=== PATIENT | female | born 1975 | race Caucasian/White ===

== ENCOUNTER 2017-06-11 03:37 | Inpatient (IN) | payer BC, OTHER ==
[~2017-06-11] VITALS: Ht 160 cm; Wt 71.7 kg
[~2017-06-11 03:37] MED LIST: HYDR1TAB PO; MPR22T TP; OMEP-10 PO; OXYC-12 PO; SULF1TAB35 PO
--- OUTSIDE RECORDS SUMMARY | 2017-06-11 03:44 | XMS REPORT ---
Author Author MARY Duran [facility] Address Unknown Care Team Providers Care Visual Merchandising Director Name Role Phone MARY Duran Unavailable PROBLEMS Unknown Problems ALLERGIES Substance Reaction Event Type Date Status N.K.D.A. Unknown Non Drug Allergy Aug, Unknown SOCIAL HISTORY No smoking Hx information available PLAN OF CARE Activity Details Follow Up prn Reason: VITAL SIGNS MEDICATIONS No Known Medications RESULTS No Results PROCEDURES Procedure Date Ordered Related Diagnosis Body Site LTD ORAL EVALUATION - PROBLEM FOCUS Aug 27, 2016 INTRAORL-PERIAPICAL 1 FILM [id number] Aug 27, 2016 Billing Notes on claim Aug 27, 2016 BITEWING - SINGLE FILM Aug 27, 2016 IMMUNIZATIONS No Known Immunizations
--- OUTSIDE RECORDS SUMMARY | 2017-06-11 03:44 | XMS REPORT ---
Author Author RUPERTO COOLEY Organization [facility] Address [address] [place] [address] Care Team Providers Care Cancer Program Coordinator Name Role Phone RUPERTO COOLEY Unavailable PROBLEMS Unknown Problems ALLERGIES Substance Reaction Event Type Date Status N.K.D.A. Unknown Non Drug Allergy Aug, Unknown SOCIAL HISTORY No smoking Hx information available PLAN OF CARE Activity Details Follow Up prn Reason: VITAL SIGNS Weight 161.2 lbs 2016-08-27 Temperature 96.9 degrees Fahrenheit 2016-08-27 Heart Rate 58 bpm 2016-08-27 Respiratory Rate 18 2016-08-27 Blood pressure systolic 112 mmHg 2016-08-27 Blood pressure diastolic 76 mmHg 2016-08-27 MEDICATIONS Medication Instructions Dosage Frequency Start Date End Date Duration Status Augmentin 875-125 MG Orally every 12 hrs 1 tablet 12h Aug, Sep, 10 day(s) Active Zyrtec Allergy 10 MG Orally Once a day 1 tablet 24h Aug, Sep, 30 day(s) Active Ibuprofen 200 MG Orally every 6 hrs 1 tablet as needed 6h Active Fluticasone Propionate 50 MCG/ACT Nasally Once a day 1 spray in each nostril 24h Aug, 30 day(s) Active RESULTS Name Result Date Reference Range STREP A (IN HOUSE) 2016-08-27 STREP A negative Control + Lot # [id number] Exp date PROCEDURES Procedure Date Ordered Related Diagnosis Body Site EAR LAVAGE 2016-08-27 N/A STREP A ASSAY W/OPTIC Aug 27, 2016 Office Visit, Est Pt., Level 3 Aug 27, 2016 EAR IRRIGATION Aug 27, 2016 IMMUNIZATIONS No Known Immunizations
--- OUTSIDE RECORDS SUMMARY | 2017-06-11 03:44 | XMS REPORT | Continuity of Care Document ---
Author Author [facility] Organization [facility] Address Unknown Phone Unavailable Allergies Medications Problems Procedures Results Encounters ACCT No. Visit Date/Time Discharge Status Pt. Type Provider Facility Loc./Unit Complaint [id number] 02/09/2014 17:00:00 2013 23:59:59 CLS Outpatient [id number] 09/12/2013 00:40:00 2013 13:20:00 DIS Inpatient
[2017-06-11] MEDS ORDERED: NS IV 1000 ML 1,000 ML IV ONE ×2 (04:04→05:51)
[2017-06-11] MEDS ORDERED: fentaNYL INJECTION 100 MCG/2 ML AMP IVP STA (04:04)
--- NOTE | 2017-06-11 04:13 | ED GI ---
General Chief Complaint: Abdominal/GI Problems Stated Complaint: SEVERE ABD PAIN Nursing Triage Note: ABDOMINAL PAIN, N/V X2HRS Sepsis Screen: No Definite Risk Source of Information: Patient, Other Exam Limitations: No Limitations History of Present Illness Time Seen By Provider: 04:00 Initial Comments Patient presents to ER by private conveyance with a significant other chief complaint of abdominal pain consistent with pancreatitis. She has a history of alcoholic pancreatitis. Her last drink was 9 months ago. She isn't a alcoholic. She does not know if she has any history of triglyceridemia. She does not take any medications nor have any other significant medical history. She has no allergies to any medications. She is having nausea and vomited 1 earlier. Caregiver relates that they recently moved here from [place] and do not have a primary care physician. She says that they used to just attend with the ER whenever she had these pancreatitis attacks.. Bout of pain and nausea came on late last night. However yesterday she was having some decreased appetite and twinge of discomfort in her left upper quadrant abdomen. Allergies and Home Medications Allergies Coded Allergies: No Known Drug Allergies (Verified , 12/18/09) Home Medications Hydrocodone/Acetaminophen 1 Each Tablet, 1-2 EA PO Q4H PRN for PAIN-MODERATE, # 60 Prescribed by: ROMAN GALDAMEZ on 06/13/17923 Ibuprofen 200 Mg Tablet, 600 MG PO Q8H PRN for PAIN-MILD, (Reported) TAKES 3 (200MG) TABLETS Polyethylene Glycol 3350 17 Gm Powd.pack, 17 GM PO Q4HR, #30 Prescribed by: ROMAN GALDAMEZ on 06/13/17923 Promethazine HCl 25 Mg Tablet, 25 MG PO Q6H PRN for NAUSEA/VOMITING, #30 Prescribed by: ROMAN GALDAMEZ on 06/13/17923 Review of Systems Constitutional: No chills, No fever EENTM: No Blurred Vision, No Double Vision Respiratory: Denies Cough, Denies Shortness of Air Cardiovascular: Denies Chest Pain, Denies Edema Gastrointestinal: See HPI, Abdominal Pain, Denies Constipated, Denies Diarrhea , Nausea, Vomiting Genitourinary: Denies Burning, Denies Discharge Musculoskeletal: No back pain, No joint pain Skin: No pruritus, No rash Psychiatric/Neurological: Denies Headache, Denies Numbness, Denies Paresthesia Past Zspchhu-Xsiyji-Tvwcyq Hx Patient Social History Alcohol Use: Denies Use Recreational Drug Use: No (10 yrs ago ago) Smoking Status: Never a Smoker 2nd Hand Smoke Exposure: No Recent Foreign Travel: No Contact w/Someone Who Travel: No Recent Infectious Disease Expo: No Recent Hopitalizations: No Immunizations Up To Date Tetanus Booster (TDap): Unknown Seasonal Allergies Seasonal Allergies: No Surgeries History of Surgeries: Yes Surgeries: Appendectomy Respiratory History of Respiratory Disorde: No Cardiovascular History of Cardiac Disorders: No Neurological History of Neurological Disord: No Reproductive System : No Hx Reproductive Disorders: No Genitourinary History of Genitourinary Disor: No Gastrointestinal History of Gastrointestinal Di: Yes Gastrointestinal Disorders: Pancreatitis Musculoskeletal History of Musculoskeletal Dis: No Endocrine History of Endocrine Disorders: No HEENT History of HEENT Disorders: No Cancer History of Cancer: No Psychosocial History of Psychiatric Problem: No Integumentary History of Skin or Integumenta: No Blood Transfusions History of Blood Disorders: No Family Medical History Family Medial History: Congestive heart failure 03 MOTHER (50 ) Family history: Cardiovascular disease 03 MOTHER (50 ) Family history: Coronary thrombosis 03 MOTHER (50 ) Family history: Diabetes mellitus 03 MOTHER (50 ) Family history: Hypertension 03 MOTHER (50 ) Hypercholesterolemia 03 MOTHER (50 ) Malignant neoplasm of lung 03 FATHER (70 ) Physical Exam Vital Signs VS - Last 72 Hours, by Label 06/11/17 03:48 Temp 97.2 Pulse 74 Resp 20 B/P (MAP) 143/95 Pulse Ox 97 O2 Delivery Room Air Capillary Refill : Less Than 3 Seconds General Appearance: WD/WN, moderate distress HEENT: PERRL/EOMI, pharynx normal Neck: non-tender, normal inspection Respiratory: chest non-tender, lungs clear, normal breath sounds Cardiovascular: normal peripheral pulses, regular rate, rhythm, no edema Peripheral Pulses: 2+ Radial Pulses (R), 2+ Radial Pulses (L) Gastrointestinal: normal bowel sounds, No distended, guarding, tenderness ( diffusely but mostly epigastric) Extremities: non-tender, normal inspection, no pedal edema, normal capillary refill Back: normal inspection, no CVA tenderness, no vertebral tenderness Neurologic/Psychiatric: alert, oriented x 3 Skin: normal color, warm/dry Focused Exam Evaluation Lactate Level Laboratory Tests 06/11/17 04:30: Lactic Acid Level 1.19 Lactic Acid Level Laboratory Tests Test 06/11/17 04:30 Lactic Acid Level 1.19 MMOL/L (0.50-2.00) Progress/Results/Core Measures Results/Orders Lab Results Laboratory Tests Test 06/11/17 04:30 Range/Units White Blood Count 16.6 H 4.3-11.0 10^3/uL Red Blood Count 5.23 4.35-5.85 10^6/uL Hemoglobin 16.3 H 11.5-16.0 G/DL Hematocrit 48 35-52 % Mean Corpuscular Volume 91 80-99 FL Mean Corpuscular Hemoglobin 31 25-34 PG Mean Corpuscular Hemoglobin Concent 34 32-36 G/DL Red Cell Distribution Width 12.6 10.0-14.5 % Platelet Count 322 130-400 10^3/uL Mean Platelet Volume 9.3 7.4-10.4 FL Neutrophils (%) (Auto) 83 H 42-75 % Lymphocytes (%) (Auto) 11 L 12-44 % Monocytes (%) (Auto) 5 0-12 % Eosinophils (%) (Auto) 1 0-10 % Basophils (%) (Auto) 1 0-10 % Neutrophils # (Auto) 13.8 H 1.8-7.8 X 10^3 Lymphocytes # (Auto) 1.8 1.0-4.0 X 10^3 Monocytes # (Auto) 0.8 0.0-1.0 X 10^3 Eosinophils # (Auto) 0.1 0.0-0.3 10^3/uL Basophils # (Auto) 0.1 0.0-0.1 10^3/uL Neutrophils % (Manual) 85 % Lymphocytes % (Manual) 6 % Monocytes % (Manual) 5 % Band Neutrophils 4 % Blood Morphology Comment NORMAL Sodium Level 140 135-145 MMOL/L Potassium Level 3.8 3.6-5.0 MMOL/L Chloride Level 108 H 98-107 MMOL/L Carbon Dioxide Level 17 L 21-32 MMOL/L Anion Gap 15 H 5-14 MMOL/L Blood Urea Nitrogen 14 7-18 MG/DL Creatinine 0.85 0.60-1.30 MG/DL Estimat Glomerular Filtration Rate > 60 BUN/Creatinine Ratio 16 Glucose Level 121 H 70-105 MG/DL Lactic Acid Level 1.19 0.50-2.00 MMOL/L Calcium Level 8.8 8.5-10.1 MG/DL Magnesium Level 2.3 1.8-2.4 MG/DL Total Bilirubin 0.8 0.1-1.0 MG/DL Aspartate Amino Transf (AST/SGOT) 26 5-34 U/L Alanine Aminotransferase (ALT/SGPT) 21 0-55 U/L Alkaline Phosphatase 44 40-136 U/L Total Protein 7.2 6.4-8.2 GM/DL Albumin 4.2 3.2-4.5 GM/DL Triglycerides Level 82 <150 MG/DL Lipase 4860 H 8-78 U/L Serum Alcohol < 10 <10 MG/DL My Orders Orders - ELOISETERESA Alcohol (06/11/17 04:04) Cbc With Automated Diff (06/11/17 04:04) Drug Screen Stat (Urine) (06/11/17 04:04) Hcg,Qualitative Urine (06/11/17 04:04) Lactic Acid Analyzer (06/11/17 04:04) Lipase (06/11/17 04:04) Magnesium (06/11/17 04:04) Ua Culture If Indicated (06/11/17 04:04) Saline Lock/Iv-Start (06/11/17 04:04) Fentanyl Injection (Sublimaze Injection (06/11/17 04:04) Ns Iv 1000 Ml (Sodium Chloride 0.9%) (06/11/17 04:04) Triglycerides (06/11/17 04:04) Ondansetron Injection (Zofran Injectio (06/11/17 04:15) Famotidine Injection (Pepcid Injection) (06/11/17 04:15) Manual Differential (06/11/17 04:30) Fentanyl Injection (Sublimaze Injection (06/11/17 05:00) Comprehensive Metabolic Panel (06/11/17 05:29) Fentanyl Injection (Sublimaze Injection (06/11/17 05:30) Promethazine Injection (Phenergan Injec (06/11/17 05:45) Medications Given in ED Vital Signs/I&O Vital Sign - Last 12Hours 06/11/17 03:48 Temp 97.2 Pulse 74 Resp 20 B/P (MAP) 143/95 Pulse Ox 97 O2 Delivery Room Air Blood Pressure Mean: 111 Progress Note : Time: 05:52 Progress Note Trying to get patient's pain and nausea under control and she is not willing to undergo a CT scan at this time as she does not want to lay still. This will not change her immediate management. We'll add another liter of fluid to her and get her admitted with some potent pain and nausea medicines and the inpatient team can consider doing imaging later if it is felt necessary for her pancreatitis. Diagnostic Imaging Diagonstic Imaging: CT Plain Films/CT/US/NM/MRI: abdomen, pelvis (with contrast) Departure Communication (Admissions) Time/Spoke to Admitting Phy: 06:01 Communication Discussed the patient's clinical exam, laboratory findings with Dr. Ford and the plan to give fluids and pain medicines admitted for pancreatitis. Impression Impression: Primary Impression: Acute pancreatitis Disposition: ADMITTED INPATIENT Condition: Stable Admissions Decision to Admit Reason: Admit from ER (General) Decision to Admit/Date: Jun 11, 2017 Time/Decision to Admit Time: 05:51 Departure-Patient Inst. Referrals: NO,LOCAL PHYSICIAN (PCP/Family) Primary Care Physician Scripts Promethazine HCl (Promethazine Tablet) 25 Mg Tablet 25 MG PO Q6H Y for NAUSEA/VOMITING, #30 TAB Prov: ROMAN GALDAMEZ MD 06/13/17 Hydrocodone/Acetaminophen (Hydrocodon-Acetaminoph 7.5-325) 1 Each Tablet 1-2 EA PO Q4H Y for PAIN-MODERATE, #60 TAB Prov: ROMAN GALDAMEZ MD 06/13/17 Polyethylene Glycol 3350 (Polyethylene Glycol 3350) 17 Gm Powd.pack 17 GM PO Q4HR, #30 PACKET Prov: ROMAN GALDAMEZ MD 06/13/17 Copy Copies To 1: VERONIKA FORD MD, TITUS J Jun 11, 2017 04:13
[2017-06-11] MEDS ORDERED: FAMOTIDINE 20MG/2ML IV (PEPCID) IVP ONE (04:15)
[2017-06-11] MEDS ORDERED: ONDANSETRON 4 MG/2 ML (SDV) Z0FRAN IVP ONE (04:15)
[2017-06-11 04:36] LABS: BASOPHILS # (AUTO) 0.1 10^3/uL (0.0-0.1); BASOPHILS % (AUTO) 1 % (0-10); EOSINOPHILS # (AUTO) 0.1 10^3/uL (0.0-0.3); EOSINOPHILS % (AUTO) 1 % (0-10); LYMPHOCYTES # (AUTO) 1.8 X 10^3 (1.0-4.0); LYMPHOCYTES % (AUTO) 11 % (12-44); MEAN CORPUSCULAR HEMOGLOBIN 31 PG (25-34); MEAN CORPUSCULAR HGB CONC 34 G/DL (32-36); MEAN CORPUSCULAR VOLUME 91 FL (80-99); MEAN PLATELET VOLUME 9.3 FL (7.4-10.4); MONOCYTES # (AUTO) 0.8 X 10^3 (0.0-1.0); MONOCYTES % (AUTO) 5 % (0-12); NEUTROPHILS # (AUTO) 13.8 X 10^3 (1.8-7.8); NEUTROPHILS % (AUTO) 83 % (42-75); PLATELET COUNT 322 10^3/uL (130-400); RED BLOOD COUNT 5.23 10^6/uL (4.35-5.85); RED CELL DISTRIBUTION WIDTH 12.6 % (10.0-14.5); WHITE BLOOD COUNT 16.6 10^3/uL (4.3-11.0)
[2017-06-11 04:55] LABS: ALCOHOL < 10 MG/DL (<10); MAGNESIUM 2.3 MG/DL (1.8-2.4); TRIGLYCERIDES 82 MG/DL (<150)
[2017-06-11 04:58] LABS: BAND NEUTROPHILS 4 %; LYMPHOCYTES % (MANUAL) 6 %; NEUTROPHILS % (MANUAL) 85 %
[2017-06-11] MEDS ORDERED: fentaNYL INJECTION 100 MCG/2 ML AMP IVP ONE ×2 (05:00→05:30)
[2017-06-11 05:38] LABS: LIPASE 4860 U/L (8-78)
[2017-06-11] MEDS ORDERED: PROMETHAZINE INJ 25 MG/ML (PHENERGAN) AMP IVP ONE (05:45)
[2017-06-11 05:47] LABS: ALANINE AMINOTRANSFERASE 21 U/L (0-55); ALBUMIN 4.2 GM/DL (3.2-4.5); ANION GAP 15 MMOL/L (5-14); ASPARTATE AMINO TRANSFERASE 26 U/L (5-34); BILIRUBIN,TOTAL 0.8 MG/DL (0.1-1.0); BLOOD UREA NITROGEN 14 MG/DL (7-18); BUN/CREATININE RATIO 16; CALCIUM 8.8 MG/DL (8.5-10.1); CARBON DIOXIDE 17 MMOL/L (21-32); CHLORIDE 108 MMOL/L (98-107); CREATININE SERUM 0.85 MG/DL (0.60-1.30); GFR ESTIMATED > 60; GLUCOSE 121 MG/DL (70-105); POTASSIUM 3.8 MMOL/L (3.6-5.0); SODIUM 140 MMOL/L (135-145); TOTAL PROTEIN 7.2 GM/DL (6.4-8.2)
--- OUTSIDE RECORDS SUMMARY | 2017-06-11 06:12 | XMS REPORT | Continuity of Care Document ---
Author Author [facility] Organization [facility] Address Unknown Phone Unavailable Allergies Medications Problems Procedures Results Encounters ACCT No. Visit Date/Time Discharge Status Pt. Type Provider Facility Loc./Unit Complaint [id number] 02/09/2014 17:00:00 2013 23:59:59 CLS Outpatient [id number] 09/12/2013 00:40:00 2013 13:20:00 DIS Inpatient
[2017-06-11 06:30] VITALS: BP 172/99
[2017-06-11] MEDS ORDERED: PROMETHAZINE INJ 25 MG/ML (PHENERGAN) AMP IM PRN (07:15)
[2017-06-11] MEDS ORDERED: HYDROmorphone (DILAUDID) 2 MG/ML VIAL IV PRN (07:15)
[2017-06-11] MEDS: fentaNYL INJECTION 100 MCG/2 ML AMP IV PRN ×2 (07:22→09:33)
[2017-06-11] MEDS: NS IV 1000 ML 1,000 ML IV SCH ×4 (07:56→22:16)
[2017-06-11 08:00] VITALS: BP 170/93
[2017-06-11] MEDS: FAMOTIDINE 20MG/2ML IV (PEPCID) IV SCH ×2 (08:32→20:18)
[2017-06-11] MEDS ORDERED: NS IV 1000 ML 1,000 ML IV SCH (10:33)
[2017-06-11] MEDS ORDERED: ONDANSETRON 4 MG/2 ML (SDV) Z0FRAN IV PRN (10:45)
[2017-06-11] MEDS ORDERED: NALOXONE 0.4 MG/ML 1 ML (NARCAN) VIAL IV PRN (10:45)
[2017-06-11] MEDS ORDERED: IOHEXOL 350 MG/ML 100 ML (OMNIPAQUE 350) VIAL IV ONE (10:45)
[2017-06-11] MEDS ORDERED: diphenhydrAMINE 50 MG/ML INJ (BENADRYL) IV PRN (10:45)
[2017-06-11] MEDS ORDERED: NS 100 ML (IVPB) BAG IV ONE (10:45)
[2017-06-11] MEDS: HYDROmorphone PCA 0.2 MG/ML 30 ML (DILAUDID) IV PRN ×2 (10:54→20:58)
[2017-06-11] MEDS: ONDANSETRON 4 MG/2 ML (SDV) Z0FRAN IV PRN ×2 (11:01→20:17)
--- NOTE | 2017-06-11 11:02 | History & Physical-Hospitalist ---
HPI History of Present Illness: HPI/Chief Complaint CC: Pancreatitis HPI: This is a 42 yoWF pt who presented to ER with pain associated with pancreatitis. Pt has a hx of alcoholic pancreatitis. WBC 16.6, lipase 4860. 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 Pt was screaming and could be heard down the hallway when current RN arrived. Pt is not answering admission questions; she will only grunt or shake head. Pt will only talk to request pain meds Pt refused CT in ER Patient Interview: Pt's sister was visiting pt upon interview Pt states she would like to have a pain shot before her CT scan; the last time she had a CT she was in a lot of pain. I am okay with this plan and this was discussed with the pt. Pt was informed that a CT is needed and will help to rule out pseudocysts. Pt denies ETOH use for about 9 months. Pancreatitis was discussed and pt was informed that once a patient has pancreatitis it is possible that it can be recurrent. Physical exam stable. Pt states that the current pain meds she is on only take edge off. Pt states Dilaudid works best for her pain. Pt confirms working at [employer] [facility] [facility] [employer]; she states she has been there for a year Scribed by Kami Pope under the direct supervision of Dr. Perez. Source: patient, family Exam Limitations: no limitations Date Seen 06/11/17 Time Seen by Provider: 10:30 Attending Physician Con Mariano MD PCP No,Local Physician Referring Physician Date of Admission Jun 11, 2017 at 05:50 Home Medications & Allergies Home Medications Reviewed patient Home Medication Reconciliation Form Allergies Allergies Coded Allergies No Known Drug Allergies (Verified12/18/09) Past Fpzihur-Gxcobo-Iicqqt Hx Patient Social History Marrital Status: single Employed/Student: employed ([employer] x 1 year) Alcohol Use: Past History Recreational Drug Use: No (10 yrs ago ago) Smoking Status: Current Everyday Smoker 2nd Hand Smoke Exposure: No Recent Foreign Travel: No Contact w/other who traveled: No Recent Hopitalizations: No Recent Infectious Disease Expo: No Immunizations Up To Date Tetanus Booster (TDap): Unknown Seasonal Allergies Seasonal Allergies: No Surgeries Yes Appendectomy Respiratory No Cardiovascular No Neurological No Reproductive System : No Hx Reproductive Disorders: No Genitourinary No Gastrointestinal Yes Pancreatitis Musculoskeletal No Endocrine History of Endocrine Disorders: No HEENT History of HEENT Disorders: No Cancer No Psychosocial History of Psychiatric Problem: No Integumentary History of Skin or Integumenta: No Blood Transfusions History of Blood Disorders: No Family Medical History Family Hx: Congestive heart failure 03 MOTHER (50 ) Family history: Cardiovascular disease 03 MOTHER (50 ) Family history: Coronary thrombosis 03 MOTHER (50 ) Family history: Diabetes mellitus 03 MOTHER (50 ) Family history: Hypertension 03 MOTHER (50 ) Hypercholesterolemia 03 MOTHER (50 ) Malignant neoplasm of lung 03 FATHER (70 ) Review of Systems Constitutional: see HPI EENTM: no symptoms reported Respiratory: no symptoms reported Cardiovascular: no symptoms reported Gastrointestinal: abdominal pain (LUQ), loss of appetite, nausea, vomiting Genitourinary: no symptoms reported Musculoskeletal: no symptoms reported Skin: no symptoms reported Psychiatric/Neurological: No Symptoms Reported All Other Systems Reviewed Negative Unless Noted: Yes Physical Exam Physical Exam Vital Signs Vital Sign - Last 12Hours 06/11/17 06/11/17 03:48 11:11 Temp 97.2 Pulse 74 Resp 20 B/P (MAP) 143/95 Pulse Ox 97 O2 Delivery Room Air FiO2 21 Capillary Refill : Less Than 3 Seconds General Appearance: WD/WN, Chronically ill, Moderate Distress Eyes: Bilateral Eye Normal Inspection, Bilateral Eye PERRL HEENT: PERRL/EOMI, Normal ENT Inspection, Pharynx Normal Neck: Full Range of Motion, Normal Inspection, Non Tender, Supple, Carotid Bruit Respiratory: Chest Non Tender, Lungs Clear, Normal Breath Sounds, No Accessory Muscle Use, No Respiratory Distress Cardiovascular: Regular Rate, Rhythm, No Edema, No Gallop, No JVD, No Murmur, Normal Peripheral Pulses Gastrointestinal: Normal Bowel Sounds, No Organomegaly, No Pulsatile Mass, Abnormal Bowel Sounds, Tenderness Back: Normal Inspection, No CVA Tenderness, No Vertebral Tenderness Extremity: Normal Capillary Refill, Normal Inspection, Normal Range of Motion, Non Tender, No Calf Tenderness, No Pedal Edema Neurologic/Psychiatric: Alert, Oriented x3, No Motor/Sensory Deficits, Normal Mood/Affect Skin: Normal Color, Warm/Dry Lymphatic: No Adenopathy Results Results/Procedures Lab Laboratory Tests 06/11/17 04:30 Assessment/Plan Admission Diagnosis Assessment: Acute pancreatitis previously had alcoholic pancreatitis that required alcohol cessation for the past 9 months Active smoker Assessment and Plan Plan: Conferred with Dr. 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
[2017-06-11 12:00] VITALS: BP 162/94
[2017-06-11] MEDS ORDERED: INFLUENZA TRIvalent 2017-2018 0.5 ML/45 MCG SYR IM ONE (12:15)
--- NOTE | 2017-06-11 13:34 | Consultation ---
History of Present Illness History of Present Illness Patient Consulted On(dustin/time) 06/11/17 13:29 Date Seen by Provider: Jun 11, 2017 Time Seen by Provider: 13:15 History of Present Illness This is a 42 year old female who was seen with Dr. Singh. Patient reports that she developed this LUQ pain starting a couple days ago. She reports that she also started her period and thought this was the pain however persisted and continued to become more severe. She then presented to the ER this AM. She reports nausea associated with her pain and reports that she did vomit earlier this AM. She reports a history of pancreatitis and has a history of drinking alcohol. She reports that she has not had a drink in several months. She reports she is still having pain but better since the pain medication. She reports some nausea but no vomiting since this AM. Allergies and Home Medications Allergies Coded Allergies: No Known Drug Allergies (Verified , 12/18/09) Home Medications No Active Prescriptions or Reported Meds Past A[place]rlau-Pcanjz-Dinvce Hx Patient Social History Alcohol Use: Past History Recreational Drug Use: No (10 yrs ago ago) Smoking Status: Current Everyday Smoker 2nd Hand Smoke Exposure: No Recent Foreign Travel: No Contact w/Someone Who Travel: No Recent Infectious Disease Expo: No Recent Hopitalizations: No Immunizations Up To Date Tetanus Booster (TDap): Unknown Seasonal Allergies Seasonal Allergies: No Surgeries History of Surgeries: Yes Surgeries: Appendectomy Respiratory History of Respiratory Disorde: No Cardiovascular History of Cardiac Disorders: No Neurological History of Neurological Disord: No Reproductive System : No Hx Reproductive Disorders: No Genitourinary History of Genitourinary Disor: No Gastrointestinal History of Gastrointestinal Di: Yes Gastrointestinal Disorders: Pancreatitis Musculoskeletal History of Musculoskeletal Dis: No Endocrine History of Endocrine Disorders: No HEENT History of HEENT Disorders: No Cancer History of Cancer: No Psychosocial History of Psychiatric Problem: No Integumentary History of Skin or Integumenta: No Blood Transfusions History of Blood Disorders: No Family Medical History Family Medial History: Congestive heart failure 03 MOTHER (50 ) Family history: Cardiovascular disease 03 MOTHER (50 ) Family history: Coronary thrombosis 03 MOTHER (50 ) Family history: Diabetes mellitus 03 MOTHER (50 ) Family history: Hypertension 03 MOTHER (50 ) Hypercholesterolemia 03 MOTHER (50 ) Malignant neoplasm of lung 03 FATHER (70 ) Review of Systems-General Constitutional: No chills, No fever EENTM: no symptoms reported Respiratory: no symptoms reported Cardiovascular: no symptoms reported Gastrointestinal: see HPI Genitourinary: no symptoms reported Musculoskeletal: no symptoms reported Skin: no symptoms reported Psychiatric/Neurological: No Symptoms Reported Physical Exam-General Problems Physical Exam Vital Signs Vital Sign - Last 12Hours 06/11/17 06/11/17 03:48 11:11 Temp 97.2 Pulse 74 Resp 20 B/P (MAP) 143/95 Pulse Ox 97 O2 Delivery Room Air FiO2 21 Capillary Refill : Less Than 3 Seconds General Appearance: WD/WN, no apparent distress HEENT: PERRL/EOMI, normal ENT inspection Neck: non-tender, full range of motion, supple, normal inspection Respiratory: lungs clear, no respiratory distress, no accessory muscle use Cardiovascular: regular rate, rhythm Gastrointestinal: normal bowel sounds, soft, tenderness Back: normal inspection, no CVA tenderness, no vertebral tenderness Extremities: normal range of motion, non-tender, normal inspection, no pedal edema, no calf tenderness, normal capillary refill Neurologic/Psychiatric: alert, oriented x 3 Skin: normal color, warm/dry Assessment/Plan Assessment/Plan Admission Diagnosis/Plan A 42 year old female with Acute pancreatitis. Will continue with IV fluids, pain and nausea medication. Will start clear liquid diet. Continue with medical management. Clinical Quality Measures DVT/VTE Risk/Contraindication: Risk Factor Score Per Nursin RFS Level Per Nursing on Admit: 2=Moderate Copy Copies To 1: EYAL SINGH MD, DUSTIN L APRN Jun 11, 2017 13:34
--- NOTE | 2017-06-11 14:15 | Diagnostic Imaging Report ---
PROCEDURE: CT abdomen and pelvis with contrast. TECHNIQUE: Multiple contiguous axial images were obtained through the abdomen and pelvis after administration of intravenous contrast. INDICATION: Pancreatitis. Nausea and vomiting. CONTRAST: 100 mL of Omnipaque 350 was administered intravenously. COMPARISON: 01/27/2012. FINDINGS: The lung bases demonstrate minimal atelectasis or scarring. There is a 2.4 cm left adrenal mass with prominent post contrast enhancement and central low density. There is prominent washout on the delayed phase images. This is a new lesion from the comparison exam of 01/27/2012. The right adrenal gland, liver, gallbladder, and spleen appear unremarkable. The pancreas is edematous and surrounded by a significant amount of fluid without evidence of necrosis. This is compatible with edematous interstitial pancreatitis with an acute peripancreatic fluid collection. The fluid does have extension into the retroperitoneum in the lower abdomen and mesentery with a moderate amount of free pelvic fluid also identified. There is no evidence of an abscess. No walled off collection at this time. The kidneys have symmetric enhancement and contrast excretion. No hydronephrosis. The abdominal aorta is normal in caliber. No periaortic significantly enlarged lymph node is seen. There is no bowel obstruction. A moderate amount of fecal material is seen in the colon. Surgical sutures near the base of the cecum are probably from prior appendectomy. In the pelvis, there is a 5.8 x 6.2 x 6.7 cm mass arising from the posterior aspect of the body of the uterus. This was seen on the 2012 exam and measured up to 3 cm in size. The urinary bladder appears unremarkable. The osseous structures appear grossly unremarkable. IMPRESSION: 1. Acute edematous interstitial pancreatitis. There is a prominent acute peripancreatic fluid collection. 2. There is a 2.3 cm left adrenal mass, new from the 01/27/2012 exam. This is worrisome for adrenal metastasis or pheochromocytoma. Adrenal adenoma is still a possibility. Imaging of the chest to rule out primary lung cancer is recommended. This lesion could also be further evaluated with an MRI of the abdomen or PET/CT. 3. A 6.7 cm mass arising from the posterior aspect of the uterus has enlarged from 3 cm in 2012 is favored to be a uterine fibroid. In the presence of the adrenal mass, leiomyosarcoma as a possibility could be considered. 4. The findings were discussed with Dr. Mckeon at the time of dictation by phone. Dictated by: Dictated on workstation # [id number]
[2017-06-11] MEDS ORDERED: IBUP-30 PO (15:36)
[2017-06-11 16:35] VITALS: BP 156/84
--- NOTE | 2017-06-11 16:42 | Diagnostic Imaging Report ---
INDICATION: Pancreatitis. Adrenal and uterine masses. Possible lung primary. COMPARISON: 09/21/2007. FINDINGS: Frontal and lateral views of the chest demonstrate normal heart size and pulmonary vascularity. The lungs are clear. There are no signs of infiltrate, pleural effusions or pneumothoraces. The visualized osseous structures show no acute abnormalities. IMPRESSION: 1. No acute process. No signs of infiltrates, effusions or pneumothoraces. Dictated by: Dictated on workstation # [id number]
[2017-06-11 20:00] VITALS: BP 160/87
[2017-06-12 00:20] VITALS: BP 143/91
[2017-06-12] MEDS: ONDANSETRON 4 MG/2 ML (SDV) Z0FRAN IV PRN (02:16)
[2017-06-12 04:12] VITALS: BP 119/67
[2017-06-12] MEDS: NS IV 1000 ML 1,000 ML IV SCH ×3 (04:41→21:24)
[2017-06-12] MEDS: METOCLOPRAMIDE INJ 10 MG/2 ML (REGLAN) IV PRN ×3 (04:41→19:31)
[2017-06-12] MEDS: HYDROmorphone PCA 0.2 MG/ML 30 ML (DILAUDID) IV PRN (05:25)
[2017-06-12 07:59] VITALS: BP 124/72
--- NOTE | 2017-06-12 08:09 | Consultation ---
History of Present Illness History of Present Illness Patient Consulted On(dustin/time) 06/12/17 07:53 Date Seen by Provider: Jun 12, 2017 Time Seen by Provider: 07:53 Reason for Visit: uterine and adrenal mass History of Present Illness this is a consult note. Patient is in room 428. Consulting physician is Dr. Atwood. Reason for consultation is pelvic (and adrenal masses) This patient is a 42-year-old nulligravida white female admitted June 11, 2017 via the ED secondary to acute pancreatitis. Her evaluation included a CT of the abdomen and pelvis which confirmed the pancreatitis. Also demonstrated a 6.7 cm posterior uterine mass. Mass apparently was present in [address] and was 3 cm at that time. Current CT also showed a 2.3 cm left adrenal mass. Concern now is for the possibility of a uterine malignancy with metastases to the kidney or adrenal. Patient reports her last menstrual period June 09 of this year. She has regular monthly menses. She has no intermenstrual bleeding. She denies vaginal discharge. She has no issues with her bowel or bladder habits that she has some clots when she does have her period and per her report that seemed to be progressing in size and frequency with her periods. She also complains of increasing cramps and pelvic pressure primarily with her.. Her last Pap smear was within the last 7 months and was normal. Her Pap smear per her report have always been normal. Patient is an adequate historian however she indicated that she would like to talk later as she has recently had Dilaudid for pain and does not feel that her mentation is adequate at the moment. Allergies are none Medications on admission were none medications are per the Jazzy Morales Past medical history is significant for prior episodes of pancreatitis. Past surgical history includes appendectomy Past obstetric history patient is nulligravida. Pap smears have been normal. Menstrual formula 12-28-3 to 6 family history is significant for diabetes hypertension is no family history of gynecologic or last cancers Social history patient is a smoker, she has used alcohol regularly in the past. She denies alcohol intake in the last 9 months. Review of systems as per the history of present illness Lab work has been reviewed and is significant for white count of 16.6 hemoglobin 16.3. Patient's lipase was 4860 Patient had a chest x-ray that was normal CT of the abdomen and pelvis as noted above showed a uterine mass likely a fibroid however there is concern for leiomyosarcoma CT also demonstrated a left adrenal mass balance of the CT was normal except for confirming the edematous pancreatitis Limited physical exam HEENT exam is normal Neck is supple with no lymphadenopathy or thyromegaly Abdomen is soft somewhat diffusely tender more so in the upper regions extremities show no clubbing or cyanosis. There is some edema. Pelvic exam is deferred Assessment and plan 42-year-old nulligravida female with a uterine mass that has been present first noted 5 years ago. Patient understands that 50 percent of women at her age would have uterine fibroids and this is quite likely uterine fibroid. However with the finding of a left adrenal mass of concern for a late menses with metastatic disease is of concern saturation at this point. . 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 We'll obtain a baseline CA-125 and I would favor ultrasound in my clinic to see her in follow-up with consideration for needle biopsy of the uterine mass. This patient felt somewhat narcotized due to her recent pain medication. She requested that I return later, which I'm happy to do. I would defer further evaluation of the adrenal mass to Dr. Atwood, et al. Thank you for this consultation, I will return later today and I will follow along with you and plan on seeing this patient in follow-up after discharge addendum on 1216 at 1830 p.m. Additional information been available appears that the adrenal masses patient has is not new to her apparently it has been biopsied and she was told it was benign. I have spoken with her again this evening. she does ask about the enlarging mass on the uterus. We discussed that this is likely a fibroid that she should have follow-up in regard to her. She indicates that her periods have been progressing over the years to the point where she bleeds very heavily and has large heavy clots. Again we discussed having follow-up in clinic for evaluation of this issue as her primary issue at the moment is her pancreatitis. I remain available if maybe further assistance with this patient otherwise I will plan to see her back in 3 weeks after discharge in my clinic Allergies and Home Medications Allergies Coded Allergies: No Known Drug Allergies (Verified , 12/18/09) Home Medications Ibuprofen 200 Mg Tablet, 600 MG PO Q8H PRN for PAIN-MILD, (Reported) TAKES 3 (200MG) TABLETS Past Tjamqdq-Gyxulq-Lzlann Hx Patient Social History Alcohol Use: Past History Recreational Drug Use: No (10 yrs ago ago) Smoking Status: Current Everyday Smoker 2nd Hand Smoke Exposure: No Recent Foreign Travel: No Contact w/Someone Who Travel: No Recent Infectious Disease Expo: No Recent Hopitalizations: No Immunizations Up To Date Tetanus Booster (TDap): Unknown Seasonal Allergies Seasonal Allergies: No Surgeries History of Surgeries: Yes Surgeries: Appendectomy Respiratory History of Respiratory Disorde: No Cardiovascular History of Cardiac Disorders: No Neurological History of Neurological Disord: No Reproductive System : No Hx Reproductive Disorders: No Genitourinary History of Genitourinary Disor: No Gastrointestinal History of Gastrointestinal Di: Yes Gastrointestinal Disorders: Pancreatitis Musculoskeletal History of Musculoskeletal Dis: No Endocrine History of Endocrine Disorders: No HEENT History of HEENT Disorders: No Cancer History of Cancer: No Psychosocial History of Psychiatric Problem: No Integumentary History of Skin or Integumenta: No Blood Transfusions History of Blood Disorders: No Family Medical History Family Medial History: Congestive heart failure 03 MOTHER (50 ) Family history: Cardiovascular disease 03 MOTHER (50 ) Family history: Coronary thrombosis 03 MOTHER (50 ) Family history: Diabetes mellitus 03 MOTHER (50 ) Family history: Hypertension 03 MOTHER (50 ) Hypercholesterolemia 03 MOTHER (50 ) Malignant neoplasm of lung 03 FATHER (70 ) Physical Exam-General Problems Physical Exam Vital Signs Vital Sign - Last 12Hours 06/11/17 06/11/17 06/12/17 03:48 11:11 06:57 Temp 97.2 Pulse 74 Resp 20 B/P (MAP) 143/95 Pulse Ox 97 O2 Delivery Room Air O2 Flow Rate 1.00 FiO2 21 Capillary Refill : Less Than 3 Seconds Assessment/Plan Assessment/Plan Admission Diagnosis/Plan see consult note Clinical Quality Measures DVT/VTE Risk/Contraindication: Risk Factor Score Per Nursin RFS Level Per Nursing on Admit: 2=Moderate MICHELLE MCGUIRE MD Jun 12, 2017 08:08
[2017-06-12] MEDS: FAMOTIDINE 20MG/2ML IV (PEPCID) IV SCH ×2 (08:42→19:32)
[2017-06-12] MEDS: SENNA W/DOCUSATE (SENOKOT S) TABLET PO SCH (08:42)
[2017-06-12 08:58] LABS: BASOPHILS % (AUTO) 0 % (0-10); EOSINOPHILS % (AUTO) 0 % (0-10); LYMPHOCYTES # (AUTO) 0.7 X 10^3 (1.0-4.0); LYMPHOCYTES % (AUTO) 6 % (12-44); MEAN CORPUSCULAR HEMOGLOBIN 31 PG (25-34); MEAN CORPUSCULAR HGB CONC 34 G/DL (32-36); MEAN CORPUSCULAR VOLUME 92 FL (80-99); MONOCYTES # (AUTO) 0.7 X 10^3 (0.0-1.0); MONOCYTES % (AUTO) 6 % (0-12); NEUTROPHILS # (AUTO) 11.4 X 10^3 (1.8-7.8); NEUTROPHILS % (AUTO) 89 % (42-75); PLATELET COUNT 221 10^3/uL (130-400); RED BLOOD COUNT 4.54 10^6/uL (4.35-5.85); RED CELL DISTRIBUTION WIDTH 12.7 % (10.0-14.5); WHITE BLOOD COUNT 12.9 10^3/uL (4.3-11.0)
[2017-06-12 09:17] LABS: ALANINE AMINOTRANSFERASE 12 U/L (0-55); ALBUMIN 3.4 GM/DL (3.2-4.5); ANION GAP 9 MMOL/L (5-14); ASPARTATE AMINO TRANSFERASE 13 U/L (5-34); BILIRUBIN,TOTAL 1.1 MG/DL (0.1-1.0); BLOOD UREA NITROGEN 8 MG/DL (7-18); BUN/CREATININE RATIO 14; CALCIUM 7.4 MG/DL (8.5-10.1); CARBON DIOXIDE 19 MMOL/L (21-32); CHLORIDE 110 MMOL/L (98-107); CREATININE SERUM 0.59 MG/DL (0.60-1.30); GFR ESTIMATED > 60; GLUCOSE 103 MG/DL (70-105); POTASSIUM 3.6 MMOL/L (3.6-5.0); SODIUM 138 MMOL/L (135-145); TOTAL PROTEIN 5.7 GM/DL (6.4-8.2)
[2017-06-12 10:33] LABS: LIPASE 2075 U/L (8-78)
--- NOTE | 2017-06-12 10:33 | Progress Note-Hospitalist ---
Subjective HPI/CC On Admission Date Seen by Provider: Jun 12, 2017 Time Seen by Provider: 10:30 CC: Pancreatitis HPI: This is a 42 yoWF pt who presented to ER with pain associated with pancreatitis. Pt has a hx of alcoholic pancreatitis. WBC 16.6, lipase 4860. Subjective/Events-last exam Pt reports improvement in pain since yesterday. She has much better pain control with her SWATCH MAKER. Does still feel bloated. Last BM a few days ago. Discussed Objective Exam Vital Signs Vital Sign - Last 12Hours 06/11/17 06/11/17 06/12/17 03:48 11:11 06:57 Temp 97.2 Pulse 74 Resp 20 B/P (MAP) 143/95 Pulse Ox 97 O2 Delivery Room Air O2 Flow Rate 1.00 FiO2 21 Capillary Refill : Less Than 3 Seconds Results/Procedures Lab Laboratory Tests 06/12/17 08:45 ROMAN GALDAMEZ MD Jun 12, 2017 10:33
--- NOTE | 2017-06-12 10:57 | Progress Note-Hospitalist ---
Subjective HPI/CC On Admission Date Seen by Provider: Jun 12, 2017 Time Seen by Provider: 10:30 CC: Pancreatitis HPI: This is a 42 yoWF pt who presented to ER with pain associated with pancreatitis. Pt has a hx of alcoholic pancreatitis. WBC 16.6, lipase 4860. voltage tester: Pt arrived at 06:40. Pt was screaming and could be heard down the hallway when current RN arrived. Pt is not answering admission questions; she will only grunt or shake head. Pt will only talk to request pain meds Pt refused CT in ER Patient Interview: Pt's sister was visiting pt upon interview Pt states she would like to have a pain shot before her CT scan; the last time she had a CT she was in a lot of pain. I am okay with this plan and this was discussed with the pt. Pt was informed that a CT is needed and will help to rule out pseudocysts. Pt denies ETOH use for about 9 months. Pancreatitis was discussed and pt was informed that once a patient has pancreatitis it is possible that it can be recurrent. Physical exam stable. Pt states that the current pain meds she is on only take edge off. Pt states Dilaudid works best for her pain. Pt confirms working at [facility]; she states she has been there for a year Scribed by Kami Pope under the direct supervision of Dr. Mckeon. Subjective/Events-last exam Pt reports improvement from yesterday in pain but still having some pain. She is also complaining of nausea and feeling bloated. I discussed her CT results with her and she has already knew about the adrenal mass and has had in biopsied in the past was told it was benign. Objective Exam Vital Signs Vital Sign - Last 12Hours 06/11/17 06/11/17 06/12/17 03:48 11:11 06:57 Temp 97.2 Pulse 74 Resp 20 B/P (MAP) 143/95 Pulse Ox 97 O2 Delivery Room Air O2 Flow Rate 1.00 FiO2 21 Capillary Refill : Less Than 3 Seconds General Appearance: No Apparent Distress, WD/WN Respiratory: Lungs Clear, No Accessory Muscle Use, No Respiratory Distress Cardiovascular: Regular Rate, Rhythm, No Murmur, Normal Peripheral Pulses Gastrointestinal: Soft, Distended, No Rebound, Tenderness Extremity: Non Tender, No Calf Tenderness, No Pedal Edema Neurologic/Psychiatric: Alert, Oriented x3, No Motor/Sensory Deficits, Normal Mood/Affect Skin: Normal Color, Warm/Dry Results/Procedures Lab Laboratory Tests 06/12/17 08:45 Assessment/Plan Assessment and Plan Assess & Plan/Chief Complaint Pancreatitis Diagnosis/Problems Diagnosis/Problems (1) Acute pancreatitis Status: Acute Assessment & Plan: Started on CLD 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, attempt to transition to orals tomorrow Surgery consulted appreciate recs Sober for 9 months Qualifiers: Qualified Codes: K85.90 - Acute pancreatitis without necrosis or infection, unspecified (2) Adrenal mass Status: Chronic Assessment & Plan: Had previous biopsy Unlikely to be pheochromocytoma Normal BPs no other symptoms Advised outpatient follow up (3) Uterine mass Status: Chronic Assessment & Plan: Social Insurance Administrator consulted, appreciate recs Likely fibroid CA-125 pending (4) Tobacco abuse Assessment & Plan: Recommended cessation (5) Prophylactic measure Assessment & Plan: Lovenox CLD NS 100ml/hr ROMAN GALDAMEZ MD Jun 12, 2017 10:56
[2017-06-12 11:54] VITALS: BP 137/82
[2017-06-12 16:35] VITALS: BP 128/80
--- NOTE | 2017-06-12 16:47 | Progress Note (SOAP) ---
Subjective Date Seen by Provider: Jun 12, 2017 Time Seen by Provider: 16:35 Subjective/Events-last exam Patient seen with Dr. Palm. Patient reports doing much better. Denies any N/ V. Reports continued abdominal pain and bloating. No fever/chills. No BM yet. tolerating clear liquid diet. Review of Systems General: No Chills, No Night Sweats Gastrointestinal: Abdominal Pain, Constipation, No: Nausea, Vomiting Objective Exam Vital Signs Date Time Temp Pulse Resp B/P (MAP) Pulse Ox O2 Delivery O2 Flow Rate FiO2 06/12/17 11:54 98.9 77 20 137/82 98 Room Air 06/12/17 07:59 99.3 85 18 124/72 95 Room Air 06/12/17 07:00 21 06/12/17 06:57 93 Nasal Cannula 1.00 06/12/17 05:25 21 06/12/17 04:12 97.8 76 21 119/67 95 Room Air 06/12/17 02:24 92 Room Air 06/12/17 00:20 98.3 76 16 143/91 93 Room Air 06/11/17 22:25 92 Room Air 06/11/17 20:00 97.8 60 20 160/87 97 Room Air 06/11/17 19:28 92 Room Air I & O 06/13/17 07:00 Intake Total 440 ml Output Total 350 ml Balance 90 ml Capillary Refill : Less Than 3 Seconds General Appearance: No Apparent Distress, WD/WN HEENT: PERRL/EOMI Neck: Full Range of Motion, Normal Inspection, Non Tender, Supple Respiratory: Lungs Clear, No Accessory Muscle Use, No Respiratory Distress Cardiovascular: Regular Rate, Rhythm Gastrointestinal: soft, distended, tenderness Extremity: Normal Capillary Refill, Normal Inspection, Normal Range of Motion, Non Tender, No Calf Tenderness, No Pedal Edema Neurologic/Psychiatric: Alert, Oriented x3 Skin: Normal Color, Warm/Dry Results Lab Laboratory Tests 06/12/17 08:45: White Blood Count 12.9H, Red Blood Count 4.54, Hemoglobin 14.0, Hematocrit 42, Mean Corpuscular Volume 92, Mean Corpuscular Hemoglobin 31, Mean Corpuscular Hemoglobin Concent 34, Red Cell Distribution Width 12.7, Platelet Count 221, Mean Platelet Volume 9.0, Neutrophils (%) (Auto) 89H, Lymphocytes (%) (Auto) 6L , Monocytes (%) (Auto) 6, Eosinophils (%) (Auto) 0, Basophils (%) (Auto) 0, Neutrophils # (Auto) 11.4H, Lymphocytes # (Auto) 0.7L, Monocytes # (Auto) 0.7, Eosinophils # (Auto) 0.0, Basophils # (Auto) 0.0, Sodium Level 138, Potassium Level 3.6, Chloride Level 110H, Carbon Dioxide Level 19L, Anion Gap 9, Blood Urea Nitrogen 8, Creatinine 0.59L, Estimat Glomerular Filtration Rate > 60, BUN/ Creatinine Ratio 14, Glucose Level 103, Calcium Level 7.4L, Total Bilirubin 1.1H , Aspartate Amino Transf (AST/SGOT) 13, Alanine Aminotransferase (ALT/SGPT) 12, Alkaline Phosphatase 32L, Total Protein 5.7L, Albumin 3.4, Lipase 2075H Assessment/Plan Assessment/Plan Assess & Plan/Chief Complaint A 42 year old female with Acute pancreatitis. Will continue with IV fluids, pain and nausea medication. Will advance diet to dys3. Start miralax for constipation. Will start PO pain meds. Continue with medical management. Ok to [place] home with PO pain meds when ok with medical. Clinical Quality Measures DVT/VTE Risk/Contraindication: Risk Factor Score Per Nursin RFS Level Per Nursing on Admit: 3=High VICKY JOHNSTON APRN Jun 12, 2017 4:47 pm
[2017-06-12] MEDS ORDERED: HYDROcodone/APAP 7.5 MG/325 MG (LORTAB, LORCET PLUS) TABLET PO PRN (17:30)
[2017-06-12 19:55] VITALS: BP 113/69
[2017-06-12] MEDS: POLYETHYLENE GLYCOL 17 GM (MIRALAX) PACK PO SCH (21:24)
[2017-06-13] VITALS: BP 114/62
[2017-06-13] MEDS: HYDROmorphone PCA 0.2 MG/ML 30 ML (DILAUDID) IV PRN (04:21)
[2017-06-13 04:25] VITALS: BP 121/82
[2017-06-13 06:23] LABS: BASOPHILS % (AUTO) 0 % (0-10); EOSINOPHILS # (AUTO) 0.1 10^3/uL (0.0-0.3); EOSINOPHILS % (AUTO) 1 % (0-10); LYMPHOCYTES # (AUTO) 0.9 X 10^3 (1.0-4.0); LYMPHOCYTES % (AUTO) 6 % (12-44); MEAN CORPUSCULAR HEMOGLOBIN 31 PG (25-34); MEAN CORPUSCULAR HGB CONC 34 G/DL (32-36); MEAN CORPUSCULAR VOLUME 92 FL (80-99); MONOCYTES # (AUTO) 0.8 X 10^3 (0.0-1.0); MONOCYTES % (AUTO) 5 % (0-12); NEUTROPHILS # (AUTO) 12.8 X 10^3 (1.8-7.8); NEUTROPHILS % (AUTO) 88 % (42-75); PLATELET COUNT 208 10^3/uL (130-400); RED CELL DISTRIBUTION WIDTH 12.4 % (10.0-14.5); WHITE BLOOD COUNT 14.6 10^3/uL (4.3-11.0)
[2017-06-13 06:49] LABS: ANION GAP 11 MMOL/L (5-14); BLOOD UREA NITROGEN 4 MG/DL (7-18); BUN/CREATININE RATIO 8; CALCIUM 7.6 MG/DL (8.5-10.1); CARBON DIOXIDE 17 MMOL/L (21-32); CHLORIDE 105 MMOL/L (98-107); CREATININE SERUM 0.53 MG/DL (0.60-1.30); GFR ESTIMATED > 60; GLUCOSE 104 MG/DL (70-105); LIPASE 393 U/L (8-78); POTASSIUM 3.4 MMOL/L (3.6-5.0); SODIUM 133 MMOL/L (135-145)
[2017-06-13 08:00] VITALS: BP 134/7
[2017-06-13] MEDS: POLYETHYLENE GLYCOL 17 GM (MIRALAX) PACK PO SCH (08:51)
[2017-06-13] MEDS: FAMOTIDINE 20MG/2ML IV (PEPCID) IV SCH (08:51)
[2017-06-13] MEDS: SENNA W/DOCUSATE (SENOKOT S) TABLET PO SCH (08:51)
[2017-06-13] MEDS ORDERED: FLEET ENEMA ADULT 1 EA BTL PR PRN (09:15)
[2017-06-13] MEDS ORDERED: BISACODYL 10 MG SUPP (DULCOLAX) PR PRN (09:15)
--- NOTE | 2017-06-13 09:20 | Discharge Summary-Hospitalist ---
Diagnosis/Chief Complaint Date of Admission Jun 11, 2017 at 05:50 Date of Discharge Discharge Date: Jun 13, 2017 Admission Diagnosis Assessment: Acute pancreatitis previously had alcoholic pancreatitis that required alcohol cessation for the past 9 months Active smoker Discharge Diagnosis Pancreatitis (1) Acute pancreatitis Status: Acute Assessment & Plan: tolerate soft diet Would like to go home today, will DC INTEGRATION SOLUTION ARCHITECT Surgery consulted appreciate recs Sober for 9 months (2) Adrenal mass Status: Chronic Assessment & Plan: Had previous biopsy Unlikely to be pheochromocytoma Normal BPs no other symptoms Advised outpatient follow up (3) Uterine mass Status: Chronic Assessment & Plan: Wire Strander consulted, appreciate recs Likely fibroid CA-125 8.8 Follow up with DECISION ANALYST (4) Tobacco abuse Assessment & Plan: Recommended cessation (5) Prophylactic measure Assessment & Plan: Lovenox Dysphagia Diet Saline Lock Discharge Summary Discharge Physical Examination Allergies: Coded Allergies: No Known Drug Allergies (Verified , 12/18/09) Vitals & I&Os Vital Signs Date Time Temp Pulse Resp B/P (MAP) Pulse Ox O2 Delivery O2 Flow Rate FiO2 06/13/17 08:00 97.6 72 18 134/7 98 Room Air 06/13/17 02:35 1.00 06/11/17 15:37 21 Hospital Course Pt is a 42yoCF with a PMH of alcohol abuse and pancreatitis who presented with CC of abd pain. She was found to have recurrent pancreatitis and was admitted for inpatient management. She necessitated a INTEGRATION SOLUTION ARCHITECT for pain control and responded well. She received adequate fluid resuscitation. Initial evaluation with CT abd revealed a uterine mass and adrenal mass. Upon questioning patient she reports knowing of adrenal mass and having had it biopsied previously thus no further work up was done during this admission. Wire Strander was consulted for evaluation of uterine mass and they recommended outpatient follow up and obtaining a CA 125 which was normal. She was discharged home in stable condition. Labs (last 24 hrs) Laboratory Tests 06/13/17 06:05: White Blood Count 14.6H, Red Blood Count 4.10L, Hemoglobin 12.7, Hematocrit 38, Mean Corpuscular Volume 92, Mean Corpuscular Hemoglobin 31, Mean Corpuscular Hemoglobin Concent 34, Red Cell Distribution Width 12.4, Platelet Count 208, Mean Platelet Volume 9.0, Neutrophils (%) (Auto) 88H, Lymphocytes (%) (Auto) 6L , Monocytes (%) (Auto) 5, Eosinophils (%) (Auto) 1, Basophils (%) (Auto) 0, Neutrophils # (Auto) 12.8H, Lymphocytes # (Auto) 0.9L, Monocytes # (Auto) 0.8, Eosinophils # (Auto) 0.1, Basophils # (Auto) 0.0, Sodium Level 133L, Potassium Level 3.4L, Chloride Level 105, Carbon Dioxide Level 17L, Anion Gap 11, Blood Urea Nitrogen 4L, Creatinine 0.53L, Estimat Glomerular Filtration Rate > 60, BUN /Creatinine Ratio 8, Glucose Level 104, Calcium Level 7.6L, Lipase 393H 06/13/17 09:50: Urine Test NEGATIVE, Urine Opiates Screen POSITIVEH, Urine Oxycodone Screen NEGATIVE, Urine Methadone Screen NEGATIVE, Urine Propoxyphene Screen NEGATIVE, Urine Barbiturates Screen NEGATIVE, Ur Tricyclic Antidepressants Screen NEGATIVE, Urine Phencyclidine Screen NEGATIVE, Urine Amphetamines Screen NEGATIVE, Urine Methamphetamines Screen NEGATIVE, Urine Benzodiazepines Screen NEGATIVE, Urine Cocaine Screen NEGATIVE, Urine Cannabinoids Screen POSITIVEH Pending Labs Laboratory Tests 06/13/17 06:05: White Blood Count 14.6, Red Blood Count 4.10, Hemoglobin 12.7, Hematocrit 38, Mean Corpuscular Volume 92, Mean Corpuscular Hemoglobin 31, Mean Corpuscular Hemoglobin Concent 34, Red Cell Distribution Width 12.4, Platelet Count 208, Mean Platelet Volume 9.0, Neutrophils (%) (Auto) 88, Lymphocytes (%) (Auto) 6, Monocytes (%) (Auto) 5, Eosinophils (%) (Auto) 1, Basophils (%) (Auto) 0, Neutrophils # (Auto) 12.8, Lymphocytes # (Auto) 0.9, Monocytes # (Auto) 0.8, Eosinophils # (Auto) 0.1, Basophils # (Auto) 0.0, Sodium Level 133, Potassium Level 3.4, Chloride Level 105, Carbon Dioxide Level 17, Anion Gap 11, Blood Urea Nitrogen 4, Creatinine 0.53, Estimat Glomerular Filtration Rate > 60, BUN/ Creatinine Ratio 8, Glucose Level 104, Calcium Level 7.6, Lipase 393 06/13/17 09:50: Urine Test NEGATIVE, Urine Opiates Screen POSITIVE, Urine Oxycodone Screen NEGATIVE, Urine Methadone Screen NEGATIVE, Urine Propoxyphene Screen NEGATIVE, Urine Barbiturates Screen NEGATIVE, Ur Tricyclic Antidepressants Screen NEGATIVE, Urine Phencyclidine Screen NEGATIVE, Urine Amphetamines Screen NEGATIVE, Urine Methamphetamines Screen NEGATIVE, Urine Benzodiazepines Screen NEGATIVE, Urine Cocaine Screen NEGATIVE, Urine Cannabinoids Screen POSITIVE Discharge Home Medications: Active Scripts Active Promethazine Tablet (Promethazine HCl) 25 Mg Tablet 25 Mg PO Q6H PRN Hydrocodon-Acetaminoph 7.5-325 (Hydrocodone/Acetaminophen) 1 Each Tablet 1-2 Ea PO Q4H PRN Polyethylene Glycol 3350 17 Gm Powd.pack 17 Gm PO Q4HR Reported Advil (Ibuprofen) 200 Mg Tablet 600 Mg PO Q8H PRN TAKES 3 (200MG) TABLETS Instructions to patient/family Please see electronic discharge instructions given to patient. Clinical Quality Measures DVT/VTE Risk/Contraindication: Risk Factor Score Per Nursin RFS Level Per Nursing on Admit: 3=High Copy Copies To 1: EYAL SINGH MD Problem Qualifiers (1) Acute pancreatitis: Pancreatitis type: unspecified pancreatitis type Acute pancreatitis complication: unspecified Qualified Codes: K85.90 - Acute pancreatitis without necrosis or infection, unspecified ROMAN GALDAMEZ MD Jun 13, 2017 9:20 am
[2017-06-13] MEDS ORDERED: PROM25TA14 PO (09:24)
[2017-06-13] MEDS ORDERED: POLY17PO23 PO (09:24)
[2017-06-13] MEDS ORDERED: HYDR-3816 PO (09:24)
[2017-06-13] MEDS ORDERED: POLYETHYLENE GLYCOL 17 GM (MIRALAX) PACK PO SCH (12:00)
[2017-06-13] MEDS ORDERED: LACTULOSE SYRUP 10GM/15ML (ENULOSE) 30ML UDC PO SCH (21:00)
== END 2017-06-13 12:20 | disposition home or self-care (01) | DRG 440 ==
LOC: EDUNIT# 03:37 → ER 03:41 → 4TH 05:50
PROVIDERS: ADMIT Internal Medicine; ATTEND Internal Medicine
DX: K85.90 Acute pancreatitis without necrosis or infection, unspecified (principal); F17.210 Nicotine dependence, cigarettes, uncomplicated; N85.9 Noninflammatory disorder of uterus, unspecified; E27.9 Disorder of adrenal gland, unspecified; F10.11 Alcohol abuse, in remission
CPT/HCPCS: 36415; 71020; 74177; 80048; 80053; 80306; 80320; 83605; 83690; 83735; 84478; 84703; 85007; 85025; 86304; 94760

== ENCOUNTER 2017-06-19 08:45 | Outpatient (CLI) | payer BC ==
[~2017-06-19] VITALS: Ht 160 cm; Wt 71.7 kg
[~2017-06-19 08:45] MED LIST changes: +HYDR-3816 PO; +IBUP-30 PO; +POLY17PO23 PO; +PROM25TA14 PO
[2017-06-19] MEDS ORDERED: PROM25TA14 PO (10:33)
[2017-06-19] MEDS ORDERED: HYDR-3816 PO (10:33)
[2017-06-20] MEDS ORDERED: PANT40TA2 PO (14:19)
== END 2017-06-19 10:40 ==
LOC: PREOP 08:45
PROVIDERS: ATTEND Surgery
DX: Z01.818 Encounter for other preprocedural examination (principal); R11.2 Nausea with vomiting, unspecified; R19.7 Diarrhea, unspecified; K92.0 Hematemesis; K92.1 Melena

== ENCOUNTER 2017-06-20 11:25 | Day surgery (SDC) | payer BC ==
[~2017-06-20] VITALS: Ht 160 cm; Wt 71.7 kg
[2017-06-20] MEDS ORDERED: HURRICAINE EXT TUBE (BENZOCAINE) XX PRN (11:45)
[2017-06-20] MEDS ORDERED: LIDOCAINE JELLY 2% (XYLOCAINE) 5 ML TUBE MM PRN (11:45)
[2017-06-20 11:50] VITALS: BP 113/80
[2017-06-20] MEDS: NS IV 500 ML 500 ML IV PRN ×2 (12:04→13:40)
--- NOTE | 2017-06-20 12:17 | Conscious Sedation/ASA ---
Conscious Sedation Pre-Proced Time Reviewed: 12:00 ASA Class: 2 Airway Mallampati Classification: (afognak appropriate class) I. II. III, IV Lungs Heart ASA score ASA 1: a normal healthy patient ASA 2: a patient with a mild systemic disease (mid diabetes, controlled hypertension, obesity ASA 3: a patient with a severe systemic disease that limits activity (angina , COPD, prior Myocardial infarction) ASA 4: a patient with an incapacitating disease that is a constant threat to life (CHF, renal failure) ASA 5: a moribund patient not expected to survive 24 hrs. (ruptured aneurysm) ASA 6: a declared brain patient whose organs are being harvested. For emergent operations, add the letter E after the classification Grade 2 Sedation Plan: Analgesia, Amnesia, Plan communicated to team members, Discussed options with patient/fam, Discussed risks with patient/fam Note The patient is an appropriate candidate to undergo the planned procedure, sedation, and anesthesia. The patient immediately re-assessed prior to indication. EYAL SINGH MD Jun 20, 2017 12:17 pm
--- NOTE | 2017-06-20 12:18 | Progress Note-Pre Operative ---
Pre-Operative Progress Note H&P Reviewed The H&P was reviewed, patient examined and no changes noted. Date Seen by Provider: Jun 20, 2017 Time Seen by Provider: 12:00 Date H&P Reviewed: Jun 20, 2017 Time H&P Reviewed: 12:00 Pre-Operative Diagnosis: GERD, PUD, dark tarry stools EYAL SINGH MD Jun 20, 2017 12:18 pm
[2017-06-20] MEDS ORDERED: HYDROcodone/APAP 5 MG/325 MG (LORTAB) TAB PO PRN ×2 (12:30)
[2017-06-20] MEDS ORDERED: ONDANSETRON 4 MG/2 ML (SDV) Z0FRAN IV PRN ×2 (12:30)
[2017-06-20] MEDS ORDERED: morphine INJ 10 MG/ML 1ML (SYR OR VIAL) IV PRN ×2 (12:30)
[2017-06-20] MEDS ORDERED: ACETAMINOPHEN 325 MG TABLET/CAPLET (TYLENOL) PO PRN ×2 (12:30)
[2017-06-20] MEDS ORDERED: MIDAZOLAM 2 MG/2 ML (VERSED) VIAL ONE ×5 (12:36→13:30)
[2017-06-20] MEDS ORDERED: LIDOCAINE JELLY 2% (XYLOCAINE) 5 ML TUBE ONE (12:37)
[2017-06-20] MEDS ORDERED: fentaNYL INJECTION 100 MCG/2 ML AMP ONE ×2 (12:37)
[2017-06-20] MEDS ORDERED: HURRICAINE EXT TUBE (BENZOCAINE) ONE (12:37)
[2017-06-20] MEDS: fentaNYL INJECTION 100 MCG/2 ML AMP IVP PRN ×4 (13:10→13:45)
[2017-06-20] MEDS: MIDAZOLAM 2 MG/2 ML (VERSED) VIAL IVP PRN ×5 (13:12→13:40)
[2017-06-20] MEDS ORDERED: NS IV 500 ML 500 ML ONE (13:44)
[2017-06-20] MEDS ORDERED: proPOfol 200 MG/20 ML (DIPRIVAN) VIAL IV ONE (13:48)
--- NOTE | 2017-06-20 14:18 | Progress Note-Post Operative ---
Post-Operative Progess Note Surgeon (s)/Fiber Locking Supervisor (s) Surgeon EYAL SINGH MD Fiber Locking Supervisor: none Pre-Operative Diagnosis GERD, PUD, dark tarry stools Post-Operative Diagnosis reflux esophagitis(class B-C), moderate gastritis. normal rectum and colon. Procedure & Operative Findings Date of Procedure 06/20/17 Procedure Performed/Findings EGD with bx. Colonoscopy. Anesthesia Type MAC Estimated Blood Loss Estimated blood loss (mL): minimal Specimens/Packing Specimens Removed GE jxn, antrum EYAL SINGH MD Jun 20, 2017 2:18 pm
[2017-06-20] MEDS ORDERED: PANT40TA2 PO (14:19)
--- NOTE | 2017-06-20 14:20 | Discharge Inst-Surgical ---
D/C Lap Instructions-KIDO New, Converted, or Re-Newed RX: RX on Chart Follow Up PRN Activity as tolerated High Fiber Diet 25g or more per day Avoid Alcohol, Caffeine, Spicy [place] and Acid foods. Drink 64 fluid oz or more of fluids per day. Symptoms to Report: Fever over 101 degree F, Nausea/Vomiting If any problems/questions: Contact your physician or go to Emergency Room EYAL SINGH MD Jun 20, 2017 2:20 pm
--- NOTE | 2017-06-20 14:27 | Progress Note-Standard ---
Standard Progress Note Progress Notes/Assess & Plan Date Seen by Provider: Jun 20, 2017 Time Seen by Provider: 13:50 Progress/Assessment & Plan Patient in endo suite sedated. Not handling sedation well. Propofol requested for sedation. 200mg given for sedation. DICK BRUNER CRNA Jun 20, 2017 14:27
[2017-06-20 14:30] VITALS: BP 104/57
[2017-06-20 14:55] VITALS: BP 119/76
[2017-06-20 15:02] VITALS: BP 119/76
--- NOTE | 2017-06-20 21:39 | OPERATIVE REPORT ---
DATE OF SERVICE: 06/20/2017 PREOPERATIVE DIAGNOSIS: History of recent pancreatitis, nausea, vomiting, dark tarry stools. POSTOPERATIVE DIAGNOSIS: Reflux esophagitis between class B and C. No hiatal hernia. Moderate severity gastritis. Palpable lesion on digital rectal examination, most likely the uterine lesion identified on CT scan which was firm and movable. PROCEDURE: EGD with biopsy, colonoscopy. SURGEON: Dr. Singh. ANESTHESIA: Conscious sedation. ESTIMATED BLOOD LOSS: Minimal. FINDINGS: 1. EGD: Reflux esophagitis between class B and C. No hiatal hernia. Moderate severity gastritis. Pylorus and duodenum appeared normal. 2. Colonoscopy: No significant hemorrhoids. There is a palpable lesion on digital rectal examination at the tip of the finger, most likely the uterine lesion identified on CT scan. This was firm and rubbery and movable and most likely consistent with a uterine fibroid. The remainder of the rectum and colon were normal. DISPOSITION: The patient tolerated the procedure well. INDICATIONS: The patient is a 42-year-old female who I had seen in the hospital on consultation approximately 2 weeks ago for left upper quadrant abdominal pain. She had reported nausea and vomiting as well as abdominal pain. She was found to have an acute episode of pancreatitis. 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 She states that she has not drank any alcohol in the past nine months or so. A CT scan was performed which did show a uterine lesion as well as a left adrenal lesion. She reports that she had this evaluated in the past including a biopsy which was found to be benign. She also reports that she has had episodes of dark tarry stools in the past. DESCRIPTION OF PROCEDURE: The patient was brought to the endoscopy suite, laid in the left lateral decubitus position. After adequate IV pain and sedating medications and conscious sedation anesthesia, the mouthpiece was applied. Endoscope was placed in the mouth, visualizing the pharynx and hypopharyngeal region. Vocal cords, epiglottis and vallecula identified and appeared to be normal. The endoscope was then gently intubated in the esophageal opening and esophagus insufflated. Endoscope was then advanced through the first, second and third portions of the esophagus. At the level of the GE junction, a reflux esophagitis between class B and C identified. There were no strictures or ulcerations identified in this region. A biopsy was taken with forceps with visualization of good hemostasis. The endoscope was then easily advanced into the stomach and the endoscope retroflexed visualizing no hiatal hernia. There was a moderate severity gastritis noted. There was also a significant amount of liquid in the stomach which may indicate that she drank liquids; however, it may indicate some level of gastroparesis. A moderate severity gastritis was noted. There were no formal ulcers, polyps or any neoplasms identified. A biopsy was taken of the stomach antrum for H. pylori with forceps with visualization of good hemostasis. The endoscope was then advanced to the pylorus and the first and second portions of the duodenum which appeared normal. The endoscope was then slowly withdrawn while taking a second look and suctioning of residual air with no additional findings. The patient tolerated this portion of the procedure well. We will recommend the necessary lifestyle and diet accommodation including small and more frequent meals, avoidance of eating at night as well as head elevation while lying supine. The importance of alcohol cessation was also reiterated as well. She also needs to avoid caffeinated beverages, spicy, greasy and acidic foods. We will also start her on Protonix 40 mg daily. Under monitored anesthesia care we then proceeded with the colonoscopy portion of the procedure. A digital rectal examination was performed which did not reveal any significant hemorrhoids. Normal sphincter tone was felt and there was a palpable mass at the tip of the index finger which was firm and rubbery and most likely the lesion identified of the uterus on CT scan. This was easily movable and from a physical examination standpoint consistent with a uterine fibroid. The endoscope was then intubated to the anus and rectum gently insufflated. Endoscope was then advanced to the valves of Moore in the rectum with no polyps or any neoplasms identified. There were also no mucosal lesions identified. The endoscope was then advanced to the sigmoid colon where no diverticulosis identified. We then proceeded to the remainder of the descending, transverse and ascending colon to the cecum. These segments were normal. There were no polyps or any neoplasms as well as no inflammatory changes identified. Endoscope was then slowly withdrawn while taking a second look and suctioning all residual air with no additional findings. The patient tolerated this portion of the procedure well. We will recommend continued medical management with a high fiber diet with at least 25 to 30 grams of fiber per day as well as at least 64 fluid ounces of water to promote soft stools on a daily basis. She states that she is going to have the uterine lesion managed by her [employer] physician. Job ID: [id number] DocumentID: [id number] Dictated Date: 06/20/2017 14:19:28 Medical Genetics Director Date: 06/20/2017 21:39:28 Dictated By: EYAL SINGH MD
== END 2017-06-20 15:03 | disposition home or self-care (01) ==
LOC: ENDO 11:25
PROVIDERS: ATTEND Surgery
DX: K21.0 Gastro-esophageal reflux disease with esophagitis (principal); R19.5 Other fecal abnormalities; K29.60 Other gastritis without bleeding; N85.9 Noninflammatory disorder of uterus, unspecified; Z87.891 Personal history of nicotine dependence

== ENCOUNTER 2017-06-22 20:32 | Inpatient (IN) | payer BC ==
[~2017-06-22] VITALS: Ht 160 cm; Wt 67.7 kg
[~2017-06-22 20:32] MED LIST changes: +PANT40TA2 PO
[2017-06-22] MEDS ORDERED: NS IV 1000 ML 1,000 ML IV ONE (20:47)
[2017-06-22] MEDS ORDERED: ONDANSETRON 4 MG/2 ML (SDV) Z0FRAN IVP ONE (21:00)
[2017-06-22] MEDS ORDERED: FAMOTIDINE 20MG/2ML IV (PEPCID) IVP ONE (21:00)
[2017-06-22 21:01] LABS: BASOPHILS % (AUTO) 0 % (0-10); EOSINOPHILS # (AUTO) 0.1 10^3/uL (0.0-0.3); EOSINOPHILS % (AUTO) 0 % (0-10); LYMPHOCYTES # (AUTO) 1.2 X 10^3 (1.0-4.0); LYMPHOCYTES % (AUTO) 5 % (12-44); MEAN CORPUSCULAR HEMOGLOBIN 30 PG (25-34); MEAN CORPUSCULAR HGB CONC 34 G/DL (32-36); MEAN CORPUSCULAR VOLUME 88 FL (80-99); MEAN PLATELET VOLUME 9.2 FL (7.4-10.4); MONOCYTES # (AUTO) 1.3 X 10^3 (0.0-1.0); MONOCYTES % (AUTO) 5 % (0-12); NEUTROPHILS # (AUTO) 21.3 X 10^3 (1.8-7.8); NEUTROPHILS % (AUTO) 89 % (42-75); PLATELET COUNT 582 10^3/uL (130-400); RED BLOOD COUNT 4.27 10^6/uL (4.35-5.85); RED CELL DISTRIBUTION WIDTH 12.4 % (10.0-14.5); WHITE BLOOD COUNT 23.9 10^3/uL (4.3-11.0)
[2017-06-22 21:12] LABS: BILIRUBIN,URINE 2+ (NEGATIVE); KETONES,URINE 4+ (NEGATIVE); LEUKOCYTE ESTERASE ,URINE 1+ (NEGATIVE); NITRITE,URINE POSITIVE (NEGATIVE); PH,URINE 6 (5-9); PROTEIN,URINE 3+ (NEGATIVE); UROBILINOGEN,URINE 1 MG/DL (NORMAL)
[2017-06-22 21:27] LABS: BAND NEUTROPHILS 2 %; BASOPHILS % (MANUAL) 0 %; EOSINOPHILS % (MANUAL) 0 %; LYMPHOCYTES % (MANUAL) 5 %; NEUTROPHILS % (MANUAL) 91 %; REACTIVE LYMPHOCYTES 1 %
[2017-06-22 21:29] LABS: ROULEAUX MOD
[2017-06-22] MEDS ORDERED: fentaNYL INJECTION 100 MCG/2 ML AMP IVP ONE ×2 (21:30→23:30)
[2017-06-22 21:38] LABS: ALANINE AMINOTRANSFERASE 30 U/L (0-55); ALBUMIN 3.7 GM/DL (3.2-4.5); ANION GAP 18 MMOL/L (5-14); ASPARTATE AMINO TRANSFERASE 17 U/L (5-34); BILIRUBIN,TOTAL 0.9 MG/DL (0.1-1.0); BLOOD UREA NITROGEN 9 MG/DL (7-18); BUN/CREATININE RATIO 13; CALCIUM 9.5 MG/DL (8.5-10.1); CARBON DIOXIDE 22 MMOL/L (21-32); CHLORIDE 98 MMOL/L (98-107); CREATININE SERUM 0.72 MG/DL (0.60-1.30); GFR ESTIMATED > 60; GLUCOSE 124 MG/DL (70-105); LIPASE 93 U/L (8-78); MAGNESIUM 1.9 MG/DL (1.8-2.4); SODIUM 138 MMOL/L (135-145); TOTAL PROTEIN 7.7 GM/DL (6.4-8.2); hs C REACTIVE PROTEIN 23.99 MG/DL (0.00-0.50)
[2017-06-22 21:40] LABS: WBC,URINE 25-50 /HPF
[2017-06-22] MEDS ORDERED: PIPERACILLIN SODIUM/TAZOBACTAM 4.5 GM in NS (IVPB) 100 ML IV ONE (21:45)
--- NOTE | 2017-06-22 21:47 | ED Abdominal Pain ---
General Chief Complaint: Abdominal/GI Problems Stated Complaint: CANT KEEP ANYTHING DOWN, BACK/STOMACH PAIN Nursing Triage Note: PT C/O LOWER ABD PAIN THAT RADIATES TO BACK WITH VOMITING STATES SHE CANT KEEP ANYTHING DOWN, HX OF PANCREATITIS BUT STATES THIS FEELS DIFFERENT. Sepsis Screen: No Definite Risk Source of Information: Patient Exam Limitations: No Limitations History of Present Illness Time Seen By Provider: 20:40 Initial Comments This 42-year-old woman presents to the emergency room with complaints of abdominal pain, vomiting, and diarrhea. Her pain is in a belt-like distribution across her lower abdomen that radiated to her back. Symptoms have been present and intensifying since having colonoscopy on Friday. She was recently admitted for treatment of pancreatitis and was dismissed June 13. She denies any alcohol use since she quit about one year ago. Her surgeon is Dr. Palm. She has no primary care provider. She is afebrile. Allergies and Home Medications Allergies Coded Allergies: No Known Drug Allergies (Verified , 12/18/09) Home Medications Hydrocodone/Acetaminophen 1 Each Tablet, 1 EACH PO Q4H PRN for PAIN-MILD TO MODERATE, (Reported) Ibuprofen 200 Mg Tablet, 600 MG PO Q8H PRN for PAIN-MILD, (Reported) TAKES 3 (200MG) TABLETS Pantoprazole Sodium 40 Mg Tablet.dr, 40 MG PO DAILY, #90 Prescribed by: EYAL PALM on 06/20/17 1419 Promethazine HCl 25 Mg Tablet, 25 MG PO Q6H PRN for NAUSEA/VOMITING, (Reported) Review of Systems Constitutional: no symptoms reported EENTM: No Symptoms Reported Respiratory: No Symptoms Reported Cardiovascular: No Symptoms Reported Gastrointestinal: See HPI Genitourinary: See HPI Musculoskeletal: no symptoms reported Skin: no symptoms reported Psychiatric/Neurological: No Symptoms Reported Endocrine: No Symptoms Reported Past Ezsizjh-Ljflpo-Esapnt Hx Patient Social History Alcohol Use: Denies Use Recreational Drug Use: No (10 yrs ago ago) Type Used: Cigarettes 2nd Hand Smoke Exposure: No Recent Foreign Travel: No Contact w/Someone Who Travel: No Recent Infectious Disease Expo: No Recent Hopitalizations: No Physical Abuse: No Sexual Abuse: No Immunizations Up To Date Tetanus Booster (TDap): Unknown Seasonal Allergies Seasonal Allergies: No Surgeries History of Surgeries: Yes Surgeries: Appendectomy Respiratory History of Respiratory Disorde: No Cardiovascular History of Cardiac Disorders: No Neurological History of Neurological Disord: No Reproductive System Hx Reproductive Disorders: No Genitourinary History of Genitourinary Disor: No Gastrointestinal History of Gastrointestinal Di: Yes (n/v) Gastrointestinal Disorders: Gastroesophageal Reflux, Pancreatitis, Chronic Diarrhea Musculoskeletal History of Musculoskeletal Dis: No Endocrine History of Endocrine Disorders: No HEENT History of HEENT Disorders: No Cancer History of Cancer: No Psychosocial History of Psychiatric Problem: No Suicide Risk Score: 0 Integumentary History of Skin or Integumenta: No Blood Transfusions History of Blood Disorders: No Family Medical History Family Medial History: Congestive heart failure 03 MOTHER (50 ) Family history: Cardiovascular disease 03 MOTHER (50 ) Family history: Coronary thrombosis 03 MOTHER (50 ) Family history: Diabetes mellitus 03 MOTHER (50 ) Family history: Hypertension 03 MOTHER (50 ) Hypercholesterolemia 03 MOTHER (50 ) Malignant neoplasm of lung 03 FATHER (70 ) Physical Exam Vital Signs VS - Last 72 Hours, by Label 06/22/17 21:09 Temp 99.2 Pulse 96 Resp 14 B/P (MAP) 118/75 Pulse Ox 94 Capillary Refill : Less Than 3 Seconds General Appearance: WD/WN, mild distress HEENT: PERRL/EOMI, normal ENT inspection, other (oropharynx somewhat dry) Neck: normal inspection Respiratory: lungs clear, normal breath sounds, no respiratory distress, no accessory muscle use Cardiovascular: regular rate, rhythm, no edema, no murmur Gastrointestinal: soft, abnormal bowel sounds (quiet bowels), distended (mild) , tenderness (diffuse moderate to severe tenderness to palpation) Extremities: normal inspection, no pedal edema Neurologic/Psychiatric: stock hanger II-XII nml as tested, no motor/sensory deficits, alert, normal mood/affect, oriented x 3 Skin: normal color, warm/dry Focused Exam Evaluation Lactate Level Laboratory Tests 06/22/17 22:26: Lactic Acid Level 0.81 Lactic Acid Level Laboratory Tests Test 06/22/17 22:26 Lactic Acid Level 0.81 MMOL/L (0.50-2.00) Progress/Results/Core Measures Results/Orders Lab Results Laboratory Tests Test 06/22/17 20:55 06/22/17 21:00 06/22/17 22:26 Range/Units White Blood Count 23.9 H 4.3-11.0 10^3/uL Red Blood Count 4.27 L 4.35-5.85 10^6/uL Hemoglobin 12.9 11.5-16.0 G/DL Hematocrit 38 35-52 % Mean Corpuscular Volume 88 80-99 FL Mean Corpuscular Hemoglobin 30 25-34 PG Mean Corpuscular Hemoglobin Concent 34 32-36 G/DL Red Cell Distribution Width 12.4 10.0-14.5 % Platelet Count 582 H 130-400 10^3/uL Mean Platelet Volume 9.2 7.4-10.4 FL Neutrophils (%) (Auto) 89 H 42-75 % Lymphocytes (%) (Auto) 5 L 12-44 % Monocytes (%) (Auto) 5 0-12 % Eosinophils (%) (Auto) 0 0-10 % Basophils (%) (Auto) 0 0-10 % Neutrophils # (Auto) 21.3 H 1.8-7.8 X 10^3 Lymphocytes # (Auto) 1.2 1.0-4.0 X 10^3 Monocytes # (Auto) 1.3 H 0.0-1.0 X 10^3 Eosinophils # (Auto) 0.1 0.0-0.3 10^3/uL Basophils # (Auto) 0.0 0.0-0.1 10^3/uL Neutrophils % (Manual) 91 % Lymphocytes % (Manual) 5 % Monocytes % (Manual) 1 % Eosinophils % (Manual) 0 % Basophils % (Manual) 0 % Band Neutrophils 2 % Reactive Lymphocytes 1 % Toxic Granulation 1+ Rouleau MOD Sodium Level 138 135-145 MMOL/L Potassium Level 3.0 L 3.6-5.0 MMOL/L Chloride Level 98 98-107 MMOL/L Carbon Dioxide Level 22 21-32 MMOL/L Anion Gap 18 H 5-14 MMOL/L Blood Urea Nitrogen 9 7-18 MG/DL Creatinine 0.72 0.60-1.30 MG/DL Estimat Glomerular Filtration Rate > 60 BUN/Creatinine Ratio 13 Glucose Level 124 H 70-105 MG/DL Calcium Level 9.5 8.5-10.1 MG/DL Magnesium Level 1.9 1.8-2.4 MG/DL Total Bilirubin 0.9 0.1-1.0 MG/DL Aspartate Amino Transf (AST/SGOT) 17 5-34 U/L Alanine Aminotransferase (ALT/SGPT) 30 0-55 U/L Alkaline Phosphatase 191 H 40-136 U/L C-Reactive Protein High Sensitivity 23.99 H 0.00-0.50 MG/DL Total Protein 7.7 6.4-8.2 GM/DL Albumin 3.7 3.2-4.5 GM/DL Lipase 93 H 8-78 U/L Urine Color MARCO A H Urine Clarity CLEAR Urine pH 6 5-9 Urine Specific [place] 1.015 L 1.016-1.022 Urine Protein 3+ H NEGATIVE Urine Glucose (UA) NEGATIVE NEGATIVE Urine Ketones 4+ H NEGATIVE Urine Nitrite POSITIVE H NEGATIVE Urine Bilirubin 2+ H NEGATIVE Urine Urobilinogen 1 NORMAL MG/DL Urine Leukocyte Esterase 1+ H NEGATIVE Urine RBC (Auto) 4+ H NEGATIVE Urine RBC 2-5 H /HPF Urine WBC 25-50 H /HPF Urine Squamous Epithelial Cells 10-25 H /HPF Urine Renal Epithelial Cells NONE /HPF Urine Crystals NONE /LPF Urine Bacteria MODERATE H /HPF Urine Casts NONE /LPF Urine Mucus LARGE H /LPF Urine Culture Indicated YES Urine Test NEGATIVE NEGATIVE Lactic Acid Level 0.81 0.50-2.00 MMOL/L My Orders Orders - BARNEY ARREDONDO MD Cbc With Automated Diff (06/22/17 20:47) Comprehensive Metabolic Panel (06/22/17 20:47) Hs C Reactive Protein (06/22/17 20:47) Lipase (06/22/17 20:47) Magnesium (06/22/17 20:47) Ua Culture If Indicated (06/22/17 20:47) Saline Lock/Iv-Start (06/22/17 20:47) Ns Iv 1000 Ml (Sodium Chloride 0.9%) (06/22/17 20:47) Ondansetron Injection (Zofran Injectio (06/22/17 21:00) Famotidine Injection (Pepcid Injection) (06/22/17 21:00) Manual Differential (06/22/17 20:55) Fentanyl Injection (Sublimaze Injection (06/22/17 21:30) Urine Culture (06/22/17 21:00) Hcg,Qualitative Urine (06/22/17 21:44) Blood Culture (06/22/17 21:45) Lactic Acid Analyzer (06/22/17 21:45) Piperacillin Sodium/Tazobactam (Zosyn Vi (06/22/17 21:45) Ct Abdomen/Pelvis W (06/22/17 21:46) Iohexol Injection (Omnipaque 350 Mg/Ml 1 (06/22/17 22:00) Ns (Ivpb) (Sodium Chloride 0.9% Ivpb Bag (06/22/17 22:00) Pharmacy Communication (Pharmacy Communi (06/22/17 21:48) Fentanyl Injection (Sublimaze Injection (06/22/17 23:30) Medications Given in ED Current Medications Medications Dose Ordered Sig/Gretel Route Start Time Stop Time Status Last Admin Dose Admin Famotidine 20 mg ONCE ONCE IVP 06/22/17 21:00 06/22/17 21:01 DC 06/22/17 21:00 20 MG Fentanyl Citrate 75 mcg ONCE ONCE IVP 06/22/17 21:30 06/22/17 21:31 DC 06/22/17 21:34 75 MCG Fentanyl Citrate 75 mcg ONCE ONCE IVP 06/22/17 23:30 06/22/17 23:31 DC 06/22/17 23:29 75 MCG Iohexol 100 ml ONCE ONCE IV 06/22/17 22:00 06/22/17 22:01 DC 06/22/17 23:41 100 ML Ondansetron HCl 8 mg ONCE ONCE IVP 06/22/17 21:00 06/22/17 21:01 DC 06/22/17 21:00 8 MG Piperacillin Sod/ Tazobactam Sod 4.5 gm/Sodium Chloride 100 ml @ 200 mls/hr ONCE ONCE IV 06/22/17 21:45 06/22/17 22:14 DC 06/22/17 22:33 200 MLS/HR Sodium Chloride 100 ml ONCE ONCE IV 06/22/17 22:00 06/22/17 22:01 DC 06/22/17 23:41 80 ML Sodium Chloride 1,000 ml @ 0 mls/hr Q0M ONCE IV 06/22/17 20:47 06/22/17 20:49 DC 06/22/17 21:00 0 MLS/HR Vital Signs/I&O Vital Sign - Last 12Hours 06/22/17 21:09 Temp 99.2 Pulse 96 Resp 14 B/P (MAP) 118/75 Pulse Ox 94 Blood Pressure Mean: 89 Progress Note : Time: 21:47 Progress Note Patient was provided symptomatic treatments with Pepcid, Zofran, and fentanyl. A liter of IV fluids is infusing. Labs have been reviewed. She has a markedly leukocytosis and markedly elevated CRP. Sepsis is now suspected. Upon culture and lactic acid have been ordered along with a CT of the abdomen and pelvis with contrast for further evaluation. Zosyn has been ordered for initial antibiotic management. Diagnostic Imaging Diagonstic Imaging: CT Plain Films/CT/US/NM/MRI: abdomen, pelvis Comments CT scans viewed by me and statrad report reviewed. Findings were consistent with history of pancreatitis with several loculated collections of pseudocysts present. There is associated mass effect with marked narrowing and near complete occlusion of the SMV and also upon the transverse fourth portion of the duodenum. There is mild generalized colonic wall thickening. There is a 2.3 cm left adrenal nodule. Departure Communication (Admissions) Time/Spoke to Admitting Phy: 22:17 Communication [place] Time/Spoke to Consulting Phy: [phone] Communication/Consulting Dr. Alexander was consulted on behalf of Dr. Palm. He requests patient be placed on Dr. PALM's list. He agrees with treatment with Zosyn. Impression Impression: Primary Impression: Sepsis Qualified Codes: A41.9 - Sepsis, unspecified organism Additional Impressions: Urinary tract infection Qualified Codes: N39.0 - Urinary tract infection, site not specified Pancreatic pseudocyst Colitis Hypokalemia Nausea vomiting and diarrhea Disposition: ADMITTED INPATIENT Condition: Improved Admissions Decision to Admit Reason: Admit from ER (General) Decision to Admit/Date: Jun 22, 2017 Time/Decision to Admit Time: 22:17 Departure-Patient Inst. Referrals: NO,LOCAL PHYSICIAN (PCP/Family) Primary Care Physician BARNEY ARREDONDO MD Jun 22, 2017 21:47
[2017-06-22] MEDS ORDERED: IOHEXOL 350 MG/ML 100 ML (OMNIPAQUE 350) VIAL IV ONE (22:00)
[2017-06-22] MEDS ORDERED: NS 100 ML (IVPB) BAG IV ONE (22:00)
[2017-06-23] VITALS (7 sets, daily range): BP systolic 100–106; BP diastolic 53–69
[2017-06-23] MEDS ORDERED: ONDANSETRON 4 MG/2 ML (SDV) Z0FRAN IVP ONE (01:30)
[2017-06-23] MEDS ORDERED: fentaNYL INJECTION 100 MCG/2 ML AMP IVP PRN (02:30)
[2017-06-23] MEDS ORDERED: D5 1/2 NS W/KCL 40 MEQ/L 1,000 ML IV SCH (02:30)
[2017-06-23] MEDS: fentaNYL INJECTION 100 MCG/2 ML AMP IV PRN ×11 (02:38→23:28)
[2017-06-23] MEDS: D5 1/2 NS W/KCL 40 MEQ/L 1,000 ML IV SCH ×3 (02:39→18:57)
[2017-06-23] MEDS ORDERED: PIPERACILLIN/TAZOBACTAM 4.5 GM/NS100 ML IVPB IV SCH ×4 (04:00→05:15)
[2017-06-23 06:22] LABS: BASOPHILS % (AUTO) 0 % (0-10); EOSINOPHILS % (AUTO) 0 % (0-10); LYMPHOCYTES # (AUTO) 0.8 X 10^3 (1.0-4.0); LYMPHOCYTES % (AUTO) 3 % (12-44); MEAN CORPUSCULAR HEMOGLOBIN 30 PG (25-34); MEAN CORPUSCULAR HGB CONC 33 G/DL (32-36); MEAN CORPUSCULAR VOLUME 90 FL (80-99); MEAN PLATELET VOLUME 9.4 FL (7.4-10.4); MONOCYTES # (AUTO) 1.3 X 10^3 (0.0-1.0); MONOCYTES % (AUTO) 5 % (0-12); NEUTROPHILS # (AUTO) 22.9 X 10^3 (1.8-7.8); NEUTROPHILS % (AUTO) 91 % (42-75); PLATELET COUNT 539 10^3/uL (130-400); RED BLOOD COUNT 3.95 10^6/uL (4.35-5.85); RED CELL DISTRIBUTION WIDTH 12.5 % (10.0-14.5); WHITE BLOOD COUNT 25.1 10^3/uL (4.3-11.0)
[2017-06-23 06:48] LABS: ALANINE AMINOTRANSFERASE 26 U/L (0-55); ALBUMIN 3.5 GM/DL (3.2-4.5); ANION GAP 12 MMOL/L (5-14); ASPARTATE AMINO TRANSFERASE 19 U/L (5-34); BILIRUBIN,TOTAL 0.9 MG/DL (0.1-1.0); BLOOD UREA NITROGEN 7 MG/DL (7-18); BUN/CREATININE RATIO 10; CALCIUM 8.9 MG/DL (8.5-10.1); CARBON DIOXIDE 23 MMOL/L (21-32); CHLORIDE 101 MMOL/L (98-107); CREATININE SERUM 0.71 MG/DL (0.60-1.30); GFR ESTIMATED > 60; GLUCOSE 173 MG/DL (70-105); LIPASE 100 U/L (8-78); POTASSIUM 3.3 MMOL/L (3.6-5.0); SODIUM 136 MMOL/L (135-145); TOTAL PROTEIN 7.2 GM/DL (6.4-8.2)
[2017-06-23] MEDS ORDERED: INFLUENZA TRIvalent 2017-2018 0.5 ML/45 MCG SYR IM ONE (07:00)
--- NOTE | 2017-06-23 07:08 | Diagnostic Imaging Report ---
PROCEDURE: CT abdomen and pelvis with contrast. TECHNIQUE: Multiple contiguous axial images were obtained through the abdomen and pelvis after administration of intravenous contrast. INDICATION: Nausea and vomiting with a history of pancreatitis. Comparison made to prior examination 06/11/2017. FINDINGS: The heart size is normal. There is a small pericardial effusion. The lung bases are clear. Liver is normal in size. There is a small area of what appears to be focal fatty eventration near the falciform ligament. There is likely a tiny cyst in the right lobe of the liver. There is no cholelithiasis or biliary ductal dilatation. Spleen is normal. There are peripancreatic inflammatory changes and fluid. There are loculated collections anteriorly and inferiorly suggesting the presence of several pseudocysts. A component of this measures 10.2 x 3.6 cm on series 2 image 46. This is inferior to the pancreas. There is also a hypodense component between the superior mesenteric vein and pancreatic head measuring 1.7 x 1.3 cm. Some degree of pancreatic necrosis cannot be excluded. There is some mass effect upon the superior mesenteric vein just inferior to the portosplenic confluence. There is a left adrenal nodule measuring up to 2.3 cm. The kidneys are unremarkable. There is a fluid-filled stomach and duodenum to the fourth portion of the duodenum where there appears to be extrinsic mass effect from the peripancreatic fluid collections. The bowel gas pattern is otherwise nonspecific. There is mild mucosal thickening in the right colon. The appendix appears to be surgically absent. There is no pelvic fluid or adenopathy. There is a fibroid in the posterior uterus measuring 5 cm. There is no free air. There are degenerative changes in the spine. The abdominal aorta is nonaneurysmal. There is no pathologically enlarged adenopathy in the abdomen or pelvis. IMPRESSION: Persistent findings of pancreatitis with several pseudocysts, inflammatory changes, and free fluid. Pseudocysts appear to result in some mass effect on the superior mesenteric vein and also transverse fourth portion of the duodenum. Mucosal thickening in the right colon. While this may reflect underdistention, the possibility of some colitis cannot be excluded. Stable 2.3-cm left adrenal nodule. Tiny pericardial effusion. Dictated by: Dictated on workstation # [id number]
[2017-06-23] MEDS: ONDANSETRON 4 MG/2 ML (SDV) Z0FRAN IV PRN ×2 (08:41→18:23)
[2017-06-23] MEDS: FAMOTIDINE 20MG/2ML IV (PEPCID) IVP SCH ×2 (08:41→20:09)
[2017-06-23] MEDS ORDERED: ACETAMINOPHEN 500 MG TAB (TYLENOL) PO PRN (09:30)
[2017-06-23] MEDS ORDERED: PROMETHAZINE INJ 25 MG/ML (PHENERGAN) AMP IVP PRN (09:30)
[2017-06-23] MEDS ORDERED: CATHETER FLUSH 10 ML SYR IV PRN (10:00)
[2017-06-23] MEDS ORDERED: ACET-2267 PO (10:01)
--- NOTE | 2017-06-23 12:05 | History & Physical-Hospitalist ---
HPI History of Present Illness: HPI/Chief Complaint Pt is a 42yoCF with a PMH of alcohol abuse (sober ~1 year), pancreatitis, adrenal mass who presented to the ER with CC of abd pain, vomiting, and diarrhea. She is known to me from a previous admission this month. She reports that her pain initially improved after discharge but then in preparation for her EGD/colonoscopy on 06/20 she began to develop abd pain. It continued to worsen over the weekend prompting her to seek evaluation last night in the ER. She was found to have an abnormal UA concerning for UTI and leukocytosis prompting admission. LA was normal and CT abd was obtained which showed persistent pancreatitis and possible colitis. She states her pain is still present mostly on the right side and wraps around her back "like a pancake." She denies any dysuria or frequency. She is still quite nauseous and has persistent diarrhea. She denies any sick contacts. Source: patient, family Exam Limitations: no limitations Date Seen 06/23/17 Time Seen by Provider: 11:00 Attending Physician Georgina Mckeon DO PCP No,Local Physician Referring Physician Date of Admission Jun 23, 2017 at 00:58 Home Medications & Allergies Home Medications Reviewed patient Home Medication Reconciliation Form Allergies Allergies Coded Allergies No Known Drug Allergies (Verified12/18/09) Past Ipjqiao-Jcekgu-Zblxcz Hx Patient Social History Employed/Student: employed Alcohol Use: Denies Use Recreational Drug Use: No Smoking Status: Current Everyday Smoker Type Used: Cigars 2nd Hand Smoke Exposure: No Physical Abuse Screen: No Sexual Abuse: No Recent Foreign Travel: No Contact w/other who traveled: No Recent Hopitalizations: Yes ([facility] COLONOSCOPY/EGD) Recent Infectious Disease Expo: No Immunizations Up To Date Tetanus Booster (TDap): Unknown Seasonal Allergies Seasonal Allergies: No Surgeries Yes Appendectomy Respiratory No Cardiovascular No Neurological No Reproductive System Hx Reproductive Disorders: No Genitourinary No Gastrointestinal Yes (adrenal mass) Gastroesophageal Reflux, Pancreatitis, Chronic Diarrhea Musculoskeletal No Endocrine History of Endocrine Disorders: No HEENT History of HEENT Disorders: No Cancer No Psychosocial History of Psychiatric Problem: No Integumentary History of Skin or Integumenta: No Blood Transfusions History of Blood Disorders: No Family Medical History Family Hx: Congestive heart failure 03 MOTHER (50 ) Family history: Cardiovascular disease 03 MOTHER (50 ) Family history: Coronary thrombosis 03 MOTHER (50 ) Family history: Diabetes mellitus 03 MOTHER (50 ) Family history: Hypertension 03 MOTHER (50 ) Hypercholesterolemia 03 MOTHER (50 ) Malignant neoplasm of lung 03 FATHER (70 ) Review of Systems Constitutional: chills, diaphoresis, fever EENTM: no symptoms reported Respiratory: no symptoms reported, No cough, No short of breath Cardiovascular: No chest pain, No palpitations Gastrointestinal: abdominal pain, diarrhea, nausea, vomiting Genitourinary: No discharge, No dysuria, No frequency Musculoskeletal: no symptoms reported Skin: no symptoms reported Psychiatric/Neurological: No Symptoms Reported Physical Exam Physical Exam Vital Signs Vital Sign - Last 12Hours 06/22/17 06/23/17 21:09 01:27 Temp 99.2 Pulse 96 Resp 14 B/P (MAP) 118/75 Pulse Ox 94 O2 Delivery Room Air Capillary Refill : Less Than 3 Seconds General Appearance: No Apparent Distress, WD/WN HEENT: PERRL/EOMI, Moist Mucous Membranes Neck: Non Tender, Supple Respiratory: Lungs Clear, No Respiratory Distress Cardiovascular: Regular Rate, Rhythm, No Murmur Gastrointestinal: Normal Bowel Sounds, Soft, Distended, Tenderness (R>L) Extremity: Normal Capillary Refill, No Calf Tenderness Neurologic/Psychiatric: Alert, Oriented x3, Normal Mood/Affect Skin: Normal Color, Warm/Dry Results Results/Procedures Lab Laboratory Tests 06/22/17 20:55 06/23/17 05:42 Assessment/Plan Admission Diagnosis Sepsis Diagnosis/Problems Diagnosis/Problems (1) Sepsis Status: Resolved Assessment & Plan: Sepsis aspect resolved (only has leukocytosis now) Will continue Abx- Zosyn Colitis noted on CT- will continue abx as above and check c diff IVF LA normal on arrival Qualifiers: Qualified Codes: A41.9 - Sepsis, unspecified organism (2) Colitis Status: Acute Assessment & Plan: Continue on Zosyn Surgery consulted, appreciate recs (3) Pancreatitis Assessment & Plan: Lipase elevated but mildly so Possibly chronic pancreatitis IVF NPO Fentanyl for pain (4) Pancreatic pseudocyst Status: Acute Assessment & Plan: Compressing on SMV Will discuss with Surgery regarding plan (5) Reflux esophagitis Assessment & Plan: Continue Pepcid (6) Gastritis Status: Chronic Assessment & Plan: Per EGD on 06/20 Continue Pepcid (7) Hypokalemia Status: Acute Assessment & Plan: Replacing in fluids (8) Adrenal mass Status: Chronic Assessment & Plan: Has been biopsied in past Was to have appt with [facility] today Advised to rescheduled (9) Prophylactic measure Assessment & Plan: Lovenox D5 1/2NS with 40KCL at 125ml/hr NPO Pepcid Clinical Quality Measures DVT/VTE Risk/Contraindication: Risk Factor Score Per Nursin RFS Level Per Nursing on Admit: 4+=Very High ROMAN GALDAMEZ MD Jun 23, 2017 12:05
[2017-06-23] MEDS: PIPERACILLIN/TAZOBACTAM 4.5 GM/NS100 ML IVPB IV SCH ×4 (12:11→20:09)
[2017-06-23] MEDS: ENOXAPARIN 40 MG/0.4 ML (LOVENOX) SYR SC SCH (13:30)
--- NOTE | 2017-06-23 13:56 | Occ Therapy Progress Note ---
Therapy Progress Note OT order received. Chart reviewed. Attempted x 2 to see pt. Pt. light on. OT went in. Pt. on side of bed crying. Family in room rubbing pt's back and asks for pain med. OT reported this to nursing immediately. OT went back 35 minutes later. Pt. requests for OT to come back tomorrow. Pt. resting. States that she can't participate. 1,1, visit no charge 1315, 1350 MINE JENKINS OT Jun 23, 2017 13:56
[2017-06-23] MEDS ORDERED: METOCLOPRAMIDE INJ 10 MG/2 ML (REGLAN) IVP PRN (18:00)
[2017-06-23] MEDS: PANTOPRAZOLE 40 MG/10 ML (PROTONIX) VIAL IV SCH (20:09)
[2017-06-24 00:29] VITALS: BP 96/56
[2017-06-24] MEDS: fentaNYL INJECTION 100 MCG/2 ML AMP IV PRN ×8 (00:52→10:37)
[2017-06-24] MEDS: D5 1/2 NS W/KCL 40 MEQ/L 1,000 ML IV SCH ×3 (03:12→19:09)
[2017-06-24] MEDS: PIPERACILLIN/TAZOBACTAM 4.5 GM/NS100 ML IVPB IV SCH ×6 (04:16→20:17)
[2017-06-24 04:43] VITALS: BP 109/63
[2017-06-24 06:23] LABS: BASOPHILS % (AUTO) 0 % (0-10); EOSINOPHILS % (AUTO) 0 % (0-10); LYMPHOCYTES # (AUTO) 1.3 X 10^3 (1.0-4.0); LYMPHOCYTES % (AUTO) 7 % (12-44); MEAN CORPUSCULAR HEMOGLOBIN 30 PG (25-34); MEAN CORPUSCULAR HGB CONC 33 G/DL (32-36); MEAN CORPUSCULAR VOLUME 90 FL (80-99); MEAN PLATELET VOLUME 9.3 FL (7.4-10.4); MONOCYTES # (AUTO) 1.5 X 10^3 (0.0-1.0); MONOCYTES % (AUTO) 8 % (0-12); NEUTROPHILS # (AUTO) 17.3 X 10^3 (1.8-7.8); NEUTROPHILS % (AUTO) 85 % (42-75); PLATELET COUNT 497 10^3/uL (130-400); RED BLOOD COUNT 4.18 10^6/uL (4.35-5.85); RED CELL DISTRIBUTION WIDTH 12.7 % (10.0-14.5); WHITE BLOOD COUNT 20.2 10^3/uL (4.3-11.0)
--- NOTE | 2017-06-24 06:39 | CONSULTATION REPORT ---
DATE OF SERVICE: 06/23/2017 ADMITTING PHYSICIAN: Dr. Mckeon. HISTORY OF PRESENT ILLNESS: The patient is a 42-year-old female, known to us. We had seen her in early June of this year for an episode of abdominal pain. She had presented to the Emergency Department with nausea and left upper abdominal quadrant pain that progressed to vomiting. She was evaluated with CT scan as well as laboratory work, which was consistent with acute pancreatitis. She does have a history of significant drinking alcohol history and has had a history of pancreatitis in the past. She has not drunk any alcohol in slightly greater than 9 months now. The episode of pancreatitis in early June was initiated without any alcohol. She did well with medical management on that hospital admission. During that hospitalization, she was also found to have a mass in the uterus and was also found to have an adrenal mass. She had reported that, that had been evaluated in the past with biopsy, which was found to be benign. On 06/20/2017, she underwent an EGD and colonoscopy. EGD showed reflux esophagitis between class B and C, no hiatal hernia, there was a moderate severity gastritis. Colonoscopy did not show any significant hemorrhoids. There was a palpable lesion on digital rectal examination at the tip of the finger that was firm and rubbery and movable and most likely consistent with a uterine fibroid. The remainder of the rectum and colon were normal. She reported that since having the procedure done, she had continued abdominal pain over the weekend. She reported that the pain increased in severity and was associated again with nausea and vomiting. Another CT scan was drawn as well as labs and this was consistent with fluid around the pancreas and what appeared to be consistent with evolution of creation of a pancreatic pseudocyst. Upon examination, she does have continued pain in the epigastric region with radiation towards the back. We will slightly change up her pain medications. Upon arrival, she was also found to have a urinary tract infection, which she is being treated for as well. Upon admission, she had 1 Rosa criteria, which is associated with low morbidity and mortality. PAST MEDICAL HISTORY: Pancreatitis, degenerative joint disease. PAST SURGICAL HISTORY: Appendectomy. ALLERGIES: No known drug allergies. MEDICATIONS: Hydrocodone. SOCIAL HISTORY: Positive smoking history, 15-pack years. Previous heavy alcohol abuse, but has not drank any alcohol for greater than 9 months. FAMILY HISTORY: Paternal cousin, pancreatic cancer. Father, lung cancer, stroke. Mother, diabetes, stroke, myocardial infarction and hypertension. Maternal grandmother, breast cancer. VITAL SIGNS: Temperature 100.6, blood pressure 103/56, pulse 92, respirations 22, pulse ox 95% on room air. REVIEW OF SYSTEMS: This is a well-nourished female, currently guarded secondary to the abdominal pain as well as nausea. She is not experiencing shortness breath or difficulty breathing. No chest pain, palpitations, diaphoresis. Intermittent bouts of nausea and vomiting. No hematemesis or coffee-ground emesis. Intermittent episodes of diarrhea. No red blood per rectum, no dark tarry stools. No fever or chills. No recent inadvertent weight loss. PHYSICAL EXAMINATION: CHEST: Good breath sounds bilaterally, clear. HEART: Regular, no murmurs. EXTREMITIES: No lower extremity edema, negative Homans' sign. HEENT: No scleral icterus. No cervical lymphadenopathy. ABDOMEN: Soft with pain in the epigastric and upper quadrants of the abdomen with radiation towards the back. Nondistended. SKIN: Warm and dry. LABORATORY DATA: WBC 25.1, hemoglobin 11.8, hematocrit 90, glucose is 173, AST is 19, lipase is 100. Urinalysis 1+ leukocyte esterase, positive nitrites and moderate amount of bacteria. ASSESSMENT AND PLAN: A 42-year-old female with history of acute pancreatitis with the development of a pancreatic pseudocyst. At this time, the pseudocyst flores are in evolution, are in the process of maturation. This will cause a significant amount of pain and treatment for this is pain control and time. A large percentage of the pseudocysts will involute on their own; however, if there is a direct communication with the major pancreatic duct, may persist or even grow larger in size. This will be followed by CT scan. If this does occur, we will recommend further evaluation and possible treatment with endoscopic cystogastrostomy to drain this symptomatic pseudocyst. For now, we will continue with pain control and IV hydration and start her on a clear liquid diet. Once she is tolerating some food and liquids and her nausea is controlled as well as somewhat adequate pain control with oral pain medication as well as treatment of urinary tract infection, then she may be discharged home. Job ID: [id number] DocumentID: [id number] Dictated Date: 06/23/2017 18:18:49 [employer]atch Tank Controller Date: 06/23/2017 19:15:09 Dictated By: EYAL SINGH MD MTDD
[2017-06-24 06:59] LABS: ALANINE AMINOTRANSFERASE 32 U/L (0-55); ALBUMIN 3.4 GM/DL (3.2-4.5); ANION GAP 15 MMOL/L (5-14); ASPARTATE AMINO TRANSFERASE 28 U/L (5-34); BILIRUBIN,TOTAL 1.2 MG/DL (0.1-1.0); BLOOD UREA NITROGEN 7 MG/DL (7-18); BUN/CREATININE RATIO 10; CALCIUM 9.2 MG/DL (8.5-10.1); CARBON DIOXIDE 19 MMOL/L (21-32); CHLORIDE 103 MMOL/L (98-107); GFR ESTIMATED > 60; GLUCOSE 108 MG/DL (70-105); POTASSIUM 3.6 MMOL/L (3.6-5.0); SODIUM 137 MMOL/L (135-145); TOTAL PROTEIN 7.2 GM/DL (6.4-8.2)
[2017-06-24 08:00] VITALS: BP 108/55
[2017-06-24] MEDS: PANTOPRAZOLE 40 MG/10 ML (PROTONIX) VIAL IV SCH ×2 (08:40→20:17)
[2017-06-24] MEDS: FAMOTIDINE 20MG/2ML IV (PEPCID) IVP SCH ×2 (08:40→20:18)
--- NOTE | 2017-06-24 10:46 | Progress Note-Hospitalist ---
Subjective HPI/CC On Admission Date Seen by Provider: Jun 24, 2017 Time Seen by Provider: 10:41 Pt is a 42yoCF with a PMH of alcohol abuse (sober ~1 year), pancreatitis, adrenal mass who presented to the ER with CC of abd pain, vomiting, and diarrhea. She is known to me from a previous admission this month. She reports that her pain initially improved after discharge but then in preparation for her EGD/colonoscopy on 06/20 she began to develop abd pain. It continued to worsen over the weekend prompting her to seek evaluation last night in the ER. She was found to have an abnormal UA concerning for UTI and leukocytosis prompting admission. LA was normal and CT abd was obtained which showed persistent pancreatitis and possible colitis. She states her pain is still present mostly on the right side and wraps around her back "like a pancake." She denies any dysuria or frequency. She is still quite nauseous and has persistent diarrhea. She denies any sick contacts. Subjective/Events-last exam Pt reports feeling better than yesterday but still having persistent pain. Tolerated CLD this AM but having some pain since then. Objective Exam Vital Signs Vital Sign - Last 12Hours 06/22/17 06/23/17 21:09 01:27 Temp 99.2 Pulse 96 Resp 14 B/P (MAP) 118/75 Pulse Ox 94 O2 Delivery Room Air Capillary Refill : Less Than 3 Seconds General Appearance: No Apparent Distress, WD/WN Respiratory: Lungs Clear, No Respiratory Distress Cardiovascular: Regular Rate, Rhythm, No Murmur Gastrointestinal: Normal Bowel Sounds, Soft, Distended, Tenderness (diffuse, mild) Extremity: Non Tender, No Calf Tenderness, No Pedal Edema Neurologic/Psychiatric: Alert, Oriented x3 Results/Procedures Lab Laboratory Tests 06/24/17 06:01 Assessment/Plan Assessment and Plan Assess & Plan/Chief Complaint Pancreatitis Diagnosis/Problems Diagnosis/Problems (1) Pancreatitis Assessment & Plan: Lipase elevated but mildly so Possibly chronic pancreatitis IVF CLD- ADAT Fentanyl insufficient for pain control- will switch to Dilaudid Discussed with Dr Palm- supportive care Will need GI follow up as outpatient (2) Colitis Status: Acute Assessment & Plan: Continue on Zosyn Day #3 Surgery consulted, appreciate recs (3) Sepsis Status: Resolved Assessment & Plan: Sepsis resolved (only has leukocytosis now) Will continue Abx- Zosyn day [address]- will continue abx C diff negative IVF LA normal on arrival Blood culture negative Qualifiers: Qualified Codes: A41.9 - Sepsis, unspecified organism (4) Pancreatic pseudocyst Status: Acute Assessment & Plan: Compressing on SMV No surgical intervention at this time (5) Reflux esophagitis Assessment & Plan: Continue Pepcid (6) Gastritis Status: Chronic Assessment & Plan: Per EGD on 06/20 Continue Pepcid (7) Hypokalemia Status: Acute Assessment & Plan: Replacing in fluids (8) Adrenal mass Status: Chronic Assessment & Plan: Has been biopsied in past Was to have appt with [facility] Advised to rescheduled (9) Prophylactic measure Assessment & Plan: Lovenox D5 1/2NS with 40KCL at 125ml/hr NPO ROMAN Wang MD Jun 24, 2017 10:46 am
[2017-06-24] MEDS: ENOXAPARIN 40 MG/0.4 ML (LOVENOX) SYR SC SCH (11:50)
[2017-06-24] MEDS: HYDROmorphone (DILAUDID) 2 MG/ML VIAL IVP PRN ×4 (11:51→23:14)
--- NOTE | 2017-06-24 12:23 | Progress Note (SOAP) ---
Subjective Date Seen by Provider: Jun 24, 2017 Time Seen by Provider: 12:20 Subjective/Events-last exam doing ok, clinical status slightly improved. still has nausea and vomiting and abdominal pain. Objective Exam Vital Signs Date Time Temp Pulse Resp B/P (MAP) Pulse Ox O2 Delivery O2 Flow Rate FiO2 06/24/17 08:00 98.8 78 20 108/55 97 Room Air 06/24/17 04:43 97.3 85 18 109/63 97 Room Air 06/24/17 00:29 100.1 87 18 96/56 92 Room Air 06/23/17 21:00 Room Air 06/23/17 19:35 100.3 06/23/17 19:24 100.3 89 22 105/53 95 Room Air 06/23/17 18:57 100.6 06/23/17 16:10 100.6 06/23/17 15:35 100.6 06/23/17 15:27 100.6 92 22 103/56 95 Room Air 06/23/17 13:29 99.2 06/23/17 12:30 100.2 96 22 101/65 97 Room Air Capillary Refill : Less Than 3 Seconds General Appearance: No Apparent Distress HEENT: PERRL/EOMI Neck: Full Range of Motion Respiratory: Chest Non Tender, Lungs Clear, Normal Breath Sounds Cardiovascular: Regular Rate, Rhythm Gastrointestinal: soft, tenderness Extremity: Normal Capillary Refill Neurologic/Psychiatric: Alert, Oriented x3 Skin: Normal Color Lymphatic: No Adenopathy Results Lab Laboratory Tests 06/24/17 06:01: White Blood Count 20.2H, Red Blood Count 4.18L, Hemoglobin 12.5, Hematocrit 38, Mean Corpuscular Volume 90, Mean Corpuscular Hemoglobin 30, Mean Corpuscular Hemoglobin Concent 33, Red Cell Distribution Width 12.7, Platelet Count 497H, Mean Platelet Volume 9.3, Neutrophils (%) (Auto) 85H, Lymphocytes (%) (Auto) 7L , Monocytes (%) (Auto) 8, Eosinophils (%) (Auto) 0, Basophils (%) (Auto) 0, Neutrophils # (Auto) 17.3H, Lymphocytes # (Auto) 1.3, Monocytes # (Auto) 1.5H, Eosinophils # (Auto) 0.0, Basophils # (Auto) 0.0, Sodium Level 137, Potassium Level 3.6, Chloride Level 103, Carbon Dioxide Level 19L, Anion Gap 15H, Blood Urea Nitrogen 7, Creatinine 0.70, Estimat Glomerular Filtration Rate > 60, BUN/ Creatinine Ratio 10, Glucose Level 108H, Calcium Level 9.2, Total Bilirubin 1.2H , Aspartate Amino Transf (AST/SGOT) 28, Alanine Aminotransferase (ALT/SGPT) 32, Alkaline Phosphatase 168H, Total Protein 7.2, Albumin 3.4 Microbiology 06/22/17 Blood Culture - Preliminary, Resulted No growth 06/23/17 C. difficile GDH Antigen & Toxins - Final, Complete 06/22/17 Urine Culture - Preliminary, Resulted Assessment/Plan Assessment/Plan Assess & Plan/Chief Complaint hx pancreatitis with evolving pancreatic psuedocysts. pain control. diet as tolerate. must await resolution inflammation and psuedocyst wall maturation. Clinical Quality Measures DVT/VTE Risk/Contraindication: Risk Factor Score Per Nursin RFS Level Per Nursing on Admit: 4+=Very High EYAL SINGH MD Jun 24, 2017 12:23
[2017-06-24 16:18] VITALS: BP 112/57
--- NOTE | 2017-06-24 16:42 | Occ Therapy Progress Note ---
Therapy Progress Note 1516 to 1520 Pt seen in room. Pt is up ad treasure in room and taking herself to the bathroom, feeding herself, took a shower. Pt also reported no problems with UE weakness. No skilled OT needs identified. DC OT with patient agreement. JERI LANGSTON OT Jun 24, 2017 16:42
[2017-06-24] MEDS: HYDROcodone/APAP 5 MG/325 MG (LORTAB) TAB PO PRN ×2 (17:08→22:04)
[2017-06-25 00:39] VITALS: BP 108/58
[2017-06-25] MEDS: HYDROmorphone (DILAUDID) 2 MG/ML VIAL IVP PRN ×6 (03:25→22:18)
[2017-06-25] MEDS: D5 1/2 NS W/KCL 40 MEQ/L 1,000 ML IV SCH ×4 (03:28→20:16)
[2017-06-25] MEDS: PIPERACILLIN/TAZOBACTAM 4.5 GM/NS100 ML IVPB IV SCH ×6 (04:35→20:16)
[2017-06-25] MEDS: HYDROcodone/APAP 5 MG/325 MG (LORTAB) TAB PO PRN (06:14)
[2017-06-25 06:45] LABS: BASOPHILS % (AUTO) 0 % (0-10); EOSINOPHILS # (AUTO) 0.1 10^3/uL (0.0-0.3); EOSINOPHILS % (AUTO) 1 % (0-10); LYMPHOCYTES % (AUTO) 6 % (12-44); MEAN CORPUSCULAR HEMOGLOBIN 30 PG (25-34); MEAN CORPUSCULAR HGB CONC 33 G/DL (32-36); MEAN CORPUSCULAR VOLUME 90 FL (80-99); MEAN PLATELET VOLUME 9.6 FL (7.4-10.4); MONOCYTES # (AUTO) 1.3 X 10^3 (0.0-1.0); MONOCYTES % (AUTO) 8 % (0-12); NEUTROPHILS # (AUTO) 14.1 X 10^3 (1.8-7.8); NEUTROPHILS % (AUTO) 86 % (42-75); PLATELET COUNT 511 10^3/uL (130-400); RED BLOOD COUNT 3.61 10^6/uL (4.35-5.85); RED CELL DISTRIBUTION WIDTH 12.5 % (10.0-14.5); WHITE BLOOD COUNT 16.4 10^3/uL (4.3-11.0)
[2017-06-25 07:02] LABS: ANION GAP 10 MMOL/L (5-14); BLOOD UREA NITROGEN 4 MG/DL (7-18); BUN/CREATININE RATIO 7; CALCIUM 8.3 MG/DL (8.5-10.1); CARBON DIOXIDE 23 MMOL/L (21-32); CHLORIDE 100 MMOL/L (98-107); CREATININE SERUM 0.57 MG/DL (0.60-1.30); GFR ESTIMATED > 60; GLUCOSE 118 MG/DL (70-105); POTASSIUM 4.1 MMOL/L (3.6-5.0); SODIUM 133 MMOL/L (135-145)
[2017-06-25 08:00] VITALS: BP 101/65
[2017-06-25] MEDS: PANTOPRAZOLE 40 MG/10 ML (PROTONIX) VIAL IV SCH ×2 (08:40→21:58)
[2017-06-25] MEDS: DEXAMETHASONE 4 MG/ML SDV (DECADRON) IV PRN ×2 (08:40→13:53)
[2017-06-25] MEDS: FAMOTIDINE 20MG/2ML IV (PEPCID) IVP SCH ×2 (08:40→21:58)
[2017-06-25] MEDS ORDERED: SCOPOLAMINE 1.5 MG (TRANSDERM-SCOP) PATCH TOP SCH (10:15)
--- NOTE | 2017-06-25 10:17 | Progress Note-Hospitalist ---
Subjective HPI/CC On Admission Date Seen by Provider: Jun 25, 2017 Time Seen by Provider: 10:00 Pt is a 42yoCF with a PMH of alcohol abuse (sober ~1 year), pancreatitis, adrenal mass who presented to the ER with CC of abd pain, vomiting, and diarrhea. She is known to me from a previous admission this month. She reports that her pain initially improved after discharge but then in preparation for her EGD/colonoscopy on 06/20 she began to develop abd pain. It continued to worsen over the weekend prompting her to seek evaluation last night in the ER. She was found to have an abnormal UA concerning for UTI and leukocytosis prompting admission. LA was normal and CT abd was obtained which showed persistent pancreatitis and possible colitis. She states her pain is still present mostly on the right side and wraps around her back "like a pancake." She denies any dysuria or frequency. She is still quite nauseous and has persistent diarrhea. She denies any sick contacts. Subjective/Events-last exam Pt reports over all feeling better but had a very rough night. Pain was worse. Nausea increased and feels very anxious about getting nausea. Last BM a few days ago. Objective Exam Vital Signs Vital Sign - Last 12Hours 06/22/17 06/23/17 21:09 01:27 Temp 99.2 Pulse 96 Resp 14 B/P (MAP) 118/75 Pulse Ox 94 O2 Delivery Room Air Capillary Refill : Less Than 3 Seconds General Appearance: No Apparent Distress, WD/WN Respiratory: Lungs Clear, No Respiratory Distress Cardiovascular: Regular Rate, Rhythm, No Murmur Gastrointestinal: Normal Bowel Sounds, Soft, Distended, Tenderness Extremity: Non Tender, No Calf Tenderness Neurologic/Psychiatric: Alert, Oriented x3 Results/Procedures Lab Laboratory Tests 06/25/17 05:54 Assessment/Plan Assessment and Plan Assess & Plan/Chief Complaint Pancreatitis Diagnosis/Problems Diagnosis/Problems (1) Pancreatitis Status: Acute Assessment & Plan: Cont IVF CLD- ADAT Continue Dilaudid- increased to Q3 Switched to Oxycodone from Hydrocodone Discussed with Dr Palm- supportive care Will need GI follow up as outpatient Added scopolamine patch for nausea, continue zofran, phenergan, decadron prn (2) Colitis Status: Acute Assessment & Plan: Continue on Zosyn Day #4 Surgery consulted, appreciate recs (3) Sepsis Status: Resolved Assessment & Plan: Sepsis resolved (only has leukocytosis now) Will continue Abx- Zosyn day [address]- will continue abx C diff negative IVF LA normal on arrival Blood culture negative Qualifiers: Qualified Codes: A41.9 - Sepsis, unspecified organism (4) Pancreatic pseudocyst Status: Acute Assessment & Plan: Compressing on SMV No surgical intervention at this time (5) Reflux esophagitis Assessment & Plan: Continue Pepcid (6) Gastritis Status: Chronic Assessment & Plan: Per EGD on 06/20 Continue Pepcid, Protonix Will add Carafate (7) Hypokalemia Status: Acute Assessment & Plan: Replacing in fluids (8) Adrenal mass Status: Chronic Assessment & Plan: Has been biopsied in past Was to have appt with [facility] Advised to rescheduled (9) Prophylactic measure Assessment & Plan: Lovenox D5 1/2NS with 40KCL at 125ml/hr Diet as tolerated Pepcid/Protonix ROMAN GALDAMEZ MD Jun 25, 2017 10:17
[2017-06-25] MEDS: SUCRALFATE 1 GM (CARAFATE) TAB PO SCH ×3 (10:49→21:58)
[2017-06-25] MEDS: ONDANSETRON 4 MG/2 ML (SDV) Z0FRAN IV PRN (10:57)
[2017-06-25] MEDS: ENOXAPARIN 40 MG/0.4 ML (LOVENOX) SYR SC SCH (12:14)
[2017-06-25] MEDS: oxyCODONE/APAP 5/325MG (PERCOCET 5) TABLET PO PRN ×3 (12:16→22:18)
[2017-06-25 16:00] VITALS: BP 119/56
--- NOTE | 2017-06-25 16:11 | Progress Note (SOAP) ---
Subjective Date Seen by Provider: Jun 25, 2017 Time Seen by Provider: 16:00 Subjective/Events-last exam doing ok. tolerating diet. nausea/vomiting much improved. pain present however tolerable. Objective Exam Vital Signs Date Time Temp Pulse Resp B/P (MAP) Pulse Ox O2 Delivery O2 Flow Rate FiO2 06/25/17 16:00 98.4 76 18 119/56 94 Room Air 06/25/17 09:00 Room Air 06/25/17 08:00 96.7 90 20 101/65 95 Room Air 06/25/17 00:39 98.5 89 18 108/58 96 Room Air 06/24/17 21:00 Room Air 06/24/17 16:18 97.9 80 112/57 95 Room Air I & O 06/26/17 07:00 Intake Total 1140 ml Output Total 1100 ml Balance 40 ml Capillary Refill : Less Than 3 Seconds General Appearance: No Apparent Distress HEENT: PERRL/EOMI Neck: Full Range of Motion Respiratory: Chest Non Tender Cardiovascular: Regular Rate, Rhythm Gastrointestinal: normal bowel sounds, soft, tenderness Extremity: Normal Capillary Refill Neurologic/Psychiatric: Alert, Oriented x3 Skin: Normal Color Lymphatic: No Adenopathy Results Lab Laboratory Tests 06/25/17 05:54: White Blood Count 16.4H, Red Blood Count 3.61L, Hemoglobin 10.7L, Hematocrit 33L , Mean Corpuscular Volume 90, Mean Corpuscular Hemoglobin 30, Mean Corpuscular Hemoglobin Concent 33, Red Cell Distribution Width 12.5, Platelet Count 511H, Mean Platelet Volume 9.6, Neutrophils (%) (Auto) 86H, Lymphocytes (%) (Auto) 6L , Monocytes (%) (Auto) 8, Eosinophils (%) (Auto) 1, Basophils (%) (Auto) 0, Neutrophils # (Auto) 14.1H, Lymphocytes # (Auto) 1.0, Monocytes # (Auto) 1.3H, Eosinophils # (Auto) 0.1, Basophils # (Auto) 0.0, Sodium Level 133L, Potassium Level 4.1, Chloride Level 100, Carbon Dioxide Level 23, Anion Gap 10, Blood Urea Nitrogen 4L, Creatinine 0.57L, Estimat Glomerular Filtration Rate > 60, BUN /Creatinine Ratio 7, Glucose Level 118H, Calcium Level 8.3L Microbiology 06/22/17 Blood Culture - Preliminary, Resulted No growth 10/23/17 C. difficile GDH Antigen & Toxins - Final, Complete 06/22/17 Urine Culture - Final, Complete Strep, Beta Hemolytic Group B Assessment/Plan Assessment/Plan Assess & Plan/Chief Complaint hx pancreatitis with evolving pancreatic psuedocysts. pain control. diet as tolerate. must await resolution inflammation and psuedocyst wall maturation. Clinical Quality Measures DVT/VTE Risk/Contraindication: Risk Factor Score Per Nursin RFS Level Per Nursing on Admit: 4+=Very High EYAL SINGH MD Jun 25, 2017 4:11 pm
[2017-06-25] MEDS ORDERED: POLYETHYLENE GLYCOL 17 GM (MIRALAX) PACK PO SCH (21:00)
[2017-06-25] MEDS: DOCUSATE SODIUM 100 MG (COLACE) CAP PO SCH (21:58)
[2017-06-26] VITALS: BP 98/57
[2017-06-26] MEDS: HYDROmorphone (DILAUDID) 2 MG/ML VIAL IVP PRN ×3 (02:11→09:27)
[2017-06-26] MEDS: oxyCODONE/APAP 5/325MG (PERCOCET 5) TABLET PO PRN ×3 (02:12→10:38)
[2017-06-26] MEDS: PIPERACILLIN/TAZOBACTAM 4.5 GM/NS100 ML IVPB IV SCH ×2 (04:51)
[2017-06-26] MEDS: SUCRALFATE 1 GM (CARAFATE) TAB PO SCH ×2 (06:23→10:39)
[2017-06-26 08:17] VITALS: BP 120/70
[2017-06-26] MEDS: FAMOTIDINE 20MG/2ML IV (PEPCID) IVP SCH (09:11)
[2017-06-26] MEDS: DOCUSATE SODIUM 100 MG (COLACE) CAP PO SCH (09:11)
[2017-06-26] MEDS: PANTOPRAZOLE 40 MG/10 ML (PROTONIX) VIAL IV SCH (09:28)
[2017-06-26] MEDS: D5 1/2 NS W/KCL 40 MEQ/L 1,000 ML IV SCH (10:40)
--- NOTE | 2017-06-26 11:08 | Discharge Summary-Hospitalist ---
Diagnosis/Chief Complaint Date of Admission Jun 23, 2017 at 00:58 Date of Discharge Admission Diagnosis Sepsis Discharge Diagnosis Pancreatitis (1) Pancreatitis Status: Acute Assessment & Plan: s/p IVF resuscitation Tolerating diet Pain controlled with Oxycodone Discussed with Dr Singh- supportive care Will need GI follow up as outpatient Scopalamine patch controlling nausea (2) Colitis Status: Acute Assessment & Plan: Continue on Zosyn Day #5 Surgery consulted, appreciate recs Will complete 7 day course with Augmentin (3) Sepsis Status: Resolved Assessment & Plan: Sepsis resolved (only has leukocytosis now) Colitis noted on CT- will continue abx C diff negative IVF LA normal on arrival Blood culture negative Abx as above (4) Pancreatic pseudocyst Status: Acute Assessment & Plan: Compressing on SMV No surgical intervention at this time (5) Reflux esophagitis Assessment & Plan: Continue Pepcid, Carafate (6) Gastritis Status: Chronic Assessment & Plan: Per EGD on 06/20 Continue Pepcid, Protonix Will add Carafate (7) Hypokalemia Status: Resolved (8) Adrenal mass Status: Chronic Assessment & Plan: Has been biopsied in past Was to have appt with [facility] Advised to rescheduled (9) Prophylactic measure Assessment & Plan: Lovenox Saline Lock Diet as tolerated Pepcid/Protonix Discharge Summary Discharge Physical Examination Allergies: Coded Allergies: No Known Drug Allergies (Verified , 12/18/09) Vitals & I&Os Vital Signs Date Time Temp Pulse Resp B/P (MAP) Pulse Ox O2 Delivery O2 Flow Rate FiO2 06/26/17 08:17 96.8 55 20 120/70 98 Room Air Hospital Course Pt presented to the ER with CC of abd pain and was found to have colitis and persistent pancreatitis with large pseudocysts. She was admitted for IV abx, pain control, and fluid resuscitation. Pain was controlled with oxycodone, she completed 5 day of abx inpatient and will complete a 7 day course outpatient. She will follow up with Dr. Singh in 6 weeks. Labs (last 24 hrs) Microbiology 06/22/17 Blood Culture - Preliminary, Resulted No growth 06/23/17 C. difficile [facility]DH Antigen & Toxins - Final, Complete 06/22/17 Urine Culture - Final, Complete Strep, Beta Hemolytic Group B Discharge Home Medications: Active Scripts Active Protonix (Pantoprazole Sodium) 40 Mg Tablet.dr 40 Mg PO DAILY Reported Tylenol Extra Strength (Acetaminophen) 500 Mg Tablet 500-1,000 Mg PO Q4H PRN Promethazine Tablet (Promethazine HCl) 25 Mg Tablet 25 Mg PO Q6H PRN Advil (Ibuprofen) 200 Mg Tablet 600 Mg PO Q8H PRN TAKES 3 (200MG) TABLETS Instructions to patient/family Please see electronic discharge instructions given to patient. Clinical Quality Measures DVT/VTE Risk/Contraindication: Risk Factor Score Per Nursin RFS Level Per Nursing on Admit: 4+=Very High Copy Copies To 1: EYAL SINGH MD Problem Qualifiers (1) Sepsis: Sepsis type: sepsis due to unspecified organism Qualified Codes: A41.9 - Sepsis, unspecified organism ROMAN GALDAMEZ MD Jun 26, 2017 11:08
[2017-06-26] MEDS ORDERED: SCOP1PAT TOP (11:13)
[2017-06-26] MEDS ORDERED: SUCR1TAB PO (11:13)
[2017-06-26] MEDS ORDERED: LACT1CAP62 PO (11:13)
[2017-06-26] MEDS ORDERED: AMOX-358 PO (11:13)
[2017-06-26] MEDS ORDERED: OXYC-471 PO (11:14)
[2017-06-26 12:15] VITALS: BP 120/70
[2017-06-28] MEDS ORDERED: SCOPOLAMINE PATCH REMOVAL TP SCH (10:29)
== END 2017-06-26 12:15 | disposition home or self-care (01) | DRG 872 ==
LOC: EDUNIT# 20:32 → ER 20:34 → 4TH 06-23 00:58
PROVIDERS: ADMIT Internal Medicine; ATTEND Internal Medicine
DX: A41.9 Sepsis, unspecified organism (principal); K52.9 Noninfective gastroenteritis and colitis, unspecified; K86.1 Other chronic pancreatitis; K86.3 Pseudocyst of pancreas; N39.0 Urinary tract infection, site not specified; K21.0 Gastro-esophageal reflux disease with esophagitis; K29.60 Other gastritis without bleeding; E87.6 Hypokalemia; E27.9 Disorder of adrenal gland, unspecified; F17.210 Nicotine dependence, cigarettes, uncomplicated; F10.21 Alcohol dependence, in remission; Z23 Encounter for immunization
CPT/HCPCS: 36415; 74177; 80048; 80053; 81000; 83605; 83690; 83735; 84703; 85007; 85025; 85027; 86141; 87040; 87088; 87324; 87449; 96361; 96365; 96375; 96376

== ENCOUNTER → 2018-01-13 | Outpatient (CLI) | payer BC ==
[~2018-01-13] MED LIST changes: +ACET-2267 PO; +AMOX-358 PO; +HYDR-34 PO; -HYDR-3816 PO; +LACT1CAP62 PO; +OXYC-471 PO; +SCOP1PAT11 TOP; +SUCR1TAB PO
--- NOTE | 2018-01-20 19:03 | Diagnostic Imaging Report ---
INDICATION: Routine screening. COMPARISON: Comparison is made with prior exam from 10/18/2015. TECHNIQUE: 2D and 3D bilateral screening mammography was performed with computer-aided detection (CAD) system. FINDINGS: Both breasts remain heterogeneously dense, limiting the sensitivity of mammography. There is a focal density in the mid to posterior left breast at posterior depth, best seen on the MLO view. This most likely represents superimposed tissue, but additional views are recommended. No corresponding density on the CC view is seen. The remainder of the breasts are unremarkable. No suspicious calcifications are seen. The axillae are unremarkable. IMPRESSION: Left breast density. Additional views including spot compression and 90 degree lateral views are recommended for further evaluation. ACR BI-RADS Category 0: Incomplete. (Needs additional imaging evaluation). Result letter will be mailed to the patient. Note: At least 10% of breast cancer is not imaged by mammography. Dictated by: Dictated on workstation # [id number]
== END ==
LOC: RAD 07:18
PROVIDERS: ATTEND Nurse Practitioner Family
DX: Z12.31 Encounter for screening mammogram for malignant neoplasm of breast (principal)
CPT/HCPCS: 77067

== ENCOUNTER → 2018-02-18 | Outpatient (CLI) | payer BC ==
--- NOTE | 2018-02-18 12:54 | Diagnostic Imaging Report ---
INDICATION: Left breast density. Patient presents for additional views. Correlation is made with recent screening study from 01/13/2018. Unilateral left 2-D and 3-D diagnostic mammography was performed including spot compression MLO and conventional 90-degree lateral view. The current study was also evaluated with a Computer Aided Detection (CAD) system. FINDINGS: Left breast is heterogeneously dense. The area of density in the mid left breast on the screening study appears to resolve with additional views and most likely represented superimposed tissue. No mass is seen. No suspicious calcifications are identified. IMPRESSION: Additional views fail to demonstrate a discrete mass. The patient may return to routine annual screening mammography. ACR BI-RADS Category 1: Negative. Result letter will be mailed to the patient. Note: At least 10% of breast cancer is not imaged by mammography. Dictated by: Dictated on workstation # [id number]
== END ==
LOC: RAD 09:02
PROVIDERS: ATTEND Nurse Practitioner Family
DX: R92.2 Inconclusive mammogram (principal)

== ENCOUNTER 2018-09-02 09:07 | Outpatient (CLI) | payer BC ==
[~2018-09-02] VITALS: Ht 160 cm; Wt 66.9 kg
[~2018-09-02 09:07] MED LIST changes: -POLY17PO23 PO; +POLY17PO31 PO
[2018-09-02 09:35] LABS: BILIRUBIN,URINE NEGATIVE (NEGATIVE); CLARITY,URINE CLEAR; COLOR,URINE YELLOW; GLUCOSE, URINE (UA) NEGATIVE (NEGATIVE); KETONES,URINE 1+ (NEGATIVE); LEUKOCYTE ESTERASE ,URINE 1+ (NEGATIVE); NITRITE,URINE NEGATIVE (NEGATIVE); PH,URINE 5 (5-9); PROTEIN,URINE 2+ (NEGATIVE); UROBILINOGEN,URINE 1 MG/DL (NORMAL)
[2018-09-02] MEDS ORDERED: NS IV 1000 ML 1,000 ML IV ONE (09:45)
[2018-09-02 09:57] LABS: BACTERIA,URINE TRACE /HPF; WBC,URINE 0-2 /HPF
[2018-09-02 10:19] LABS: HEMOGLOBIN 15.1 G/DL (11.5-16.0); MEAN PLATELET VOLUME 8.9 FL (7.4-10.4); RED BLOOD COUNT 4.7 10^6/uL (4.35-5.85); RED CELL DISTRIBUTION WIDTH 12.6 % (10.0-14.5); WHITE BLOOD COUNT 9.8 10^3/uL (4.3-11.0)
[2018-09-02 10:42] LABS: ALANINE AMINOTRANSFERASE 15 U/L (0-55); ALBUMIN 4.2 GM/DL (3.2-4.5); ALKALINE PHOSPHATASE 48 U/L (40-136); AMYLASE 40 U/L (25-125); BILIRUBIN,TOTAL 0.4 MG/DL (0.1-1.0); BUN/CREATININE RATIO 12; CALCIUM 8.4 MG/DL (8.5-10.1); CARBON DIOXIDE 19 MMOL/L (21-32); CHLORIDE 110 MMOL/L (98-107); CHOLESTEROL 183 MG/DL (< 200); CREATININE SERUM 0.75 MG/DL (0.60-1.30); GFR ESTIMATED > 60; GLUCOSE 94 MG/DL (70-105); HDL CHOLESTEROL 54 MG/DL (40-60); LIPASE 12 U/L (8-78); POTASSIUM 3.6 MMOL/L (3.6-5.0); SODIUM 140 MMOL/L (135-145); TOTAL PROTEIN 6.7 GM/DL (6.4-8.2); TRIGLYCERIDES 95 MG/DL (<150); VLDL CHOLESTEROL 19 MG/DL (5-40)
[2018-09-02 11:05] VITALS: BP 143/75
== END 2018-09-02 11:05 | disposition home or self-care (01) ==
LOC: SDC 09:07
PROVIDERS: ATTEND Nurse Practitioner Family
DX: K86.1 Other chronic pancreatitis (principal)
CPT/HCPCS: 36415; 80053; 80061; 81000; 82150; 83690; 84443; 85027; 87088; 96360

== ENCOUNTER → 2018-10-12 | Outpatient (CLI) | payer BC ==
[2018-10-12 09:59] LABS: HEMOGLOBIN 16.4 G/DL (11.5-16.0); MEAN PLATELET VOLUME 8.6 FL (7.4-10.4); WHITE BLOOD COUNT 8.8 10^3/uL (4.3-11.0)
[2018-10-12 10:24] LABS: ALANINE AMINOTRANSFERASE 16 U/L (0-55); ALKALINE PHOSPHATASE 55 U/L (40-136); AMYLASE 81 U/L (25-125); BILIRUBIN,TOTAL 0.7 MG/DL (0.1-1.0); BUN/CREATININE RATIO 13; CALCIUM 9.9 MG/DL (8.5-10.1); CARBON DIOXIDE 22 MMOL/L (21-32); CHLORIDE 103 MMOL/L (98-107); CREATININE SERUM 0.78 MG/DL (0.60-1.30); GFR ESTIMATED > 60; GLUCOSE 107 MG/DL (70-105); LIPASE 56 U/L (8-78); POTASSIUM 4.3 MMOL/L (3.6-5.0); SODIUM 138 MMOL/L (135-145); TOTAL PROTEIN 7.8 GM/DL (6.4-8.2)
== END ==
LOC: LAB 09:39
PROVIDERS: ATTEND Internal Medicine Gastroenterology
DX: K85.90 Acute pancreatitis without necrosis or infection, unspecified (principal)
CPT/HCPCS: 36415; 80053; 82150; 83690; 85027

== ENCOUNTER 2018-11-01 19:26 | Emergency (ER) | payer BC ==
[~2018-11-01] VITALS: Ht 160 cm; Wt 68.0 kg
--- OUTSIDE RECORDS SUMMARY | 2018-11-01 19:30 | XMS REPORT | CCD ---
Author Author Lelia Dolan MD, 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 Name Role Phone PP Unavailable CCM Unavailable Summary Purpose Interface Exchange Insurance Providers Payer name Policy type / Coverage type Covered libertarian ID Effective Begin Date Effective End Date Blue Cross [facility] Blue Cross/Blue Shield [id number] Unknown Unknown Family history Mother Diagnosis Age At Onset Anemia Unknown kidney disease Unknown Heart Attack Unknown Diabetes mellitus Type 1 Unknown Stroke Unknown Hypertension Unknown Father Diagnosis Age At Onset Heart Attack Unknown Arthritis Unknown Hypertension Unknown Runs in the family Diagnosis Age At Onset Breast cancer Unknown Social History Social History Element Codes Description Effective Dates Marital status Unknown Single 07/01/2017 Employment Unknown Currently employed [employer] 07/01/[address]: 87422280 Current every day smoker 07/01/2017 Number of years using tobacco Unknown 10 - 20 1 pack day/20 years 07/01/2017 Number of cigarettes/day Unknown 20 (One Pack) 07/01/[address]: 354932538 Never drinks alcohol 07/01/2017 Allergies, Adverse Reactions, Alerts Substance Reaction Codes Entered Date Inactivated Date Status * NO KNOWN ENVIRONMENTAL ALLERGIES Unknown 07/01/2017 No Inactive Date Active * NO KNOWN FOOD ALLERGIES Unknown 07/01/2017 No Inactive Date Active NO KNOWN ALLERGIES Unknown 07/01/2017 No Inactive Date Active Past Medical History Illness Codes Condition Status Onset Date Resolved Date Generalized anxiety disorder ICD-9: 300.00 ICD-10: F41.1 Active 04/14/2018 Unknown Major depressive disorder, single episode, moderate ICD-9: 296.22 ICD-10: F32.1 Active 04/14/2018 Unknown Cellulitis of right external ear ICD-9: 380.10 ICD-10: H60.11 Active 09/30/2018 Unknown Dysuria ICD-9: 788.1 ICD-10: R30.0 Active 09/02/2018 Unknown Acute laryngopharyngitis ICD-9: 465.0 ICD-10: J06.0 Active 08/17/2018 Unknown Other allergic rhinitis ICD-9: 477.8 ICD-10: J30.89 Active 08/17/2018 Unknown Other chronic pancreatitis ICD-9: 577.1 ICD-10: K86.1 Active 07/01/2017 Unknown Other acute pancreatitis without necrosis or infection ICD-9: 577.0 ICD-10: K85.80 Active 07/01/2017 Unknown Left upper quadrant pain ICD-9: 789.02 ICD-10: R10.12 Active 07/01/2017 Unknown 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 07/01/2017 Unknown Problems Condition Codes Effective Dates Condition Status Generalized anxiety disorder ICD-9: 300.00 ICD-10: F41.1 04/14/2018 Active Major depressive disorder, single episode, moderate ICD-9: 296.22 ICD-10: F32.1 04/14/2018 Active Cellulitis of right external ear ICD-9: 380.10 ICD-10: H60.11 09/30/2018 Active Dysuria ICD-9: 788.1 ICD-10: R30.0 09/02/2018 Active Acute laryngopharyngitis ICD-9: 465.0 ICD-10: J06.0 08/17/2018 Active Other allergic rhinitis ICD-9: 477.8 ICD-10: J30.89 08/17/2018 Active Other chronic pancreatitis ICD-9: 577.1 ICD-10: K86.1 07/01/2017 Active Other acute pancreatitis without necrosis or infection ICD-9: 577.0 ICD-10: K85.80 07/01/2017 Active Left upper quadrant pain ICD-9: 789.02 ICD-10: R10.12 07/01/2017 Active 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 07/01/2017 Active Medications Medication Codes Instructions Start Date Stop Date Status Fill Instructions Prozac 20 mg capsule RxNorm: 914282 1 Capsule(s) PO daily 10/2110/27/2018 Active Zoloft 25 mg tablet RxNorm: 089881 1 Tablet(s) PO daily 201811/19/2018 Active Levaquin 500 mg tablet RxNorm: 539702 1 Tablet(s) PO daily 09/201810/08/2018 Inactive Levaquin 500 mg tablet RxNorm: 393425 1 Tablet(s) PO daily 09/201810/01/2018 Inactive Levaquin 500 mg tablet RxNorm: 574157 1 Tablet(s) PO daily 09/201810/01/2018 Inactive prednisone 20 mg tablet RxNorm: 824391 2 Tablet(s) PO daily 10/04/2018 Inactive Bactrim DS 800 mg-160 mg tablet RxNorm: 148020 1 Tablet(s) PO BID 09/30/2018 10/09/2018 Inactive Bactrim DS 800 mg-160 mg tablet RxNorm: 282412 1 Tablet(s) PO BID 09/02/2018 09/11/2018 Inactive Augmentin 875 mg-125 mg tablet RxNorm: 937796 1 Tablet(s) PO BID started in hospital 08/17/2018 08/23/2018 Inactive Prozac 40 mg capsule RxNorm: 099034 1 Capsule(s) PO daily 08/1005/06/2019 Active Creon 36,000 unit-114,000 unit-180,000 unit capsule, delayed release RxNorm: 8197880 CAPSULE(S) 1 CAPSULE(S) PO WITH MEALS AND SNACKS No Stop Date Active Prozac 20 mg capsule RxNorm: 213563 1 Capsule(s) PO daily 05/1308/09/2018 Inactive Prozac 20 mg capsule RxNorm: 307895 1 Capsule(s) PO daily 04/1405/12/2018 Inactive Creon 36,000 unit-114,000 unit-180,000 unit capsule, delayed release RxNorm: 2315927 Capsule(s) 1 CAPSULE(S) PO WITH MEALS AND SNACKS 04/201805/14/2018 Inactive Creon 36,000 unit-114,000 unit-180,000 unit capsule, delayed release RxNorm: 6978569 1 CAPSULE(S) PO WITH MEALS AND SNACKS 07/04/2017 01/05/2018 Inactive pantoprazole 40 mg tablet,delayed release RxNorm: 029052 1 Tablet(s) PO daily started in hospital 07/01/2017 07/30/2017 Inactive Creon 36,000 unit-114,000 unit-180,000 unit capsule, delayed release RxNorm: 2459561 1 Capsule(s) PO with meals and snacks 07/01/2017 07/03/2017 Inactive Augmentin 875 mg-125 mg tablet RxNorm: 506150 1 Tablet(s) PO BID started in hospital 06/26/2017 06/27/2017 Inactive scopolamine 1 mg over 3 days transdermal patch RxNorm: 139970 1 Patch TD Q72H started in the hospital No Start Date Active promethazine 25 mg tablet RxNorm: 136094 1 Tablet(s) PO QID as needed started in hospital No Start Date Active Lactobacillus acidophilus capsule RxNorm: 1 Capsule(s) PO daily No Start Date Active acetaminophen 500 mg tablet RxNorm: 824509 1-2 Tablet(s) PO Q4H as needed started hospital No Start Date Active oxycodone-acetaminophen 5 mg-325 mg tablet RxNorm: 0474104 1-2 Tablet(s) PO Q4H started at the hospital No Start Date Active Carafate 1 gram tablet RxNorm: 655481 1 Tablet(s) PO AC & HS started in hospital No Start Date Active Medication Administered No Medication Administered data Immunizations No Immunization data Assessments Condition Codes Effective Dates Major depressive disorder, single episode, moderate ICD-10: F32.1 ICD-9: 296.22 10/21/2018 Generalized anxiety disorder ICD-10: F41.1 ICD-9: 300.00 10/21/2018 Cellulitis of right external ear ICD-10: H60.11 ICD-9: 380.10 10/05/2018 Dysuria ICD-10: R30.0 ICD-9: 788.1 09/02/2018 Acute laryngopharyngitis ICD-10: J06.0 ICD-9: 465.0 08/17/2018 Other allergic rhinitis ICD-10: J30.89 ICD-9: 477.8 08/17/2018 Other chronic pancreatitis ICD-10: K86.1 ICD-9: 577.1 01/09/2018 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 07/01/2017 Left upper quadrant pain ICD-10: R10.12 ICD-9: 789.02 07/01/2017 Reason For Visit Reason For Visit Effective Dates Notes anxiety 10/21/2018 earache 10/05/2018 earache 09/30/2018 abdominal pain 09/02/2018 medication follow up 08/17/2018 medication follow up 05/13/2018 depression 04/14/2018 abdominal pain 01/09/2018 abdominal pain 11/28/2017 abdominal pain 07/01/2017 Results Observation Observation Code Item Item Code Result Date Manual Differential Ord52 D-Neutr 72 % 07/02/2017 Manual Differential Ord52 D-Bands 1 % 07/02/2017 Manual Differential Ord52 D-Lymph 24 % 07/02/2017 Manual Differential Ord52 D-[place] 1 % 07/02/2017 Manual Differential Ord52 D-Eos 2 % 07/02/2017 Amylase Ord34 AMYLASE 40 U/L 07/02/2017 Cbc With Differential Ord2 WBC 11.17 K/ul 07/02/2017 Cbc With Differential Ord2 RBC 4.96 M/ul 07/02/2017 Cbc With Differential Ord2 HGB 15.1 g/dl 07/02/2017 Cbc With Differential Ord2 HCT 45.1 % 07/02/2017 Cbc With Differential Ord2 Neut% 72.6 % 07/02/2017 Cbc With Differential Ord2 MCV 90.9 fl 07/02/2017 Cbc With Differential Ord2 Lymph% 18.8 % 07/02/2017 Cbc With Differential Ord2 [place]% 6.1 % 07/02/2017 Cbc With Differential Ord2 MCH 30.4 pg 07/02/2017 Cbc With Differential Ord2 MCHC 33.5 pg 07/02/2017 Cbc With Differential Ord2 Eos% 1.7 % 07/02/2017 Cbc With Differential Ord2 Baso% 0.8 % 07/02/2017 Cbc With Differential Ord2 PLT 879 Result Verified By Repeat Analysis K/ul 07/02/2017 Cbc With Differential Ord2 RDW 13.2 % 07/02/2017 Cbc With Differential Ord2 Neut ABS# 8.11 K/ul 07/02/2017 Cbc With Differential Ord2 Lymph ABS# 2.10 K/ul 07/02/2017 Cbc With Differential Ord2 [place] ABS# 0.7 K/ul 07/02/2017 Cbc With Differential Ord2 Eos ABS# 0.2 K/ul 07/02/2017 Cbc With Differential Ord2 Baso ABS# 0.1 K/ul 07/02/2017 Lipase Ujr638 LIPASE 26 U/L 07/02/2017 Comp Metabolic Jin059 NA 134 mEq/L 07/02/2017 Comp Metabolic Wbv216 K 4.6 mEq/L 07/02/2017 Comp Metabolic Vlu967 CL 93 mEq/L 07/02/2017 Comp Metabolic Lht420 CO2 28.0 mEq/L 07/02/2017 Comp Metabolic Llc638 ANION GAP 18 07/02/2017 Comp Metabolic Omg434 GLUCOSE 108 mg/dL 07/02/2017 Comp Metabolic Mrd513 Creat 0.7 mg/dL 07/02/2017 Comp Metabolic Ngb809 eGFR 100 ml/min/1.73m2 07/02/2017 Comp Metabolic Cuo332 BUN 10 mg/dL 07/02/2017 Comp Metabolic Cfx477 B/C Ratio 14.7 Ratio 07/02/2017 Comp Metabolic Unr845 CALCIUM 10.0 mg/dL 07/02/2017 Comp Metabolic Ytt143 ALK PHOS 102 U/L 07/02/2017 Comp Metabolic Idg589 AST(SGOT) 15 U/L 07/02/2017 Comp Metabolic Wan253 ALT(SGPT) 18 U/L 07/02/2017 Comp Metabolic Omp478 BILI T 0.4 mg/dL 07/02/2017 Comp Metabolic Ume100 ALBUMIN 3.9 g/dL 07/02/2017 Comp Metabolic Uat085 TPRO 7.8 g/dL 07/02/2017 Comp Metabolic Bjl792 GLOB 3.9 g/dL 07/02/2017 Comp Metabolic Jna008 A/G Ratio 1.0 Ratio 07/02/2017 Comp Metabolic Fna027 Osmo 268 mOsmo 07/02/2017 Review of Systems System Result Effective Dates Constitutional No recent illness 2018 Constitutional No chills 10/21/2018 Constitutional No diaphoresis 10/21/2018 Constitutional No fever 10/21/2018 Eyes No eye erythema 10/21/2018 Ears/Nose/Throat/Neck No nasal allergies 10/21/2018 Ears/Nose/Throat/Neck No nasal discharge 10/21/2018 Cardiovascular No chest pain/pressure Cardiovascular No dyspnea 10/21/2018 Respiratory No chest congestion 2018 Respiratory No cough 10/21/2018 Gastrointestinal No abdominal pain 2018 Musculoskeletal No joint complaint 2018 Dermatologic No rash 10/21/2018 Neurologic No alteration of consciousness 10/21/2018 Neurologic No mental status change 2018 Psychiatric anxiety 10/21/2018 Psychiatric depression 10/21/2018 Psychiatric No suicidality 10/21/2018 Constitutional No recent illness 2018 Constitutional No chills 10/05/2018 Constitutional No diaphoresis 10/05/2018 Constitutional No fever 10/05/2018 Eyes No eye erythema 10/05/2018 Ears/Nose/Throat/Neck No nasal discharge 10/05/2018 Cardiovascular No chest pain/pressure 11/2018 Respiratory No cough 10/05/2018 Dermatologic cellulitis 10/05/2018 Neurologic No alteration of consciousness 10/05/2018 Neurologic No mental status change 2018 Ears/Nose/Throat/Neck otalgia 10/05/2018 Constitutional No recent illness 2018 Constitutional No chills 09/30/2018 Constitutional No diaphoresis 09/30/2018 Constitutional No fever 09/30/2018 Eyes No eye erythema 09/30/2018 Ears/Nose/Throat/Neck No nasal discharge 09/30/2018 Cardiovascular No chest pain/pressure Respiratory No cough 09/30/2018 Neurologic No alteration of consciousness 09/30/2018 Neurologic No mental status change 2018 Dermatologic cellulitis 09/30/2018 Constitutional No recent illness 2018 Constitutional No chills 09/02/2018 Constitutional No diaphoresis 09/02/2018 Constitutional No fever 09/02/2018 Eyes No eye erythema 09/02/2018 Ears/Nose/Throat/Neck No nasal discharge 09/02/2018 Cardiovascular No chest pain/pressure 10/2018 Respiratory No cough 09/02/2018 Gastrointestinal abdominal pain 2018 Genitourinary/Nephrology dysuria 2018 Genitourinary/Nephrology urinary urgency 09/02/2018 Genitourinary/Nephrology urinary frequency 09/02/2018 Neurologic No alteration of consciousness 09/02/2018 Neurologic No mental status change 2018 Gastrointestinal diarrhea 09/02/2018 Gastrointestinal No constipation 2018 Gastrointestinal No vomiting 09/02/2018 Gastrointestinal No nausea 09/02/2018 Gastrointestinal No melena 09/02/2018 Constitutional No recent illness 2017 Constitutional No chills 08/17/2018 Constitutional No diaphoresis 08/17/2018 Constitutional No fever 08/17/2018 Eyes No eye erythema 08/17/2018 Ears/Nose/Throat/Neck nasal allergies Ears/Nose/Throat/Neck nasal discharge Cardiovascular No chest pain/pressure Cardiovascular No dyspnea 08/17/2018 Respiratory cough 08/17/2018 Gastrointestinal No abdominal pain 2017 Gastrointestinal No constipation 2017 Gastrointestinal No diarrhea 08/17/2018 Dermatologic No rash 08/17/2018 Neurologic No alteration of consciousness 08/17/2018 Neurologic No mental status change 2017 Psychiatric anxiety 08/17/2018 Psychiatric depression 08/17/2018 Psychiatric No suicidality 08/17/2018 Ears/Nose/Throat/Neck sore throat 2017 Ears/Nose/Throat/Neck sinus congestion Respiratory No dyspnea 08/17/2018 Constitutional No recent illness 2017 Constitutional No chills 05/13/2018 Constitutional No diaphoresis 05/13/2018 Constitutional No fever 05/13/2018 Eyes No eye erythema 05/13/2018 Ears/Nose/Throat/Neck No nasal discharge 05/13/2018 Ears/Nose/Throat/Neck No nasal allergies 05/13/2018 Cardiovascular No chest pain/pressure 08/2018 Cardiovascular No dyspnea 05/13/2018 Respiratory No cough 05/13/2018 Gastrointestinal No abdominal pain 2017 Gastrointestinal No diarrhea 05/13/2018 Gastrointestinal No constipation 2017 Dermatologic No rash 05/13/2018 Neurologic No alteration of consciousness 05/13/2018 Neurologic No mental status change 2017 Psychiatric anxiety 05/13/2018 Psychiatric depression 05/13/2018 Psychiatric No suicidality 05/13/2018 Constitutional No recent illness 2017 Constitutional No chills 04/14/2018 Constitutional No diaphoresis 04/14/2018 Constitutional No fever 04/14/2018 Eyes No eye erythema 04/14/2018 Ears/Nose/Throat/Neck No nasal discharge 04/14/2018 Cardiovascular No chest pain/pressure Cardiovascular No dyspnea 04/14/2018 Respiratory No cough 04/14/2018 Respiratory No chest congestion 2017 Gastrointestinal No abdominal pain 2017 Musculoskeletal No joint complaint 2017 Dermatologic No rash 04/14/2018 Neurologic No alteration of consciousness 04/14/2018 Neurologic No mental status change 2017 Psychiatric depression 04/14/2018 Psychiatric anxiety 04/14/2018 Psychiatric No suicidality 04/14/2018 Constitutional No recent illness 2017 Constitutional No chills 01/09/2018 Constitutional No diaphoresis 01/09/2018 Constitutional No fever 01/09/2018 Eyes No eye erythema 01/09/2018 Ears/Nose/Throat/Neck No nasal allergies 01/09/2018 Ears/Nose/Throat/Neck No nasal discharge 01/09/2018 Cardiovascular No chest pain/pressure 07/2018 Cardiovascular No dyspnea 01/09/2018 Respiratory No chest congestion 2017 Respiratory No cough 01/09/2018 Gastrointestinal No abdominal pain 2017 Gastrointestinal No constipation 2017 Gastrointestinal No diarrhea 01/09/2018 Gastrointestinal No vomiting 01/09/2018 Musculoskeletal No joint complaint 2017 Dermatologic No rash 01/09/2018 Neurologic No alteration of consciousness 01/09/2018 Neurologic No mental status change 2017 Constitutional No recent illness 2017 Constitutional No chills 11/28/2017 Constitutional No diaphoresis 11/28/2017 Constitutional No fever 11/28/2017 Eyes No eye erythema 11/28/2017 Ears/Nose/Throat/Neck No nasal discharge 11/28/2017 Ears/Nose/Throat/Neck No nasal allergies 11/28/2017 Cardiovascular No chest pain/pressure Cardiovascular No dyspnea 11/28/2017 Respiratory No cough 11/28/2017 Respiratory No chest congestion 2017 Gastrointestinal No abdominal pain 2017 Gastrointestinal No constipation 2017 Gastrointestinal No diarrhea 11/28/2017 Gastrointestinal No vomiting 11/28/2017 Musculoskeletal No joint complaint 2017 Dermatologic No rash 11/28/2017 Neurologic No alteration of consciousness 11/28/2017 Neurologic No mental status change 2017 Constitutional recent illness 07/01/2017 Constitutional No chills 07/01/2017 Constitutional fatigue 07/01/2017 Constitutional No fever 07/01/2017 Constitutional malaise 07/01/2017 Eyes No eye erythema 07/01/2017 Ears/Nose/Throat/Neck No nasal discharge 07/01/2017 Cardiovascular No chest pain/pressure Cardiovascular No dyspnea 07/01/2017 Respiratory No cough 07/01/2017 Respiratory No chest congestion 2016 Gastrointestinal abdominal pain 2016 Gastrointestinal constipation 07/01/2017 Gastrointestinal No diarrhea 07/01/2017 Gastrointestinal No melena 07/01/2017 Gastrointestinal No hematochezia 2016 Gastrointestinal No vomiting 07/01/2017 Gastrointestinal nausea 07/01/2017 Musculoskeletal No joint complaint 2016 Dermatologic No rash 07/01/2017 Neurologic No alteration of consciousness 07/01/2017 Neurologic No mental status change 2016 Physical Exam Exam Name System Name Item Name Status Result Effective Dates Notes Full Exam - General 1994 Constitutional general appearance Overall: well developed 10/21/2018 None Full Exam - General 1994 Constitutional general appearance Overall: in no acute distress 10/21/2018 None Full Exam - General 1994 Constitutional general appearance Overall: well nourished 10/21/2018 None Full Exam - General 1994 Eyes conjunctiva /eyelids Overall: conjunctiva clear 10/21/2018 None Full Exam - General 1994 Eyes conjunctiva /eyelids Overall: cornea clear 10/21/2018 None Full Exam - General 1994 Eyes conjunctiva /eyelids Overall: eyelids normal 10/21/2018 None Full Exam - General 1994 Ears/Nose/Throat lips/teeth/gingiva Overall: benign lips 10/21/2018 None Full Exam - General 1994 Ears/Nose/Throat oral cavity/pharynx/larynx Overall: oral mucosa clear 10/21/2018 None Full Exam - General 1994 Respiratory respiratory effort/rhythm Overall: no retractions 10/21/2018 None Full Exam - General 1994 Respiratory respiratory effort/rhythm Overall: normal rate 10/21/2018 None Full Exam - General 1994 Cardiovascular extremities Overall: no clubbing 10/21/2018 None Full Exam - General 1994 Musculoskeletal gait and station Overall: normal gait 10/21/2018 None Full Exam - General 1994 Musculoskeletal gait and station Overall: normal station 10/21/2018 None Full Exam - General 1994 Musculoskeletal head and neck Overall: head atraumatic 10/21/2018 None Full Exam - General 1994 Neurologic cranial nerves Overall: crainial nerves 2 - 12 grossly intact 10/21/2018 None Full Exam - General 1994 Psychiatric orientation/consciousness Overall: oriented to person, place and time 10/21/2018 None Full Exam - General 1994 Psychiatric mood and affect Mood: depressed 10/21/2018 None Full Exam - General [facility] Psychiatric mood and affect Mood: anxious 10/21/2018 None Full Exam - Dermatology Constitutional general appearance Overall: well nourished 10/05/2018 None Full Exam - Dermatology Constitutional general appearance Overall: well developed 10/05/2018 None Full Exam - Dermatology Constitutional general appearance Overall: in no acute distress 10/05/2018 None Full Exam - Dermatology Eyes conjunctiva/ eyelids Overall: clear conjunctiva bilaterally 10/05/2018 None Full Exam - Dermatology Eyes conjunctiva/ eyelids Overall: clear corneas 10/05/2018 None Full Exam - Dermatology Eyes conjunctiva/ eyelids Overall: normal eyelids 10/05/2018 None Full Exam - Dermatology Ears/Nose/Throat lips/teeth/gingiva Overall: benign lips 10/05/2018 None Full Exam - Dermatology Ears/Nose/Throat oropharynx Overall: clear oral mucosa 10/05/2018 None Full Exam - Dermatology Respiratory respiratory effort/rhythm Overall: no retractions 10/05/2018 None Full Exam - Dermatology Respiratory respiratory effort/rhythm Overall: normal rate 10/05/2018 None Full Exam - Dermatology Musculoskeletal head and neck Overall: head atraumatic 10/05/2018 None Full Exam - Dermatology Integument insp & palp - head/face Location: on the right ear 10/05/2018 improving Full Exam - Dermatology Integument insp & palp - head/face Color: erythematous 10/05/2018 None Full Exam - Dermatology Integument insp & palp - head/face Consistency: tender 10/05/2018 None Full Exam - Dermatology Psychiatric orientation Overall: oriented to person, place and time 10/05/2018 None Full Exam - Dermatology Psychiatric mood and affect Overall: normal mood and affect 10/05/2018 None Full Exam - Dermatology Integument insp & palp - genitalia/groin/buttocks Location: on the left vulva 10/05/2018 None Full Exam - Dermatology Integument insp & palp - genitalia/groin/buttocks Lesion: pustule 10/05/2018 small, erythematous Full Exam - Dermatology Constitutional general appearance Overall: well nourished 09/30/2018 None Full Exam - Dermatology Constitutional general appearance Overall: well developed 09/30/2018 None Full Exam - Dermatology Constitutional general appearance Overall: in no acute distress 09/30/2018 None Full Exam - Dermatology Eyes conjunctiva/ eyelids Overall: clear conjunctiva bilaterally 09/30/2018 None Full Exam - Dermatology Eyes conjunctiva/ eyelids Overall: clear corneas 09/30/2018 None Full Exam - Dermatology Eyes conjunctiva/ eyelids Overall: normal eyelids 09/30/2018 None Full Exam - Dermatology Ears/Nose/Throat lips/teeth/gingiva Overall: benign lips 09/30/2018 None Full Exam - Dermatology Ears/Nose/Throat oropharynx Overall: clear oral mucosa 09/30/2018 None Full Exam - Dermatology Respiratory respiratory effort/rhythm Overall: no retractions 09/30/2018 None Full Exam - Dermatology Respiratory respiratory effort/rhythm Overall: normal rate 09/30/2018 None Full Exam - Dermatology Musculoskeletal head and neck Overall: head atraumatic 09/30/2018 None Full Exam - Dermatology Psychiatric orientation Overall: oriented to person, place and time 09/30/2018 None Full Exam - Dermatology Psychiatric mood and affect Overall: normal mood and affect 09/30/2018 None Full Exam - Dermatology Integument insp & palp - head/face Lesion: pustule 09/30/2018 None Full Exam - Dermatology Integument insp & palp - head/face Location: on the right ear 09/30/2018 None Full Exam - Dermatology Integument insp & palp - head/face Color: erythematous 09/30/2018 None Full Exam - Dermatology Integument insp & palp - head/face Color: purulent 09/30/2018 None Full Exam - Dermatology Integument insp & palp - head/face Consistency: tender 09/30/2018 None Full Exam - General 1994 Constitutional general appearance Overall: well developed 09/02/2018 None Full Exam - General 1994 Constitutional general appearance Overall: in no acute distress 09/02/2018 None Full Exam - General 1994 Constitutional general appearance Overall: well nourished 09/02/2018 None Full Exam - General 1994 Eyes conjunctiva /eyelids Overall: conjunctiva clear 09/02/2018 None Full Exam - General 1994 Eyes conjunctiva /eyelids Overall: cornea clear 09/02/2018 None Full Exam - General 1994 Eyes conjunctiva /eyelids Overall: eyelids normal 09/02/2018 None Full Exam - General 1994 Ears/Nose/Throat lips/teeth/gingiva Overall: benign lips 09/02/2018 None Full Exam - General 1994 Ears/Nose/Throat oral cavity/pharynx/larynx Overall: oral mucosa clear 09/02/2018 None Full Exam - General 1994 Respiratory respiratory effort/rhythm Overall: no retractions 09/02/2018 None Full Exam - General 1994 Respiratory respiratory effort/rhythm Overall: normal rate 09/02/2018 None Full Exam - General 1994 Cardiovascular auscultation of heart Overall: regular rate 09/02/2018 None Full Exam - General 1994 Cardiovascular auscultation of heart Overall: normal heart sounds 09/02/2018 None Full Exam - General 1994 Musculoskeletal head and neck Overall: head atraumatic 09/02/2018 None Full Exam - General 1994 Neurologic cranial nerves Overall: crainial nerves 2 - 12 grossly intact 09/02/2018 None Full Exam - General 1994 Psychiatric orientation/consciousness Overall: oriented to person, place and time 09/02/2018 None Full Exam - General 1994 Psychiatric mood and affect Overall: normal mood and affect 09/02/2018 None Full Exam - General 1994 Abdomen abdominal exam Upper quadrant: tender to palpation 09/02/2018 None Full Exam - General 1994 Abdomen abdominal exam Upper quadrant: dull pain 09/02/2018 None Full Exam - General 1994 Constitutional general appearance Overall: well developed 08/17/2018 None Full Exam - General 1994 Constitutional general appearance Overall: in no acute distress 08/17/2018 None Full Exam - General 1994 Constitutional general appearance Overall: well nourished 08/17/2018 None Full Exam - General 1994 Eyes conjunctiva /eyelids Overall: conjunctiva clear 08/17/2018 None Full Exam - General 1994 Eyes conjunctiva /eyelids Overall: cornea clear 08/17/2018 None Full Exam - General 1994 Eyes conjunctiva /eyelids Overall: eyelids normal 08/17/2018 None Full Exam - General 1994 Ears/Nose/Throat lips/teeth/gingiva Overall: benign lips 08/17/2018 None Full Exam - General 1994 Respiratory auscultation Overall: breath sounds clear bilaterally 08/17/2018 None Full Exam - General 1994 Respiratory respiratory effort/rhythm Overall: no retractions 08/17/2018 None Full Exam - General 1994 Respiratory respiratory effort/rhythm Overall: normal rate 08/17/2018 None Full Exam - General 1994 Cardiovascular auscultation of heart Overall: regular rate 08/17/2018 None Full Exam - General 1994 Cardiovascular auscultation of heart Overall: normal heart sounds 08/17/2018 None Full Exam - General 1994 Musculoskeletal gait and station Overall: normal gait 08/17/2018 None Full Exam - General 1994 Musculoskeletal gait and station Overall: normal station 08/17/2018 None Full Exam - General 1994 Musculoskeletal head and neck Overall: head atraumatic 08/17/2018 None Full Exam - General 1994 Neurologic cranial nerves Overall: crainial nerves 2 - 12 grossly intact 08/17/2018 None Full Exam - General 1994 Psychiatric orientation/consciousness Overall: oriented to person, place and time 08/17/2018 None Full Exam - General 1994 Psychiatric mood and affect Overall: normal mood and affect 08/17/2018 None Full Exam - General 1994 Psychiatric appearance Overall: well-groomed, good eye contact 08/17/2018 None Full Exam - General 1994 Ears/Nose/Throat otoscopic exam Overall: tympanic membranes clear 08/17/2018 None Full Exam - General 1994 Ears/Nose/Throat otoscopic exam Overall: external auditory canals clear 08/17/2018 None Full Exam - General 1994 Ears/Nose/Throat oral cavity/pharynx/larynx Overall: oral mucosa clear 08/17/2018 None Full Exam - General 1994 Ears/Nose/Throat oral cavity/pharynx/larynx Posterior Pharynx: clear post nasal drainage 08/17/2018 None Full Exam - General 1994 Constitutional general appearance Overall: well developed 05/13/2018 None Full Exam - General 1994 Constitutional general appearance Overall: in no acute distress 05/13/2018 None Full Exam - General 1994 Constitutional general appearance Overall: well nourished 05/13/2018 None Full Exam - General 1994 Eyes conjunctiva /eyelids Overall: conjunctiva clear 05/13/2018 None Full Exam - General 1994 Eyes conjunctiva /eyelids Overall: cornea clear 05/13/2018 None Full Exam - General 1994 Eyes conjunctiva /eyelids Overall: eyelids normal 05/13/2018 None Full Exam - General 1994 Ears/Nose/Throat lips/teeth/gingiva Overall: benign lips 05/13/2018 None Full Exam - General 1994 Respiratory respiratory effort/rhythm Overall: normal rate 05/13/2018 None Full Exam - General 1994 Respiratory respiratory effort/rhythm Overall: no retractions 05/13/2018 None Full Exam - General 1994 Respiratory auscultation Overall: breath sounds clear bilaterally 05/13/2018 None Full Exam - General 1994 Cardiovascular auscultation of heart Overall: regular rate 05/13/2018 None Full Exam - General 1994 Cardiovascular auscultation of heart Overall: normal heart sounds 05/13/2018 None Full Exam - General 1995 Musculoskeletal head and neck Overall: head atraumatic 05/13/2018 None Full Exam - General 1994 Musculoskeletal gait and station Overall: normal station 05/13/2018 None Full Exam - General 1994 Musculoskeletal gait and station Overall: normal gait 05/13/2018 None Full Exam - General 1994 Neurologic cranial nerves Overall: crainial nerves 2 - 12 grossly intact 05/13/2018 None Full Exam - General 1994 Psychiatric orientation/consciousness Overall: oriented to person, place and time 05/13/2018 None Full Exam - General 1994 Psychiatric mood and affect Overall: normal mood and affect 05/13/2018 None Full Exam - General 1994 Psychiatric appearance Overall: well-groomed, good eye contact 05/13/2018 None Full Exam - General 1994 Constitutional general appearance Overall: well developed 04/14/2018 None Full Exam - General 1994 Constitutional general appearance Overall: in no acute distress 04/14/2018 None Full Exam - General 1994 Constitutional general appearance Overall: well nourished 04/14/2018 None Full Exam - General 1994 Eyes conjunctiva /eyelids Overall: conjunctiva clear 04/14/2018 None Full Exam - General 1994 Eyes conjunctiva /eyelids Overall: cornea clear 04/14/2018 None Full Exam - General 1994 Eyes conjunctiva /eyelids Overall: eyelids normal 04/14/2018 None Full Exam - General 1994 Ears/Nose/Throat lips/teeth/gingiva Overall: benign lips 04/14/2018 None Full Exam - General 1994 Ears/Nose/Throat oral cavity/pharynx/larynx Overall: oral mucosa clear 04/14/2018 None Full Exam - General 1994 Respiratory respiratory effort/rhythm Overall: no retractions 04/14/2018 None Full Exam - General 1994 Respiratory respiratory effort/rhythm Overall: normal rate 04/14/2018 None Full Exam - General 1994 Cardiovascular extremities Overall: no clubbing 04/14/2018 None Full Exam - General 1994 Musculoskeletal gait and station Overall: normal station 04/14/2018 None Full Exam - General 1994 Musculoskeletal gait and station Overall: normal gait 04/14/2018 None Full Exam - General 1994 Musculoskeletal head and neck Overall: head atraumatic 04/14/2018 None Full Exam - General 1994 Neurologic cranial nerves Overall: crainial nerves 2 - 12 grossly intact 04/14/2018 None Full Exam - General 1994 Psychiatric orientation/consciousness Overall: oriented to person, place and time 04/14/2018 None Full Exam - General 1994 Psychiatric mood and affect Overall: normal mood and affect 04/14/2018 None Full Exam - General 1994 Psychiatric appearance Overall: well-groomed, good eye contact 04/14/2018 None Full Exam - General 1994 Constitutional general appearance Overall: well developed 01/09/2018 None Full Exam - General 1994 Constitutional general appearance Overall: in no acute distress 01/09/2018 None Full Exam - General 1994 Constitutional general appearance Overall: well nourished 01/09/2018 None Full Exam - General 1994 Eyes conjunctiva /eyelids Overall: conjunctiva clear 01/09/2018 None Full Exam - General 1994 Eyes conjunctiva /eyelids Overall: cornea clear 01/09/2018 None Full Exam - General 1994 Eyes conjunctiva /eyelids Overall: eyelids normal 01/09/2018 None Full Exam - General 1994 Ears/Nose/Throat otoscopic exam Overall: external auditory canals clear 01/09/2018 None Full Exam - General 1994 Ears/Nose/Throat otoscopic exam Overall: tympanic membranes clear 01/09/2018 None Full Exam - General 1994 Ears/Nose/Throat lips/teeth/gingiva Overall: benign lips 01/09/2018 None Full Exam - General 1994 Ears/Nose/Throat oral cavity/pharynx/larynx Overall: oral mucosa clear 01/09/2018 None Full Exam - General 1994 Respiratory auscultation Overall: breath sounds clear bilaterally 01/09/2018 None Full Exam - General 1994 Respiratory auscultation Diffuse: diminished 01/09/2018 None Full Exam - General 1994 Respiratory respiratory effort/rhythm Overall: no retractions 01/09/2018 None Full Exam - General 1994 Respiratory respiratory effort/rhythm Overall: normal rate 01/09/2018 None Full Exam - General 1994 Cardiovascular auscultation of heart Overall: regular rate 01/09/2018 None Full Exam - General 1994 Cardiovascular auscultation of heart Overall: normal heart sounds 01/09/2018 None Full Exam - General 1994 Musculoskeletal gait and station Overall: normal gait 01/09/2018 None Full Exam - General 1994 Musculoskeletal gait and station Overall: normal station 01/09/2018 None Full Exam - General 1994 Musculoskeletal head and neck Overall: head atraumatic 01/09/2018 None Full Exam - General 1994 Neurologic cranial nerves Overall: crainial nerves 2 - 12 grossly intact 01/09/2018 None Full Exam - General 1994 Psychiatric orientation/consciousness Overall: oriented to person, place and time 01/09/2018 None Full Exam - General 1994 Psychiatric mood and affect Overall: normal mood and affect 01/09/2018 None Full Exam - General 1994 Psychiatric appearance Overall: well-groomed, good eye contact 01/09/2018 None Full Exam - General 1994 Constitutional general appearance Overall: well developed 11/28/2017 None Full Exam - General 1994 Constitutional general appearance Overall: in no acute distress 11/28/2017 None Full Exam - General 1994 Constitutional general appearance Overall: well nourished 11/28/2017 None Full Exam - General 1994 Eyes conjunctiva /eyelids Overall: conjunctiva clear 11/28/2017 None Full Exam - General 1994 Eyes conjunctiva /eyelids Overall: cornea clear 11/28/2017 None Full Exam - General 1994 Eyes conjunctiva /eyelids Overall: eyelids normal 11/28/2017 None Full Exam - General 1994 Ears/Nose/Throat otoscopic exam Overall: external auditory canals clear 11/28/2017 None Full Exam - General 1994 Ears/Nose/Throat otoscopic exam Overall: tympanic membranes clear 11/28/2017 None Full Exam - General 1994 Ears/Nose/Throat lips/teeth/gingiva Overall: benign lips 11/28/2017 None Full Exam - General 1994 Ears/Nose/Throat oral cavity/pharynx/larynx Overall: oral mucosa clear 11/28/2017 None Full Exam - General 1994 Respiratory respiratory effort/rhythm Overall: normal rate 11/28/2017 None Full Exam - General 1994 Respiratory respiratory effort/rhythm Overall: no retractions 11/28/2017 None Full Exam - General 1994 Respiratory auscultation Overall: breath sounds clear bilaterally 11/28/2017 None Full Exam - General 1994 Respiratory auscultation Diffuse: diminished 11/28/2017 None Full Exam - General 1994 Cardiovascular auscultation of heart Overall: normal heart sounds 11/28/2017 None Full Exam - General 1994 Cardiovascular auscultation of heart Overall: regular rate 11/28/2017 None Full Exam - General 1994 Musculoskeletal head and neck Overall: head atraumatic 11/28/2017 None Full Exam - General 1994 Musculoskeletal gait and station Overall: normal gait 11/28/2017 None Full Exam - General 1994 Musculoskeletal gait and station Overall: normal station 11/28/2017 None Full Exam - General 1994 Neurologic cranial nerves Overall: crainial nerves 2 - 12 grossly intact 11/28/2017 None Full Exam - General 1994 Psychiatric orientation/consciousness Overall: oriented to person, place and time 11/28/2017 None Full Exam - General 1994 Psychiatric mood and affect Overall: normal mood and affect 11/28/2017 None Full Exam - General 1994 Psychiatric appearance Overall: well-groomed, good eye contact 11/28/2017 None Full Exam - General 1994 Constitutional general appearance Overall: well developed 07/01/2017 None Full Exam - General 1994 Constitutional general appearance Overall: well nourished 07/01/2017 None Full Exam - General 1994 Constitutional general appearance Overall: in no acute distress 07/01/2017 None Full Exam - General 1994 Eyes conjunctiva /eyelids Overall: conjunctiva clear 07/01/2017 None Full Exam - General 1994 Eyes conjunctiva /eyelids Overall: eyelids normal 07/01/2017 None Full Exam - General 1994 Eyes pupils and irises Overall: pupils equal, round, reactive to light and accomodation 07/01/2017 None Full Exam - General 1994 Ears/Nose/Throat otoscopic exam Overall: external auditory canals clear 07/01/2017 None Full Exam - General 1994 Ears/Nose/Throat otoscopic exam Overall: tympanic membranes clear 07/01/2017 None Full Exam - General 1994 Ears/Nose/Throat lips/teeth/gingiva Overall: benign lips 07/01/2017 None Full Exam - General 1994 Ears/Nose/Throat oral cavity/pharynx/larynx Overall: oral mucosa clear 07/01/2017 None Full Exam - General 1994 Respiratory respiratory effort/rhythm Overall: no retractions 07/01/2017 None Full Exam - General 1994 Respiratory respiratory effort/rhythm Overall: normal rate 07/01/2017 None Full Exam - General 1994 Respiratory auscultation Overall: breath sounds clear bilaterally 07/01/2017 None Full Exam - General 1994 Respiratory auscultation Diffuse: diminished 07/01/2017 None Full Exam - General 1994 Cardiovascular auscultation of heart Overall: regular rate 07/01/2017 None Full Exam - General 1994 Cardiovascular auscultation of heart Overall: normal heart sounds 07/01/2017 None Full Exam - General 1994 Abdomen abdominal exam Overall: normal bowel sounds 07/01/2017 None Full Exam - General 1994 Abdomen abdominal exam Upper quadrant: tender to palpation 07/01/2017 None Full Exam - General 1994 Abdomen abdominal exam Upper quadrant: dull pain 07/01/2017 None Full Exam - General 1994 Abdomen abdominal exam Upper quadrant: no guarding 07/01/2017 None Full Exam - General 1994 Abdomen abdominal exam Upper quadrant: no rebound tenderness 07/01/2017 None Full Exam - General 1994 Abdomen abdominal exam Upper quadrant: soft 07/01/2017 None Full Exam - General 1994 Abdomen abdominal exam Lower quadrant: tender to palpation 07/01/2017 None Full Exam - General 1994 Abdomen abdominal exam Lower quadrant: dull pain 07/01/2017 None Full Exam - General 1994 Abdomen abdominal exam Lower quadrant: no guarding 07/01/2017 None Full Exam - General 1994 Abdomen abdominal exam Lower quadrant: no rebound tenderness 07/01/2017 None Full Exam - General 1994 Abdomen abdominal exam Lower quadrant: soft 07/01/2017 None Full Exam - General 1994 Abdomen abdominal exam Epigastric: tender to palpation 07/01/2017 None Full Exam - General 1994 Abdomen abdominal exam Epigastric: dull pain 07/01/2017 None Full Exam - General 1994 Abdomen abdominal exam Epigastric: no guarding 07/01/2017 None Full Exam - General 1994 Abdomen abdominal exam Epigastric: no rebound tenderness 07/01/2017 None Full Exam - General 1994 Abdomen abdominal exam Epigastric: soft 07/01/2017 None Full Exam - General 1994 Lymphatic neck nodes Overall: posterior cervical chain benign 07/01/2017 None Full Exam - General 1994 Lymphatic neck nodes Overall: anterior cervical chain benign 07/01/2017 None Full Exam - General 1994 Musculoskeletal head and neck Overall: head atraumatic 07/01/2017 None Full Exam - General 1994 Musculoskeletal gait and station Overall: normal gait 07/01/2017 None Full Exam - General 1994 Musculoskeletal gait and station Overall: normal station 07/01/2017 None Full Exam - General 1994 Neurologic cranial nerves Overall: crainial nerves 2 - 12 grossly intact 07/01/2017 None Full Exam - General 1994 Psychiatric orientation/consciousness Overall: oriented to person, place and time 07/01/2017 None Full Exam - General 1994 Psychiatric mood and affect Overall: normal mood and affect 07/01/2017 None Full Exam - General 1994 Psychiatric mood and affect Mood: flat 07/01/2017 None Procedures No Procedures data Vital Signs Date Vital 10/21/2018 BMI: 26.7 Code: 70487-3 Height: 5'3" Weight: 151 lbs 10/05/2018 Blood Pressure 1: 124/70 Code : 8480-6 BMI: 26.9 Code : 52825-5 Heart Rate 1 : 94 bpm Height: 5'3" SpO2: 99% Weight: 152 lbs 09/30/2018 Blood Pressure 1: 136/78 Code : 8480-6 BMI: 26.9 Code : 42344-2 Heart Rate 1 : 71 bpm Height: 5'3" SpO2: 99% Temperature: 36.6 (C) / 97.8 (F) Weight: 152 lbs 09/02/2018 Blood Pressure 1: 122/60 Code : 8480-6 BMI: 26.9 Code : 79102-0 Heart Rate 1 : 65 bpm Height: 5'3" SpO2: 95% Weight: 152 lbs 08/17/2018 Blood Pressure 1: 132/68 Code : 8480-6 BMI: 26.9 Code : 35064-2 Heart Rate 1 : 63 bpm Height: 5'3" SpO2: 97% Weight: 152 lbs 05/13/2018 Blood Pressure 1: 140/82 Code : 8480-6 BMI: 28.0 Code : 09698-4 Heart Rate 1 : 57 bpm Height: 5'3" SpO2: 97% Weight: 158 lbs 04/14/2018 Blood Pressure 1: 126/74 Code : 8480-6 BMI: 28.0 Code : 01147-7 Heart Rate 1 : 66 bpm Height: 5'3" SpO2: 97% Weight: 158 lbs 01/09/2018 Blood Pressure 1: 122/68 Code : 8480-6 BMI: 28.2 Code : 78602-0 Heart Rate 1 : 70 bpm Height: 5'3" SpO2: 98% Weight: 159 lbs 11/28/2017 Blood Pressure 1: 110/70 Code : 8480-6 BMI: 28.2 Code : 92263-4 Heart Rate 1 : 67 bpm Height: 5'3" SpO2: 95% Weight: 159 lbs 07/01/2017 Blood Pressure 1: 118/70 Code : 8480-6 BMI: 25.5 Code : 17916-9 Heart Rate 1 : 76 bpm Height: 5'3" SpO2: 95% Weight: 144 lbs Functional Status No Functional Status data History of Present Illness Symptom Name Status Result Effective Date Notes Quality chronic 10/21 None Quality worsening None Onset and Resolution ongoing 10/21/2018 None Quality chronic 10/21 None Onset and Resolution ongoing 10/21/2018 None Quality worsening None Pertinent Findings irritability 10/21/2018 None Pertinent Findings Denies self-harm 10/21/2018 None Pertinent Findings Denies suicide attempt/plan 10/21/2018 None Location right ear None Quality throbbing 11/2018 None Quality worsening 11/2018 None Onset and Resolution sudden in onset 10/05/2018 None Onset of Symptom 2 days ago 10/05/2018 None Frequency of Episodes daily 10/05/2018 None Location right ear None Quality worsening None Quality throbbing None Onset and Resolution sudden in onset 09/30/2018 None Onset of Symptom 2 days ago 09/30/2018 None Frequency of Episodes daily 09/30/2018 None Location in the suprapubic area 09/02/2018 None Quality aching 2018 None Quality constant 10/2018 None Quality squeezing 10/2018 None Onset and Resolution sudden in onset 09/02/2018 None Onset of Symptom 1 weeks ago 09/02/2018 None Additional Comments medication use 08/17/2018 None Location oral intake 08/17/2018 None Location in the throat 08/17/2018 None Location in the lung 08/17/2018 None Quality constant None Quality hacking 08/17 None Quality productive None Onset and Resolution sudden in onset 08/17/2018 None medication follow up Additional Comments medication use 05/13/2018 None medication follow up Location oral intake 05/13/2018 None depression Quality intermittent 04/14/2018 None depression Onset and Resolution sudden in onset 04/14/2018 None depression Onset of Symptom 1 months ago 04/14/2018 None depression Frequency of Episodes daily 04/14/2018 None depression Pertinent Findings depressed mood 04/14/2018 None depression Pertinent Findings difficulty concentrating 04/14/2018 None depression Pertinent Findings helplessness 04/14/2018 None depression Pertinent Findings hopelessness 04/14/2018 None abdominal pain Location diffusely 01/09/2018 None abdominal pain Onset and Resolution resolved 01/09/2018 None abdominal pain Quality chronic 01/09/2018 None abdominal pain Quality improving 01/09/2018 None abdominal pain Location diffusely 11/28/2017 None abdominal pain Quality aching 11/28/2017 None abdominal pain Quality constant 11/28/2017 None abdominal pain Quality cramping 11/28/2017 None abdominal pain Onset and Resolution sudden in onset 11/28/2017 None abdominal pain Onset of Symptom 1 months ago 11/28/2017 None abdominal pain Onset and Resolution resolved 11/28/2017 None abdominal pain Location diffusely 07/01/2017 None abdominal pain Quality aching 07/01/2017 None abdominal pain Quality constant 07/01/2017 None abdominal pain Quality cramping 07/01/2017 None abdominal pain Onset and Resolution sudden in onset 07/01/2017 None abdominal pain Onset of Symptom 1 months ago 07/01/2017 None Hospital Follow Up _ gastrointestinal complaints 07/01/2017 None Hospital Follow Up Onset of Symptom 3 weeks ago 07/01/2017 None Advance Directives No Advance Directive data Encounters Encounter Performer Location Codes Date EST. PATIENT, LEVEL III Diagnosis: Generalized anxiety disorder[ICD10: F41.1] Diagnosis: Major depressive disorder, single episode, moderate[ICD10: F32.1] Lelia Ambrose MD, [facility] CPT-4: 04805 10/21/2018 [id number] EST. PATIENT, LEVEL III Diagnosis: Cellulitis of right external ear[ICD10: H60.11] Lelia Ambrose MD, [facility] CPT-4: 09779 10/05/2018 11186 EST. PATIENT, LEVEL III Diagnosis: Cellulitis of right external ear[ICD10: H60.11] Lelia Ambrose MD, [facility] CPT-4: 93274 09/30/2018 27761 EST. PATIENT, LEVEL III Diagnosis: Dysuria[ICD10: R30.0] Lelia Ambrose MD, [facility] CPT-4: 27484 09/02/2018 80637 EST. PATIENT, LEVEL III Diagnosis: Generalized anxiety disorder[ICD10: F41.1] Diagnosis: Major depressive disorder, single episode, moderate[ICD10: F32.1] Diagnosis: Other allergic rhinitis[ICD10: J30.89] Diagnosis: Acute laryngopharyngitis[ICD10: J06.0] Lelia Ambrose MD, [facility] CPT-4: 30981 08/17/2018 05698 EST. PATIENT, LEVEL III Diagnosis: Generalized anxiety disorder[ICD10: F41.1] Diagnosis: Major depressive disorder, single episode, moderate[ICD10: F32.1] Lelia Ambrose MD, [facility] CPT-4: 43777 05/13/2018 47418 EST. PATIENT, LEVEL IV Diagnosis: Generalized anxiety disorder[ICD10: F41.1] Diagnosis: Major depressive disorder, single episode, moderate[ICD10: F32.1] Lelia Ambrose MD, [facility] CPT-4: 54838 04/14/2018 58562 EST. PATIENT, LEVEL III Diagnosis: Other chronic pancreatitis[ICD10: K86.1] Lelia Ambrose MD, [facility] CPT-4: 13938 01/09/2018 78855 EST. PATIENT, LEVEL III Diagnosis: Other chronic pancreatitis[ICD10: K86.1] Lelia Ambrose MD, 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 CPT-4: 89581 07/01/2017 Plan of Care Planned Activity Notes Codes Status Date Visit Plan: Anxiety - the patient has uncontrolled anxiety and will benefit from an SSRI on a daily basis to attempt control of the symptoms of anxiety (tachycardia, overwhelming sensations, stress, insomnia, etc ). I also believe that the patient will benefit from very low dose of prn benzodiazepine. Pt is aware of the risks and benefits of treatment with the above medications. Depression - uncontrolled - Pt has been counseled about the diagnosis of depression, the potential causes, and risks associated with the diagnosis. The pt denies suicidal ideation, or plans. The patient has been counseled about treatment options, and understands the risks associated with treatment of depression, as well as the risks associated with NOT treating the depression. I believe the pt will benefit from medical intervention and an antidepressant has been appropriately prescribed for this patient. 10/21/2018 Appointment: Lelia Dolan WPtel: [address] [place], [place] [phone] (15 min) Moderate 10/21/2018 Patient Education: Patient Medication Summary Completed 10/21/2018 Patient Education: Obesity Completed 10/21/2018 Visit Plan: Cellulitis - improving - finish levaquin as directed - will refer to Dr. De La Garza for recurrent bacterial infections. 10/05/2018 Appointment: Lelia Dolan WPtel: [id number] (30 min) Complex 10/05/2018 Patient Education: Patient Medication Summary Completed 10/05/2018 Visit Plan: Abscess/Cellulitis - The patient was instructed in appropriate wound care. The patient was instructed to use the antibiotic ointment as per RX. The patient is to call for any change in symptoms , increase in size of the lesion, increase in pain, call for acute change in symptoms, worsening redness, warmth, discharge. 09/30/2018 Appointment: Lelia Dolan WPtel: [phone] [id number] (15 min) Moderate 09/30/2018 Patient Education: Patient Medication Summary Completed 09/30/2018 Visit Plan: UTI - pt with positive urinalysis - culture sent if appropriate. Antibiotic electronically prescribed to pt's pharmacy of choice. Pt to call if symptoms do not improve. Chronic pancreatitis - amylase and lipase within normal limits - continue to monitor 09/02/2018 Appointment: Lelia Dolan WPtel: [facility] [place] (30 min) Complex 09/02/2018 Patient Education: Patient Medication Summary Completed 09/02/2018 Visit Plan: URI - Pt advised to increase fluids, vitamin C. Discussed natural and expected course of this diagnosis and need to alert me if symptoms do not follow expected course, or if any worse. RX sent to patient' s pharmacy. Allergies - chronic - recommended pt to use allergy medication as prescribed. Pt has been counseled as to the appropriate use of the medication. Pt to call if allergy symptoms are not controlled with the medication. If using nasal spray, instructions as follows: Nasal spray- use twice daily, one spray per nostril twice daily, after 30 minutes, rinse out nose with saline spray.. Use opposite hand per nostril to spray in the nasal steroid allergy spray. Chronic Depression and anxiety - the pt has symptoms of chronic anxiety and depression that have been fairly well controlled since the last office visit. The pt has expected periods of exacerbation with abatement of the symptoms with change in sichronic pancreatitis - defer to specialist - pt is to notify clinic with any changes in the current treatment plan - pt is to notify clinic with any changes, questions, or concerns. 08/17/2018 Appointment: Lelia Dolan WPtel: [facility]5 [facility] [place] (15 min) Moderate 08/17/2018 Patient Education: Patient Medication Summary Completed 08/17/2018 Patient Education: Depression Completed 08/17/2018 Visit Plan: Chronic Depression and anxiety - the pt has symptoms of chronic anxiety and depression that have been fairly well controlled since the last office visit. The pt has expected periods of exacerbation with abatement of the symptoms with change in situational exposure. No change in current medications. 05/13/2018 Appointment: Lelia Dolan WPtel: [facility]5 [facility]66[facility] (15 min) Moderate 05/13/2018 Patient Education: Patient Medication Summary Completed 05/13/2018 Patient Education: Depression Completed 05/13/2018 Visit Plan: Anxiety - the patient has uncontrolled anxiety and will benefit from an SSRI on a daily basis to attempt control of the symptoms of anxiety (tachycardia, overwhelming sensations, stress, insomnia, etc ). Pt is aware of the risks and benefits of treatment with the above medications. Depression - uncontrolled - Pt has been counseled about the diagnosis of depression, the potential causes, and risks associated with the diagnosis. The pt denies suicidal ideation, or plans. The patient has been counseled about treatment options, and understands the risks associated with treatment of depression, as well as the risks associated with NOT treating the depression. I believe the pt will benefit from medical intervention and an antidepressant has been appropriately prescribed for this patient. 04/14/2018 Appointment: Lelia Dolan WPtel: [facility]1 [facility] [place] (15 min) Moderate 04/14/2018 Patient Education: Patient Medication Summary Completed 04/14/2018 Visit Plan: chronic pancreatitis - defer to specialist - pt is to notify clinic with any changes in the current treatment plan - pt is to notify clinic with any changes, questions, or concerns. 01/09/2018 [facility]ment[id number] [place] (30 min) Complex 01/09/2018 Patient Education: Patient Medication Summary Completed 01/09/2018 Visit Plan: chronic pancreatitis - defer to specialist - pt is to notify clinic with any changes in the current treatment plan - pt is to notify clinic with any changes, questions, or concerns. 11/28/2017 Appointment: [id number] [place] (15 min) Moderate 11/28/2017 Patient Education: Patient Medication Summary Completed 11/28/2017 App[facility]ment: [id number] [place] (15 min) Moderate 11/18/2017 Appointment: [id number] [place] (30 min) Complex 07/28/2017 Care Plan: Referral Order SNOMED-CT : [id number] Pending 07/03/2017 Visit Plan: Hospital follow up, pancreatitis - discussed with Dr. Ambrose - will recheck labs, will restart creon - will refer to a GI specialist at [facility] is to notify clinic with any changes, questions or concerns. 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 07/01/2017 Visit Plan: Hospital follow up, pancreatitis - discussed with Dr. Ambrose - will recheck labs, will restart creon - will refer to a GI specialist at [facility] is to notify clinic with any changes, questions or concerns. 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 07/01/2017 Visit Plan: Hospital follow up, pancreatitis - discussed with Dr. Ambrose - will recheck labs, will restart creon - will refer to a GI specialist at [facility] is to notify clinic with any changes, questions or concerns. 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 07/01/2017 Visit Plan: Hospital follow up, pancreatitis - discussed with Dr. Ambrose - will recheck labs, will restart creon - will refer to a GI specialist at [facility] is to notify clinic with any changes, questions or concerns. 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 07/01/2017 Appointment: [facility]el[phone] [id number] [place] [facility] 07/01/2017 Patient Education: Patient Medication Summary Completed 07/01/2017 Referral: External, Ordering Provider Referral Initiated Instructions Comment . Cellulitis - improving - finish levaquin as directed - will refer to Dr. De La Garza for recurrent bacterial infections. . URI - Pt advised to increase fluids, vitamin C. Discussed natural and expected course of this diagnosis and need to alert me if symptoms do not follow expected course, or if any worse. RX sent to patient's pharmacy. Allergies - chronic - recommended pt to use allergy medication as prescribed. Pt has been counseled as to the appropriate use of the medication. Pt to call if allergy symptoms are not controlled with the medication. If using nasal spray, instructions as follows: Nasal spray- use twice daily, one spray per nostril twice daily, after 30 minutes, rinse out nose with saline spray.. Use opposite hand per nostril to spray in the nasal steroid allergy spray. Chronic Depression and anxiety - the pt has symptoms of chronic anxiety and depression that have been fairly well controlled since the last office visit. The pt has expected periods of exacerbation with abatement of the symptoms with change in sichronic pancreatitis - defer to specialist - pt is to notify clinic with any changes in the current treatment plan - pt is to notify clinic with any changes, questions, or concerns. . chronic pancreatitis - defer to specialist - pt is to notify clinic with any changes in the current treatment plan - pt is to notify clinic with any changes, questions, or concerns. . Chronic Depression and anxiety - the pt has symptoms of chronic anxiety and depression that have been fairly well controlled since the last office visit. The pt has expected periods of exacerbation with abatement of the symptoms with change in situational exposure. No change in current medications. . UTI - pt with positive urinalysis - culture sent if appropriate. Antibiotic electronically prescribed to pt's pharmacy of choice. Pt to call if symptoms do not improve. Chronic pancreatitis - amylase and lipase within normal limits - continue to monitor . Anxiety - the patient has uncontrolled anxiety and will benefit from an SSRI on a daily basis to attempt control of the symptoms of anxiety (tachycardia, overwhelming sensations, stress, insomnia, etc). I also believe that the patient will benefit from very low dose of prn benzodiazepine. Pt is aware of the risks and benefits of treatment with the above medications. Depression - uncontrolled - Pt has been counseled about the diagnosis of depression, the potential causes, and risks associated with the diagnosis. The pt denies suicidal ideation, or plans. The patient has been counseled about treatment options, and understands the risks associated with treatment of depression, as well as the risks associated with NOT treating the depression. I believe the pt will benefit from medical intervention and an antidepressant has been appropriately prescribed for this patient. hydrocodone as needed for pain prednisone to decrease the inflammation bactrim to treat the infection mupirocin ointment for ear and nose. Abscess/Cellulitis - The patient was instructed in appropriate wound care. The patient was instructed to use the antibiotic ointment as per RX. The patient is to call for any change in symptoms, increase in size of the lesion, increase in pain, call for acute change in symptoms, worsening redness, warmth, discharge. Start creon with meals and snacks will check labs today will refer to GI specialist. Hospital follow up, pancreatitis - discussed with Dr. Arnol heller recheck labs, will restart creon - will refer to a GI specialist at [facility] is to notify clinic with any changes, questions or concerns. 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 Start creon with meals and snacks will check labs today will refer to GI specialist. Hospital follow up, pancreatitis - discussed with Dr. Ambrose - pina recheck labs, will restart creon - will refer to a GI specialist at [facility] is to notify clinic with any changes, questions or concerns. 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 Start creon with meals and snacks will check labs today will refer to GI specialist. Hospital follow up, pancreatitis - discussed with Dr. Arnol heller recheck labs, will restart creon - will refer to a GI specialist at [facility] is to notify clinic with any changes, questions or concerns. 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 Start creon with meals and snacks will check labs today will refer to GI specialist. Hospital follow up, pancreatitis - discussed with Dr. Arnol heller recheck labs, will restart creon - will refer to a GI specialist at [facility] is to notify clinic with any changes, questions or concerns. 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 . chronic pancreatitis - defer to specialist - pt is to notify clinic with any changes in the current treatment plan - pt is to notify clinic with any changes, questions, or concerns. . Anxiety - the patient has uncontrolled anxiety and will benefit from an SSRI on a daily basis to attempt control of the symptoms of anxiety (tachycardia, overwhelming sensations, stress, insomnia, etc). Pt is aware of the risks and benefits of treatment with the above medications. Depression - uncontrolled - Pt has been counseled about the diagnosis of depression, the potential causes, and risks associated with the diagnosis. The pt denies suicidal ideation, or plans. The patient has been counseled about treatment options, and understands the risks associated with treatment of depression, as well as the risks associated with NOT treating the depression. I believe the pt will benefit from medical intervention and an antidepressant has been appropriately prescribed for this patient.
--- OUTSIDE RECORDS SUMMARY | 2018-11-01 19:31 | XMS REPORT | CCD ---
Author Author Lelia Dolan MD, [facility] Address [address] [place] [address] Phone Care Team Providers Care Fur Joiner Name Role Phone PP Unavailable CCM Unavailable Summary Purpose Interface Exchange Insurance Providers Payer name Policy type / Coverage type Covered green party ID Effective Begin Date Effective End Date Blue Cross Blue [facility] Blue Cross/Blue Shield [id number] Unknown Unknown Family history Mother Diagnosis Age [...] Unknown Single 07/01/2017 Employment Unknown Currently employed [employer] 07/01/[address]: 74762595 Current every day smoker 07/01/2017 Number of years using tobacco Unknown 10 - 20 1 pack day/20 years 07/01/2017 Number of cigarettes/day Unknown 20 (One Pack) 07/01/[address]: 563272890 Never drinks alcohol 07/01/2017 Allergies, Adverse Reactions, [...] Fill Instructions Prozac 20 mg capsule RxNorm: 514974 1 Capsule(s) PO daily 10/2110/27/2018 Active Zoloft 25 mg tablet RxNorm: 856941 1 Tablet(s) PO daily 201811/19/2018 Active Levaquin 500 mg tablet RxNorm: 533353 1 Tablet(s) PO daily 09/201810/08/2018 Inactive Levaquin 500 mg tablet RxNorm: 241591 1 Tablet(s) PO daily 09/201810/01/2018 Inactive Levaquin 500 mg tablet RxNorm: 802874 1 Tablet(s) PO daily 09/201810/01/2018 Inactive prednisone 20 mg tablet RxNorm: 858971 2 Tablet(s) PO daily 10/04/2018 Inactive Bactrim DS 800 mg-160 mg tablet RxNorm: 424302 1 Tablet(s) PO BID 09/30/2018 10/09/2018 Inactive Bactrim DS 800 mg-160 mg tablet RxNorm: 709181 1 Tablet(s) PO BID 09/02/2018 09/11/2018 Inactive Augmentin 875 mg-125 mg tablet RxNorm: 052972 1 Tablet(s) PO BID started in hospital 08/17/2018 08/23/2018 Inactive Prozac 40 mg capsule RxNorm: 442004 1 Capsule(s) PO daily 08/1005/06/2019 Active Creon 36,000 unit-114,000 unit-180,000 unit capsule, delayed release RxNorm: 2663287 CAPSULE(S) 1 CAPSULE(S) PO WITH MEALS AND SNACKS No Stop Date Active Prozac 20 mg capsule RxNorm: 879334 1 Capsule(s) PO daily 05/1308/09/2018 Inactive Prozac 20 mg capsule RxNorm: 081070 1 Capsule(s) PO daily 04/1405/12/2018 Inactive Creon 36,000 unit-114,000 unit-180,000 unit capsule, delayed release RxNorm: 7690719 Capsule(s) 1 CAPSULE(S) PO WITH MEALS AND SNACKS 04/201805/14/2018 Inactive Creon 36,000 unit-114,000 unit-180,000 unit capsule, delayed release RxNorm: 8145899 1 CAPSULE(S) PO WITH MEALS AND SNACKS 07/04/2017 01/05/2018 Inactive pantoprazole 40 mg tablet,delayed release RxNorm: 788733 1 Tablet(s) PO daily started in hospital 07/01/2017 07/30/2017 Inactive Creon 36,000 unit-114,000 unit-180,000 unit capsule, delayed release RxNorm: 9279380 1 Capsule(s) PO with meals and snacks 07/01/2017 07/03/2017 Inactive Augmentin 875 mg-125 mg tablet RxNorm: 046881 1 Tablet(s) PO BID started in hospital 06/26/2017 06/27/2017 Inactive scopolamine 1 mg over 3 days transdermal patch RxNorm: 052734 1 Patch TD Q72H started in the hospital No Start Date Active promethazine 25 mg tablet RxNorm: 133472 1 Tablet(s) PO QID as needed started in hospital No Start Date Active Lactobacillus acidophilus capsule RxNorm: 1 Capsule(s) PO daily No Start Date Active acetaminophen 500 mg tablet RxNorm: 144330 1-2 Tablet(s) PO Q4H as needed started hospital No Start Date Active oxycodone-acetaminophen 5 mg-325 mg tablet RxNorm: 1442756 1-2 Tablet(s) PO Q4H started at the hospital No Start Date Active Carafate 1 gram tablet RxNorm: 910542 1 Tablet(s) PO AC & HS started [...] D-Lymph 24 % 07/02/2017 Manual Differential Ord52 D-[place] 1 % 07/02/2017 Manual Differential Ord52 D-Eos [...] 18.8 % 07/02/2017 Cbc With Differential Ord2 MCH 30.4 pg 07/02/2017 Cbc With Differential Ord2 [place]% 6.1 % 07/02/2017 Cbc With Differential Ord2 MCHC 33.5 pg 07/02/2017 Cbc With Differential Ord2 Eos% 1.7 % 07/02/2017 Cbc With Differential Ord2 PLT 879 Result Verified By Repeat Analysis K/ul 07/02/2017 Cbc With Differential Ord2 Baso% 0.8 % 07/02/2017 Cbc With Differential Ord2 RDW 13.2 % 07/02/2017 Cbc With Differential Ord2 Neut ABS# 8.11 K/ul 07/02/2017 Cbc With Differential Ord2 Lymph ABS# 2.10 K/ul 07/02/2017 Cbc With Differential Ord2 [place] ABS# 0.7 K/ul 07/02/2017 Cbc With Differential Ord2 Eos ABS# 0.2 K/ul 07/02/2017 Cbc With Differential Ord2 Baso ABS# 0.1 K/ul 07/02/2017 Lipase Gqa266 LIPASE 26 U/L 07/02/2017 Comp Metabolic Pak155 NA 134 mEq/L 07/02/2017 Comp Metabolic Qsw146 K 4.6 mEq/L 07/02/2017 Comp Metabolic Yka249 CL 93 mEq/L 07/02/2017 Comp Metabolic Dks133 CO2 28.0 mEq/L 07/02/2017 Comp Metabolic Abe991 ANION GAP 18 07/02/2017 Comp Metabolic Aka424 GLUCOSE 108 mg/dL 07/02/2017 Comp Metabolic Pwp817 Creat 0.7 mg/dL 07/02/2017 Comp Metabolic Xrz223 eGFR 100 ml/min/1.73m2 07/02/2017 Comp Metabolic Pjb182 BUN 10 mg/dL 07/02/2017 Comp Metabolic Koz756 B/C Ratio 14.7 Ratio 07/02/2017 Comp Metabolic Aba014 CALCIUM 10.0 mg/dL 07/02/2017 Comp Metabolic Tma730 ALK PHOS 102 U/L 07/02/2017 Comp Metabolic Exq593 AST(SGOT) 15 U/L 07/02/2017 Comp Metabolic Zyc284 ALT(SGPT) 18 U/L 07/02/2017 Comp Metabolic Aod093 BILI T 0.4 mg/dL 07/02/2017 Comp Metabolic Mns122 ALBUMIN 3.9 g/dL 07/02/2017 Comp Metabolic Tqn603 TPRO 7.8 g/dL 07/02/2017 Comp Metabolic Ovw049 GLOB 3.9 g/dL 07/02/2017 Comp Metabolic Zib629 A/G Ratio 1.0 Ratio 07/02/2017 Comp Metabolic Lys663 Osmo 268 mOsmo 07/02/2017 Review of Systems [...] depressed 10/21/2018 None Full Exam - General [facility] mood and affect Mood: anxious 10/21/2018 [...] Signs Date Vital 10/21/2018 BMI: 26.7 Code: 32722-9 Height: 5'3" Weight: 151 lbs 10/05/2018 Blood Pressure 1: 124/70 Code : 8480-6 BMI: 26.9 Code : 71663-8 Heart Rate 1 : 94 bpm Height: 5'3" SpO2: 99% Weight: 152 lbs 09/30/2018 Blood Pressure 1: 136/78 Code : 8480-6 BMI: 26.9 Code : 27786-3 Heart Rate 1 : 71 bpm Height: 5'3" SpO2: 99% Temperature: 36.6 (C) / 97.8 (F) Weight: 152 lbs 09/02/2018 Blood Pressure 1: 122/60 Code : 8480-6 BMI: 26.9 Code : 51915-4 Heart Rate 1 : 65 bpm Height: 5'3" SpO2: 95% Weight: 152 lbs 08/17/2018 Blood Pressure 1: 132/68 Code : 8480-6 BMI: 26.9 Code : 74719-9 Heart Rate 1 : 63 bpm Height: 5'3" SpO2: 97% Weight: 152 lbs 05/13/2018 Blood Pressure 1: 140/82 Code : 8480-6 BMI: 28.0 Code : 65927-1 Heart Rate 1 : 57 bpm Height: 5'3" SpO2: 97% Weight: 158 lbs 04/14/2018 Blood Pressure 1: 126/74 Code : 8480-6 BMI: 28.0 Code : 86090-4 Heart Rate 1 : 66 bpm Height: 5'3" SpO2: 97% Weight: 158 lbs 01/09/2018 Blood Pressure 1: 122/68 Code : 8480-6 BMI: 28.2 Code : 87080-3 Heart Rate 1 : 70 bpm Height: 5'3" SpO2: 98% Weight: 159 lbs 11/28/2017 Blood Pressure 1: 110/70 Code : 8480-6 BMI: 28.2 Code : 13761-8 Heart Rate 1 : 67 bpm Height: 5'3" SpO2: 95% Weight: 159 lbs 07/01/2017 Blood Pressure 1: 118/70 Code : 8480-6 BMI: 25.5 Code : 73664-4 Heart Rate 1 : 76 bpm Height: [...] single episode, moderate[ICD10: F32.1] Lelia Ambrose MD, [facility] CPT-4: 10792 10/21/2018 09151 EST. PATIENT, LEVEL III Diagnosis: Cellulitis of right external ear[ICD10: H60.11] Lelia Ambrose MD, [facility] CPT-4: 45092 10/05/2018 62501 EST. PATIENT, LEVEL III Diagnosis: Cellulitis of right external ear[ICD10: H60.11] Lelia Ambrose MD, [facility] CPT-4: 15984 09/30/2018 89220 EST. PATIENT, LEVEL III Diagnosis: Dysuria[ICD10: R30.0] Lelia Ambrose MD, [facility] CPT-4: 65651 09/02/2018 37335 EST. PATIENT, LEVEL III Diagnosis: Generalized anxiety disorder[ICD10: F41.1] Diagnosis: Major depressive disorder, single episode, moderate[ICD10: F32.1] Diagnosis: Other allergic rhinitis[ICD10: J30.89] Diagnosis: Acute laryngopharyngitis[ICD10: J06.0] Lelia Ambrose MD, [facility] CPT-4: 55246 08/17/2018 28133 EST. PATIENT, LEVEL III Diagnosis: Generalized anxiety disorder[ICD10: F41.1] Diagnosis: Major depressive disorder, single episode, moderate[ICD10: F32.1] Lelia Ambrose MD, [facility] CPT-4: 88561 05/13/2018 39923 EST. PATIENT, LEVEL IV Diagnosis: Generalized anxiety disorder[ICD10: F41.1] Diagnosis: Major depressive disorder, single episode, moderate[ICD10: F32.1] Lelia Ambrose MD, [facility] CPT-4: 36841 04/14/2018 33625 EST. PATIENT, LEVEL III Diagnosis: Other chronic pancreatitis[ICD10: K86.1] Lelia Ambrose MD, [facility] CPT-4: 66183 01/09/2018 10103 EST. 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 10/21/2018 Patient Education: Patient Medication Summary Completed 10/21/2018 Patient Education: Obesity Completed 10/21/2018 Visit Plan: Cellulitis - improving - finish levaquin as directed - will refer to Dr. De La Garza for recurrent bacterial infections. 10/05/2018 [facility]ment[phone] [facility] ([facility] Complex 10/05/2018 Patient Education: Patient [...] discharge. 09/30/2018 Appointment: [phone] [facility] (15 min) Moderate 09/30/2018 Patient Education: Patient Medication Summary Completed 09/30/2018 Visit Plan: UTI - pt with positive urinalysis - culture sent if appropriate. Antibiotic electronically prescribed to pt's pharmacy of choice. Pt to call if symptoms do not improve. Chronic pancreatitis - amylase and lipase within normal limits - continue to monitor 09/02/2018 Appointment: [phone] [facility] ([facility] min) Complex 09/02/2018 Patient Education: Patient [...] or concerns. 08/17/2018 Appointment: Lelia Dolan WPtel: [phone] [facility] (15 min) Moderate 08/17/2018 Patient Education: Patient [...] current medications. 05/13/2018 Appointment: Lelia Dolan WPtel: [phone] [facility] (15 min) Moderate 05/13/2018 Patient Education: Patient [...] this patient. 04/14/2018 Appointment: [facility]el[phone] [facility] (15 min) Moderate 04/14/2018 Patient Education: Patient Medication Summary Completed 04/14/2018 Visit Plan: chronic pancreatitis - defer to specialist - pt is to notify clinic with any changes in the current treatment plan - pt is to notify clinic with any changes, questions, or concerns. 01/09/2018 Appointment: [facility]el[phone] [facility] ([facility] min) Complex 01/09/2018 Patient Education: Patient Medication Summary Completed 01/09/2018 Visit Plan: chronic pancreatitis - defer to specialist - pt is to notify clinic with any changes in the current treatment plan - pt is to notify clinic with any changes, questions, or concerns. 11/28/2017 Appointment: [facility] Dolan [facility]Ptel[facility] [phone] [facility] [place] (15 min) Moderate 11/28/2017 Patient Education: Patient Medication Summary Completed 11/28/2017 Appointment: Lelia Dolan WPtel: [facility] [place] (15 min) Moderate 11/18/2017 Appointment: Lelia Dolan WPtel: [facility] [place] (30 min) Complex 07/28/2017 Care Plan: Referral Order SNOMED-CT : [id number] Pending 07/03/2017 Visit Plan: Hospital follow up, pancreatitis - discussed with Dr. Ambrose - will recheck labs, will restart creon - will refer to a GI specialist at [facility] is to notify clinic with any changes, questions or concerns. 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 07/01/2017 Visit Plan: Hospital follow up, pancreatitis - discussed with Dr. Ambrose - will recheck labs, will restart creon - will refer to a GI specialist at [facility] pt is to notify clinic with any changes, questions or concerns. 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 07/01/2017 Visit Plan: Hospital follow up, pancreatitis - discussed with Dr. Ambrose - will recheck labs, will restart creon - will refer to a GI specialist at [facility] pt is to notify clinic with any changes, questions or concerns. 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 07/01/2017 Visit Plan: Hospital follow up, pancreatitis - discussed with Dr. Ambrose - pina recheck labs, will restart creon - will refer to a GI specialist at [facility] is to notify clinic with any changes, questions or concerns. 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 07/01/2017 Appointment: Lelia Dolan WPtel: [facility] [place] New Patient 07/01/2017 Patient Education: Patient [...] will refer to a GI specialist at [facility] is to notify clinic with any changes, questions or concerns. 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 Start creon with meals and snacks will check labs today will refer to GI specialist. Hospital follow up, pancreatitis - discussed with Dr. Arnol heller recheck labs, will restart creon - will refer to a GI specialist at [facility] is to notify clinic with any changes, questions or concerns. 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 Start creon with meals and snacks will check labs today will refer to GI specialist. Hospital follow up, pancreatitis - discussed with Dr. Arnol heller recheck labs, will restart creon - will refer to a GI specialist at [facility] is to notify clinic with any changes, questions or concerns. 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 Start creon with meals and snacks will check labs today will refer to GI specialist. Hospital follow up, pancreatitis - discussed with Dr. Arnol heller recheck labs, will restart creon - will refer to a GI specialist at [facility] is to notify clinic with any [...]
--- OUTSIDE RECORDS SUMMARY | 2018-11-01 19:32 | XMS REPORT | CCD ---
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 Blue Cross/Blue Shield [id number] Unknown Unknown Family history Mother Diagnosis Age [...] Unknown Single 07/01/2017 Employment Unknown Currently employed [employer] 07/01/[address]: 28047577 Current every day smoker 07/01/2017 Number of years using tobacco Unknown 10 - 20 1 pack day/20 years 07/01/2017 Number of cigarettes/day Unknown 20 (One Pack) 07/01/[address]: 200810718 Never drinks alcohol 07/01/2017 Allergies, Adverse Reactions, Alerts Substance Reaction Codes Entered Date Inactivated Date Status * NO KNOWN ENVIRONMENTAL ALLERGIES Unknown 07/01/2017 No Inactive Date Active * NO KNOWN FOOD ALLERGIES Unknown 07/01/2017 No Inactive Date Active NO KNOWN ALLERGIES Unknown 07/01/2017 No Inactive Date Active Past Medical History Illness Codes Condition Status Onset Date Resolved Date Cellulitis of right external ear ICD-9: 380.10 ICD-10: H60.11 Active 09/30/2018 Unknown Dysuria ICD-9: 788.1 ICD-10: R30.0 Active 09/02/2018 Unknown Acute laryngopharyngitis ICD-9: 465.0 ICD-10: J06.0 Active 08/17/2018 Unknown Generalized anxiety disorder ICD-9: 300.00 ICD-10: F41.1 Active 04/14/2018 Unknown Major depressive disorder, single episode, moderate ICD-9: 296.22 ICD-10: F32.1 Active 04/14/2018 Unknown Other allergic rhinitis ICD-9: 477.8 ICD-10: [...] Problems Condition Codes Effective Dates Condition Status Cellulitis of right external ear ICD-9: 380.10 ICD-10: H60.11 09/30/2018 Active Dysuria ICD-9: 788.1 ICD-10: R30.0 09/02/2018 Active Acute laryngopharyngitis ICD-9: 465.0 ICD-10: J06.0 08/17/2018 Active Generalized anxiety disorder ICD-9: 300.00 ICD-10: F41.1 04/14/2018 Active Major depressive disorder, single episode, moderate ICD-9: 296.22 ICD-10: F32.1 04/14/2018 Active Other allergic rhinitis ICD-9: 477.8 ICD-10: [...] Start Date Stop Date Status Fill Instructions Levaquin 500 mg tablet RxNorm: 755253 1 Tablet(s) PO daily 09/201810/08/2018 Inactive Levaquin 500 mg tablet RxNorm: 968088 1 Tablet(s) PO daily 09/201810/01/2018 Inactive Levaquin 500 mg tablet RxNorm: 243777 1 Tablet(s) PO daily 09/201810/01/2018 Inactive Bactrim DS 800 mg-160 mg tablet RxNorm: 020607 1 Tablet(s) PO BID 09/30/2018 10/09/2018 Inactive prednisone 20 mg tablet RxNorm: 855801 2 Tablet(s) PO daily 10/04/2018 Inactive Bactrim DS 800 mg-160 mg tablet RxNorm: 739206 1 Tablet(s) PO BID 09/02/2018 09/11/2018 Inactive Augmentin 875 mg-125 mg tablet RxNorm: 649221 1 Tablet(s) PO BID started in hospital 08/17/2018 08/23/2018 Inactive Prozac 40 mg capsule RxNorm: 560395 1 Capsule(s) PO daily 08/1005/06/2019 Active Creon 36,000 unit-114,000 unit-180,000 unit capsule, delayed release RxNorm: 9114209 CAPSULE(S) 1 CAPSULE(S) PO WITH MEALS AND SNACKS No Stop Date Active Prozac 20 mg capsule RxNorm: 546424 1 Capsule(s) PO daily 05/1308/09/2018 Inactive Prozac 20 mg capsule RxNorm: 432670 1 Capsule(s) PO daily 04/1405/12/2018 Inactive Creon 36,000 unit-114,000 unit-180,000 unit capsule, delayed release RxNorm: 7438892 Capsule(s) 1 CAPSULE(S) PO WITH MEALS AND SNACKS 04/201805/14/2018 Inactive Creon 36,000 unit-114,000 unit-180,000 unit capsule, delayed release RxNorm: 8037901 1 CAPSULE(S) PO WITH MEALS AND SNACKS 07/04/2017 01/05/2018 Inactive pantoprazole 40 mg tablet,delayed release RxNorm: 738961 1 Tablet(s) PO daily started in hospital 07/01/2017 07/30/2017 Inactive Creon 36,000 unit-114,000 unit-180,000 unit capsule, delayed release RxNorm: 0972204 1 Capsule(s) PO with meals and snacks 07/01/2017 07/03/2017 Inactive Augmentin 875 mg-125 mg tablet RxNorm: 081371 1 Tablet(s) PO BID started in hospital 06/26/2017 06/27/2017 Inactive scopolamine 1 mg over 3 days transdermal patch RxNorm: 772421 1 Patch TD Q72H started in the hospital No Start Date Active promethazine 25 mg tablet RxNorm: 822453 1 Tablet(s) PO QID as needed started in hospital No Start Date Active Lactobacillus acidophilus capsule RxNorm: 1 Capsule(s) PO daily No Start Date Active acetaminophen 500 mg tablet RxNorm: 008910 1-2 Tablet(s) PO Q4H as needed started hospital No Start Date Active oxycodone-acetaminophen 5 mg-325 mg tablet RxNorm: 2845828 1-2 Tablet(s) PO Q4H started at the hospital No Start Date Active Carafate 1 gram tablet RxNorm: 029326 1 Tablet(s) PO AC & HS started in hospital No Start Date Active Medication Administered No Medication Administered data Immunizations No Immunization data Assessments Condition Codes Effective Dates Cellulitis of right external ear ICD-10: H60.11 ICD-9: 380.10 10/05/2018 Dysuria ICD-10: R30.0 ICD-9: 788.1 09/02/2018 Generalized anxiety disorder ICD-10: F41.1 ICD-9: 300.00 08/17/2018 Major depressive disorder, single episode, moderate ICD-10: F32.1 ICD-9: 296.22 08/17/2018 Acute laryngopharyngitis ICD-10: J06.0 ICD-9: 465.0 08/17/2018 Other allergic rhinitis ICD-10: J30.89 ICD-9: 477.8 08/17/2018 Other chronic pancreatitis ICD-10: K86.1 ICD-9: 577.1 01/09/2018 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 07/01/2017 Left upper quadrant pain ICD-10: R10.12 ICD-9: 789.02 07/01/2017 Reason For Visit Reason For Visit Effective Dates Notes earache 10/05/2018 earache 09/30/2018 abdominal pain 09/02/2018 medication follow up 08/17/2018 medication follow up 05/13/2018 depression 04/14/2018 abdominal pain 01/09/2018 abdominal pain 11/28/2017 abdominal pain 07/01/2017 Results Observation Observation Code Item Item Code Result Date Manual Differential Ord52 D-Neutr 72 % 07/02/2017 Manual Differential Ord52 D-Bands 1 % 07/02/2017 Manual Differential Ord52 D-Lymph 24 % 07/02/2017 Manual Differential Ord52 D-Leon 1 % 07/02/2017 Manual Differential Ord52 D-Eos [...] 18.8 % 07/02/2017 Cbc With Differential Ord2 Leon% 6.1 % 07/02/2017 Cbc With Differential Ord2 [...] 2.10 K/ul 07/02/2017 Cbc With Differential Ord2 Leon ABS# 0.7 K/ul 07/02/2017 Cbc With Differential Ord2 Eos ABS# 0.2 K/ul 07/02/2017 Cbc With Differential Ord2 Baso ABS# 0.1 K/ul 07/02/2017 Lipase Avx129 LIPASE 26 U/L 07/02/2017 Comp Metabolic Rmn645 NA 134 mEq/L 07/02/2017 Comp Metabolic Aja960 K 4.6 mEq/L 07/02/2017 Comp Metabolic Alv705 CL 93 mEq/L 07/02/2017 Comp Metabolic Irr099 CO2 28.0 mEq/L 07/02/2017 Comp Metabolic Huy649 ANION GAP 18 07/02/2017 Comp Metabolic Gai282 GLUCOSE 108 mg/dL 07/02/2017 Comp Metabolic Qzu277 Creat 0.7 mg/dL 07/02/2017 Comp Metabolic Ilc032 eGFR 100 ml/min/1.73m2 07/02/2017 Comp Metabolic Fom966 BUN 10 mg/dL 07/02/2017 Comp Metabolic Afw440 B/C Ratio 14.7 Ratio 07/02/2017 Comp Metabolic Xur011 CALCIUM 10.0 mg/dL 07/02/2017 Comp Metabolic Evw027 ALK PHOS 102 U/L 07/02/2017 Comp Metabolic Adz933 AST(SGOT) 15 U/L 07/02/2017 Comp Metabolic Qgd455 ALT(SGPT) 18 U/L 07/02/2017 Comp Metabolic Bne499 BILI T 0.4 mg/dL 07/02/2017 Comp Metabolic Ygu452 ALBUMIN 3.9 g/dL 07/02/2017 Comp Metabolic Vbc428 TPRO 7.8 g/dL 07/02/2017 Comp Metabolic Yxj235 GLOB 3.9 g/dL 07/02/2017 Comp Metabolic Hxu364 A/G Ratio 1.0 Ratio 07/02/2017 Comp Metabolic Csi676 Osmo 268 mOsmo 07/02/2017 Review of Systems [...] Result Effective Dates Notes Full Exam - Dermatology Constitutional general appearance [...] contact 08/17/2018 None Full Exam - General 1995 Ears/Nose/Throat otoscopic exam Overall: tympanic membranes clear 08/17/2018 None Full Exam - General 1995 Ears/Nose/Throat otoscopic exam Overall: external auditory canals clear 08/17/2018 None Full Exam - General 1995 Ears/Nose/Throat oral cavity/pharynx/larynx Overall: oral mucosa clear [...] sounds 05/13/2018 None Full Exam - General 1994 [...] No Procedures data Vital Signs Date Vital 10/05/2018 Blood Pressure 1: 124/70 Code : 8480-6 BMI: 26.9 Code : 27547-6 Heart Rate 1 : 94 bpm Height: 5'3" SpO2: 99% Weight: 152 lbs 09/30/2018 Blood Pressure 1: 136/78 Code : 8480-6 BMI: 26.9 Code : 61558-3 Heart Rate 1 : 71 bpm Height: 5'3" SpO2: 99% Temperature: 36.6 (C) / 97.8 (F) Weight: 152 lbs 09/02/2018 Blood Pressure 1: 122/60 Code : 8480-6 BMI: 26.9 Code : 53368-8 Heart Rate 1 : 65 bpm Height: 5'3" SpO2: 95% Weight: 152 lbs 08/17/2018 Blood Pressure 1: 132/68 Code : 8480-6 BMI: 26.9 Code : 94732-3 Heart Rate 1 : 63 bpm Height: 5'3" SpO2: 97% Weight: 152 lbs 05/13/2018 Blood Pressure 1: 140/82 Code : 8480-6 BMI: 28.0 Code : 97230-3 Heart Rate 1 : 57 bpm Height: 5'3" SpO2: 97% Weight: 158 lbs 04/14/2018 Blood Pressure 1: 126/74 Code : 8480-6 BMI: 28.0 Code : 35082-2 Heart Rate 1 : 66 bpm Height: 5'3" SpO2: 97% Weight: 158 lbs 01/09/2018 Blood Pressure 1: 122/68 Code : 8480-6 BMI: 28.2 Code : 74992-4 Heart Rate 1 : 70 bpm Height: 5'3" SpO2: 98% Weight: 159 lbs 11/28/2017 Blood Pressure 1: 110/70 Code : 8480-6 BMI: 28.2 Code : 65616-8 Heart Rate 1 : 67 bpm Height: 5'3" SpO2: 95% Weight: 159 lbs 07/01/2017 Blood Pressure 1: 118/70 Code : 8480-6 BMI: 25.5 Code : 42750-1 Heart Rate 1 : 76 bpm Height: 5'3" SpO2: 95% Weight: 144 lbs Functional Status No Functional Status data History of Present Illness Symptom Name Status Result Effective Date Notes Location right ear None Quality throbbing 11/2018 [...] Codes Date EST. PATIENT, LEVEL III Diagnosis: Cellulitis of right external ear[ICD10: H60.11] [facility] CPT-4: 88698 10/05/2018 75855 EST. PATIENT, LEVEL III Diagnosis: Cellulitis of right external ear[ICD10: H60.11] [facility] CPT-4: 88268 09/30/2018 24162 EST. PATIENT, LEVEL III Diagnosis: Dysuria[ICD10: R30.0] Lelia Ambrose MD, [facility] CPT-4: 86591 09/02/2018 42090 EST. PATIENT, LEVEL III Diagnosis: Generalized anxiety disorder[ICD10: F41.1] Diagnosis: Major depressive disorder, single episode, moderate[ICD10: F32.1] Diagnosis: Other allergic rhinitis[ICD10: J30.89] Diagnosis: Acute laryngopharyngitis[ICD10: J06.0] Lelia Ambrose MD, [facility] CPT-4: 90682 08/17/2018 06826 EST. PATIENT, LEVEL III Diagnosis: Generalized anxiety disorder[ICD10: F41.1] Diagnosis: Major depressive disorder, single episode, moderate[ICD10: F32.1] Lelia Ambrose MD, [facility] CPT-4: 48023 05/13/2018 36724 EST. PATIENT, LEVEL IV Diagnosis: Generalized anxiety disorder[ICD10: F41.1] Diagnosis: Major depressive disorder, single episode, moderate[ICD10: F32.1] Lelia Ambrose MD, [facility] CPT-4: 83190 04/14/2018 51252 EST. PATIENT, LEVEL III Diagnosis: Other chronic pancreatitis[ICD10: K86.1] Lelia Ambrose MD, [facility] CPT-4: 44258 01/09/2018 41466 EST. 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 De La Garza for recurrent bacterial infections. 10/05/2018 [phone] [facility] ([facility] Complex 10/05/2018 Patient Education: Patient [...] warmth, discharge. 09/30/2018 [facility] [phone] [facility] ([facility] min) Moderate 09/30/2018 Patient Education: Patient Medication Summary Completed 09/30/2018 Visit Plan: UTI - pt with positive urinalysis - culture sent if appropriate. Antibiotic electronically prescribed to pt's pharmacy of choice. Pt to call if symptoms do not improve. Chronic pancreatitis - amylase and lipase within normal limits - continue to monitor 09/02/2018 [facility] [phone] [facility] ([facility] Complex 09/02/2018 Patient Education: Patient [...] or concerns. 08/17/2018 Appointment: Lelia Dolan WPtel: [facility] (15 min) Moderate 08/17/2018 Patient Education: [...] medications. 05/13/2018 Appointment: Lelia Dolan WPtel: [phone] [facility] (15 min) Moderate 05/13/2018 Patient Education: [...] this patient. 04/14/2018 [facility] [phone] [facility] ([facility] min) Moderate 04/14/2018 Patient Education: Patient Medication Summary Completed 04/14/2018 Visit Plan: chronic pancreatitis - defer to specialist - pt is to notify clinic with any changes in the current treatment plan - pt is to notify clinic with any changes, questions, or concerns. 01/09/2018 [facility] [phone] [facility] ([facility]) Complex 01/09/2018 Patient Education: Patient Medication Summary Completed 01/09/2018 Visit Plan: chronic pancreatitis - defer to specialist - pt is to notify clinic with any changes in the current treatment plan - pt is to notify clinic with any changes, questions, or concerns. 11/28/2017 [facility] [phone] [facility] ([facility] min) Moderate 11/28/2017 Patient Education: Patient Medication Summary Completed 11/28/2017 Appointment: Lelia Dolan WPtel: [facility] [place] (15 min) Moderate 11/18/2017 Appointment: Lelia Dolan WPtel: [facility] (30 min) Complex 07/28/2017 Care Plan: Referral Order SNOMED-CT : [id number] Pending 07/03/2017 Visit Plan: Hospital follow up, pancreatitis - discussed with Dr. Ambrose - will recheck labs, will restart creon - will refer to a GI specialist at [facility] pt is to notify clinic with any changes, questions or concerns. 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 07/01/2017 Visit Plan: Hospital follow up, pancreatitis - discussed with Dr. Ambrose - will recheck labs, will restart creon - will refer to a GI specialist at [facility] pt is to notify clinic with any changes, questions or concerns. 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 07/01/2017 Visit Plan: Hospital follow up, pancreatitis - discussed with Dr. Ambrose - will recheck labs, will restart creon - will refer to a GI specialist at [facility] pt is to notify clinic with any changes, questions or concerns. 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 07/01/2017 Visit Plan: Hospital follow up, pancreatitis - discussed with Dr. Ambrose - will recheck labs, will restart creon - will refer to a GI specialist at [facility] is to notify clinic with any changes, questions or concerns. 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 07/01/2017 Appointment: Lelia Dolan WPtel[facility] [facility] 07/01/2017 Patient Education: Patient Medication [...] within normal limits - continue to monitor hydrocodone as needed for pain prednisone to [...] up, pancreatitis - discussed with Dr. Arnol garciaeck labs, will restart creon - will refer to a GI specialist at [facility] is to notify clinic with any changes, questions or concerns. 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 Start creon with meals and snacks will check labs today will refer to GI specialist. Hospital follow up, pancreatitis - discussed with Dr. Arnol garciaeck labs, will restart creon - will refer to a GI specialist at [facility] is to notify clinic with any changes, questions or concerns. 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 Start creon with meals and snacks will check labs today will refer to GI specialist. Hospital follow up, pancreatitis - discussed with Dr. Arnol garciaeck labs, will restart creon - will refer to a GI specialist at [facility] is to notify clinic with any changes, questions or concerns. 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 Start creon with meals and snacks will check labs today will refer to GI specialist. Hospital follow up, pancreatitis - discussed with Dr. Arnol garciaeck labs, will restart creon - will refer to a GI specialist at [facility] is to notify clinic with any [...]
--- OUTSIDE RECORDS SUMMARY | 2018-11-01 19:32 | XMS REPORT | CCD ---
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 Name Role Phone PP Unavailable CCM Unavailable Summary Purpose Interface Exchange Insurance Providers Payer name Policy type / Coverage type Covered alliance party ID Effective Begin Date Effective End Date Blue Cross Blue [facility] Blue Cross/Blue Shield [id number] Unknown Unknown Family history Mother Diagnosis Age [...] Unknown Single 07/01/2017 Employment Unknown Currently employed [employer] 07/01/[address]: 00888623 Current every day smoker 07/01/2017 Number of years using tobacco Unknown 10 - 20 1 pack day/20 years 07/01/2017 Number of cigarettes/day Unknown 20 (One Pack) 07/01/[address]: 561840640 Never drinks alcohol 07/01/2017 Allergies, Adverse Reactions, [...] Fill Instructions Levaquin 500 mg tablet RxNorm: 589943 1 Tablet(s) PO daily 09/201810/08/2018 Active Levaquin 500 mg tablet RxNorm: 413594 1 Tablet(s) PO daily 09/201810/01/2018 Inactive Levaquin 500 mg tablet RxNorm: 008012 1 Tablet(s) PO daily 09/201810/01/2018 Inactive Bactrim DS 800 mg-160 mg tablet RxNorm: 100525 1 Tablet(s) PO BID 09/30/2018 10/09/2018 Active prednisone 20 mg tablet RxNorm: 528452 2 Tablet(s) PO daily 10/04/2018 Inactive Bactrim DS 800 mg-160 mg tablet RxNorm: 702895 1 Tablet(s) PO BID 09/02/2018 09/11/2018 Inactive Augmentin 875 mg-125 mg tablet RxNorm: 357258 1 Tablet(s) PO BID started in hospital 08/17/2018 08/23/2018 Inactive Prozac 40 mg capsule RxNorm: 062568 1 Capsule(s) PO daily 08/1005/06/2019 Active Creon 36,000 unit-114,000 unit-180,000 unit capsule, delayed release RxNorm: 2424256 CAPSULE(S) 1 CAPSULE(S) PO WITH MEALS AND SNACKS No Stop Date Active Prozac 20 mg capsule RxNorm: 705186 1 Capsule(s) PO daily 05/1308/09/2018 Inactive Prozac 20 mg capsule RxNorm: 110505 1 Capsule(s) PO daily 04/1405/12/2018 Inactive Creon 36,000 unit-114,000 unit-180,000 unit capsule, delayed release RxNorm: 2457542 Capsule(s) 1 CAPSULE(S) PO WITH MEALS AND SNACKS 04/201805/14/2018 Inactive Creon 36,000 unit-114,000 unit-180,000 unit capsule, delayed release RxNorm: 1229016 1 CAPSULE(S) PO WITH MEALS AND SNACKS 07/04/2017 01/05/2018 Inactive pantoprazole 40 mg tablet,delayed release RxNorm: 688060 1 Tablet(s) PO daily started in hospital 07/01/2017 07/30/2017 Inactive Creon 36,000 unit-114,000 unit-180,000 unit capsule, delayed release RxNorm: 2693543 1 Capsule(s) PO with meals and snacks 07/01/2017 07/03/2017 Inactive Augmentin 875 mg-125 mg tablet RxNorm: 085121 1 Tablet(s) PO BID started in hospital 06/26/2017 06/27/2017 Inactive scopolamine 1 mg over 3 days transdermal patch RxNorm: 185349 1 Patch TD Q72H started in the hospital No Start Date Active promethazine 25 mg tablet RxNorm: 688088 1 Tablet(s) PO QID as needed started in hospital No Start Date Active Lactobacillus acidophilus capsule RxNorm: 1 Capsule(s) PO daily No Start Date Active acetaminophen 500 mg tablet RxNorm: 955511 1-2 Tablet(s) PO Q4H as needed started hospital No Start Date Active oxycodone-acetaminophen 5 mg-325 mg tablet RxNorm: 1428726 1-2 Tablet(s) PO Q4H started at the hospital No Start Date Active Carafate 1 gram tablet RxNorm: 008027 1 Tablet(s) PO AC & HS started [...] D-Lymph 24 % 07/02/2017 Manual Differential Ord52 D-[place] 1 % 07/02/2017 Manual Differential Ord52 D-Eos [...] 18.8 % 07/02/2017 Cbc With Differential Ord2 [place]% 6.1 % 07/02/2017 Cbc With Differential Ord2 [...] 2.10 K/ul 07/02/2017 Cbc With Differential Ord2 [place] ABS# 0.7 K/ul 07/02/2017 Cbc With Differential Ord2 Eos ABS# 0.2 K/ul 07/02/2017 Cbc With Differential Ord2 Baso ABS# 0.1 K/ul 07/02/2017 Lipase Qkm934 LIPASE 26 U/L 07/02/2017 Comp Metabolic Xca849 NA 134 mEq/L 07/02/2017 Comp Metabolic Ohy509 K 4.6 mEq/L 07/02/2017 Comp Metabolic Rqi099 CL 93 mEq/L 07/02/2017 Comp Metabolic Hjp519 CO2 28.0 mEq/L 07/02/2017 Comp Metabolic Ozu382 ANION GAP 18 07/02/2017 Comp Metabolic Grv713 GLUCOSE 108 mg/dL 07/02/2017 Comp Metabolic Wvo119 Creat 0.7 mg/dL 07/02/2017 Comp Metabolic Czt655 eGFR 100 ml/min/1.73m2 07/02/2017 Comp Metabolic Ddc335 BUN 10 mg/dL 07/02/2017 Comp Metabolic Swy465 B/C Ratio 14.7 Ratio 07/02/2017 Comp Metabolic Jvf481 CALCIUM 10.0 mg/dL 07/02/2017 Comp Metabolic Tqb699 ALK PHOS 102 U/L 07/02/2017 Comp Metabolic Mdm672 AST(SGOT) 15 U/L 07/02/2017 Comp Metabolic Vkf500 ALT(SGPT) 18 U/L 07/02/2017 Comp Metabolic Wmt626 BILI T 0.4 mg/dL 07/02/2017 Comp Metabolic Hsv724 ALBUMIN 3.9 g/dL 07/02/2017 Comp Metabolic Elj612 TPRO 7.8 g/dL 07/02/2017 Comp Metabolic Bxg149 GLOB 3.9 g/dL 07/02/2017 Comp Metabolic Zet923 A/G Ratio 1.0 Ratio 07/02/2017 Comp Metabolic Glx337 Osmo 268 mOsmo 07/02/2017 Review of Systems [...] Code : 8480-6 BMI: 26.9 Code : 28936-6 Heart Rate 1 : 94 bpm Height: 5'3" SpO2: 99% Weight: 152 lbs 09/30/2018 Blood Pressure 1: 136/78 Code : 8480-6 BMI: 26.9 Code : 23809-4 Heart Rate 1 : 71 bpm Height: 5'3" SpO2: 99% Temperature: 36.6 (C) / 97.8 (F) Weight: 152 lbs 09/02/2018 Blood Pressure 1: 122/60 Code : 8480-6 BMI: 26.9 Code : 21649-9 Heart Rate 1 : 65 bpm Height: 5'3" SpO2: 95% Weight: 152 lbs 08/17/2018 Blood Pressure 1: 132/68 Code : 8480-6 BMI: 26.9 Code : 25531-4 Heart Rate 1 : 63 bpm Height: 5'3" SpO2: 97% Weight: 152 lbs 05/13/2018 Blood Pressure 1: 140/82 Code : 8480-6 BMI: 28.0 Code : 75475-3 Heart Rate 1 : 57 bpm Height: 5'3" SpO2: 97% Weight: 158 lbs 04/14/2018 Blood Pressure 1: 126/74 Code : 8480-6 BMI: 28.0 Code : 88077-8 Heart Rate 1 : 66 bpm Height: 5'3" SpO2: 97% Weight: 158 lbs 01/09/2018 Blood Pressure 1: 122/68 Code : 8480-6 BMI: 28.2 Code : 83864-9 Heart Rate 1 : 70 bpm Height: 5'3" SpO2: 98% Weight: 159 lbs 11/28/2017 Blood Pressure 1: 110/70 Code : 8480-6 BMI: 28.2 Code : 62317-2 Heart Rate 1 : 67 bpm Height: 5'3" SpO2: 95% Weight: 159 lbs 07/01/2017 Blood Pressure 1: 118/70 Code : 8480-6 BMI: 25.5 Code : 30955-0 Heart Rate 1 : 76 bpm Height: [...] ear[ICD10: H60.11] [facility] CPT-4: 03138 10/05/2018 57586 EST. PATIENT, LEVEL III Diagnosis: Cellulitis of right external ear[ICD10: H60.11] [facility] CPT-4: 76367 09/30/2018 19576 EST. PATIENT, LEVEL III Diagnosis: Dysuria[ICD10: R30.0] Lelia Ambrose MD, [facility] CPT-4: 98625 09/02/2018 95480 EST. PATIENT, LEVEL III Diagnosis: Generalized anxiety disorder[ICD10: F41.1] Diagnosis: Major depressive disorder, single episode, moderate[ICD10: F32.1] Diagnosis: Other allergic rhinitis[ICD10: J30.89] Diagnosis: Acute laryngopharyngitis[ICD10: J06.0] Lelia Ambrose MD, [facility] CPT-4: 89358 08/17/2018 96691 EST. PATIENT, LEVEL III Diagnosis: Generalized anxiety disorder[ICD10: F41.1] Diagnosis: Major depressive disorder, single episode, moderate[ICD10: F32.1] Lelia Ambrose MD, [facility] CPT-4: 15432 05/13/2018 03051 EST. PATIENT, LEVEL IV Diagnosis: Generalized anxiety disorder[ICD10: F41.1] Diagnosis: Major depressive disorder, single episode, moderate[ICD10: F32.1] Lelia Ambrose MD, [facility] CPT-4: 52370 04/14/2018 81484 EST. PATIENT, LEVEL III Diagnosis: Other chronic pancreatitis[ICD10: K86.1] Lelia Ambrose MD, [facility] CPT-4: 96802 01/09/2018 09797 EST. 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 De La Garza for recurrent bacterial infections. 10/05/2018 [facility]ment[facility] [phone] [facility] ([facility]) Complex 10/05/2018 Patient Education: Patient [...] warmth, discharge. 09/30/2018 App[facility]ment: [facility] [phone] [facility] (15 min) Moderate 09/30/2018 Patient Education: Patient Medication Summary Completed 09/30/2018 Visit Plan: UTI - pt with positive urinalysis - culture sent if appropriate. Antibiotic electronically prescribed to pt's pharmacy of choice. Pt to call if symptoms do not improve. Chronic pancreatitis - amylase and lipase within normal limits - continue to monitor 09/02/2018 App[facility]ment: [facility] [phone] [facility] ([facility] min) Complex 09/02/2018 Patient Education: Patient [...] or concerns. 08/17/2018 Appointment: Lelia Dolan WPtel: [facility] [facility] (15 min) Moderate 08/17/2018 Patient Education: Patient [...] current medications. 05/13/2018 Appointment: Lelia Dolan WPtel: [phone] [facility] (15 min) Moderate 05/13/2018 Patient Education: Patient [...] this patient. 04/14/2018 App[facility]ment: [facility] [phone] [facility] (15 min) Moderate 04/14/2018 Patient Education: Patient Medication Summary Completed 04/14/2018 Visit Plan: chronic pancreatitis - defer to specialist - pt is to notify clinic with any changes in the current treatment plan - pt is to notify clinic with any changes, questions, or concerns. 01/09/2018 App[facility]ment: [facility] [phone] [facility] ([facility] min) Complex 01/09/2018 Patient Education: Patient Medication Summary Completed 01/09/2018 Visit Plan: chronic pancreatitis - defer to specialist - pt is to notify clinic with any changes in the current treatment plan - pt is to notify clinic with any changes, questions, or concerns. 11/28/2017 App[facility]ment: [facility] [phone] [facility] (15 min) Moderate 11/28/2017 Patient Education: Patient Medication Summary Completed 11/28/2017 Appointment: Lelia Dolan WPtel: [facility] [facility] [place] (15 min) Moderate 11/18/2017 Appointment: Lelia Dolan WPtel: [facility] [facility] (30 min) Complex 07/28/2017 Care Plan: Referral Order SNOMED-CT : [id number] Pending 07/03/2017 Visit Plan: Hospital follow up, pancreatitis - discussed with Dr. Ambrose - will recheck labs, will restart creon - will refer to a GI specialist at [facility] pt is to notify clinic with any changes, questions or concerns. 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 07/01/2017 Visit Plan: Hospital follow up, pancreatitis - discussed with Dr. Ambrose - will recheck labs, will restart creon - will refer to a GI specialist at [facility] pt is to notify clinic with any changes, questions or concerns. 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 07/01/2017 Visit Plan: Hospital follow up, pancreatitis - discussed with Dr. Ambrose - will recheck labs, will restart creon - will refer to a GI specialist at [facility] pt is to notify clinic with any changes, questions or concerns. 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 07/01/2017 Visit Plan: Hospital follow up, pancreatitis - discussed with Dr. Ambrose - will recheck labs, will restart creon - will refer to a GI specialist at [facility] is to notify clinic with any changes, questions or concerns. 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 07/01/2017 Appointment: Lelia Dolan WPtel[facility] [facility] 07/01/2017 Patient Education: Patient Medication [...] will refer to a GI specialist at [facility] is to notify clinic with any changes, questions or concerns. 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 Start creon with meals and snacks will check labs today will refer to GI specialist. Hospital follow up, pancreatitis - discussed with Dr. Arnol garciaeck labs, will restart creon - will refer to a GI specialist at [facility] is to notify clinic with any changes, questions or concerns. 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 Start creon with meals and snacks will check labs today will refer to GI specialist. Hospital follow up, pancreatitis - discussed with Dr. Arnol garciaeck labs, will restart creon - will refer to a GI specialist at [facility] is to notify clinic with any changes, questions or concerns. 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 Start creon with meals and snacks will check labs today will refer to GI specialist. Hospital follow up, pancreatitis - discussed with Dr. Arnol garciaeck labs, will restart creon - will refer to a GI specialist at [facility] is to notify clinic with any [...]
--- OUTSIDE RECORDS SUMMARY | 2018-11-01 19:33 | XMS REPORT | CCD ---
Author Author Lelia Dolan MD, [facility] Address [address] [place] [address] Phone Care Team Providers Care Rfid Manager Name Role Phone PP Unavailable CCM Unavailable Summary Purpose Interface Exchange Insurance Providers Payer name Policy type / Coverage type Covered constitution party ID Effective Begin Date Effective End Date Blue Cross Blue [facility] Blue Cross/Blue Shield [id number] Unknown Unknown Family history Mother Diagnosis Age [...] Unknown Single 07/01/2017 Employment Unknown Currently employed [employer] 07/01/[address]: 40134980 Current every day smoker 07/01/2017 Number of years using tobacco Unknown 10 - 20 1 pack day/20 years 07/01/2017 Number of cigarettes/day Unknown 20 (One Pack) 07/01/[address]: 745464835 Never drinks alcohol 07/01/2017 Allergies, Adverse Reactions, [...] Fill Instructions Levaquin 500 mg tablet RxNorm: 212107 1 Tablet(s) PO daily 09/201810/08/2018 Active Levaquin 500 mg tablet RxNorm: 997137 1 Tablet(s) PO daily 09/201810/01/2018 Inactive Levaquin 500 mg tablet RxNorm: 986189 1 Tablet(s) PO daily 09/201810/01/2018 Inactive Bactrim DS 800 mg-160 mg tablet RxNorm: 932099 1 Tablet(s) PO BID 09/30/2018 10/09/2018 Active prednisone 20 mg tablet RxNorm: 115560 2 Tablet(s) PO daily 10/04/2018 Inactive Bactrim DS 800 mg-160 mg tablet RxNorm: 368500 1 Tablet(s) PO BID 09/02/2018 09/11/2018 Inactive Augmentin 875 mg-125 mg tablet RxNorm: 643336 1 Tablet(s) PO BID started in hospital 08/17/2018 08/23/2018 Inactive Prozac 40 mg capsule RxNorm: 818274 1 Capsule(s) PO daily 08/1005/06/2019 Active Creon 36,000 unit-114,000 unit-180,000 unit capsule, delayed release RxNorm: 3139949 CAPSULE(S) 1 CAPSULE(S) PO WITH MEALS AND SNACKS No Stop Date Active Prozac 20 mg capsule RxNorm: 942423 1 Capsule(s) PO daily 05/1308/09/2018 Inactive Prozac 20 mg capsule RxNorm: 530816 1 Capsule(s) PO daily 04/1405/12/2018 Inactive Creon 36,000 unit-114,000 unit-180,000 unit capsule, delayed release RxNorm: 8701771 Capsule(s) 1 CAPSULE(S) PO WITH MEALS AND SNACKS 04/201805/14/2018 Inactive Creon 36,000 unit-114,000 unit-180,000 unit capsule, delayed release RxNorm: 6139128 1 CAPSULE(S) PO WITH MEALS AND SNACKS 07/04/2017 01/05/2018 Inactive pantoprazole 40 mg tablet,delayed release RxNorm: 459740 1 Tablet(s) PO daily started in hospital 07/01/2017 07/30/2017 Inactive Creon 36,000 unit-114,000 unit-180,000 unit capsule, delayed release RxNorm: 0523194 1 Capsule(s) PO with meals and snacks 07/01/2017 07/03/2017 Inactive Augmentin 875 mg-125 mg tablet RxNorm: 119619 1 Tablet(s) PO BID started in hospital 06/26/2017 06/27/2017 Inactive scopolamine 1 mg over 3 days transdermal patch RxNorm: 410087 1 Patch TD Q72H started in the hospital No Start Date Active promethazine 25 mg tablet RxNorm: 345776 1 Tablet(s) PO QID as needed started in hospital No Start Date Active Lactobacillus acidophilus capsule RxNorm: 1 Capsule(s) PO daily No Start Date Active acetaminophen 500 mg tablet RxNorm: 896957 1-2 Tablet(s) PO Q4H as needed started hospital No Start Date Active oxycodone-acetaminophen 5 mg-325 mg tablet RxNorm: 5123681 1-2 Tablet(s) PO Q4H started at the hospital No Start Date Active Carafate 1 gram tablet RxNorm: 913316 1 Tablet(s) PO AC & HS started in hospital No Start Date Active Medication Administered No Medication Administered data Immunizations No Immunization data Assessments Condition Codes Effective Dates Cellulitis of right external ear ICD-10: H60.11 ICD-9: 380.10 09/30/2018 Dysuria ICD-10: R30.0 ICD-9: 788.1 09/02/2018 Generalized [...] Reason For Visit Effective Dates Notes earache 09/30/2018 abdominal pain 09/02/2018 medication follow up 08/17/2018 medication follow up 05/13/2018 depression 04/14/2018 abdominal pain 01/09/2018 abdominal pain 11/28/2017 abdominal pain 07/01/2017 Results Observation Observation Code Item Item Code Result Date Manual Differential Ord52 D-Neutr 72 % 07/02/2017 Manual Differential Ord52 D-Bands 1 % 07/02/2017 Manual Differential Ord52 D-Lymph 24 % 07/02/2017 Manual Differential Ord52 D-[place] 1 % 07/02/2017 Manual Differential Ord52 D-Eos [...] 18.8 % 07/02/2017 Cbc With Differential Ord2 [place]% 6.1 % 07/02/2017 Cbc With Differential Ord2 [...] 2.10 K/ul 07/02/2017 Cbc With Differential Ord2 [place] ABS# 0.7 K/ul 07/02/2017 Cbc With Differential Ord2 Eos ABS# 0.2 K/ul 07/02/2017 Cbc With Differential Ord2 Baso ABS# 0.1 K/ul 07/02/2017 Lipase Xkm994 LIPASE 26 U/L 07/02/2017 Comp Metabolic Goy745 NA 134 mEq/L 07/02/2017 Comp Metabolic Eco224 K 4.6 mEq/L 07/02/2017 Comp Metabolic Ujk713 CL 93 mEq/L 07/02/2017 Comp Metabolic Lvf710 CO2 28.0 mEq/L 07/02/2017 Comp Metabolic Zal534 ANION GAP 18 07/02/2017 Comp Metabolic Uor823 GLUCOSE 108 mg/dL 07/02/2017 Comp Metabolic Ais331 Creat 0.7 mg/dL 07/02/2017 Comp Metabolic Xpf686 eGFR 100 ml/min/1.73m2 07/02/2017 Comp Metabolic Ehm955 BUN 10 mg/dL 07/02/2017 Comp Metabolic Usl220 B/C Ratio 14.7 Ratio 07/02/2017 Comp Metabolic Gjx284 CALCIUM 10.0 mg/dL 07/02/2017 Comp Metabolic Ywl932 ALK PHOS 102 U/L 07/02/2017 Comp Metabolic Jtx818 AST(SGOT) 15 U/L 07/02/2017 Comp Metabolic Npq658 ALT(SGPT) 18 U/L 07/02/2017 Comp Metabolic Nci602 BILI T 0.4 mg/dL 07/02/2017 Comp Metabolic Vaz412 ALBUMIN 3.9 g/dL 07/02/2017 Comp Metabolic Dxp701 TPRO 7.8 g/dL 07/02/2017 Comp Metabolic Wqf069 GLOB 3.9 g/dL 07/02/2017 Comp Metabolic Pwo792 A/G Ratio 1.0 Ratio 07/02/2017 Comp Metabolic Npi171 Osmo 268 mOsmo 07/02/2017 Review of Systems [...] tender 09/30/2018 None Full Exam - General 1995 Constitutional general appearance Overall: well developed 09/02/2018 None Full Exam - General 1995 Constitutional general appearance Overall: in no acute [...] normal 09/02/2018 None Full Exam - General 1995 Ears/Nose/Throat lips/teeth/gingiva Overall: benign lips 09/02/2018 None Full Exam - General 1995 Ears/Nose/Throat [...] Exam - General 1995 Ears/Nose/Throat oral cavity/pharynx/larynx Posterior Pharynx: clear post nasal drainage 08/17/2018 None Full Exam - General 1995 Constitutional general appearance Overall: well developed 05/13/2018 None Full Exam - General 1994 Constitutional general appearance Overall: in no acute distress 05/13/2018 None Full Exam - General 1994 Constitutional general appearance Overall: well nourished 05/13/2018 None Full Exam - General 1995 Eyes conjunctiva /eyelids Overall: conjunctiva clear 05/13/2018 [...] No Procedures data Vital Signs Date Vital 09/30/2018 Blood Pressure 1: 136/78 Code : 8480-6 BMI: 26.9 Code : 65246-5 Heart Rate 1 : 71 bpm Height: 5'3" SpO2: 99% Temperature: 36.6 (C) / 97.8 (F) Weight: 152 lbs 09/02/2018 Blood Pressure 1: 122/60 Code : 8480-6 BMI: 26.9 Code : 75838-9 Heart Rate 1 : 65 bpm Height: 5'3" SpO2: 95% Weight: 152 lbs 08/17/2018 Blood Pressure 1: 132/68 Code : 8480-6 BMI: 26.9 Code : 25284-8 Heart Rate 1 : 63 bpm Height: 5'3" SpO2: 97% Weight: 152 lbs 05/13/2018 Blood Pressure 1: 140/82 Code : 8480-6 BMI: 28.0 Code : 10770-0 Heart Rate 1 : 57 bpm Height: 5'3" SpO2: 97% Weight: 158 lbs 04/14/2018 Blood Pressure 1: 126/74 Code : 8480-6 BMI: 28.0 Code : 55581-4 Heart Rate 1 : 66 bpm Height: 5'3" SpO2: 97% Weight: 158 lbs 01/09/2018 Blood Pressure 1: 122/68 Code : 8480-6 BMI: 28.2 Code : 22227-4 Heart Rate 1 : 70 bpm Height: 5'3" SpO2: 98% Weight: 159 lbs 11/28/2017 Blood Pressure 1: 110/70 Code : 8480-6 BMI: 28.2 Code : 40788-1 Heart Rate 1 : 67 bpm Height: 5'3" SpO2: 95% Weight: 159 lbs 07/01/2017 Blood Pressure 1: 118/70 Code : 8480-6 BMI: 25.5 Code : 57543-4 Heart Rate 1 : 76 bpm Height: 5'3" SpO2: 95% Weight: 144 lbs Functional Status No Functional Status data History of Present Illness Symptom Name Status Result Effective Date Notes Location right ear None Quality worsening None [...] data Encounters Encounter Performer Location Codes Date 71928 EST. PATIENT, LEVEL III Diagnosis: Cellulitis of right external ear[ICD10: H60.11] Lelia Ambrose MD, [facility] CPT-4: 85152 09/30/2018 17233 EST. PATIENT, LEVEL III Diagnosis: Dysuria[ICD10: R30.0] Lelia Ambrose MD, [facility] CPT-4: 34390 09/02/2018 63163 EST. PATIENT, LEVEL III Diagnosis: Generalized anxiety disorder[ICD10: F41.1] Diagnosis: Major depressive disorder, single episode, moderate[ICD10: F32.1] Diagnosis: Other allergic rhinitis[ICD10: J30.89] Diagnosis: Acute laryngopharyngitis[ICD10: J06.0] Lelia Ambrose MD, [facility] CPT-4: 75629 08/17/2018 61662 EST. PATIENT, LEVEL III Diagnosis: Generalized anxiety disorder[ICD10: F41.1] Diagnosis: Major depressive disorder, single episode, moderate[ICD10: F32.1] Lelia Ambrose MD, [facility] CPT-4: 16031 05/13/2018 33166 EST. PATIENT, LEVEL IV Diagnosis: Generalized anxiety disorder[ICD10: F41.1] Diagnosis: Major depressive disorder, single episode, moderate[ICD10: F32.1] Lelia Ambrose MD, [facility] CPT-4: 83697 04/14/2018 77447 EST. PATIENT, LEVEL III Diagnosis: Other chronic pancreatitis[ICD10: K86.1] Lelia Ambrose MD, [facility] CPT-4: 36355 01/09/2018 39673 EST. 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 The patient was instructed to use the antibiotic ointment as per RX. The patient is to call for any change in symptoms , increase in size of the lesion, increase in pain, call for acute change in symptoms, worsening redness, warmth, discharge. 09/30/2018 Appointment: [id number] (15 min) Moderate 09/30/2018 Patient Education: Patient Medication Summary Completed 09/30/2018 Visit Plan: UTI - pt with positive urinalysis - culture sent if appropriate. Antibiotic electronically prescribed to pt's pharmacy of choice. Pt to call if symptoms do not improve. Chronic pancreatitis - amylase and lipase within normal limits - continue to monitor 09/02/2018 Appointment: [facility] Dolan [facility] [phone] [id number] (30 min) Complex 09/02/2018 Patient Education: [...] or concerns. 08/17/2018 Appointment: [facility] [phone] [id number] (15 min) Moderate 08/17/2018 Patient Education: Patient [...] current medications. 05/13/2018 Appointment: [facility] [phone] [id number] (15 min) Moderate 05/13/2018 Patient Education: Patient [...] this patient. 04/14/2018 Appointment: Lelia Dolan WPtel: [facility] (15 min) Moderate 04/14/2018 Patient Education: Patient Medication Summary Completed 04/14/2018 Visit Plan: chronic pancreatitis - defer to specialist - pt is to notify clinic with any changes in the current treatment plan - pt is to notify clinic with any changes, questions, or concerns. 01/09/2018 Appointment: Lelia Dolan WPtel: [facility] [place] (30 min) Complex 01/09/2018 Patient Education: Patient Medication Summary Completed 01/09/2018 Visit Plan: chronic pancreatitis - defer to specialist - pt is to notify clinic with any changes in the current treatment plan - pt is to notify clinic with any changes, questions, or concerns. 11/28/2017 Appointment: Lelia Dolan WPtel: [facility] [place] (15 min) Moderate 11/28/2017 Patient Education: Patient Medication Summary Completed 11/28/2017 Appointment: [facility] Dolan [facility]Ptel[facility] [place] (15 min) Moderate 11/18/2017 Appointment: Lelia Dolan WPtel: [address] [place] [id number] [place] (30 min) Complex 07/28/2017 Care Plan: Referral Order SNOMED-CT : [id number] Pending 07/03/2017 Visit Plan: Hospital follow up, pancreatitis - discussed with Dr. Ambrose - will recheck labs, will restart creon - will refer to a GI specialist at - pt is to notify clinic with any changes, questions or concerns. 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 07/01/2017 Visit Plan: Hospital follow up, pancreatitis - discussed with Dr. Ambrose - will recheck labs, will restart creon - will refer to a GI specialist at - pt is to notify clinic with any changes, questions or concerns. 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 07/01/2017 Visit Plan: Hospital follow up, pancreatitis - discussed with Dr. Ambrose - will recheck labs, will restart creon - will refer to a GI specialist at - pt is to notify clinic with any changes, questions or concerns. 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 07/01/2017 Visit Plan: Hospital follow up, pancreatitis - discussed with Dr. Ambrose - will recheck labs, will restart creon - will refer to a GI specialist at - pt is to notify clinic with any changes, questions or concerns. 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 07/01/2017 Appointment: Lelia Dolan WPtel: [address] [place], [place] [id number] [place] New Patient 07/01/2017 Patient Education: Patient Medication Summary Completed 07/01/2017 Referral: External, Ordering Provider Referral Initiated Instructions Comment . URI - Pt advised to increase [...] will refer to a GI specialist at [facility] pt is to notify clinic with [...]
--- OUTSIDE RECORDS SUMMARY | 2018-11-01 19:34 | XMS REPORT | CCD ---
Author Author Lelia Dolan MD, [facility] Address [address] [place] [address] Phone Care Team Providers Care Marketing Senior Recruiter Name Role Phone PP Unavailable CCM Unavailable Summary Purpose Interface Exchange Insurance Providers Payer name Policy type / Coverage type Covered constitution party ID Effective Begin Date Effective End Date Blue Cross Blue [facility] Blue Cross/Blue Shield [id number] Unknown Unknown Family history Mother Diagnosis Age [...] Unknown Single 07/01/2017 Employment Unknown Currently employed [employer] 07/01/[address]: 89408487 Current every day smoker 07/01/2017 Number of years using tobacco Unknown 10 - 20 1 pack day/20 years 07/01/2017 Number of cigarettes/day Unknown 20 (One Pack) 07/01/[address]: 467382014 Never drinks alcohol 07/01/2017 Allergies, Adverse Reactions, [...] Fill Instructions Levaquin 500 mg tablet RxNorm: 175186 1 Tablet(s) PO daily 09/201810/08/2018 Active Levaquin 500 mg tablet RxNorm: 668092 1 Tablet(s) PO daily 09/201810/01/2018 Inactive Levaquin 500 mg tablet RxNorm: 989229 1 Tablet(s) PO daily 09/201810/01/2018 Inactive Bactrim DS 800 mg-160 mg tablet RxNorm: 698245 1 Tablet(s) PO BID 09/30/2018 10/09/2018 Active prednisone 20 mg tablet RxNorm: 871500 2 Tablet(s) PO daily 10/04/2018 Inactive Bactrim DS 800 mg-160 mg tablet RxNorm: 641945 1 Tablet(s) PO BID 09/02/2018 09/11/2018 Inactive Augmentin 875 mg-125 mg tablet RxNorm: 012668 1 Tablet(s) PO BID started in hospital 08/17/2018 08/23/2018 Inactive Prozac 40 mg capsule RxNorm: 448539 1 Capsule(s) PO daily 08/1005/06/2019 Active Creon 36,000 unit-114,000 unit-180,000 unit capsule, delayed release RxNorm: 9576106 CAPSULE(S) 1 CAPSULE(S) PO WITH MEALS AND SNACKS No Stop Date Active Prozac 20 mg capsule RxNorm: 027799 1 Capsule(s) PO daily 05/1308/09/2018 Inactive Prozac 20 mg capsule RxNorm: 498438 1 Capsule(s) PO daily 04/1405/12/2018 Inactive Creon 36,000 unit-114,000 unit-180,000 unit capsule, delayed release RxNorm: 9084217 Capsule(s) 1 CAPSULE(S) PO WITH MEALS AND SNACKS 04/201805/14/2018 Inactive Creon 36,000 unit-114,000 unit-180,000 unit capsule, delayed release RxNorm: 1683914 1 CAPSULE(S) PO WITH MEALS AND SNACKS 07/04/2017 01/05/2018 Inactive pantoprazole 40 mg tablet,delayed release RxNorm: 569876 1 Tablet(s) PO daily started in hospital 07/01/2017 07/30/2017 Inactive Creon 36,000 unit-114,000 unit-180,000 unit capsule, delayed release RxNorm: 5411270 1 Capsule(s) PO with meals and snacks 07/01/2017 07/03/2017 Inactive Augmentin 875 mg-125 mg tablet RxNorm: 982935 1 Tablet(s) PO BID started in hospital 06/26/2017 06/27/2017 Inactive scopolamine 1 mg over 3 days transdermal patch RxNorm: 888070 1 Patch TD Q72H started in the hospital No Start Date Active promethazine 25 mg tablet RxNorm: 015571 1 Tablet(s) PO QID as needed started in hospital No Start Date Active Lactobacillus acidophilus capsule RxNorm: 1 Capsule(s) PO daily No Start Date Active acetaminophen 500 mg tablet RxNorm: 465391 1-2 Tablet(s) PO Q4H as needed started hospital No Start Date Active oxycodone-acetaminophen 5 mg-325 mg tablet RxNorm: 0213973 1-2 Tablet(s) PO Q4H started at the hospital No Start Date Active Carafate 1 gram tablet RxNorm: 948699 1 Tablet(s) PO AC & HS started [...] D-Lymph 24 % 07/02/2017 Manual Differential Ord52 D-[place] 1 % 07/02/2017 Manual Differential Ord52 D-Eos [...] 18.8 % 07/02/2017 Cbc With Differential Ord2 [place]% 6.1 % 07/02/2017 Cbc With Differential Ord2 [...] 2.10 K/ul 07/02/2017 Cbc With Differential Ord2 [place] ABS# 0.7 K/ul 07/02/2017 Cbc With Differential Ord2 Eos ABS# 0.2 K/ul 07/02/2017 Cbc With Differential Ord2 Baso ABS# 0.1 K/ul 07/02/2017 Lipase Lcu306 LIPASE 26 U/L 07/02/2017 Comp Metabolic Svi827 NA 134 mEq/L 07/02/2017 Comp Metabolic Vyk413 K 4.6 mEq/L 07/02/2017 Comp Metabolic Mdd967 CL 93 mEq/L 07/02/2017 Comp Metabolic Xfy178 CO2 28.0 mEq/L 07/02/2017 Comp Metabolic Wnz717 ANION GAP 18 07/02/2017 Comp Metabolic Fgr105 GLUCOSE 108 mg/dL 07/02/2017 Comp Metabolic Pwt767 Creat 0.7 mg/dL 07/02/2017 Comp Metabolic Agw668 eGFR 100 ml/min/1.73m2 07/02/2017 Comp Metabolic Cjw837 BUN 10 mg/dL 07/02/2017 Comp Metabolic Qvs685 B/C Ratio 14.7 Ratio 07/02/2017 Comp Metabolic Qrk778 CALCIUM 10.0 mg/dL 07/02/2017 Comp Metabolic Ein813 ALK PHOS 102 U/L 07/02/2017 Comp Metabolic Vdf312 AST(SGOT) 15 U/L 07/02/2017 Comp Metabolic Kgs119 ALT(SGPT) 18 U/L 07/02/2017 Comp Metabolic Lkf477 BILI T 0.4 mg/dL 07/02/2017 Comp Metabolic Whl515 ALBUMIN 3.9 g/dL 07/02/2017 Comp Metabolic Qzo508 TPRO 7.8 g/dL 07/02/2017 Comp Metabolic Gkk830 GLOB 3.9 g/dL 07/02/2017 Comp Metabolic Sol795 A/G Ratio 1.0 Ratio 07/02/2017 Comp Metabolic Iqr051 Osmo 268 mOsmo 07/02/2017 Review of Systems [...] Code : 8480-6 BMI: 26.9 Code : 60068-4 Heart Rate 1 : 71 bpm Height: 5'3" SpO2: 99% Temperature: 36.6 (C) / 97.8 (F) Weight: 152 lbs 09/02/2018 Blood Pressure 1: 122/60 Code : 8480-6 BMI: 26.9 Code : 53098-0 Heart Rate 1 : 65 bpm Height: 5'3" SpO2: 95% Weight: 152 lbs 08/17/2018 Blood Pressure 1: 132/68 Code : 8480-6 BMI: 26.9 Code : 45375-0 Heart Rate 1 : 63 bpm Height: 5'3" SpO2: 97% Weight: 152 lbs 05/13/2018 Blood Pressure 1: 140/82 Code : 8480-6 BMI: 28.0 Code : 34329-8 Heart Rate 1 : 57 bpm Height: 5'3" SpO2: 97% Weight: 158 lbs 04/14/2018 Blood Pressure 1: 126/74 Code : 8480-6 BMI: 28.0 Code : 07948-4 Heart Rate 1 : 66 bpm Height: 5'3" SpO2: 97% Weight: 158 lbs 01/09/2018 Blood Pressure 1: 122/68 Code : 8480-6 BMI: 28.2 Code : 40752-4 Heart Rate 1 : 70 bpm Height: 5'3" SpO2: 98% Weight: 159 lbs 11/28/2017 Blood Pressure 1: 110/70 Code : 8480-6 BMI: 28.2 Code : 64390-7 Heart Rate 1 : 67 bpm Height: 5'3" SpO2: 95% Weight: 159 lbs 07/01/2017 Blood Pressure 1: 118/70 Code : 8480-6 BMI: 25.5 Code : 86920-8 Heart Rate 1 : 76 bpm Height: [...] data Encounters Encounter Performer Location Codes Date 49757 EST. PATIENT, LEVEL III Diagnosis: Cellulitis of right external ear[ICD10: H60.11] Lelia Ambrose MD, [facility] CPT-4: 93260 09/30/2018 [id number] EST. PATIENT, LEVEL III Diagnosis: Dysuria[ICD10: R30.0] Lelia Ambrose MD, [facility] CPT-4: 54409 09/02/2018 05450 EST. PATIENT, LEVEL III Diagnosis: Generalized anxiety disorder[ICD10: F41.1] Diagnosis: Major depressive disorder, single episode, moderate[ICD10: F32.1] Diagnosis: Other allergic rhinitis[ICD10: J30.89] Diagnosis: Acute laryngopharyngitis[ICD10: J06.0] Lelia Ambrose MD, [facility] CPT-4: 36943 08/17/2018 86473 EST. PATIENT, LEVEL III Diagnosis: Generalized anxiety disorder[ICD10: F41.1] Diagnosis: Major depressive disorder, single episode, moderate[ICD10: F32.1] Lelia Ambrose MD, [facility] CPT-4: 61110 05/13/2018 67771 EST. PATIENT, LEVEL IV Diagnosis: Generalized anxiety disorder[ICD10: F41.1] Diagnosis: Major depressive disorder, single episode, moderate[ICD10: F32.1] Lelia Ambrose MD, [facility] CPT-4: 93632 04/14/2018 61338 EST. PATIENT, LEVEL III Diagnosis: Other chronic pancreatitis[ICD10: K86.1] Lelia Ambrose MD, [facility] CPT-4: 51431 01/09/2018 37887 EST. 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 09/30/2018 Appointment: [facility] ([facility] min) Moderate 09/30/2018 Patient Education: Patient Medication Summary Completed 09/30/2018 Visit Plan: UTI - pt with positive urinalysis - culture sent if appropriate. Antibiotic electronically prescribed to pt's pharmacy of choice. Pt to call if symptoms do not improve. Chronic pancreatitis - amylase and lipase within normal limits - continue to monitor 09/02/2018 Appointment: [facility] [phone] [facility] (30 min) Complex 09/02/2018 Patient Education: Patient [...] concerns. 08/17/2018 Appointment: [facility] [phone] [facility] (15 min) Moderate 08/17/2018 Patient Education: Patient [...] medications. 05/13/2018 Appointment: [facility] [phone] [facility] (15 min) Moderate 05/13/2018 Patient Education: Patient [...] this patient. 04/14/2018 Appointment: Lelia Dolan WPtel: [facility] (15 min) Moderate 04/14/2018 Patient Education: Patient Medication Summary Completed 04/14/2018 Visit Plan: chronic pancreatitis - defer to specialist - pt is to notify clinic with any changes in the current treatment plan - pt is to notify clinic with any changes, questions, or concerns. 01/09/2018 Appointment: Lelia Dolan WPtel: [facility] [place] (30 min) Complex 01/09/2018 Patient Education: Patient Medication Summary Completed 01/09/2018 Visit Plan: chronic pancreatitis - defer to specialist - pt is to notify clinic with any changes in the current treatment plan - pt is to notify clinic with any changes, questions, or concerns. 11/28/2017 Appointment: Lelia Dolan WPtel: [facility] [place] (15 min) Moderate 11/28/2017 Patient Education: Patient Medication Summary Completed 11/28/2017 Appointment: Lelia Dolan WPtel: [facility] [place] (15 min) Moderate 11/18/2017 Appointment: Lelia Dolan WPtel: [address] [place], [place] [address] [place] (30 min) Complex 07/28/2017 Care Plan: Referral Order SNOMED-CT : [id number] Pending 07/03/2017 Visit Plan: Hospital follow up, [...] to specialist. 07/01/2017 Appointment: Lelia Dolan WPtel: [address] [place], [place] [address] [place] New Patient 07/01/2017 Patient Education: Patient [...] will refer to a GI specialist at [facility] is to notify clinic with any changes, questions or concerns. 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 Start creon with meals and snacks will check labs today will refer to GI specialist. Hospital follow up, pancreatitis - discussed with Dr. Ambrose - pina recheck labs, will restart creon - will refer to a GI specialist at [facility] pt is to notify clinic with any changes, questions or concerns. 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 Start creon with meals and snacks will check labs today will refer to GI specialist. Hospital follow up, pancreatitis - discussed with Dr. Ambrose - pina recheck labs, will restart creon - will refer to a GI specialist at [facility] is to notify clinic with any changes, questions or concerns. 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 Start creon with meals and snacks will check labs today will refer to GI specialist. Hospital follow up, pancreatitis - discussed with Dr. Arnol heller recheck labs, will restart creon - will refer to a GI specialist at [facility] is to notify clinic with any [...]
--- OUTSIDE RECORDS SUMMARY | 2018-11-01 19:35 | XMS REPORT | CCD ---
Author Author Lelia Dolan MD, [facility] Address [address] [place] [address] Phone Care Team Providers Care Television Anchor Name Role Phone PP Unavailable CCM Unavailable Summary Purpose Interface Exchange Insurance Providers Payer name Policy type / Coverage type Covered green party ID Effective Begin Date Effective End Date Blue Cross Blue [facility] Blue Cross/Blue Shield [id number] Unknown Unknown Family history Mother Diagnosis Age [...] Unknown Single 07/01/2017 Employment Unknown Currently employed [employer] 07/01/[address]: 51621938 Current every day smoker 07/01/2017 Number of years using tobacco Unknown 10 - 20 1 pack day/20 years 07/01/2017 Number of cigarettes/day Unknown 20 (One Pack) 07/01/[address]: 270138138 Never drinks alcohol 07/01/2017 Allergies, Adverse Reactions, [...] Fill Instructions Levaquin 500 mg tablet RxNorm: 954650 1 Tablet(s) PO daily 09/201810/08/2018 Active Levaquin 500 mg tablet RxNorm: 087242 1 Tablet(s) PO daily 09/201810/01/2018 Inactive Levaquin 500 mg tablet RxNorm: 442195 1 Tablet(s) PO daily 09/201810/01/2018 Inactive prednisone 20 mg tablet RxNorm: 209521 2 Tablet(s) PO daily 10/04/2018 Active Bactrim DS 800 mg-160 mg tablet RxNorm: 578607 1 Tablet(s) PO BID 09/30/2018 10/09/2018 Active Bactrim DS 800 mg-160 mg tablet RxNorm: 305337 1 Tablet(s) PO BID 09/02/2018 09/11/2018 Inactive Augmentin 875 mg-125 mg tablet RxNorm: 036659 1 Tablet(s) PO BID started in hospital 08/17/2018 08/23/2018 Inactive Prozac 40 mg capsule RxNorm: 686807 1 Capsule(s) PO daily 08/1005/06/2019 Active Creon 36,000 unit-114,000 unit-180,000 unit capsule, delayed release RxNorm: 9156545 CAPSULE(S) 1 CAPSULE(S) PO WITH MEALS AND SNACKS No Stop Date Active Prozac 20 mg capsule RxNorm: 704824 1 Capsule(s) PO daily 05/1308/09/2018 Inactive Prozac 20 mg capsule RxNorm: 663847 1 Capsule(s) PO daily 04/1405/12/2018 Inactive Creon 36,000 unit-114,000 unit-180,000 unit capsule, delayed release RxNorm: 4658388 Capsule(s) 1 CAPSULE(S) PO WITH MEALS AND SNACKS 04/201805/14/2018 Inactive Creon 36,000 unit-114,000 unit-180,000 unit capsule, delayed release RxNorm: 9549179 1 CAPSULE(S) PO WITH MEALS AND SNACKS 07/04/2017 01/05/2018 Inactive pantoprazole 40 mg tablet,delayed release RxNorm: 145947 1 Tablet(s) PO daily started in hospital 07/01/2017 07/30/2017 Inactive Creon 36,000 unit-114,000 unit-180,000 unit capsule, delayed release RxNorm: 4614090 1 Capsule(s) PO with meals and snacks 07/01/2017 07/03/2017 Inactive Augmentin 875 mg-125 mg tablet RxNorm: 165267 1 Tablet(s) PO BID started in hospital 06/26/2017 06/27/2017 Inactive scopolamine 1 mg over 3 days transdermal patch RxNorm: 176201 1 Patch TD Q72H started in the hospital No Start Date Active promethazine 25 mg tablet RxNorm: 999204 1 Tablet(s) PO QID as needed started in hospital No Start Date Active Lactobacillus acidophilus capsule RxNorm: 1 Capsule(s) PO daily No Start Date Active acetaminophen 500 mg tablet RxNorm: 912829 1-2 Tablet(s) PO Q4H as needed started hospital No Start Date Active oxycodone-acetaminophen 5 mg-325 mg tablet RxNorm: 9033319 1-2 Tablet(s) PO Q4H started at the hospital No Start Date Active Carafate 1 gram tablet RxNorm: 305171 1 Tablet(s) PO AC & HS started in hospital No Start Date Active Medication Administered No Medication Administered data Immunizations No Immunization data Assessments Condition Codes Effective Dates Dysuria ICD-10: R30.0 ICD-9: 788.1 09/02/2018 Generalized [...] Visit Reason For Visit Effective Dates Notes abdominal pain 09/02/2018 medication follow up 08/17/2018 medication follow up 05/13/2018 depression 04/14/2018 abdominal pain 01/09/2018 abdominal pain 11/28/2017 abdominal pain 07/01/2017 Results Observation Observation Code Item Item Code Result Date Manual Differential Ord52 D-Neutr 72 % 07/02/2017 Manual Differential Ord52 D-Bands 1 % 07/02/2017 Manual Differential Ord52 D-Lymph 24 % 07/02/2017 Manual Differential Ord52 D-[place] 1 % 07/02/2017 Manual Differential Ord52 D-Eos [...] 30.4 pg 07/02/2017 Cbc With Differential Ord2 [place]% 6.1 % 07/02/2017 Cbc With Differential Ord2 [...] 2.10 K/ul 07/02/2017 Cbc With Differential Ord2 [place] ABS# 0.7 K/ul 07/02/2017 Cbc With Differential Ord2 Eos ABS# 0.2 K/ul 07/02/2017 Cbc With Differential Ord2 Baso ABS# 0.1 K/ul 07/02/2017 Lipase Hus020 LIPASE 26 U/L 07/02/2017 Comp Metabolic Xct954 NA 134 mEq/L 07/02/2017 Comp Metabolic Nen250 K 4.6 mEq/L 07/02/2017 Comp Metabolic Joh072 CL 93 mEq/L 07/02/2017 Comp Metabolic Rhg415 CO2 28.0 mEq/L 07/02/2017 Comp Metabolic Wdx310 ANION GAP 18 07/02/2017 Comp Metabolic Wnt650 GLUCOSE 108 mg/dL 07/02/2017 Comp Metabolic Jpi970 Creat 0.7 mg/dL 07/02/2017 Comp Metabolic Hqa027 eGFR 100 ml/min/1.73m2 07/02/2017 Comp Metabolic Jfd889 BUN 10 mg/dL 07/02/2017 Comp Metabolic Hzq179 B/C Ratio 14.7 Ratio 07/02/2017 Comp Metabolic Wbn945 CALCIUM 10.0 mg/dL 07/02/2017 Comp Metabolic Jtf378 ALK PHOS 102 U/L 07/02/2017 Comp Metabolic Skc104 AST(SGOT) 15 U/L 07/02/2017 Comp Metabolic Iey549 ALT(SGPT) 18 U/L 07/02/2017 Comp Metabolic Bbf088 BILI T 0.4 mg/dL 07/02/2017 Comp Metabolic Snz582 ALBUMIN 3.9 g/dL 07/02/2017 Comp Metabolic Qnw771 TPRO 7.8 g/dL 07/02/2017 Comp Metabolic Gkb111 GLOB 3.9 g/dL 07/02/2017 Comp Metabolic Efa275 A/G Ratio 1.0 Ratio 07/02/2017 Comp Metabolic Rsp248 Osmo 268 mOsmo 07/02/2017 Review of Systems [...] Effective Dates Notes Full Exam - General 1995 Constitutional general [...] No Procedures data Vital Signs Date Vital 09/02/2018 Blood Pressure 1: 122/60 Code : 8480-6 BMI: 26.9 Code : 04740-4 Heart Rate 1 : 65 bpm Height: 5'3" SpO2: 95% Weight: 152 lbs 08/17/2018 Blood Pressure 1: 132/68 Code : 8480-6 BMI: 26.9 Code : 67465-8 Heart Rate 1 : 63 bpm Height: 5'3" SpO2: 97% Weight: 152 lbs 05/13/2018 Blood Pressure 1: 140/82 Code : 8480-6 BMI: 28.0 Code : 95376-2 Heart Rate 1 : 57 bpm Height: 5'3" SpO2: 97% Weight: 158 lbs 04/14/2018 Blood Pressure 1: 126/74 Code : 8480-6 BMI: 28.0 Code : 05908-7 Heart Rate 1 : 66 bpm Height: 5'3" SpO2: 97% Weight: 158 lbs 01/09/2018 Blood Pressure 1: 122/68 Code : 8480-6 BMI: 28.2 Code : 97446-4 Heart Rate 1 : 70 bpm Height: 5'3" SpO2: 98% Weight: 159 lbs 11/28/2017 Blood Pressure 1: 110/70 Code : 8480-6 BMI: 28.2 Code : 72336-9 Heart Rate 1 : 67 bpm Height: 5'3" SpO2: 95% Weight: 159 lbs 07/01/2017 Blood Pressure 1: 118/70 Code : 8480-6 BMI: 25.5 Code : 31749-3 Heart Rate 1 : 76 bpm Height: 5'3" SpO2: 95% Weight: 144 lbs Functional Status No Functional Status data History of Present Illness Symptom Name Status Result Effective Date Notes Location in the suprapubic area 09/02/2018 None [...] Codes Date EST. PATIENT, LEVEL III Diagnosis: Dysuria[ICD10: R30.0] Lelia Ambrose MD, [facility] CPT-4: 59321 09/02/2018 68791 EST. PATIENT, LEVEL III Diagnosis: Generalized anxiety disorder[ICD10: F41.1] Diagnosis: Major depressive disorder, single episode, moderate[ICD10: F32.1] Diagnosis: Other allergic rhinitis[ICD10: J30.89] Diagnosis: Acute laryngopharyngitis[ICD10: J06.0] Lelia Ambrose MD, [facility] CPT-4: 10087 08/17/2018 16014 EST. PATIENT, LEVEL III Diagnosis: Generalized anxiety disorder[ICD10: F41.1] Diagnosis: Major depressive disorder, single episode, moderate[ICD10: F32.1] Lelia Ambrose MD, [facility] CPT-4: 00403 05/13/2018 61306 EST. PATIENT, LEVEL IV Diagnosis: Generalized anxiety disorder[ICD10: F41.1] Diagnosis: Major depressive disorder, single episode, moderate[ICD10: F32.1] Lelia Ambrose MD, [facility] CPT-4: 89895 04/14/2018 15652 EST. PATIENT, LEVEL III Diagnosis: Other chronic pancreatitis[ICD10: K86.1] Lelia Ambrose MD, [facility] CPT-4: 32739 01/09/2018 27662 EST. 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 Antibiotic electronically prescribed to pt's pharmacy of choice. Pt to call if symptoms do not improve. Chronic pancreatitis - amylase and lipase within normal limits - continue to monitor 09/02/2018 Appointment: Lelia Dolan WPtel: [phone] [facility] (30 min) Complex 09/02/2018 Patient Education: Patient [...] or concerns. 08/17/2018 [facility]ointment: [phone] ([facility]) Moderate 08/17/2018 Patient Education: Patient [...] medications. 05/13/2018 Appointment: Lelia Dolan WPtel: [phone] [facility] (15 min) Moderate 05/13/2018 Patient Education: [...] this patient. 04/14/2018 Appointment: Lelia Dolan WPtel: [facility] (15 min) Moderate 04/14/2018 Patient Education: Patient Medication Summary Completed 04/14/2018 Visit Plan: chronic pancreatitis - defer to specialist - pt is to notify clinic with any changes in the current treatment plan - pt is to notify clinic with any changes, questions, or concerns. 01/09/2018 Appointment: [phone] ([facility] min) Complex 01/09/2018 Patient Education: Patient Medication Summary Completed 01/09/2018 Visit Plan: chronic pancreatitis - defer to specialist - pt is to notify clinic with any changes in the current treatment plan - pt is to notify clinic with any changes, questions, or concerns. 11/28/2017 Appointment: Lelia Dolan WPtel: [phone] [facility] (15 min) Moderate 11/28/2017 Patient Education: Patient Medication Summary Completed 11/28/2017 Appointment: Lelia Dolan WPtel: [address] [place] [address] (15 min) Moderate 11/18/2017 Appointment: Lelia Dolan WPtel: [address] [place], [place] [id number] (30 min) Complex 07/28/2017 Care Plan: Referral Order SNOMED-CT : 620212166 Pending 07/03/2017 Visit Plan: Hospital follow up, pancreatitis - discussed with Dr. Ambrose - will recheck labs, will restart creon - will refer to a GI specialist at [facility] is to notify clinic with any changes, questions or concerns. 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 07/01/2017 Visit Plan: Hospital follow up, pancreatitis - discussed with Dr. Ambrose - will recheck labs, will restart creon - will refer to a GI specialist at [facility] is to notify clinic with any changes, questions or concerns. 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 07/01/2017 Visit Plan: Hospital follow up, pancreatitis - discussed with Dr. Ambrose - will recheck labs, will restart creon - will refer to a GI specialist at [facility] is to notify clinic with any changes, questions or concerns. 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 07/01/2017 Visit Plan: Hospital follow up, pancreatitis - discussed with Dr. Ambrose - will recheck labs, will restart creon - will refer to a GI specialist at [facility] is to notify clinic with any changes, questions or concerns. 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 07/01/2017 Appointment: Lelia Dolan WPtel: [address] [place], [place] [phone] [place] New Patient 07/01/2017 Patient Education: Patient [...] within normal limits - continue to monitor Start creon with meals and snacks will check labs today will refer to GI specialist. Hospital follow up, pancreatitis - discussed with Dr. Ambrose - will recheck labs, will restart creon - will refer to a GI specialist at [facility] pt is to notify clinic with any changes, questions or concerns. 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 Start creon with meals and snacks will check labs today will refer to GI specialist. Hospital follow up, pancreatitis - discussed with Dr. Ambrose - will recheck labs, will restart creon - will refer to a GI specialist at [facility] is to notify clinic with any changes, questions or concerns. 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 Start creon with meals and snacks will check labs today will refer to GI specialist. Hospital follow up, pancreatitis - discussed with Dr. Ambrose - will recheck labs, will restart creon - will refer to a GI specialist at [facility] pt is to notify clinic with [...]
--- OUTSIDE RECORDS SUMMARY | 2018-11-01 19:35 | XMS REPORT | CCD ---
Author Author Lelia Dolan MD, [facility] Address [address] [place] [address] Phone Care Team Providers Care Experimental Physicist Name Role Phone PP Unavailable CCM Unavailable Summary Purpose Interface Exchange Insurance Providers Payer name Policy type / Coverage type Covered alliance party ID Effective Begin Date Effective End Date Blue Cross Blue [facility] Blue Cross/Blue Shield [id number] Unknown Unknown Family history Mother Diagnosis Age [...] Unknown Single 07/01/2017 Employment Unknown Currently employed [employer] 07/01/[address]: 13974650 Current every day smoker 07/01/2017 Number of years using tobacco Unknown 10 - 20 1 pack day/20 years 07/01/2017 Number of cigarettes/day Unknown 20 (One Pack) 07/01/[address]: 022804775 Never drinks alcohol 07/01/2017 Allergies, Adverse Reactions, [...] Fill Instructions Levaquin 500 mg tablet RxNorm: 545060 1 Tablet(s) PO daily 09/201810/08/2018 Active Levaquin 500 mg tablet RxNorm: 310703 1 Tablet(s) PO daily 09/201810/01/2018 Inactive Levaquin 500 mg tablet RxNorm: 824197 1 Tablet(s) PO daily 09/201810/01/2018 Inactive prednisone 20 mg tablet RxNorm: 690080 2 Tablet(s) PO daily 10/04/2018 Active Bactrim DS 800 mg-160 mg tablet RxNorm: 281430 1 Tablet(s) PO BID 09/30/2018 10/09/2018 Active Bactrim DS 800 mg-160 mg tablet RxNorm: 053713 1 Tablet(s) PO BID 09/02/2018 09/11/2018 Inactive Augmentin 875 mg-125 mg tablet RxNorm: 931038 1 Tablet(s) PO BID started in hospital 08/17/2018 08/23/2018 Inactive Prozac 40 mg capsule RxNorm: 069219 1 Capsule(s) PO daily 08/1005/06/2019 Active Creon 36,000 unit-114,000 unit-180,000 unit capsule, delayed release RxNorm: 9045997 CAPSULE(S) 1 CAPSULE(S) PO WITH MEALS AND SNACKS No Stop Date Active Prozac 20 mg capsule RxNorm: 494313 1 Capsule(s) PO daily 05/1308/09/2018 Inactive Prozac 20 mg capsule RxNorm: 434117 1 Capsule(s) PO daily 04/1405/12/2018 Inactive Creon 36,000 unit-114,000 unit-180,000 unit capsule, delayed release RxNorm: 4517453 Capsule(s) 1 CAPSULE(S) PO WITH MEALS AND SNACKS 04/201805/14/2018 Inactive Creon 36,000 unit-114,000 unit-180,000 unit capsule, delayed release RxNorm: 4519670 1 CAPSULE(S) PO WITH MEALS AND SNACKS 07/04/2017 01/05/2018 Inactive pantoprazole 40 mg tablet,delayed release RxNorm: 842774 1 Tablet(s) PO daily started in hospital 07/01/2017 07/30/2017 Inactive Creon 36,000 unit-114,000 unit-180,000 unit capsule, delayed release RxNorm: 7912552 1 Capsule(s) PO with meals and snacks 07/01/2017 07/03/2017 Inactive Augmentin 875 mg-125 mg tablet RxNorm: 653307 1 Tablet(s) PO BID started in hospital 06/26/2017 06/27/2017 Inactive scopolamine 1 mg over 3 days transdermal patch RxNorm: 100911 1 Patch TD Q72H started in the hospital No Start Date Active promethazine 25 mg tablet RxNorm: 388395 1 Tablet(s) PO QID as needed started in hospital No Start Date Active Lactobacillus acidophilus capsule RxNorm: 1 Capsule(s) PO daily No Start Date Active acetaminophen 500 mg tablet RxNorm: 102414 1-2 Tablet(s) PO Q4H as needed started hospital No Start Date Active oxycodone-acetaminophen 5 mg-325 mg tablet RxNorm: 9677915 1-2 Tablet(s) PO Q4H started at the hospital No Start Date Active Carafate 1 gram tablet RxNorm: 442737 1 Tablet(s) PO AC & HS started [...] D-Lymph 24 % 07/02/2017 Manual Differential Ord52 D-[place] 1 % 07/02/2017 Manual Differential Ord52 D-Eos [...] 30.4 pg 07/02/2017 Cbc With Differential Ord2 [place]% 6.1 % 07/02/2017 Cbc With Differential Ord2 [...] 2.10 K/ul 07/02/2017 Cbc With Differential Ord2 [place] ABS# 0.7 K/ul 07/02/2017 Cbc With Differential Ord2 Eos ABS# 0.2 K/ul 07/02/2017 Cbc With Differential Ord2 Baso ABS# 0.1 K/ul 07/02/2017 Lipase Xey914 LIPASE 26 U/L 07/02/2017 Comp Metabolic Buq938 NA 134 mEq/L 07/02/2017 Comp Metabolic Dzl582 K 4.6 mEq/L 07/02/2017 Comp Metabolic Twm829 CL 93 mEq/L 07/02/2017 Comp Metabolic Rzk364 CO2 28.0 mEq/L 07/02/2017 Comp Metabolic Agv333 ANION GAP 18 07/02/2017 Comp Metabolic Jtn635 GLUCOSE 108 mg/dL 07/02/2017 Comp Metabolic Iaq252 Creat 0.7 mg/dL 07/02/2017 Comp Metabolic Tjf526 eGFR 100 ml/min/1.73m2 07/02/2017 Comp Metabolic Wtr533 BUN 10 mg/dL 07/02/2017 Comp Metabolic Kur785 B/C Ratio 14.7 Ratio 07/02/2017 Comp Metabolic Xdw856 CALCIUM 10.0 mg/dL 07/02/2017 Comp Metabolic Pfd423 ALK PHOS 102 U/L 07/02/2017 Comp Metabolic Otx875 AST(SGOT) 15 U/L 07/02/2017 Comp Metabolic Uma933 ALT(SGPT) 18 U/L 07/02/2017 Comp Metabolic Mwm029 BILI T 0.4 mg/dL 07/02/2017 Comp Metabolic Nwq644 ALBUMIN 3.9 g/dL 07/02/2017 Comp Metabolic Duf858 TPRO 7.8 g/dL 07/02/2017 Comp Metabolic Wyj845 GLOB 3.9 g/dL 07/02/2017 Comp Metabolic Ejl847 A/G Ratio 1.0 Ratio 07/02/2017 Comp Metabolic Rov846 Osmo 268 mOsmo 07/02/2017 Review of Systems [...] Code : 8480-6 BMI: 26.9 Code : 81277-9 Heart Rate 1 : 65 bpm Height: 5'3" SpO2: 95% Weight: 152 lbs 08/17/2018 Blood Pressure 1: 132/68 Code : 8480-6 BMI: 26.9 Code : 70396-7 Heart Rate 1 : 63 bpm Height: 5'3" SpO2: 97% Weight: 152 lbs 05/13/2018 Blood Pressure 1: 140/82 Code : 8480-6 BMI: 28.0 Code : 87880-8 Heart Rate 1 : 57 bpm Height: 5'3" SpO2: 97% Weight: 158 lbs 04/14/2018 Blood Pressure 1: 126/74 Code : 8480-6 BMI: 28.0 Code : 42061-1 Heart Rate 1 : 66 bpm Height: 5'3" SpO2: 97% Weight: 158 lbs 01/09/2018 Blood Pressure 1: 122/68 Code : 8480-6 BMI: 28.2 Code : 11379-8 Heart Rate 1 : 70 bpm Height: 5'3" SpO2: 98% Weight: 159 lbs 11/28/2017 Blood Pressure 1: 110/70 Code : 8480-6 BMI: 28.2 Code : 23920-2 Heart Rate 1 : 67 bpm Height: 5'3" SpO2: 95% Weight: 159 lbs 07/01/2017 Blood Pressure 1: 118/70 Code : 8480-6 BMI: 25.5 Code : 33734-1 Heart Rate 1 : 76 bpm Height: [...] III Diagnosis: Dysuria[ICD10: R30.0] Lelia Ambrose MD, [facility] CPT-4: 42279 09/02/2018 73985 EST. PATIENT, LEVEL III Diagnosis: Generalized anxiety disorder[ICD10: F41.1] Diagnosis: Major depressive disorder, single episode, moderate[ICD10: F32.1] Diagnosis: Other allergic rhinitis[ICD10: J30.89] Diagnosis: Acute laryngopharyngitis[ICD10: J06.0] Lelia Ambrose MD, [facility] CPT-4: 37077 08/17/2018 45141 EST. PATIENT, LEVEL III Diagnosis: Generalized anxiety disorder[ICD10: F41.1] Diagnosis: Major depressive disorder, single episode, moderate[ICD10: F32.1] Lelia Ambrose MD, [facility] CPT-4: 97699 05/13/2018 85928 EST. PATIENT, LEVEL IV Diagnosis: Generalized anxiety disorder[ICD10: F41.1] Diagnosis: Major depressive disorder, single episode, moderate[ICD10: F32.1] Lelia Ambrose MD, [facility] CPT-4: 88548 04/14/2018 93523 EST. PATIENT, LEVEL III Diagnosis: Other chronic pancreatitis[ICD10: K86.1] Lelia Ambrose MD, [facility] CPT-4: 69321 01/09/2018 78711 EST. 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 Antibiotic electronically prescribed to pt's pharmacy of choice. Pt to call if symptoms do not improve. Chronic pancreatitis - amylase and lipase within normal limits - continue to monitor 09/02/2018 Appointment: Lelia Dolan WPtel: [phone] [facility] (30 min) Complex 09/02/2018 Patient Education: [...] or concerns. 08/17/2018 [facility]ment[phone] ([facility] Moderate 08/17/2018 Patient Education: Patient [...] medications. 05/13/2018 Appointment: Lelia Dolan WPtel: [phone] [facility] (15 min) Moderate 05/13/2018 Patient Education: [...] this patient. 04/14/2018 Appointment: Lelia Dolan WPtel: [facility] (15 min) Moderate 04/14/2018 Patient Education: Patient Medication Summary Completed 04/14/2018 Visit Plan: chronic pancreatitis - defer to specialist - pt is to notify clinic with any changes in the current treatment plan - pt is to notify clinic with any changes, questions, or concerns. 01/09/2018 Appointment: [phone] (30 min) Complex 01/09/2018 Patient Education: Patient Medication Summary Completed 01/09/2018 Visit Plan: chronic pancreatitis - defer to specialist - pt is to notify clinic with any changes in the current treatment plan - pt is to notify clinic with any changes, questions, or concerns. 11/28/2017 Appointment: Lelia Dolan WPtel: [phone] [facility] (15 min) Moderate 11/28/2017 Patient Education: Patient Medication Summary Completed 11/28/2017 Appointment: Lelia Dolan WPtel: [address] [place] [address] (15 min) Moderate 11/18/2017 Appointment: Lelia Dolan WPtel: [address] [place], [place] [address] (30 min) Complex 07/28/2017 Care Plan: Referral Order SNOMED-CT : 306289232 Pending 07/03/2017 Visit Plan: Hospital follow up, pancreatitis - discussed with Dr. Ambrose - will recheck labs, will restart creon - will refer to a GI specialist at [facility] is to notify clinic with any changes, questions or concerns. 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 07/01/2017 Visit Plan: Hospital follow up, pancreatitis - discussed with Dr. Ambrose - will recheck labs, will restart creon - will refer to a GI specialist at [facility] is to notify clinic with any changes, questions or concerns. 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 07/01/2017 Visit Plan: Hospital follow up, pancreatitis - discussed with Dr. Ambrose - will recheck labs, will restart creon - will refer to a GI specialist at [facility] is to notify clinic with any changes, questions or concerns. 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 07/01/2017 Visit Plan: Hospital follow up, pancreatitis - discussed with Dr. Ambrose - will recheck labs, will restart creon - will refer to a GI specialist at [facility] is to notify clinic with any changes, questions or concerns. 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 07/01/2017 Appointment: Lelia Dolan WPtel: [address] [place], [place] [phone] [place] New Patient 07/01/2017 Patient Education: Patient [...] refer to a GI specialist at [facility] pt is to notify clinic with any changes, questions or concerns. 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 Start creon with meals and snacks will check labs today will refer to GI specialist. Hospital follow up, pancreatitis - discussed with Dr. Ambrose - will recheck labs, will restart creon - will refer to a GI specialist at [facility] is to notify clinic with any changes, questions or concerns. 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 Start creon with meals and snacks will check labs today will refer to GI specialist. Hospital follow up, pancreatitis - discussed with Dr. Ambrose - will recheck labs, will restart creon - will refer to a GI specialist at [facility] pt is to notify clinic with any [...]
--- OUTSIDE RECORDS SUMMARY | 2018-11-01 19:36 | XMS REPORT | CCD ---
Author Author Lelia Dolan MD, [facility] Address [address] [place] [address] Phone Care Team Providers Care Thread Twister Name Role Phone PP Unavailable CCM Unavailable Summary Purpose Interface Exchange Insurance Providers Payer name Policy type / Coverage type Covered libertarian ID Effective Begin Date Effective End Date Blue Cross Blue [facility] Blue Cross/Blue Shield [id number] Unknown Unknown Family history Mother Diagnosis Age [...] Unknown Single 07/01/2017 Employment Unknown Currently employed [employer] 07/01/[address]: 46332108 Current every day smoker 07/01/2017 Number of years using tobacco Unknown 10 - 20 1 pack day/20 years 07/01/2017 Number of cigarettes/day Unknown 20 (One Pack) 07/01/[address]: 716304512 Never drinks alcohol 07/01/2017 Allergies, Adverse Reactions, [...] Fill Instructions Levaquin 500 mg tablet RxNorm: 555746 1 Tablet(s) PO daily 09/201810/08/2018 Active Levaquin 500 mg tablet RxNorm: 897228 1 Tablet(s) PO daily 09/201810/01/2018 Inactive prednisone 20 mg tablet RxNorm: 568095 2 Tablet(s) PO daily 10/04/2018 Active Bactrim DS 800 mg-160 mg tablet RxNorm: 909862 1 Tablet(s) PO BID 09/30/2018 10/09/2018 Active Bactrim DS 800 mg-160 mg tablet RxNorm: 341563 1 Tablet(s) PO BID 09/02/2018 09/11/2018 Inactive Augmentin 875 mg-125 mg tablet RxNorm: 262320 1 Tablet(s) PO BID started in hospital 08/17/2018 08/23/2018 Inactive Prozac 40 mg capsule RxNorm: 720837 1 Capsule(s) PO daily 08/1005/06/2019 Active Creon 36,000 unit-114,000 unit-180,000 unit capsule, delayed release RxNorm: 4622322 CAPSULE(S) 1 CAPSULE(S) PO WITH MEALS AND SNACKS No Stop Date Active Prozac 20 mg capsule RxNorm: 477581 1 Capsule(s) PO daily 05/1308/09/2018 Inactive Prozac 20 mg capsule RxNorm: 089839 1 Capsule(s) PO daily 04/1405/12/2018 Inactive Creon 36,000 unit-114,000 unit-180,000 unit capsule, delayed release RxNorm: 5463088 Capsule(s) 1 CAPSULE(S) PO WITH MEALS AND SNACKS 04/201805/14/2018 Inactive Creon 36,000 unit-114,000 unit-180,000 unit capsule, delayed release RxNorm: 2971618 1 CAPSULE(S) PO WITH MEALS AND SNACKS 07/04/2017 01/05/2018 Inactive pantoprazole 40 mg tablet,delayed release RxNorm: 277636 1 Tablet(s) PO daily started in hospital 07/01/2017 07/30/2017 Inactive Creon 36,000 unit-114,000 unit-180,000 unit capsule, delayed release RxNorm: 1333023 1 Capsule(s) PO with meals and snacks 07/01/2017 07/03/2017 Inactive Augmentin 875 mg-125 mg tablet RxNorm: 619390 1 Tablet(s) PO BID started in hospital 06/26/2017 06/27/2017 Inactive scopolamine 1 mg over 3 days transdermal patch RxNorm: 935098 1 Patch TD Q72H started in the hospital No Start Date Active promethazine 25 mg tablet RxNorm: 779941 1 Tablet(s) PO QID as needed started in hospital No Start Date Active Lactobacillus acidophilus capsule RxNorm: 1 Capsule(s) PO daily No Start Date Active acetaminophen 500 mg tablet RxNorm: 802856 1-2 Tablet(s) PO Q4H as needed started hospital No Start Date Active oxycodone-acetaminophen 5 mg-325 mg tablet RxNorm: 4562649 1-2 Tablet(s) PO Q4H started at the hospital No Start Date Active Carafate 1 gram tablet RxNorm: 420554 1 Tablet(s) PO AC & HS started [...] D-Lymph 24 % 07/02/2017 Manual Differential Ord52 D-[place] 1 % 07/02/2017 Manual Differential Ord52 D-Eos [...] 18.8 % 07/02/2017 Cbc With Differential Ord2 [place]% 6.1 % 07/02/2017 Cbc With Differential Ord2 [...] 2.10 K/ul 07/02/2017 Cbc With Differential Ord2 [place] ABS# 0.7 K/ul 07/02/2017 Cbc With Differential Ord2 Eos ABS# 0.2 K/ul 07/02/2017 Cbc With Differential Ord2 Baso ABS# 0.1 K/ul 07/02/2017 Lipase Tva949 LIPASE 26 U/L 07/02/2017 Comp Metabolic Fer739 NA 134 mEq/L 07/02/2017 Comp Metabolic Flt186 K 4.6 mEq/L 07/02/2017 Comp Metabolic Thu699 CL 93 mEq/L 07/02/2017 Comp Metabolic Ybj238 CO2 28.0 mEq/L 07/02/2017 Comp Metabolic Gon368 ANION GAP 18 07/02/2017 Comp Metabolic Bgf381 GLUCOSE 108 mg/dL 07/02/2017 Comp Metabolic Zqe073 Creat 0.7 mg/dL 07/02/2017 Comp Metabolic Tyy494 eGFR 100 ml/min/1.73m2 07/02/2017 Comp Metabolic Rcx343 BUN 10 mg/dL 07/02/2017 Comp Metabolic Ynu649 B/C Ratio 14.7 Ratio 07/02/2017 Comp Metabolic Fis863 CALCIUM 10.0 mg/dL 07/02/2017 Comp Metabolic Xwz134 ALK PHOS 102 U/L 07/02/2017 Comp Metabolic Xib744 AST(SGOT) 15 U/L 07/02/2017 Comp Metabolic Ksu367 ALT(SGPT) 18 U/L 07/02/2017 Comp Metabolic Qvd351 BILI T 0.4 mg/dL 07/02/2017 Comp Metabolic Jyk851 ALBUMIN 3.9 g/dL 07/02/2017 Comp Metabolic Rvf223 TPRO 7.8 g/dL 07/02/2017 Comp Metabolic Fcz936 GLOB 3.9 g/dL 07/02/2017 Comp Metabolic Tee722 A/G Ratio 1.0 Ratio 07/02/2017 Comp Metabolic Mcm723 Osmo 268 mOsmo 07/02/2017 Review of Systems [...] distress 09/02/2018 None Full Exam - General 1995 Constitutional general appearance Overall: well nourished 09/02/2018 None Full Exam - General 1995 Eyes conjunctiva /eyelids Overall: conjunctiva clear 09/02/2018 None Full Exam - General 1995 Eyes conjunctiva /eyelids Overall: cornea clear 09/02/2018 [...] clear 11/28/2017 None Full Exam - General 1995 Ears/Nose/Throat lips/teeth/gingiva Overall: benign lips 11/28/2017 None [...] Code : 8480-6 BMI: 26.9 Code : 22747-1 Heart Rate 1 : 65 bpm Height: 5'3" SpO2: 95% Weight: 152 lbs 08/17/2018 Blood Pressure 1: 132/68 Code : 8480-6 BMI: 26.9 Code : 92878-8 Heart Rate 1 : 63 bpm Height: 5'3" SpO2: 97% Weight: 152 lbs 05/13/2018 Blood Pressure 1: 140/82 Code : 8480-6 BMI: 28.0 Code : 26682-1 Heart Rate 1 : 57 bpm Height: 5'3" SpO2: 97% Weight: 158 lbs 04/14/2018 Blood Pressure 1: 126/74 Code : 8480-6 BMI: 28.0 Code : 46563-5 Heart Rate 1 : 66 bpm Height: 5'3" SpO2: 97% Weight: 158 lbs 01/09/2018 Blood Pressure 1: 122/68 Code : 8480-6 BMI: 28.2 Code : 32014-8 Heart Rate 1 : 70 bpm Height: 5'3" SpO2: 98% Weight: 159 lbs 11/28/2017 Blood Pressure 1: 110/70 Code : 8480-6 BMI: 28.2 Code : 64484-5 Heart Rate 1 : 67 bpm Height: 5'3" SpO2: 95% Weight: 159 lbs 07/01/2017 Blood Pressure 1: 118/70 Code : 8480-6 BMI: 25.5 Code : 12231-2 Heart Rate 1 : 76 bpm Height: [...] data Encounters Encounter Performer Location Codes Date 76228 EST. PATIENT, LEVEL III Diagnosis: Dysuria[ICD10: R30.0] Lelia Ambrose MD, [facility] CPT-4: 66150 09/02/2018 91581 EST. PATIENT, LEVEL III Diagnosis: Generalized anxiety disorder[ICD10: F41.1] Diagnosis: Major depressive disorder, single episode, moderate[ICD10: F32.1] Diagnosis: Other allergic rhinitis[ICD10: J30.89] Diagnosis: Acute laryngopharyngitis[ICD10: J06.0] Lelia Ambrose MD, [facility] CPT-4: 81186 08/17/2018 10727 EST. PATIENT, LEVEL III Diagnosis: Generalized anxiety disorder[ICD10: F41.1] Diagnosis: Major depressive disorder, single episode, moderate[ICD10: F32.1] Lelia Ambrose MD, [facility] CPT-4: 57011 05/13/2018 04842 EST. PATIENT, LEVEL IV Diagnosis: Generalized anxiety disorder[ICD10: F41.1] Diagnosis: Major depressive disorder, single episode, moderate[ICD10: F32.1] Lelia Ambrose MD, [facility] CPT-4: 30338 04/14/2018 18445 EST. PATIENT, LEVEL III Diagnosis: Other chronic pancreatitis[ICD10: K86.1] Lelia Ambrose MD, [facility] CPT-4: 45136 01/09/2018 11136 EST. 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 Antibiotic electronically prescribed to pt's pharmacy of choice. Pt to call if symptoms do not improve. Chronic pancreatitis - amylase and lipase within normal limits - continue to monitor 09/02/2018 Appointment: [phone] ([facility] min) Complex 09/02/2018 Patient Education: [...] concerns. 08/17/2018 App[facility]ment: [phone] (15 min) Moderate 08/17/2018 Patient Education: Patient [...] current medications. 05/13/2018 Appointment: Lelia Dolan WPtel: [address] [place], [place] [phone] (15 min) Moderate 05/13/2018 Patient Education: Patient [...] this patient. 04/14/2018 Appointment: Lelia Dolan WPtel: [facility] (15 min) Moderate 04/14/2018 Patient Education: Patient Medication Summary Completed 04/14/2018 Visit Plan: chronic pancreatitis - defer to specialist - pt is to notify clinic with any changes in the current treatment plan - pt is to notify clinic with any changes, questions, or concerns. 01/09/2018 Appointment: Lelia Dolan WPtel: [facility]7 [facility] (30 min) Complex 01/09/2018 Patient Education: Patient Medication Summary Completed 01/09/2018 Visit Plan: chronic pancreatitis - defer to specialist - pt is to notify clinic with any changes in the current treatment plan - pt is to notify clinic with any changes, questions, or concerns. 11/28/2017 Appointment: Lelia Dolan WPtel: [facility] ([facility] min) Moderate 11/28/2017 Patient Education: Patient Medication Summary Completed 11/28/2017 Appointment: Lelia Dolan WPtel: [address] [place], [place] [phone] (15 min) Moderate 11/18/2017 Appointment: Lelia Dolan WPtel: [address] [place], [place] [address] (30 min) Complex 07/28/2017 Care Plan: Referral Order SNOMED-CT : [id number] Pending 07/03/2017 Visit Plan: Hospital follow up, pancreatitis - discussed with Dr. Ambrose - pina recheck labs, will restart creon - will refer to a GI specialist at [facility] is to notify clinic with any changes, questions or concerns. 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 07/01/2017 Visit Plan: Hospital follow up, pancreatitis - discussed with Dr. Ambrose - pina recheck labs, will restart creon - will refer to a GI specialist at [facility] is to notify clinic with any changes, questions or concerns. 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 07/01/2017 Visit Plan: Hospital follow up, pancreatitis - discussed with Dr. Ambrose - pina recheck labs, will restart creon - will refer to a GI specialist at [facility] is to notify clinic with any changes, questions or concerns. 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 07/01/2017 Visit Plan: Hospital follow up, pancreatitis - discussed with Dr. Ambrose - pina recheck labs, will restart creon - will refer to a GI specialist at [facility] is to notify clinic with any changes, questions or concerns. 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 07/01/2017 Appointment: Lelia Dolan WPtel: [address] [place], [place] [phone] New Patient 07/01/2017 Patient Education: Patient Medication [...]
--- OUTSIDE RECORDS SUMMARY | 2018-11-01 19:37 | XMS REPORT | CCD ---
Author Author Lelia Dolan MD, [facility] Address [address] [place] [address] Phone Care Team Providers Care Casino Change Attendant Name Role Phone PP Unavailable CCM Unavailable Summary Purpose Interface Exchange Insurance Providers Payer name Policy type / Coverage type Covered republican ID Effective Begin Date Effective End Date Blue Cross Blue [facility] Blue Cross/Blue Shield [id number] Unknown Unknown Family history Mother Diagnosis Age [...] Unknown Single 07/01/2017 Employment Unknown Currently employed [employer] 07/01/[address]: 00978225 Current every day smoker 07/01/2017 Number of years using tobacco Unknown 10 - 20 1 pack day/20 years 07/01/2017 Number of cigarettes/day Unknown 20 (One Pack) 07/01/[address]: 775287980 Never drinks alcohol 07/01/2017 Allergies, Adverse Reactions, Alerts Substance Reaction Codes Entered Date Inactivated Date Status * NO KNOWN ENVIRONMENTAL ALLERGIES Unknown 07/01/2017 No Inactive Date Active * NO KNOWN FOOD ALLERGIES Unknown 07/01/2017 No Inactive Date Active NO KNOWN ALLERGIES Unknown 07/01/2017 No Inactive Date Active Past Medical History Illness Codes Condition Status Onset Date Resolved Date Dysuria ICD-9: 788.1 ICD-10: R30.0 Active 09/02/2018 [...] Problems Condition Codes Effective Dates Condition Status Dysuria ICD-9: 788.1 ICD-10: R30.0 09/02/2018 Active [...] Start Date Stop Date Status Fill Instructions Bactrim DS 800 mg-160 mg tablet RxNorm: 771806 1 Tablet(s) PO BID 09/02/2018 09/11/2018 Active Augmentin 875 mg-125 mg tablet RxNorm: 363765 1 Tablet(s) PO BID started in hospital 08/17/2018 08/23/2018 Inactive Prozac 40 mg capsule RxNorm: 245050 1 Capsule(s) PO daily 08/1005/06/2019 Active Creon 36,000 unit-114,000 unit-180,000 unit capsule, delayed release RxNorm: 9546328 CAPSULE(S) 1 CAPSULE(S) PO WITH MEALS AND SNACKS No Stop Date Active Prozac 20 mg capsule RxNorm: 064320 1 Capsule(s) PO daily 05/1308/09/2018 Inactive Prozac 20 mg capsule RxNorm: 161693 1 Capsule(s) PO daily 04/1405/12/2018 Inactive Creon 36,000 unit-114,000 unit-180,000 unit capsule, delayed release RxNorm: 1600879 Capsule(s) 1 CAPSULE(S) PO WITH MEALS AND SNACKS 04/201805/14/2018 Inactive Creon 36,000 unit-114,000 unit-180,000 unit capsule, delayed release RxNorm: 3221364 1 CAPSULE(S) PO WITH MEALS AND SNACKS 07/04/2017 01/05/2018 Inactive pantoprazole 40 mg tablet,delayed release RxNorm: 532576 1 Tablet(s) PO daily started in hospital 07/01/2017 07/30/2017 Inactive Creon 36,000 unit-114,000 unit-180,000 unit capsule, delayed release RxNorm: 0120118 1 Capsule(s) PO with meals and snacks 07/01/2017 07/03/2017 Inactive Augmentin 875 mg-125 mg tablet RxNorm: 917359 1 Tablet(s) PO BID started in hospital 06/26/2017 06/27/2017 Inactive scopolamine 1 mg over 3 days transdermal patch RxNorm: 272035 1 Patch TD Q72H started in the hospital No Start Date Active promethazine 25 mg tablet RxNorm: 546039 1 Tablet(s) PO QID as needed started in hospital No Start Date Active Lactobacillus acidophilus capsule RxNorm: 1 Capsule(s) PO daily No Start Date Active acetaminophen 500 mg tablet RxNorm: 608086 1-2 Tablet(s) PO Q4H as needed started hospital No Start Date Active oxycodone-acetaminophen 5 mg-325 mg tablet RxNorm: 9227747 1-2 Tablet(s) PO Q4H started at the hospital No Start Date Active Carafate 1 gram tablet RxNorm: 417868 1 Tablet(s) PO AC & HS started [...] D-Lymph 24 % 07/02/2017 Manual Differential Ord52 D-[place] 1 % 07/02/2017 Manual Differential Ord52 D-Eos [...] 18.8 % 07/02/2017 Cbc With Differential Ord2 [place]% 6.1 % 07/02/2017 Cbc With Differential Ord2 [...] 2.10 K/ul 07/02/2017 Cbc With Differential Ord2 [place] ABS# 0.7 K/ul 07/02/2017 Cbc With Differential Ord2 Eos ABS# 0.2 K/ul 07/02/2017 Cbc With Differential Ord2 Baso ABS# 0.1 K/ul 07/02/2017 Lipase Gpw606 LIPASE 26 U/L 07/02/2017 Comp Metabolic Nll695 NA 134 mEq/L 07/02/2017 Comp Metabolic Qxt806 K 4.6 mEq/L 07/02/2017 Comp Metabolic Fia155 CL 93 mEq/L 07/02/2017 Comp Metabolic Yzm056 CO2 28.0 mEq/L 07/02/2017 Comp Metabolic Dcq734 ANION GAP 18 07/02/2017 Comp Metabolic Wag936 GLUCOSE 108 mg/dL 07/02/2017 Comp Metabolic Afd254 Creat 0.7 mg/dL 07/02/2017 Comp Metabolic Knx194 eGFR 100 ml/min/1.73m2 07/02/2017 Comp Metabolic Ppi285 BUN 10 mg/dL 07/02/2017 Comp Metabolic Rdt722 B/C Ratio 14.7 Ratio 07/02/2017 Comp Metabolic Ptg888 CALCIUM 10.0 mg/dL 07/02/2017 Comp Metabolic Gwi408 ALK PHOS 102 U/L 07/02/2017 Comp Metabolic Uop969 AST(SGOT) 15 U/L 07/02/2017 Comp Metabolic Paz052 ALT(SGPT) 18 U/L 07/02/2017 Comp Metabolic Foc793 BILI T 0.4 mg/dL 07/02/2017 Comp Metabolic Peu523 ALBUMIN 3.9 g/dL 07/02/2017 Comp Metabolic Frj954 TPRO 7.8 g/dL 07/02/2017 Comp Metabolic Bqo622 GLOB 3.9 g/dL 07/02/2017 Comp Metabolic Wxp466 A/G Ratio 1.0 Ratio 07/02/2017 Comp Metabolic Fts623 Osmo 268 mOsmo 07/02/2017 Review of Systems [...] affect 07/01/2017 None Full Exam - General 1995 Psychiatric mood and affect Mood: flat 07/01/2017 None Procedures No Procedures data Vital Signs Date Vital 09/02/2018 Blood Pressure 1: 122/60 Code : 8480-6 BMI: 26.9 Code : 68057-8 Heart Rate 1 : 65 bpm Height: 5'3" SpO2: 95% Weight: 152 lbs 08/17/2018 Blood Pressure 1: 132/68 Code : 8480-6 BMI: 26.9 Code : 72272-4 Heart Rate 1 : 63 bpm Height: 5'3" SpO2: 97% Weight: 152 lbs 05/13/2018 Blood Pressure 1: 140/82 Code : 8480-6 BMI: 28.0 Code : 17193-7 Heart Rate 1 : 57 bpm Height: 5'3" SpO2: 97% Weight: 158 lbs 04/14/2018 Blood Pressure 1: 126/74 Code : 8480-6 BMI: 28.0 Code : 34218-0 Heart Rate 1 : 66 bpm Height: 5'3" SpO2: 97% Weight: 158 lbs 01/09/2018 Blood Pressure 1: 122/68 Code : 8480-6 BMI: 28.2 Code : 66720-9 Heart Rate 1 : 70 bpm Height: 5'3" SpO2: 98% Weight: 159 lbs 11/28/2017 Blood Pressure 1: 110/70 Code : 8480-6 BMI: 28.2 Code : 90797-1 Heart Rate 1 : 67 bpm Height: 5'3" SpO2: 95% Weight: 159 lbs 07/01/2017 Blood Pressure 1: 118/70 Code : 8480-6 BMI: 25.5 Code : 80309-9 Heart Rate 1 : 76 bpm Height: [...] data Encounters Encounter Performer Location Codes Date 03969 EST. PATIENT, LEVEL III Diagnosis: Dysuria[ICD10: R30.0] [facility] CPT-4: 00495 09/02/2018 94890 EST. PATIENT, LEVEL III Diagnosis: Generalized anxiety disorder[ICD10: F41.1] Diagnosis: Major depressive disorder, single episode, moderate[ICD10: F32.1] Diagnosis: Other allergic rhinitis[ICD10: J30.89] Diagnosis: Acute laryngopharyngitis[ICD10: J06.0] Lelia Magdaleno Melodie [place] MD, [facility] CPT-4: 75697 08/17/2018 98761 EST. PATIENT, LEVEL III Diagnosis: Generalized anxiety disorder[ICD10: F41.1] Diagnosis: Major depressive disorder, single episode, moderate[ICD10: F32.1] Lelia Ambrose MD, [facility] CPT-4: 35761 05/13/2018 61063 EST. PATIENT, LEVEL IV Diagnosis: Generalized anxiety disorder[ICD10: F41.1] Diagnosis: Major depressive disorder, single episode, moderate[ICD10: F32.1] Lelia Ambrose MD, [facility] CPT-4: 48896 04/14/2018 64588 EST. PATIENT, LEVEL III Diagnosis: Other chronic pancreatitis[ICD10: K86.1] Lelia Ambrose MD, [facility] CPT-4: 32740 01/09/2018 64550 EST. 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 Antibiotic electronically prescribed to pt's pharmacy of choice. Pt to call if symptoms do not improve. Chronic pancreatitis - amylase and lipase within normal limits - continue to monitor 09/02/2018 Appointment: Lelia Dolan WPtel: [address] [place], [place] [phone] (30 min) [facility] 09/02/2018 Patient Education: Patient Medication Summary Completed [...] concerns. 08/17/2018 Appointment: Lelia Dolan WPtel: [phone] [facility] (15 min) Moderate 08/17/2018 Patient Education: [...] current medications. 05/13/2018 Appointment: Lelia Dolan WPtel: [address] [place], [place] [id number] (15 min) Moderate 05/13/2018 Patient Education: Patient [...] this patient. 04/14/2018 [facility] [phone] [facility] [place] (15 min) Moderate 04/14/2018 Patient Education: Patient Medication Summary Completed 04/14/2018 Visit Plan: chronic pancreatitis - defer to specialist - pt is to notify clinic with any changes in the current treatment plan - pt is to notify clinic with any changes, questions, or concerns. 01/09/2018 Appointment: [facility] [phone] [facility] [place] (30 min) Complex 01/09/2018 Patient Education: Patient Medication Summary Completed 01/09/2018 Visit Plan: chronic pancreatitis - defer to specialist - pt is to notify clinic with any changes in the current treatment plan - pt is to notify clinic with any changes, questions, or concerns. 11/28/2017 Appointment: [facility] [phone] [facility] [place] (15 min) Moderate 11/28/2017 Patient Education: Patient Medication Summary Completed 11/28/2017 Appointment: [facility] [phone] [facility] [place] (15 min) Moderate 11/18/2017 Appointment: [facility] [phone] [facility] [place] (30 min) Complex 07/28/2017 Care Plan: Referral Order SNOMED-CT : 262961836 Pending 07/03/2017 Visit Plan: Hospital follow up, [...] to specialist. 07/01/2017 Appointment: [facility] [phone] [facility] New Patient 07/01/2017 Patient Education: Patient [...]
--- OUTSIDE RECORDS SUMMARY | 2018-11-01 19:37 | XMS REPORT | CCD ---
Author Author Lelia Dolan MD, [facility] Address [address] [place] [address] Phone Care Team Providers Care Dx Board Operator Name Role Phone PP Unavailable CCM Unavailable Summary Purpose Interface Exchange Insurance Providers Payer name Policy type / Coverage type Covered democrat ID Effective Begin Date Effective End Date Blue Cross Blue [facility] Blue Cross/Blue Shield [id number] Unknown Unknown Family history Mother Diagnosis Age [...] Unknown Single 07/01/2017 Employment Unknown Currently employed [employer] 07/01/[address]: 59940399 Current every day smoker 07/01/2017 Number of years using tobacco Unknown 10 - 20 1 pack day/20 years 07/01/2017 Number of cigarettes/day Unknown 20 (One Pack) 07/01/[address]: 335531716 Never drinks alcohol 07/01/2017 Allergies, Adverse Reactions, [...] Bactrim DS 800 mg-160 mg tablet RxNorm: 942251 1 Tablet(s) PO BID 09/02/2018 09/11/2018 Active Augmentin 875 mg-125 mg tablet RxNorm: 387894 1 Tablet(s) PO BID started in hospital 08/17/2018 08/23/2018 Inactive Prozac 40 mg capsule RxNorm: 180929 1 Capsule(s) PO daily 08/1005/06/2019 Active Creon 36,000 unit-114,000 unit-180,000 unit capsule, delayed release RxNorm: 1942160 CAPSULE(S) 1 CAPSULE(S) PO WITH MEALS AND SNACKS No Stop Date Active Prozac 20 mg capsule RxNorm: 806876 1 Capsule(s) PO daily 05/1308/09/2018 Inactive Prozac 20 mg capsule RxNorm: 196529 1 Capsule(s) PO daily 04/1405/12/2018 Inactive Creon 36,000 unit-114,000 unit-180,000 unit capsule, delayed release RxNorm: 1307255 Capsule(s) 1 CAPSULE(S) PO WITH MEALS AND SNACKS 04/201805/14/2018 Inactive Creon 36,000 unit-114,000 unit-180,000 unit capsule, delayed release RxNorm: 3877353 1 CAPSULE(S) PO WITH MEALS AND SNACKS 07/04/2017 01/05/2018 Inactive pantoprazole 40 mg tablet,delayed release RxNorm: 023384 1 Tablet(s) PO daily started in hospital 07/01/2017 07/30/2017 Inactive Creon 36,000 unit-114,000 unit-180,000 unit capsule, delayed release RxNorm: 8837444 1 Capsule(s) PO with meals and snacks 07/01/2017 07/03/2017 Inactive Augmentin 875 mg-125 mg tablet RxNorm: 566551 1 Tablet(s) PO BID started in hospital 06/26/2017 06/27/2017 Inactive scopolamine 1 mg over 3 days transdermal patch RxNorm: 131519 1 Patch TD Q72H started in the hospital No Start Date Active promethazine 25 mg tablet RxNorm: 066307 1 Tablet(s) PO QID as needed started in hospital No Start Date Active Lactobacillus acidophilus capsule RxNorm: 1 Capsule(s) PO daily No Start Date Active acetaminophen 500 mg tablet RxNorm: 631139 1-2 Tablet(s) PO Q4H as needed started hospital No Start Date Active oxycodone-acetaminophen 5 mg-325 mg tablet RxNorm: 9661036 1-2 Tablet(s) PO Q4H started at the hospital No Start Date Active Carafate 1 gram tablet RxNorm: 083512 1 Tablet(s) PO AC & HS started [...] D-Lymph 24 % 07/02/2017 Manual Differential Ord52 D-[place] 1 % 07/02/2017 Manual Differential Ord52 D-Eos [...] 30.4 pg 07/02/2017 Cbc With Differential Ord2 [place]% 6.1 % 07/02/2017 Cbc With Differential Ord2 [...] 2.10 K/ul 07/02/2017 Cbc With Differential Ord2 [place] ABS# 0.7 K/ul 07/02/2017 Cbc With Differential Ord2 Eos ABS# 0.2 K/ul 07/02/2017 Cbc With Differential Ord2 Baso ABS# 0.1 K/ul 07/02/2017 Lipase Sqw260 LIPASE 26 U/L 07/02/2017 Comp Metabolic Obq679 NA 134 mEq/L 07/02/2017 Comp Metabolic Kda512 K 4.6 mEq/L 07/02/2017 Comp Metabolic Dlq179 CL 93 mEq/L 07/02/2017 Comp Metabolic Bgo868 CO2 28.0 mEq/L 07/02/2017 Comp Metabolic Ldz377 ANION GAP 18 07/02/2017 Comp Metabolic Dkn164 GLUCOSE 108 mg/dL 07/02/2017 Comp Metabolic Ytm887 Creat 0.7 mg/dL 07/02/2017 Comp Metabolic Mmz817 eGFR 100 ml/min/1.73m2 07/02/2017 Comp Metabolic Vtu379 BUN 10 mg/dL 07/02/2017 Comp Metabolic Wse427 B/C Ratio 14.7 Ratio 07/02/2017 Comp Metabolic Pbo562 CALCIUM 10.0 mg/dL 07/02/2017 Comp Metabolic Ert499 ALK PHOS 102 U/L 07/02/2017 Comp Metabolic Ehb843 AST(SGOT) 15 U/L 07/02/2017 Comp Metabolic Nbc764 ALT(SGPT) 18 U/L 07/02/2017 Comp Metabolic Oev840 BILI T 0.4 mg/dL 07/02/2017 Comp Metabolic Ncg888 ALBUMIN 3.9 g/dL 07/02/2017 Comp Metabolic Kpb796 TPRO 7.8 g/dL 07/02/2017 Comp Metabolic Fri899 GLOB 3.9 g/dL 07/02/2017 Comp Metabolic Ucn430 A/G Ratio 1.0 Ratio 07/02/2017 Comp Metabolic Qjk938 Osmo 268 mOsmo 07/02/2017 Review of Systems [...] Code : 8480-6 BMI: 26.9 Code : 57278-8 Heart Rate 1 : 65 bpm Height: 5'3" SpO2: 95% Weight: 152 lbs 08/17/2018 Blood Pressure 1: 132/68 Code : 8480-6 BMI: 26.9 Code : 09479-5 Heart Rate 1 : 63 bpm Height: 5'3" SpO2: 97% Weight: 152 lbs 05/13/2018 Blood Pressure 1: 140/82 Code : 8480-6 BMI: 28.0 Code : 36769-4 Heart Rate 1 : 57 bpm Height: 5'3" SpO2: 97% Weight: 158 lbs 04/14/2018 Blood Pressure 1: 126/74 Code : 8480-6 BMI: 28.0 Code : 57705-1 Heart Rate 1 : 66 bpm Height: 5'3" SpO2: 97% Weight: 158 lbs 01/09/2018 Blood Pressure 1: 122/68 Code : 8480-6 BMI: 28.2 Code : 09261-1 Heart Rate 1 : 70 bpm Height: 5'3" SpO2: 98% Weight: 159 lbs 11/28/2017 Blood Pressure 1: 110/70 Code : 8480-6 BMI: 28.2 Code : 70439-2 Heart Rate 1 : 67 bpm Height: 5'3" SpO2: 95% Weight: 159 lbs 07/01/2017 Blood Pressure 1: 118/70 Code : 8480-6 BMI: 25.5 Code : 13885-6 Heart Rate 1 : 76 bpm Height: [...] data Encounters Encounter Performer Location Codes Date 84502 EST. PATIENT, LEVEL III Diagnosis: Dysuria[ICD10: R30.0] [facility] CPT-4: 96261 09/02/2018 04673 EST. PATIENT, LEVEL III Diagnosis: Generalized anxiety disorder[ICD10: F41.1] Diagnosis: Major depressive disorder, single episode, moderate[ICD10: F32.1] Diagnosis: Other allergic rhinitis[ICD10: J30.89] Diagnosis: Acute laryngopharyngitis[ICD10: J06.0] Lelia Magdaleno Melodie Caribou MD, [facility] CPT-4: 88163 08/17/2018 28180 EST. PATIENT, LEVEL III Diagnosis: Generalized anxiety disorder[ICD10: F41.1] Diagnosis: Major depressive disorder, single episode, moderate[ICD10: F32.1] Lelia Ambrose MD, [facility] CPT-4: 89449 05/13/2018 67491 EST. PATIENT, LEVEL IV Diagnosis: Generalized anxiety disorder[ICD10: F41.1] Diagnosis: Major depressive disorder, single episode, moderate[ICD10: F32.1] Lelia Ambrose MD, [facility] CPT-4: 02442 04/14/2018 99940 EST. PATIENT, LEVEL III Diagnosis: Other chronic pancreatitis[ICD10: K86.1] Lelia Ambrose MD, [facility] CPT-4: 76391 01/09/2018 69922 EST. 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 Antibiotic electronically prescribed to pt's pharmacy of choice. Pt to call if symptoms do not improve. Chronic pancreatitis - amylase and lipase within normal limits - continue to monitor 09/02/2018 Appointment: Lelia Dolan WPtel: [address] [place], [place] [phone] (30 min) [facility] 09/02/2018 Patient Education: Patient Medication Summary Completed [...] concerns. 08/17/2018 Appointment: Lelia Dolan WPtel: [phone] [facility] (15 min) Moderate 08/17/2018 Patient [...] current medications. 05/13/2018 Appointment: Lelia Dolan WPtel: [address] [place], [place] [address] (15 min) Moderate 05/13/2018 Patient Education: Patient [...] patient. 04/14/2018 [facility]ment: [facility] [phone] [facility] [place] (15 min) Moderate 04/14/2018 Patient Education: Patient Medication Summary Completed 04/14/2018 Visit Plan: chronic pancreatitis - defer to specialist - pt is to notify clinic with any changes in the current treatment plan - pt is to notify clinic with any changes, questions, or concerns. 01/09/2018 Appointment: [facility] [phone] [facility] [place] (30 min) Complex 01/09/2018 Patient Education: Patient Medication Summary Completed 01/09/2018 Visit Plan: chronic pancreatitis - defer to specialist - pt is to notify clinic with any changes in the current treatment plan - pt is to notify clinic with any changes, questions, or concerns. 11/28/2017 Appointment: [facility] [phone] [facility] [place] (15 min) Moderate 11/28/2017 Patient Education: Patient Medication Summary Completed 11/28/2017 Appointment: [facility] [phone] [facility] [place] (15 min) Moderate 11/18/2017 Appointment: [facility] [phone] [facility] [place] (30 min) Complex 07/28/2017 Care Plan: Referral Order SNOMED-CT : [id number] Pending 07/03/2017 Visit Plan: Hospital follow up, [...] specialist. 07/01/2017 Appointment: [facility] [phone] [facility] New Patient 07/01/2017 Patient Education: Patient [...] will refer to a GI specialist at [facility] is to notify clinic with any changes, questions or concerns. 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 Start creon with meals and snacks will check labs today will refer to GI specialist. Hospital follow up, pancreatitis - discussed with Dr. Arnol heller recheck labs, will restart creon - will refer to a GI specialist at [facility] is to notify clinic with any changes, questions or concerns. 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 Start creon with meals and snacks will check labs today will refer to GI specialist. Hospital follow up, pancreatitis - discussed with Dr. Arnol heller recheck labs, will restart creon - will refer to a GI specialist at [facility] is to notify clinic with any changes, questions or concerns. 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 Start creon with meals and snacks will check labs today will refer to GI specialist. Hospital follow up, pancreatitis - discussed with Dr. Arnol heller recheck labs, will restart creon - will refer to a GI specialist at [facility] is to notify clinic with [...]
--- OUTSIDE RECORDS SUMMARY | 2018-11-01 19:38 | XMS REPORT | CCD ---
Author Author Lelia Dolan MD, [facility] Address [address] [place] [address] Phone Care Team Providers Care Dietitian Therapeutic Name Role Phone PP Unavailable CCM Unavailable Summary Purpose Interface Exchange Insurance Providers Payer name Policy type / Coverage type Covered democrat ID Effective Begin Date Effective End Date Blue Cross Blue [facility] Blue Cross/Blue Shield [id number] Unknown Unknown Family history Mother Diagnosis Age [...] Unknown Single 07/01/2017 Employment Unknown Currently employed [employer] 07/01/[address]: 63132279 Current every day smoker 07/01/2017 Number of years using tobacco Unknown 10 - 20 1 pack day/20 years 07/01/2017 Number of cigarettes/day Unknown 20 (One Pack) 07/01/[address]: 107150169 Never drinks alcohol 07/01/2017 Allergies, Adverse Reactions, Alerts Substance Reaction Codes Entered Date Inactivated Date Status * NO KNOWN ENVIRONMENTAL ALLERGIES Unknown 07/01/2017 No Inactive Date Active * NO KNOWN FOOD ALLERGIES Unknown 07/01/2017 No Inactive Date Active NO KNOWN ALLERGIES Unknown 07/01/2017 No Inactive Date Active Past Medical History Illness Codes Condition Status Onset Date Resolved Date Acute laryngopharyngitis ICD-9: 465.0 ICD-10: J06.0 Active [...] Problems Condition Codes Effective Dates Condition Status Acute laryngopharyngitis ICD-9: 465.0 ICD-10: J06.0 08/17/2018 [...] Start Date Stop Date Status Fill Instructions Augmentin 875 mg-125 mg tablet RxNorm: 802821 1 Tablet(s) PO BID started in hospital 08/17/2018 08/23/2018 Active Prozac 40 mg capsule RxNorm: 259927 1 Capsule(s) PO daily 08/1005/06/2019 Active Creon 36,000 unit-114,000 unit-180,000 unit capsule, delayed release RxNorm: 2949933 CAPSULE(S) 1 CAPSULE(S) PO WITH MEALS AND SNACKS No Stop Date Active Prozac 20 mg capsule RxNorm: 111379 1 Capsule(s) PO daily 05/1308/09/2018 Inactive Prozac 20 mg capsule RxNorm: 647919 1 Capsule(s) PO daily 04/1405/12/2018 Inactive Creon 36,000 unit-114,000 unit-180,000 unit capsule, delayed release RxNorm: 9974597 Capsule(s) 1 CAPSULE(S) PO WITH MEALS AND SNACKS 04/201805/14/2018 Inactive Creon 36,000 unit-114,000 unit-180,000 unit capsule, delayed release RxNorm: 1683714 1 CAPSULE(S) PO WITH MEALS AND SNACKS 07/04/2017 01/05/2018 Inactive pantoprazole 40 mg tablet,delayed release RxNorm: 530499 1 Tablet(s) PO daily started in hospital 07/01/2017 07/30/2017 Inactive Creon 36,000 unit-114,000 unit-180,000 unit capsule, delayed release RxNorm: 0942687 1 Capsule(s) PO with meals and snacks 07/01/2017 07/03/2017 Inactive Augmentin 875 mg-125 mg tablet RxNorm: 170978 1 Tablet(s) PO BID started in hospital 06/26/2017 06/27/2017 Inactive scopolamine 1 mg over 3 days transdermal patch RxNorm: 628786 1 Patch TD Q72H started in the hospital No Start Date Active promethazine 25 mg tablet RxNorm: 932185 1 Tablet(s) PO QID as needed started in hospital No Start Date Active Lactobacillus acidophilus capsule RxNorm: 1 Capsule(s) PO daily No Start Date Active acetaminophen 500 mg tablet RxNorm: 674929 1-2 Tablet(s) PO Q4H as needed started hospital No Start Date Active oxycodone-acetaminophen 5 mg-325 mg tablet RxNorm: 3530613 1-2 Tablet(s) PO Q4H started at the hospital No Start Date Active Carafate 1 gram tablet RxNorm: 684479 1 Tablet(s) PO AC & HS started in hospital No Start Date Active Medication Administered No Medication Administered data Immunizations No Immunization data Assessments Condition Codes Effective Dates Generalized anxiety disorder ICD-10: F41.1 ICD-9: 300.00 [...] Visit Reason For Visit Effective Dates Notes medication follow up 08/17/2018 medication follow up 05/13/2018 depression 04/14/2018 abdominal pain 01/09/2018 abdominal pain 11/28/2017 abdominal pain 07/01/2017 Results Observation Observation Code Item Item Code Result Date Manual Differential Ord52 D-Neutr 72 % 07/02/2017 Manual Differential Ord52 D-Bands 1 % 07/02/2017 Manual Differential Ord52 D-Lymph 24 % 07/02/2017 Manual Differential Ord52 D-Dickson 1 % 07/02/2017 Manual Differential Ord52 D-Eos [...] 30.4 pg 07/02/2017 Cbc With Differential Ord2 Dickson% 6.1 % 07/02/2017 Cbc With Differential Ord2 [...] 2.10 K/ul 07/02/2017 Cbc With Differential Ord2 Dickson ABS# 0.7 K/ul 07/02/2017 Cbc With Differential Ord2 Eos ABS# 0.2 K/ul 07/02/2017 Cbc With Differential Ord2 Baso ABS# 0.1 K/ul 07/02/2017 Lipase Jrc765 LIPASE 26 U/L 07/02/2017 Comp Metabolic Jeq082 NA 134 mEq/L 07/02/2017 Comp Metabolic Vcr355 K 4.6 mEq/L 07/02/2017 Comp Metabolic Tvs333 CL 93 mEq/L 07/02/2017 Comp Metabolic Wbe257 CO2 28.0 mEq/L 07/02/2017 Comp Metabolic Mhc340 ANION GAP 18 07/02/2017 Comp Metabolic Yei466 GLUCOSE 108 mg/dL 07/02/2017 Comp Metabolic Hwz127 Creat 0.7 mg/dL 07/02/2017 Comp Metabolic Lhk347 eGFR 100 ml/min/1.73m2 07/02/2017 Comp Metabolic Bee064 BUN 10 mg/dL 07/02/2017 Comp Metabolic Mqd579 B/C Ratio 14.7 Ratio 07/02/2017 Comp Metabolic Swz074 CALCIUM 10.0 mg/dL 07/02/2017 Comp Metabolic Hgv233 ALK PHOS 102 U/L 07/02/2017 Comp Metabolic Sfe480 AST(SGOT) 15 U/L 07/02/2017 Comp Metabolic Ufb451 ALT(SGPT) 18 U/L 07/02/2017 Comp Metabolic Jmb629 BILI T 0.4 mg/dL 07/02/2017 Comp Metabolic Hrb589 ALBUMIN 3.9 g/dL 07/02/2017 Comp Metabolic Kty040 TPRO 7.8 g/dL 07/02/2017 Comp Metabolic Fhl576 GLOB 3.9 g/dL 07/02/2017 Comp Metabolic Kqf357 A/G Ratio 1.0 Ratio 07/02/2017 Comp Metabolic Ski047 Osmo 268 mOsmo 07/02/2017 Review of Systems System Result Effective Dates Constitutional No recent illness 2017 Constitutional No [...] No Procedures data Vital Signs Date Vital 08/17/2018 Blood Pressure 1: 132/68 Code : 8480-6 BMI: 26.9 Code : 92352-8 Heart Rate 1 : 63 bpm Height: 5'3" SpO2: 97% Weight: 152 lbs 05/13/2018 Blood Pressure 1: 140/82 Code : 8480-6 BMI: 28.0 Code : 45577-6 Heart Rate 1 : 57 bpm Height: 5'3" SpO2: 97% Weight: 158 lbs 04/14/2018 Blood Pressure 1: 126/74 Code : 8480-6 BMI: 28.0 Code : 62144-0 Heart Rate 1 : 66 bpm Height: 5'3" SpO2: 97% Weight: 158 lbs 01/09/2018 Blood Pressure 1: 122/68 Code : 8480-6 BMI: 28.2 Code : 04861-8 Heart Rate 1 : 70 bpm Height: 5'3" SpO2: 98% Weight: 159 lbs 11/28/2017 Blood Pressure 1: 110/70 Code : 8480-6 BMI: 28.2 Code : 49987-4 Heart Rate 1 : 67 bpm Height: 5'3" SpO2: 95% Weight: 159 lbs 07/01/2017 Blood Pressure 1: 118/70 Code : 8480-6 BMI: 25.5 Code : 43766-9 Heart Rate 1 : 76 bpm Height: 5'3" SpO2: 95% Weight: 144 lbs Functional Status No Functional Status data History of Present Illness Symptom Name Status Result Effective Date Notes Additional Comments medication use 08/17/2018 None Location [...] Diagnosis: Acute laryngopharyngitis[ICD10: J06.0] Lelia Ambrose MD, [facility] CPT-4: 90052 08/17/2018 65254 EST. PATIENT, LEVEL III Diagnosis: Generalized anxiety disorder[ICD10: F41.1] Diagnosis: Major depressive disorder, single episode, moderate[ICD10: F32.1] Lelia Ambrose MD, [facility] CPT-4: 10744 05/13/2018 65318 EST. PATIENT, LEVEL IV Diagnosis: Generalized anxiety disorder[ICD10: F41.1] Diagnosis: Major depressive disorder, single episode, moderate[ICD10: F32.1] Lelia Ambrose MD, [facility] CPT-4: 58195 04/14/2018 33038 EST. PATIENT, LEVEL III Diagnosis: Other chronic pancreatitis[ICD10: K86.1] Lelia Ambrose MD, [facility] CPT-4: 49315 01/09/2018 15282 EST. 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 08/17/2018 Patient Education: Patient Medication Summary Completed [...] current medications. 05/13/2018 Appointment: Lelia Dolan WPtel: [address] [place], [place] [id number] (15 min) Moderate 05/13/2018 Patient Education: Patient [...] patient. 04/14/2018 [facility]ment: [facility] [address] [facility] [place] (15 min) Moderate 04/14/2018 Patient Education: Patient Medication Summary Completed 04/14/2018 Visit Plan: chronic pancreatitis - defer to specialist - pt is to notify clinic with any changes in the current treatment plan - pt is to notify clinic with any changes, questions, or concerns. 01/09/2018 Appointment: Lelia Dolan WPtel: [facility] [place] (30 min) Complex 01/09/2018 Patient Education: Patient Medication Summary Completed 01/09/2018 Visit Plan: chronic pancreatitis - defer to specialist - pt is to notify clinic with any changes in the current treatment plan - pt is to notify clinic with any changes, questions, or concerns. 11/28/2017 Appointment: Lelia Dolan WPtel: [facility] [place] (15 min) Moderate 11/28/2017 Patient Education: Patient Medication Summary Completed 11/28/2017 Appointment: Lelia Dolan WPtel: [facility] [place] (15 min) Moderate 11/18/2017 Appointment: Lelia Dolan WPtel: [facility] [place] (30 min) Complex 07/28/2017 Care Plan: Referral Order SNOMED-CT : [id number] Pending 07/03/2017 Visit Plan: Hospital follow up, pancreatitis - discussed with Dr. Ambrose - will recheck labs, will restart creon - will refer to a GI specialist at [facility] pt is to notify clinic with any changes, questions or concerns. 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 07/01/2017 Visit Plan: Hospital follow up, pancreatitis - discussed with Dr. Ambrose - pina recheck labs, will restart creon - will refer to a GI specialist at [facility] pt is to notify clinic with [...] specialist. 07/01/2017 Appointment: [facility] [phone] [facility] [place] New Patient 07/01/2017 Patient Education: Patient [...] situational exposure. No change in current medications. Start creon with meals and snacks will check labs today will refer to GI specialist. Hospital follow up, pancreatitis - discussed with Dr. Arnol heller recheck labs, will restart creon - will refer to a GI specialist at [facility] is to notify clinic with any changes, questions or concerns. 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 Start creon with meals and snacks will check labs today will refer to GI specialist. Hospital follow up, pancreatitis - discussed with Dr. Arnol garciaeck labs, will restart creon - will refer to a GI specialist at [facility] is to notify clinic with any changes, questions or concerns. 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 Start creon with meals and snacks will check labs today will refer to GI specialist. Hospital follow up, pancreatitis - discussed with Dr. Arnol garciaeck labs, will restart creon - will refer to a GI specialist at [facility] is to notify clinic with any changes, questions or concerns. 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 Start creon with meals and snacks will check labs today will refer to GI specialist. Hospital follow up, pancreatitis - discussed with Dr. Arnol heller recheck labs, will restart creon - will refer to a GI specialist at [facility] is to notify clinic with any [...]
--- OUTSIDE RECORDS SUMMARY | 2018-11-01 19:39 | XMS REPORT | CCD ---
Author Author Lelia Dolan MD, [facility] Address [address] [place] [address] Phone Care Team Providers Care Pipeman Name Role Phone PP Unavailable CCM Unavailable Summary Purpose Interface Exchange Insurance Providers Payer name Policy type / Coverage type Covered libertarian ID Effective Begin Date Effective End Date Blue Cross Blue [facility] Blue Cross/Blue Shield [id number] Unknown Unknown Family history Mother Diagnosis Age [...] Unknown Single 07/01/2017 Employment Unknown Currently employed [employer] 07/01/[address]: 31078388 Current every day smoker 07/01/2017 Number of years using tobacco Unknown 10 - 20 1 pack day/20 years 07/01/2017 Number of cigarettes/day Unknown 20 (One Pack) 07/01/[address]: 254931265 Never drinks alcohol 07/01/2017 Allergies, Adverse Reactions, [...] 296.22 ICD-10: F32.1 Active 04/14/2018 Unknown Other chronic pancreatitis ICD-9: 577.1 ICD-10: [...] ICD-9: 296.22 ICD-10: F32.1 04/14/2018 Active Other chronic pancreatitis ICD-9: 577.1 ICD-10: K86.1 07/01/2017 Active Other acute pancreatitis without necrosis or infection ICD-9: 577.0 ICD-10: K85.80 07/01/2017 Active Left upper quadrant pain ICD-9: 789.02 ICD-10: R10.12 07/01/2017 Active 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 07/01/2017 Active Medications Medication Codes Instructions Start Date Stop Date Status Fill Instructions Prozac 40 mg capsule RxNorm: 971586 1 Capsule(s) PO daily 08/1005/06/2019 Active Creon 36,000 unit-114,000 unit-180,000 unit capsule, delayed release RxNorm: 1367257 CAPSULE(S) 1 CAPSULE(S) PO WITH MEALS AND SNACKS No Stop Date Active Prozac 20 mg capsule RxNorm: 559835 1 Capsule(s) PO daily 05/1308/09/2018 Inactive Prozac 20 mg capsule RxNorm: 222908 1 Capsule(s) PO daily 04/1405/12/2018 Inactive Creon 36,000 unit-114,000 unit-180,000 unit capsule, delayed release RxNorm: 7060641 Capsule(s) 1 CAPSULE(S) PO WITH MEALS AND SNACKS 04/201805/14/2018 Inactive Creon 36,000 unit-114,000 unit-180,000 unit capsule, delayed release RxNorm: 0894549 1 CAPSULE(S) PO WITH MEALS AND SNACKS 07/04/2017 01/05/2018 Inactive pantoprazole 40 mg tablet,delayed release RxNorm: 312735 1 Tablet(s) PO daily started in hospital 07/01/2017 07/30/2017 Inactive Creon 36,000 unit-114,000 unit-180,000 unit capsule, delayed release RxNorm: 8060699 1 Capsule(s) PO with meals and snacks 07/01/2017 07/03/2017 Inactive Augmentin 875 mg-125 mg tablet RxNorm: 300434 1 Tablet(s) PO BID started in hospital 06/26/2017 06/27/2017 Inactive scopolamine 1 mg over 3 days transdermal patch RxNorm: 973983 1 Patch TD Q72H started in the hospital No Start Date Active promethazine 25 mg tablet RxNorm: 007984 1 Tablet(s) PO QID as needed started in hospital No Start Date Active Lactobacillus acidophilus capsule RxNorm: 1 Capsule(s) PO daily No Start Date Active acetaminophen 500 mg tablet RxNorm: 529943 1-2 Tablet(s) PO Q4H as needed started hospital No Start Date Active oxycodone-acetaminophen 5 mg-325 mg tablet RxNorm: 8621974 1-2 Tablet(s) PO Q4H started at the hospital No Start Date Active Carafate 1 gram tablet RxNorm: 619503 1 Tablet(s) PO AC & HS started in hospital No Start Date Active Medication Administered No Medication Administered data Immunizations No Immunization data Assessments Condition Codes Effective Dates Major depressive disorder, single episode, moderate ICD-10: F32.1 ICD-9: 296.22 05/13/2018 Generalized anxiety disorder ICD-10: F41.1 ICD-9: 300.00 05/13/2018 Other chronic pancreatitis ICD-10: K86.1 ICD-9: 577.1 01/09/2018 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 07/01/2017 Left upper quadrant pain ICD-10: R10.12 ICD-9: 789.02 07/01/2017 Reason For Visit Reason For Visit Effective Dates Notes medication follow up 05/13/2018 depression 04/14/2018 abdominal pain 01/09/2018 abdominal pain 11/28/2017 abdominal pain 07/01/2017 Results Observation Observation Code Item Item Code Result Date Manual Differential Ord52 D-Neutr 72 % 07/02/2017 Manual Differential Ord52 D-Bands 1 % 07/02/2017 Manual Differential Ord52 D-Lymph 24 % 07/02/2017 Manual Differential Ord52 D-Stafford 1 % 07/02/2017 Manual Differential Ord52 D-Eos [...] 30.4 pg 07/02/2017 Cbc With Differential Ord2 Stafford% 6.1 % 07/02/2017 Cbc With Differential Ord2 [...] 2.10 K/ul 07/02/2017 Cbc With Differential Ord2 Stafford ABS# 0.7 K/ul 07/02/2017 Cbc With Differential Ord2 Eos ABS# 0.2 K/ul 07/02/2017 Cbc With Differential Ord2 Baso ABS# 0.1 K/ul 07/02/2017 Lipase Wfk260 LIPASE 26 U/L 07/02/2017 Comp Metabolic Xjq801 NA 134 mEq/L 07/02/2017 Comp Metabolic Wvj733 K 4.6 mEq/L 07/02/2017 Comp Metabolic Xav085 CL 93 mEq/L 07/02/2017 Comp Metabolic Bre015 CO2 28.0 mEq/L 07/02/2017 Comp Metabolic Srk503 ANION GAP 18 07/02/2017 Comp Metabolic Pne477 GLUCOSE 108 mg/dL 07/02/2017 Comp Metabolic Hny043 Creat 0.7 mg/dL 07/02/2017 Comp Metabolic Ibb516 eGFR 100 ml/min/1.73m2 07/02/2017 Comp Metabolic Wcy347 BUN 10 mg/dL 07/02/2017 Comp Metabolic Xvu294 B/C Ratio 14.7 Ratio 07/02/2017 Comp Metabolic Lcy219 CALCIUM 10.0 mg/dL 07/02/2017 Comp Metabolic Hko259 ALK PHOS 102 U/L 07/02/2017 Comp Metabolic Wfm343 AST(SGOT) 15 U/L 07/02/2017 Comp Metabolic Msu721 ALT(SGPT) 18 U/L 07/02/2017 Comp Metabolic Cbh750 BILI T 0.4 mg/dL 07/02/2017 Comp Metabolic Vha239 ALBUMIN 3.9 g/dL 07/02/2017 Comp Metabolic Qtm009 TPRO 7.8 g/dL 07/02/2017 Comp Metabolic Oxw965 GLOB 3.9 g/dL 07/02/2017 Comp Metabolic Wnb274 A/G Ratio 1.0 Ratio 07/02/2017 Comp Metabolic Bpp716 Osmo 268 mOsmo 07/02/2017 Review of Systems [...] affect Overall: normal mood and affect 07/01/2017 Full Exam - General 1994 Psychiatric mood and affect Mood: flat 07/01/2017 None Procedures No Procedures data Vital Signs Date Vital 05/13/2018 Blood Pressure 1: 140/82 Code : 8480-6 BMI: 28.0 Code : 06562-9 Heart Rate 1 : 57 bpm Height: 5'3" SpO2: 97% Weight: 158 lbs 04/14/2018 Blood Pressure 1: 126/74 Code : 8480-6 BMI: 28.0 Code : 90203-8 Heart Rate 1 : 66 bpm Height: 5'3" SpO2: 97% Weight: 158 lbs 01/09/2018 Blood Pressure 1: 122/68 Code : 8480-6 BMI: 28.2 Code : 34082-2 Heart Rate 1 : 70 bpm Height: 5'3" SpO2: 98% Weight: 159 lbs 11/28/2017 Blood Pressure 1: 110/70 Code : 8480-6 BMI: 28.2 Code : 95945-2 Heart Rate 1 : 67 bpm Height: 5'3" SpO2: 95% Weight: 159 lbs 07/01/2017 Blood Pressure 1: 118/70 Code : 8480-6 BMI: 25.5 Code : 97598-5 Heart Rate 1 : 76 bpm Height: 5'3" SpO2: 95% Weight: 144 lbs Functional Status No Functional Status data History of Present Illness Symptom Name Status Result Effective Date Notes medication follow up Additional Comments medication use [...] data Encounters Encounter Performer Location Codes Date 972[address] EST. PATIENT, LEVEL III Diagnosis: Generalized anxiety disorder[ICD10: F41.1] Diagnosis: Major depressive disorder, single episode, moderate[ICD10: F32.1] Lelia Ambrose MD, [facility] CPT-4: 45285 05/13/2018 96350 EST. PATIENT, LEVEL IV Diagnosis: Generalized anxiety disorder[ICD10: F41.1] Diagnosis: Major depressive disorder, single episode, moderate[ICD10: F32.1] Lelia Ambrose MD, [facility] CPT-4: 93454 04/14/2018 11025 EST. PATIENT, LEVEL III Diagnosis: Other chronic pancreatitis[ICD10: K86.1] Lelia Ambrose MD, [facility] CPT-4: 33860 01/09/2018 48930 EST. 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 The pt has expected periods of exacerbation with abatement of the symptoms with change in situational exposure. No change in current medications. 05/13/2018 Appointment: Lelia Dolan WPtel: [address] [place], [place] [id number] (15 min) Moderate 05/13/2018 Patient Education: Patient [...] Dolan WPtel: [facility] (15 min) Moderate 04/14/2018 Patient Education: Patient Medication Summary Completed 04/14/2018 Visit Plan: chronic pancreatitis - defer to specialist - pt is to notify clinic with any changes in the current treatment plan - pt is to notify clinic with any changes, questions, or concerns. 01/09/2018 Appointment: Lelia Dolan WPtel: [facility] (30 min) Complex 01/09/2018 Patient Education: Patient Medication Summary Completed 01/09/2018 Visit Plan: chronic pancreatitis - defer to specialist - pt is to notify clinic with any changes in the current treatment plan - pt is to notify clinic with any changes, questions, or concerns. 11/28/2017 Appointment: Lelia Dolan WPtel[facility] [place] (15 min) Moderate 11/28/2017 Patient Education: Patient Medication Summary Completed 11/28/2017 Appointment: Lelia Dolan WPtel: [address] [place], [place] [id number] [place] (15 min) Moderate 11/18/2017 Appointment: Lelia Dolan WPtel[facility] [place] (30 min) Complex 07/28/2017 Care Plan: Referral Order SNOMED-CT : 032319465 Pending 07/03/2017 Visit Plan: Hospital follow up, [...] refer to a GI specialist at [facility] pt is to notify clinic with any changes, questions or concerns. 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 07/01/2017 Appointment: Lelia Dolan WPtel: [address] [place], [place] [id number] New Patient 07/01/2017 Patient Education: Patient Medication Summary Completed 07/01/2017 Referral: External, Ordering Provider Referral Initiated Instructions Comment . chronic pancreatitis - defer to specialist [...] refer to a GI specialist at [facility] pt is to notify clinic with any changes, questions or concerns. 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 Start creon with meals and snacks will check labs today will refer to GI specialist. Hospital follow up, pancreatitis - discussed with Dr. Ambrose - will recheck labs, will restart creon - will refer to a GI specialist at [facility] pt is to notify clinic with any [...]
--- OUTSIDE RECORDS SUMMARY | 2018-11-01 19:39 | XMS REPORT | CCD ---
Author Author Lelia Dolan MD, [facility] Address [address] [place] [address] Phone Care Team Providers Care Air Saw Operator Name Role Phone PP Unavailable CCM Unavailable Summary Purpose Interface Exchange Insurance Providers Payer name Policy type / Coverage type Covered democrat ID Effective Begin Date Effective End Date Blue Cross Blue [facility] Blue Cross/Blue Shield [id number] Unknown Unknown Family history Mother Diagnosis Age [...] Unknown Single 07/01/2017 Employment Unknown Currently employed [employer] 07/01/[address]: 22937681 Current every day smoker 07/01/2017 Number of years using tobacco Unknown 10 - 20 1 pack day/20 years 07/01/2017 Number of cigarettes/day Unknown 20 (One Pack) 07/01/[address]: 461087354 Never drinks alcohol 07/01/2017 Allergies, Adverse Reactions, [...] Instructions Augmentin 875 mg-125 mg tablet RxNorm: 688605 1 Tablet(s) PO BID started in hospital 08/17/2018 08/23/2018 Active Prozac 40 mg capsule RxNorm: 562830 1 Capsule(s) PO daily 08/1005/06/2019 Active Creon 36,000 unit-114,000 unit-180,000 unit capsule, delayed release RxNorm: 3536321 CAPSULE(S) 1 CAPSULE(S) PO WITH MEALS AND SNACKS No Stop Date Active Prozac 20 mg capsule RxNorm: 849599 1 Capsule(s) PO daily 05/1308/09/2018 Inactive Prozac 20 mg capsule RxNorm: 266021 1 Capsule(s) PO daily 04/1405/12/2018 Inactive Creon 36,000 unit-114,000 unit-180,000 unit capsule, delayed release RxNorm: 7854127 Capsule(s) 1 CAPSULE(S) PO WITH MEALS AND SNACKS 04/201805/14/2018 Inactive Creon 36,000 unit-114,000 unit-180,000 unit capsule, delayed release RxNorm: 6733250 1 CAPSULE(S) PO WITH MEALS AND SNACKS 07/04/2017 01/05/2018 Inactive pantoprazole 40 mg tablet,delayed release RxNorm: 971630 1 Tablet(s) PO daily started in hospital 07/01/2017 07/30/2017 Inactive Creon 36,000 unit-114,000 unit-180,000 unit capsule, delayed release RxNorm: 9478247 1 Capsule(s) PO with meals and snacks 07/01/2017 07/03/2017 Inactive Augmentin 875 mg-125 mg tablet RxNorm: 095886 1 Tablet(s) PO BID started in hospital 06/26/2017 06/27/2017 Inactive scopolamine 1 mg over 3 days transdermal patch RxNorm: 335500 1 Patch TD Q72H started in the hospital No Start Date Active promethazine 25 mg tablet RxNorm: 149559 1 Tablet(s) PO QID as needed started in hospital No Start Date Active Lactobacillus acidophilus capsule RxNorm: 1 Capsule(s) PO daily No Start Date Active acetaminophen 500 mg tablet RxNorm: 124404 1-2 Tablet(s) PO Q4H as needed started hospital No Start Date Active oxycodone-acetaminophen 5 mg-325 mg tablet RxNorm: 8142250 1-2 Tablet(s) PO Q4H started at the hospital No Start Date Active Carafate 1 gram tablet RxNorm: 980761 1 Tablet(s) PO AC & HS started [...] D-Lymph 24 % 07/02/2017 Manual Differential Ord52 D-[place] 1 % 07/02/2017 Manual Differential Ord52 D-Eos [...] 30.4 pg 07/02/2017 Cbc With Differential Ord2 [place]% 6.1 % 07/02/2017 Cbc With Differential Ord2 [...] 2.10 K/ul 07/02/2017 Cbc With Differential Ord2 [place] ABS# 0.7 K/ul 07/02/2017 Cbc With Differential Ord2 Eos ABS# 0.2 K/ul 07/02/2017 Cbc With Differential Ord2 Baso ABS# 0.1 K/ul 07/02/2017 Lipase Gfs718 LIPASE 26 U/L 07/02/2017 Comp Metabolic Xho519 NA 134 mEq/L 07/02/2017 Comp Metabolic Jes948 K 4.6 mEq/L 07/02/2017 Comp Metabolic Mbc713 CL 93 mEq/L 07/02/2017 Comp Metabolic Jnm405 CO2 28.0 mEq/L 07/02/2017 Comp Metabolic Acz374 ANION GAP 18 07/02/2017 Comp Metabolic Fmv438 GLUCOSE 108 mg/dL 07/02/2017 Comp Metabolic Jds091 Creat 0.7 mg/dL 07/02/2017 Comp Metabolic Dqg801 eGFR 100 ml/min/1.73m2 07/02/2017 Comp Metabolic Rii072 BUN 10 mg/dL 07/02/2017 Comp Metabolic Vpn787 B/C Ratio 14.7 Ratio 07/02/2017 Comp Metabolic Hbv499 CALCIUM 10.0 mg/dL 07/02/2017 Comp Metabolic Kpl049 ALK PHOS 102 U/L 07/02/2017 Comp Metabolic Lpj893 AST(SGOT) 15 U/L 07/02/2017 Comp Metabolic Wyx910 ALT(SGPT) 18 U/L 07/02/2017 Comp Metabolic Oqr438 BILI T 0.4 mg/dL 07/02/2017 Comp Metabolic Tza014 ALBUMIN 3.9 g/dL 07/02/2017 Comp Metabolic Xnl755 TPRO 7.8 g/dL 07/02/2017 Comp Metabolic Kaf905 GLOB 3.9 g/dL 07/02/2017 Comp Metabolic Uia126 A/G Ratio 1.0 Ratio 07/02/2017 Comp Metabolic Qtc448 Osmo 268 mOsmo 07/02/2017 Review of Systems [...] Code : 8480-6 BMI: 26.9 Code : 71581-0 Heart Rate 1 : 63 bpm Height: 5'3" SpO2: 97% Weight: 152 lbs 05/13/2018 Blood Pressure 1: 140/82 Code : 8480-6 BMI: 28.0 Code : 72441-2 Heart Rate 1 : 57 bpm Height: 5'3" SpO2: 97% Weight: 158 lbs 04/14/2018 Blood Pressure 1: 126/74 Code : 8480-6 BMI: 28.0 Code : 21584-6 Heart Rate 1 : 66 bpm Height: 5'3" SpO2: 97% Weight: 158 lbs 01/09/2018 Blood Pressure 1: 122/68 Code : 8480-6 BMI: 28.2 Code : 59279-4 Heart Rate 1 : 70 bpm Height: 5'3" SpO2: 98% Weight: 159 lbs 11/28/2017 Blood Pressure 1: 110/70 Code : 8480-6 BMI: 28.2 Code : 29552-0 Heart Rate 1 : 67 bpm Height: 5'3" SpO2: 95% Weight: 159 lbs 07/01/2017 Blood Pressure 1: 118/70 Code : 8480-6 BMI: 25.5 Code : 03470-5 Heart Rate 1 : 76 bpm Height: [...] Diagnosis: Acute laryngopharyngitis[ICD10: J06.0] Lelia Ambrose MD, [facility] CPT-4: 97080 08/17/2018 84608 EST. PATIENT, LEVEL III Diagnosis: Generalized anxiety disorder[ICD10: F41.1] Diagnosis: Major depressive disorder, single episode, moderate[ICD10: F32.1] Lelia Ambrose MD, [facility] CPT-4: 63379 05/13/2018 64286 EST. PATIENT, LEVEL IV Diagnosis: Generalized anxiety disorder[ICD10: F41.1] Diagnosis: Major depressive disorder, single episode, moderate[ICD10: F32.1] Lelia Ambrose MD, [facility] CPT-4: 63048 04/14/2018 77035 EST. PATIENT, LEVEL III Diagnosis: Other chronic pancreatitis[ICD10: K86.1] Lelia Ambrose MD, [facility] CPT-4: 29019 01/09/2018 42233 EST. 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 05/13/2018 Appointment: Lelia Dolan WPtel: [address] [place], [place] [address] (15 min) Moderate 05/13/2018 Patient Education: Patient [...] patient. 04/14/2018 Appointment: [facility] [address] [facility] [place] (15 min) Moderate 04/14/2018 Patient Education: Patient Medication Summary Completed 04/14/2018 Visit Plan: chronic pancreatitis - defer to specialist - pt is to notify clinic with any changes in the current treatment plan - pt is to notify clinic with any changes, questions, or concerns. 01/09/2018 Appointment: Lelia Dolan WPtel: [facility] [place] (30 min) Complex 01/09/2018 Patient Education: Patient Medication Summary Completed 01/09/2018 Visit Plan: chronic pancreatitis - defer to specialist - pt is to notify clinic with any changes in the current treatment plan - pt is to notify clinic with any changes, questions, or concerns. 11/28/2017 Appointment: Lelia Dolan WPtel: [facility] [place] (15 min) Moderate 11/28/2017 Patient Education: Patient Medication Summary Completed 11/28/2017 Appointment: Lelia Dolan WPtel: [facility] [place] (15 min) Moderate 11/18/2017 Appointment: Lelia Dolan WPtel: [facility] [place] (30 min) Complex 07/28/2017 Care Plan: Referral Order SNOMED-CT : 062832649 Pending 07/03/2017 Visit Plan: Hospital follow up, [...] specialist. 07/01/2017 Appointment: Lelia Dolan [facility]el[facility] [phone] [facility] [place] New Patient 07/01/2017 Patient Education: Patient [...] will refer to a GI specialist at [facility] is to notify clinic with any changes, questions or concerns. 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 Start creon with meals and snacks will check labs today will refer to GI specialist. Hospital follow up, pancreatitis - discussed with Dr. Arnol garciaeck labs, will restart creon - will refer to a GI specialist at [facility] is to notify clinic with any changes, questions or concerns. 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 Start creon with meals and snacks will check labs today will refer to GI specialist. Hospital follow up, pancreatitis - discussed with Dr. Arnol garciaeck labs, will restart creon - will refer to a GI specialist at [facility] is to notify clinic with any changes, questions or concerns. 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 Start creon with meals and snacks will check labs today will refer to GI specialist. Hospital follow up, pancreatitis - discussed with Dr. Arnol heller recheck labs, will restart creon - will refer to a GI specialist at [facility] is to notify clinic with [...]
--- OUTSIDE RECORDS SUMMARY | 2018-11-01 19:40 | XMS REPORT ---
Author Author AZAM SCHMITZ Organization [facility] Address [address] [place] [address] Care Team Providers Care Director Of Math Name Role Phone AZAM SCHMITZ Unavailable PROBLEMS Unknown Problems ALLERGIES No Information ENCOUNTERS Encounter Location Date Diagnosis [facility] [address] [id number] [id number] Oct, [facility] [address] [id number] [address] Aug, Dental examination Z01.20 [facility] [address] [facility] [id number] [address] Aug, Sore throat J02.9 ; Acute non-recurrent maxillary sinusitis J01.00 and Impacted cerumen of right ear H61.21 IMMUNIZATIONS No Known Immunizations SOCIAL HISTORY Never Assessed REASON FOR VISIT cath removal-- V/O given from [facility]-See telephone encounter. 10cc Water removed from Balloon. Garcia Leg Bag Cath pt tolerated removal without difficulty, Pt instructed to monitor voiding that she should void within 6 hours. Pt v/u Oly MCKINNON. PLAN OF CARE VITAL SIGNS MEDICATIONS Unknown Medications RESULTS No Results PROCEDURES No Known procedures INSTRUCTIONS MEDICATIONS ADMINISTERED No Known Medications
--- OUTSIDE RECORDS SUMMARY | 2018-11-01 19:40 | XMS REPORT | CCD ---
Author Author Lelia Dolan Organization Melodie Ambrose MD, [facility] Address [address] [place] [address] Phone Care Team Providers Care Theatrical Trouper Name Role Phone PP Unavailable CCM Unavailable Summary Purpose Interface Exchange Insurance Providers Payer name Policy type / Coverage type Covered constitution party ID Effective Begin Date Effective End Date Blue Cross Blue [facility] Blue Cross/Blue Shield [id number] Unknown Unknown Family history Mother Diagnosis Age [...] Unknown Single 07/01/2017 Employment Unknown Currently employed [employer] 07/01/[address]: 84338890 Current every day smoker 07/01/2017 Number of years using tobacco Unknown 10 - 20 1 pack day/20 years 07/01/2017 Number of cigarettes/day Unknown 20 (One Pack) 07/01/[address]: 231246655 Never drinks alcohol 07/01/2017 Allergies, Adverse Reactions, [...] Fill Instructions Prozac 20 mg capsule RxNorm: 383754 1 Capsule(s) PO daily 04/1405/13/2018 Active Creon 36,000 unit-114,000 unit-180,000 unit capsule, delayed release RxNorm: 7418345 Capsule(s) 1 CAPSULE(S) PO WITH MEALS AND SNACKS 04/2018 No Stop Date Active Creon 36,000 unit-114,000 unit-180,000 unit capsule, delayed release RxNorm: 6253845 1 CAPSULE(S) PO WITH MEALS AND SNACKS 07/04/2017 01/05/2018 Inactive pantoprazole 40 mg tablet,delayed release RxNorm: 965887 1 Tablet(s) PO daily started in hospital 07/01/2017 07/30/2017 Inactive Creon 36,000 unit-114,000 unit-180,000 unit capsule, delayed release RxNorm: 1739929 1 Capsule(s) PO with meals and snacks 07/01/2017 07/03/2017 Inactive Augmentin 875 mg-125 mg tablet RxNorm: 688008 1 Tablet(s) PO BID started in hospital 06/26/2017 06/27/2017 Inactive scopolamine 1 mg over 3 days transdermal patch RxNorm: 845199 1 Patch TD Q72H started in the hospital No Start Date Active promethazine 25 mg tablet RxNorm: 249104 1 Tablet(s) PO QID as needed started in hospital No Start Date Active Lactobacillus acidophilus capsule RxNorm: 1 Capsule(s) PO daily No Start Date Active acetaminophen 500 mg tablet RxNorm: 157838 1-2 Tablet(s) PO Q4H as needed started hospital No Start Date Active oxycodone-acetaminophen 5 mg-325 mg tablet RxNorm: 8965116 1-2 Tablet(s) PO Q4H started at the hospital No Start Date Active Carafate 1 gram tablet RxNorm: 710282 1 Tablet(s) PO AC & HS started in hospital No Start Date Active Medication Administered No Medication Administered data Immunizations No Immunization data Assessments Condition Codes Effective Dates Generalized anxiety disorder ICD-10: F41.1 ICD-9: 300.00 04/14/2018 Major depressive disorder, single episode, moderate ICD-10: F32.1 ICD-9: 296.22 04/14/2018 Other chronic pancreatitis ICD-10: K86.1 ICD-9: 577.1 01/09/2018 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 07/01/2017 Left upper quadrant pain ICD-10: R10.12 ICD-9: 789.02 07/01/2017 Reason For Visit Reason For Visit Effective Dates Notes depression 04/14/2018 abdominal pain 01/09/2018 abdominal pain 11/28/2017 abdominal pain 07/01/2017 Results Observation Observation Code Item Item Code Result Date Manual Differential Ord52 D-Neutr 72 % 07/02/2017 Manual Differential Ord52 D-Bands 1 % 07/02/2017 Manual Differential Ord52 D-Lymph 24 % 07/02/2017 Manual Differential Ord52 D-[place] 1 % 07/02/2017 Manual Differential Ord52 D-Eos 2 % 07/02/2017 Amylase Ord34 AMYLASE 40 U/L 07/02/2017 Cbc With Differential Ord2 WBC 11.17 K/ul 07/02/2017 Cbc With Differential Ord2 RBC 4.96 M/ul 07/02/2017 Cbc With Differential Ord2 HGB 15.1 g/dl 07/02/2017 Cbc With Differential Ord2 Neut% 72.6 % 07/02/2017 Cbc With Differential Ord2 HCT 45.1 % 07/02/2017 Cbc With Differential Ord2 MCV 90.9 fl 07/02/2017 Cbc With Differential Ord2 Lymph% 18.8 % 07/02/2017 Cbc With Differential Ord2 MCH 30.4 pg 07/02/2017 Cbc With Differential Ord2 [place]% 6.1 % 07/02/2017 Cbc With Differential Ord2 [...] 2.10 K/ul 07/02/2017 Cbc With Differential Ord2 [place] ABS# 0.7 K/ul 07/02/2017 Cbc With Differential Ord2 Eos ABS# 0.2 K/ul 07/02/2017 Cbc With Differential Ord2 Baso ABS# 0.1 K/ul 07/02/2017 Lipase Yys574 LIPASE 26 U/L 07/02/2017 Comp Metabolic Qtp476 NA 134 mEq/L 07/02/2017 Comp Metabolic Hor638 K 4.6 mEq/L 07/02/2017 Comp Metabolic Fxa731 CL 93 mEq/L 07/02/2017 Comp Metabolic Lrl980 CO2 28.0 mEq/L 07/02/2017 Comp Metabolic Qyc125 ANION GAP 18 07/02/2017 Comp Metabolic Lut294 GLUCOSE 108 mg/dL 07/02/2017 Comp Metabolic Jny176 Creat 0.7 mg/dL 07/02/2017 Comp Metabolic Tnx695 eGFR 100 ml/min/1.73m2 07/02/2017 Comp Metabolic Jgp888 BUN 10 mg/dL 07/02/2017 Comp Metabolic Trz915 B/C Ratio 14.7 Ratio 07/02/2017 Comp Metabolic Uwq987 CALCIUM 10.0 mg/dL 07/02/2017 Comp Metabolic Pzi535 ALK PHOS 102 U/L 07/02/2017 Comp Metabolic Fyk317 AST(SGOT) 15 U/L 07/02/2017 Comp Metabolic Fju924 ALT(SGPT) 18 U/L 07/02/2017 Comp Metabolic Bwo442 BILI T 0.4 mg/dL 07/02/2017 Comp Metabolic Myr565 ALBUMIN 3.9 g/dL 07/02/2017 Comp Metabolic Moy136 TPRO 7.8 g/dL 07/02/2017 Comp Metabolic Mag775 GLOB 3.9 g/dL 07/02/2017 Comp Metabolic Znc539 A/G Ratio 1.0 Ratio 07/02/2017 Comp Metabolic Uaj476 Osmo 268 mOsmo 07/02/2017 Review of Systems [...] normal 04/14/2018 None Full Exam - General 1995 Ears/Nose/Throat lips/teeth/gingiva Overall: benign lips 04/14/2018 None [...] No Procedures data Vital Signs Date Vital 04/14/2018 Blood Pressure 1: 126/74 Code : 8480-6 BMI: 28.0 Code : 44321-3 Heart Rate 1 : 66 bpm Height: 5'3" SpO2: 97% Weight: 158 lbs 01/09/2018 Blood Pressure 1: 122/68 Code : 8480-6 BMI: 28.2 Code : 14552-1 Heart Rate 1 : 70 bpm Height: 5'3" SpO2: 98% Weight: 159 lbs 11/28/2017 Blood Pressure 1: 110/70 Code : 8480-6 BMI: 28.2 Code : 14199-1 Heart Rate 1 : 67 bpm Height: 5'3" SpO2: 95% Weight: 159 lbs 07/01/2017 Blood Pressure 1: 118/70 Code : 8480-6 BMI: 25.5 Code : 91339-7 Heart Rate 1 : 76 bpm Height: 5'3" SpO2: 95% Weight: 144 lbs Functional Status No Functional Status data History of Present Illness Symptom Name Status Result Effective Date Notes depression Quality intermittent 04/14/2018 None depression Onset [...] Performer Location Codes Date EST. PATIENT, LEVEL IV Diagnosis: Generalized anxiety disorder[ICD10: F41.1] Diagnosis: Major depressive disorder, single episode, moderate[ICD10: F32.1] Lelia Ambrose MD, [facility] CPT-4: 86343 04/14/2018 26244 EST. PATIENT, LEVEL III Diagnosis: Other chronic pancreatitis[ICD10: K86.1] Lelia Ambrose MD, [facility] CPT-4: 10572 01/09/2018 27506 EST. 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 (30 min) Complex 01/09/2018 Patient Education: Patient Medication Summary Completed 01/09/2018 Appointment: Lelia Dolan WPtel: [facility] (15 min) Moderate 11/28/2017 Patient Education: Patient Medication Summary Completed 11/28/2017 Appointment: Lelia Dolan WPtel: [facility] (15 min) Moderate 11/18/2017 Appointment: Lelia Dolan WPtel: [facility] (30 min) Complex 07/28/2017 Care Plan: Referral Order SNOMED-CT : [id number] Pending 07/03/2017 Appointment: Lelia Dolan WPtel: [facility] New Patient 07/01/2017 Patient Education: Patient Medication Summary Completed 07/01/2017 Referral: External, Ordering Provider Referral Initiated Instructions No Instructions
--- OUTSIDE RECORDS SUMMARY | 2018-11-01 19:40 | XMS REPORT | CCD ---
Author Author Lelia Dolan Organization Melodie Ambrose MD, [facility] Address [address] [place] [address] Phone Care Team Providers Care Booth Operator Name Role Phone PP Unavailable CCM Unavailable Summary Purpose Interface Exchange Insurance Providers Payer name Policy type / Coverage type Covered democrat ID Effective Begin Date Effective End Date Blue Cross Blue [facility] Blue Cross/Blue Shield [id number] Unknown Unknown Family history Mother Diagnosis Age [...] Unknown Single 07/01/2017 Employment Unknown Currently employed Status4 07/01/[address]: 56317231 Current every day smoker 07/01/2017 Number of years using tobacco Unknown 10 - 20 1 pack day/20 years 07/01/2017 Number of cigarettes/day Unknown 20 (One Pack) 07/01/[address]: 308276280 Never drinks alcohol 07/01/2017 Allergies, Adverse Reactions, Alerts Allergies, Adverse Reactions, Alerts data not found Past Medical History Illness Codes Condition Status Onset Date Resolved Date Left upper quadrant pain ICD-9: 789.02 ICD-10: R10.12 Active 07/01/2017 Unknown 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 07/01/2017 Unknown Other acute pancreatitis without necrosis or infection ICD-9: 577.0 ICD-10: K85.80 Active 07/01/2017 Unknown Other chronic pancreatitis ICD-9: 577.1 ICD-10: K86.1 Active 07/01/2017 Unknown Problems Condition Codes Effective Dates Condition Status Left upper quadrant pain ICD-9: 789.02 ICD-10: R10.12 07/01/2017 Active 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 07/01/2017 Active Other acute pancreatitis without necrosis or infection ICD-9: 577.0 ICD-10: K85.80 07/01/2017 Active Other chronic pancreatitis ICD-9: 577.1 ICD-10: K86.1 07/01/2017 Active Medications Medication Codes Instructions Start Date Stop Date Status Fill Instructions Creon 36,000 unit-114,000 unit-180,000 unit capsule, delayed release RxNorm: 9415621 1 CAPSULE(S) PO WITH MEALS AND SNACKS 07/04/2017 No Stop Date Active pantoprazole 40 mg tablet,delayed release RxNorm: 894894 1 Tablet(s) PO daily started in hospital 07/01/2017 07/30/2017 Inactive Creon 36,000 unit-114,000 unit-180,000 unit capsule, delayed release RxNorm: 5176195 1 Capsule(s) PO with meals and snacks 07/01/2017 07/03/2017 Inactive Augmentin 875 mg-125 mg tablet RxNorm: 360062 1 Tablet(s) PO BID started in hospital 06/26/2017 06/27/2017 Inactive scopolamine 1 mg over 3 days transdermal patch RxNorm: 485976 1 Patch TD Q72H started in the hospital No Start Date Active promethazine 25 mg tablet RxNorm: 819874 1 Tablet(s) PO QID as needed started in hospital No Start Date Active Lactobacillus acidophilus capsule RxNorm: 1 Capsule(s) PO daily No Start Date Active acetaminophen 500 mg tablet RxNorm: 167192 1-2 Tablet(s) PO Q4H as needed started hospital No Start Date Active oxycodone-acetaminophen 5 mg-325 mg tablet RxNorm: 8758917 1-2 Tablet(s) PO Q4H started at the hospital No Start Date Active Carafate 1 gram tablet RxNorm: 141836 1 Tablet(s) PO AC & HS started in hospital No Start Date Active Medication Administered No Medication Administered data Immunizations No Immunization data Assessments Condition Codes Effective Dates 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 ICD-10: D44.10 ICD-9: 237.2 07/01/2017 Left upper quadrant pain ICD-10: R10.12 ICD-9: 789.02 07/01/2017 Other chronic pancreatitis ICD-10: K86.1 ICD-9: 577.1 07/01/2017 Reason For Visit Reason For Visit Effective Dates Notes abdominal pain 07/01/2017 Results Observation Observation Code Item Item Code Result Date Manual Differential Ord52 D-Neutr 72 % 07/02/2017 Manual Differential Ord52 D-Bands 1 % 07/02/2017 Manual Differential Ord52 D-Lymph 24 % 07/02/2017 Manual Differential Ord52 D-Sheridan 1 % 07/02/2017 Manual Differential Ord52 D-Eos [...] 30.4 pg 07/02/2017 Cbc With Differential Ord2 Sheridan% 6.1 % 07/02/2017 Cbc With Differential Ord2 [...] 2.10 K/ul 07/02/2017 Cbc With Differential Ord2 Sheridan ABS# 0.7 K/ul 07/02/2017 Cbc With Differential Ord2 Eos ABS# 0.2 K/ul 07/02/2017 Cbc With Differential Ord2 Baso ABS# 0.1 K/ul 07/02/2017 Lipase Sfo627 LIPASE 26 U/L 07/02/2017 Comp Metabolic Ysz382 NA 134 mEq/L 07/02/2017 Comp Metabolic Scx313 K 4.6 mEq/L 07/02/2017 Comp Metabolic Bpv907 CL 93 mEq/L 07/02/2017 Comp Metabolic Qvx747 CO2 28.0 mEq/L 07/02/2017 Comp Metabolic Wjj636 ANION GAP 18 07/02/2017 Comp Metabolic Qxh872 GLUCOSE 108 mg/dL 07/02/2017 Comp Metabolic Kxm702 Creat 0.7 mg/dL 07/02/2017 Comp Metabolic Yxs760 eGFR 100 ml/min/1.73m2 07/02/2017 Comp Metabolic Bro835 BUN 10 mg/dL 07/02/2017 Comp Metabolic Zyb366 B/C Ratio 14.7 Ratio 07/02/2017 Comp Metabolic Bdc867 CALCIUM 10.0 mg/dL 07/02/2017 Comp Metabolic Nkp452 ALK PHOS 102 U/L 07/02/2017 Comp Metabolic Wmm015 AST(SGOT) 15 U/L 07/02/2017 Comp Metabolic Ypi049 ALT(SGPT) 18 U/L 07/02/2017 Comp Metabolic Gis805 BILI T 0.4 mg/dL 07/02/2017 Comp Metabolic Cao009 ALBUMIN 3.9 g/dL 07/02/2017 Comp Metabolic Opq391 TPRO 7.8 g/dL 07/02/2017 Comp Metabolic Cry437 GLOB 3.9 g/dL 07/02/2017 Comp Metabolic Mrn969 A/G Ratio 1.0 Ratio 07/02/2017 Comp Metabolic Vnm457 Osmo 268 mOsmo 07/02/2017 Review of Systems System Result Effective Dates Constitutional recent illness 07/01/2017 Constitutional No chills [...] No Procedures data Vital Signs Date Vital 07/01/2017 Blood Pressure 1: 118/70 Code : 8480-6 BMI: 25.5 Code : 30426-7 Heart Rate 1 : 76 bpm Height: 5'3" SpO2: 95% Weight: 144 lbs Functional Status No Functional Status data History of Present Illness Symptom Name Status Result Effective Date Notes abdominal pain Location diffusely 07/01/2017 None abdominal [...] data Encounters Encounter Performer Location Codes Date OFFICE VISIT, NEW - LEVEL 3 Diagnosis: Left upper quadrant pain[ICD10: R10.12] Diagnosis: Other chronic pancreatitis[ICD10: K86.1] Diagnosis: 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 Ambrose - will recheck labs, will restart creon - will refer to a GI specialist at [facility] is to notify clinic with any changes, questions or concerns. 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 07/01/2017 Visit Plan: Hospital follow up, pancreatitis - discussed with Dr. Ambrose - will recheck labs, will restart creon - will refer to a GI specialist at [facility] pt is to notify clinic with any changes, questions or concerns. 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 07/01/2017 Appointment: Lelia Dolan WPtel[id number] New Patient 07/01/2017 Patient Education: Patient Medication Summary Completed 07/01/2017 Referral: External, Ordering Provider Referral Initiated Instructions Comment Start creon with meals and snacks will check labs today will refer to GI specialist. Hospital follow up, pancreatitis - discussed with Dr. Ambrose - pina recheck labs, will restart creon - will refer to a GI specialist at [facility] is to notify clinic with any [...]
--- OUTSIDE RECORDS SUMMARY | 2018-11-01 19:41 | XMS REPORT | Continuity of Care Document ---
Author Author [facility] Organization [facility] Address Unknown Phone Unavailable Allergies Active Description Code Type Severity Reaction Onset Reported/Identified Relationship to Patient Clinical Status Yes No Known Drug Allergies [id number] Drug Allergy Mild N/A 12/18/2009 Medications There is no data. Problems Date Dx Coded Attending Type Code Diagnosis Diagnosed By 01/22/2012 Ot 577.0 ACUTE PANCREATITIS 09/14/2013 KERRI WILSON MD Ot 577.0 ACUTE PANCREATITIS 09/14/2013 KERRI WILSON MD Ot V04.81 ND FOR PROPHYLACTIC VACCIN AND INOCULATI 06/11/2017 GUICHO ZAPATA, MILTON Salcido Ot 388.60 OTORRHEA NOS 06/12/2017 VERONIKA FORD MD Ot E27.9 DISORDER OF ADRENAL GLAND, UNSPECIFIED 06/12/2017 VERONIKA FORD MD Ot F10.11 ALCOHOL ABUSE, IN REMISSION 06/12/2017 VERONIKA FORD MD Ot F17.200 NICOTINE DEPENDENCE, UNSPECIFIED, UNCOMP 06/12/2017 VERONIKA FORD MD Ot K85.90 ACUTE PANCREATITIS WITHOUT NECROSIS OR I 06/12/2017 VERONIKA FORD MD Ot N85.9 NONINFLAMMATORY DISORDER OF UTERUS, UNSP 06/13/2017 VERONIKA FORD MD Ot E27.9 DISORDER OF ADRENAL GLAND, UNSPECIFIED 06/13/2017 VERONIKA FORD MD Ot F10.11 ALCOHOL ABUSE, IN REMISSION 06/13/2017 VERONIKA FORD MD Ot F17.210 NICOTINE DEPENDENCE, CIGARETTES, UNCOMPL 06/13/2017 VERONIKA FORD MD Ot K85.90 ACUTE PANCREATITIS WITHOUT NECROSIS OR I 06/13/2017 VERONIKA FORD MD Ot N85.9 NONINFLAMMATORY DISORDER OF UTERUS, UNSP 06/19/2017 EYAL SINGH MD Ot K92.0 HEMATEMESIS 06/19/2017 EYAL SINGH MD Ot K92.1 MELENA 06/19/2017 EYAL SINGH MD Ot R11.2 NAUSEA WITH VOMITING, UNSPECIFIED 06/19/2017 EYAL SINGH MD Ot R19.7 DIARRHEA, UNSPECIFIED 06/19/2017 EYAL SINGH MD Ot Z01.818 ENCOUNTER FOR OTHER PREPROCEDURAL EXAMIN 06/20/2017 EYAL SINGH MD Ot K92.0 HEMATEMESIS 06/20/2017 EYAL SINGH MD Ot K92.1 MELENA 06/20/2017 EYAL SINGH MD Ot R11.2 NAUSEA WITH VOMITING, UNSPECIFIED 06/20/2017 EYAL SINGH MD Ot R19.7 DIARRHEA, UNSPECIFIED 06/20/2017 EYAL SINGH MD Ot Z01.818 ENCOUNTER FOR OTHER PREPROCEDURAL EXAMIN 06/20/2017 EYAL SINGH MD Ot K21.0 GASTRO-ESOPHAGEAL REFLUX DISEASE WITH ES 06/20/2017 EYAL SINGH MD Ot K29.60 OTHER GASTRITIS WITHOUT BLEEDING 06/20/2017 EYAL SINGH MD Ot N85.9 NONINFLAMMATORY DISORDER OF UTERUS, UNSP 06/20/2017 EYAL SINGH MD Ot R19.5 OTHER FECAL ABNORMALITIES 06/20/2017 EYAL SINGH MD Ot Z87.891 PERSONAL HISTORY OF NICOTINE DEPENDENCE 06/24/2017 JENIFFER PEREZ DO Ot A41.9 SEPSIS, UNSPECIFIED ORGANISM 06/24/2017 JENIFFER PEREZ DO Ot E27.9 DISORDER OF ADRENAL GLAND, UNSPECIFIED 06/24/2017 JENIFFER PEREZ DO Ot E87.6 HYPOKALEMIA 06/24/2017 ROLAN PEREZ DOI Ot F10.21 ALCOHOL DEPENDENCE, IN REMISSION 06/24/2017 JENIFFER PEREZ DO Ot F17.210 NICOTINE DEPENDENCE, CIGARETTES, UNCOMPL 06/24/2017 JENIFFER PEREZ DO Ot K21.0 GASTRO-ESOPHAGEAL REFLUX DISEASE WITH ES 06/24/2017 ROLAN PEREZ DOI Ot K29.60 OTHER GASTRITIS WITHOUT BLEEDING 06/24/2017 JENIFFER PEREZ DO Ot K52.9 NONINFECTIVE GASTROENTERITIS AND COLITIS 06/24/2017 JENIFFER PEREZ DO Ot K86.1 OTHER CHRONIC PANCREATITIS 06/24/2017 PEREZ DO, JENIFFER Ot K86.3 PSEUDOCYST OF PANCREAS 06/24/2017 ROLAN PEREZ DOI Ot N39.0 URINARY TRACT INFECTION, SITE NOT SPECIF 06/25/2017 EYAL SINGH MD Ot K92.0 HEMATEMESIS 06/25/2017 EYAL SINGH MD Ot K92.1 MELENA 06/25/2017 EYAL SINGH MD Ot R11.2 NAUSEA WITH VOMITING, UNSPECIFIED 06/25/2017 EYAL SINGH MD Ot R19.7 DIARRHEA, UNSPECIFIED 06/25/2017 EYAL SINGH MD Ot Z01.818 ENCOUNTER FOR OTHER PREPROCEDURAL EXAMIN 06/26/2017 JENIFFER PEREZ DO Ot A41.9 SEPSIS, UNSPECIFIED ORGANISM 06/26/2017 JENIFFER PEREZ DO Ot E27.9 DISORDER OF ADRENAL GLAND, UNSPECIFIED 06/26/2017 ROLAN PEREZ DOI Ot E87.6 HYPOKALEMIA 06/26/2017 ROLAN PEREZ DOI Ot F10.21 ALCOHOL DEPENDENCE, IN REMISSION 06/26/2017 ROLNA PEREZ DOI Ot F17.210 NICOTINE DEPENDENCE, CIGARETTES, UNCOMPL 06/26/2017 ROLAN PEREZ DOI Ot K21.0 GASTRO-ESOPHAGEAL REFLUX DISEASE WITH ES 06/26/2017 ROLAN PEREZ DOI Ot K29.60 OTHER GASTRITIS WITHOUT BLEEDING 06/26/2017 ROLAN PEREZ DOI Ot K52.9 NONINFECTIVE GASTROENTERITIS AND COLITIS 06/26/2017 ROLAN PEREZ DOI Ot K86.1 OTHER CHRONIC PANCREATITIS 06/26/2017 JENIFFER PEREZ DO Ot K86.3 PSEUDOCYST OF PANCREAS 06/26/2017 JENIFFER PEREZ DO Ot N39.0 URINARY TRACT INFECTION, SITE NOT SPECIF 06/26/2017 ROLAN PEREZ DOI Ot Z23 ENCOUNTER FOR IMMUNIZATION 01/14/2018 MICHOACANO WILSON APRN Ot Z12.31 ENCNTR SCREEN MAMMOGRAM FOR MALIGNANT NE 01/19/2018 MICHOACANO WILSON APRN Ot Z12.31 ENCNTR SCREEN MAMMOGRAM FOR MALIGNANT NE 02/09/2018 MICHOACANO WILSON APRN Ot Z12.31 ENCNTR SCREEN MAMMOGRAM FOR MALIGNANT NE 02/12/2018 MICHOACANO WILSON JUDICIAL LAW CLERK Ot Z12.31 ENCNTR SCREEN MAMMOGRAM FOR MALIGNANT NE 03/12/2018 MICHOACANO WILSON JUDICIAL LAW CLERK Ot R92.2 INCONCLUSIVE MAMMOGRAM 06/17/2018 GUICHO ZAPATA, MILTON Salcido Ot 388.60 OTORRHEA NOS 06/17/2018 MICHOACANO WILSON JUDICIAL LAW CLERK Ot Z12.31 ENCNTR SCREEN MAMMOGRAM FOR MALIGNANT NE 06/17/2018 MICHOACANO WILSON JUDICIAL LAW CLERK Ot R92.2 INCONCLUSIVE MAMMOGRAM 06/17/2018 MICHOACANO WILSON JUDICIAL LAW CLERK Ot Z12.31 ENCNTR SCREEN MAMMOGRAM FOR MALIGNANT NE 06/17/2018 MICHOACANO WILSON JUDICIAL LAW CLERK Ot R92.2 INCONCLUSIVE MAMMOGRAM 09/02/2018 MICHOACANO WILSON JUDICIAL LAW CLERK Ot K86.1 OTHER CHRONIC PANCREATITIS 09/04/2018 MICHOACANO WILSON APRN Ot K86.1 OTHER CHRONIC PANCREATITIS 10/13/2018 JOHN ZAPATA, TIFFANI Ot K85.90 ACUTE PANCREATITIS WITHOUT NECROSIS OR I 10/16/2018 MICHOACANO WILSON JUDICIAL LAW CLERK Ot Z12.31 ENCNTR SCREEN MAMMOGRAM FOR MALIGNANT NE 10/16/2018 MICHOACANO WILSON JUDICIAL LAW CLERK Ot R92.2 INCONCLUSIVE MAMMOGRAM 10/16/2018 JOHN ZAPATA, TIFFANI Ot K85.90 ACUTE PANCREATITIS WITHOUT NECROSIS OR I Procedures Code Description Performed By Performed On 47.01 LAPAROSCOP APPENDECTOMY 09/21/2007 Results Test Result Range Complete blood count (CBC) with automated white blood cell (WBC) differential - 06/11/17 04:30 Blood leukocytes automated count (number/volume) 16.6 10*3/uL 4.3-11.0 Blood erythrocytes automated count (number/volume) 5.23 10*6/uL 4.35-5.85 Venous blood hemoglobin measurement (mass/volume) 16.3 g/dL 11.5-16.0 Blood hematocrit (volume fraction) 48 % 35-52 Automated erythrocyte mean corpuscular volume 91 [foz_us] 80-99 Automated erythrocyte mean corpuscular hemoglobin (mass per erythrocyte) 31 pg 25-34 Automated erythrocyte mean corpuscular hemoglobin concentration measurement ( mass/volume) 34 g/dL 32-36 Automated erythrocyte distribution width ratio 12.6 % 10.0-14.5 Automated blood platelet count (count/volume) 322 10*3/uL 130-400 Automated blood platelet mean volume measurement 9.3 [foz_us] 7.4-10.4 Automated blood neutrophils/100 leukocytes 83 % 42-75 Automated blood lymphocytes/100 leukocytes 11 % 12-44 Blood monocytes/100 leukocytes 5 % 0-12 Automated blood eosinophils/100 leukocytes 1 % 0-10 Automated blood basophils/100 leukocytes 1 % 0-10 Blood neutrophils automated count (number/volume) 13.8 10*3 1.8-7.8 Blood lymphocytes automated count (number/volume) 1.8 10*3 1.0-4.0 Blood monocytes automated count (number/volume) 0.8 10*3 0.0-1.0 Automated eosinophil count 0.1 10*3/uL 0.0-0.3 Automated blood basophil count (count/volume) 0.1 10*3/uL 0.0-0.1 Blood lactic acid measurement (moles/volume) - 06/11/17 04:30 Blood lactic acid measurement (moles/volume) 1.19 mmol/L 0.50-2.00 Magnesium - 06/11/17 04:30 Magnesium 2.3 mg/dL 1.8-2.4 Serum or plasma triglyceride measurement (mass/volume) - 06/11/17 04:30 Serum or plasma triglyceride measurement (mass/volume) 82 mg/dL <150 Blood manual differential performed detection - 06/11/17 04:30 Blood monocytes/100 leukocytes 5 % NRG Manual blood segmented neutrophils/100 leukocytes 85 % NRG Blood band neutrophils/100 leukocytes 4 % NRG Manual blood lymphocytes/100 leukocytes 6 % NRG Blood erythrocyte morphology finding identification NORMAL NRG Lipase - 06/11/17 04:30 Lipase 4860 U/L 8-78 Serum or plasma ethanol measurement (mass/volume) - 06/11/17 04:30 Serum or plasma ethanol measurement (mass/volume) < mg/dL <10 Comprehensive metabolic panel - 06/11/17 04:30 Serum or plasma sodium measurement (moles/volume) 140 mmol/L 135-145 Serum or plasma potassium measurement (moles/volume) 3.8 mmol/L 3.6-5.0 Serum or plasma chloride measurement (moles/volume) 108 mmol/L 98-107 Carbon dioxide 17 mmol/L 21-32 Serum or plasma anion gap determination (moles/volume) 15 mmol/L 5-14 Serum or plasma urea nitrogen measurement (mass/volume) 14 mg/dL 7-18 Serum or plasma creatinine measurement (mass/volume) 0.85 mg/dL 0.60-1.30 Serum or plasma urea nitrogen/creatinine mass ratio 16 NRG Serum or plasma creatinine measurement with calculation of estimated glomerular filtration rate > NRG Serum or plasma glucose measurement (mass/volume) 121 mg/dL 70-105 Serum or plasma calcium measurement (mass/volume) 8.8 mg/dL 8.5-10.1 Serum or plasma total bilirubin measurement (mass/volume) 0.8 mg/dL 0.1-1.0 Serum or plasma alkaline phosphatase measurement (enzymatic activity/volume) 44 U/L 40-136 Serum or plasma aspartate aminotransferase measurement (enzymatic activity/ volume) 26 U/L 5-34 Serum or plasma alanine aminotransferase measurement (enzymatic activity/volume ) 21 U/L 0-55 Serum or plasma protein measurement (mass/volume) 7.2 g/dL 6.4-8.2 Serum or plasma albumin measurement (mass/volume) 4.2 g/dL 3.2-4.5 Complete blood count (CBC) with automated white blood cell (WBC) differential - 06/12/17 08:45 Blood leukocytes automated count (number/volume) 12.9 10*3/uL 4.3-11.0 Blood erythrocytes automated count (number/volume) 4.54 10*6/uL 4.35-5.85 Venous blood hemoglobin measurement (mass/volume) 14.0 g/dL 11.5-16.0 Blood hematocrit (volume fraction) 42 % 35-52 Automated erythrocyte mean corpuscular volume 92 [foz_us] 80-99 Automated erythrocyte mean corpuscular hemoglobin (mass per erythrocyte) 31 pg 25-34 Automated erythrocyte mean corpuscular hemoglobin concentration measurement ( mass/volume) 34 g/dL 32-36 Automated erythrocyte distribution width ratio 12.7 % 10.0-14.5 Automated blood platelet count (count/volume) 221 10*3/uL 130-400 Automated blood platelet mean volume measurement 9.0 [foz_us] 7.4-10.4 Automated blood neutrophils/100 leukocytes 89 % 42-75 Automated blood lymphocytes/100 leukocytes 6 % 12-44 Blood monocytes/100 leukocytes 6 % 0-12 Automated blood eosinophils/100 leukocytes 0 % 0-10 Automated blood basophils/100 leukocytes 0 % 0-10 Blood neutrophils automated count (number/volume) 11.4 10*3 1.8-7.8 Blood lymphocytes automated count (number/volume) 0.7 10*3 1.0-4.0 Blood monocytes automated count (number/volume) 0.7 10*3 0.0-1.0 Automated eosinophil count 0.0 10*3/uL 0.0-0.3 Automated blood basophil count (count/volume) 0.0 10*3/uL 0.0-0.1 Comprehensive metabolic panel - 06/12/17 08:45 Serum or plasma sodium measurement (moles/volume) 138 mmol/L 135-145 Serum or plasma potassium measurement (moles/volume) 3.6 mmol/L 3.6-5.0 Serum or plasma chloride measurement (moles/volume) 110 mmol/L 98-107 Carbon dioxide 19 mmol/L 21-32 Serum or plasma anion gap determination (moles/volume) 9 mmol/L 5-14 Serum or plasma urea nitrogen measurement (mass/volume) 8 mg/dL 7-18 Serum or plasma creatinine measurement (mass/volume) 0.59 mg/dL 0.60-1.30 Serum or plasma urea nitrogen/creatinine mass ratio 14 NRG Serum or plasma creatinine measurement with calculation of estimated glomerular filtration rate > NRG Serum or plasma glucose measurement (mass/volume) 103 mg/dL 70-105 Serum or plasma calcium measurement (mass/volume) 7.4 mg/dL 8.5-10.1 Serum or plasma total bilirubin measurement (mass/volume) 1.1 mg/dL 0.1-1.0 Serum or plasma alkaline phosphatase measurement (enzymatic activity/volume) 32 U/L 40-136 Serum or plasma aspartate aminotransferase measurement (enzymatic activity/ volume) 13 U/L 5-34 Serum or plasma alanine aminotransferase measurement (enzymatic activity/volume ) 12 U/L 0-55 Serum or plasma protein measurement (mass/volume) 5.7 g/dL 6.4-8.2 Serum or plasma albumin measurement (mass/volume) 3.4 g/dL 3.2-4.5 Lipase - 06/12/17 08:45 Lipase 2075 U/L 8-78 CA 125 - 06/12/17 08:45 CA 125 C 8.8 u[iU]/mL 2.0-30.0 Complete blood count (CBC) with automated white blood cell (WBC) differential - 06/13/17 06:05 Blood leukocytes automated count (number/volume) 14.6 10*3/uL 4.3-11.0 Blood erythrocytes automated count (number/volume) 4.10 10*6/uL 4.35-5.85 Venous blood hemoglobin measurement (mass/volume) 12.7 g/dL 11.5-16.0 Blood hematocrit (volume fraction) 38 % 35-52 Automated erythrocyte mean corpuscular volume 92 [foz_us] 80-99 Automated erythrocyte mean corpuscular hemoglobin (mass per erythrocyte) 31 pg 25-34 Automated erythrocyte mean corpuscular hemoglobin concentration measurement ( mass/volume) 34 g/dL 32-36 Automated erythrocyte distribution width ratio 12.4 % 10.0-14.5 Automated blood platelet count (count/volume) 208 10*3/uL 130-400 Automated blood platelet mean volume measurement 9.0 [foz_us] 7.4-10.4 Automated blood neutrophils/100 leukocytes 88 % 42-75 Automated blood lymphocytes/100 leukocytes 6 % 12-44 Blood monocytes/100 leukocytes 5 % 0-12 Automated blood eosinophils/100 leukocytes 1 % 0-10 Automated blood basophils/100 leukocytes 0 % 0-10 Blood neutrophils automated count (number/volume) 12.8 10*3 1.8-7.8 Blood lymphocytes automated count (number/volume) 0.9 10*3 1.0-4.0 Blood monocytes automated count (number/volume) 0.8 10*3 0.0-1.0 Automated eosinophil count 0.1 10*3/uL 0.0-0.3 Automated blood basophil count (count/volume) 0.0 10*3/uL 0.0-0.1 Whole blood basic metabolic panel - 06/13/17 06:05 Serum or plasma sodium measurement (moles/volume) 133 mmol/L 135-145 Serum or plasma potassium measurement (moles/volume) 3.4 mmol/L 3.6-5.0 Serum or plasma chloride measurement (moles/volume) 105 mmol/L 98-107 Carbon dioxide 17 mmol/L 21-32 Serum or plasma anion gap determination (moles/volume) 11 mmol/L 5-14 Serum or plasma urea nitrogen measurement (mass/volume) 4 mg/dL 7-18 Serum or plasma creatinine measurement (mass/volume) 0.53 mg/dL 0.60-1.30 Serum or plasma urea nitrogen/creatinine mass ratio 8 NRG Serum or plasma creatinine measurement with calculation of estimated glomerular filtration rate > NRG Serum or plasma glucose measurement (mass/volume) 104 mg/dL 70-105 Serum or plasma calcium measurement (mass/volume) 7.6 mg/dL 8.5-10.1 Lipase - 06/13/17 06:05 Lipase 393 U/L 8-78 Urine beta human chorionic gonadotropin (hCG) measurement - 06/13/17 09:50 Urine beta human chorionic gonadotropin (hCG) measurement NEGATIVE NEGATIVE Urine drug screening test - 06/13/17 09:50 Urine phencyclidine detection by screening method NEGATIVE NEGATIVE Urine benzodiazepines detection by screening method NEGATIVE NEGATIVE Urine cocaine detection NEGATIVE NEGATIVE Urine amphetamines detection by screening method NEGATIVE NEGATIVE Urine methamphetamine detection by screening method NEGATIVE NEGATIVE Urine cannabinoids detection by screening method POSITIVE NEGATIVE Urine opiates detection by screening method POSITIVE NEGATIVE Urine barbiturates detection NEGATIVE NEGATIVE Screening urine tricyclic antidepressants detection NEGATIVE NEGATIVE Urine methadone detection by screening method NEGATIVE NEGATIVE Urine oxycodone detection NEGATIVE NEGATIVE Urine propoxyphene detection NEGATIVE NEGATIVE Complete blood count (CBC) with automated white blood cell (WBC) differential - 06/22/17 20:55 Blood leukocytes automated count (number/volume) 23.9 10*3/uL 4.3-11.0 Blood erythrocytes automated count (number/volume) 4.27 10*6/uL 4.35-5.85 Venous blood hemoglobin measurement (mass/volume) 12.9 g/dL 11.5-16.0 Blood hematocrit (volume fraction) 38 % 35-52 Automated erythrocyte mean corpuscular volume 88 [foz_us] 80-99 Automated erythrocyte mean corpuscular hemoglobin (mass per erythrocyte) 30 pg 25-34 Automated erythrocyte mean corpuscular hemoglobin concentration measurement ( mass/volume) 34 g/dL 32-36 Automated erythrocyte distribution width ratio 12.4 % 10.0-14.5 Automated blood platelet count (count/volume) 582 10*3/uL 130-400 Automated blood platelet mean volume measurement 9.2 [foz_us] 7.4-10.4 Automated blood neutrophils/100 leukocytes 89 % 42-75 Automated blood lymphocytes/100 leukocytes 5 % 12-44 Blood monocytes/100 leukocytes 5 % 0-12 Automated blood eosinophils/100 leukocytes 0 % 0-10 Automated blood basophils/100 leukocytes 0 % 0-10 Blood neutrophils automated count (number/volume) 21.3 10*3 1.8-7.8 Blood lymphocytes automated count (number/volume) 1.2 10*3 1.0-4.0 Blood monocytes automated count (number/volume) 1.3 10*3 0.0-1.0 Automated eosinophil count 0.1 10*3/uL 0.0-0.3 Automated blood basophil count (count/volume) 0.0 10*3/uL 0.0-0.1 Blood manual differential performed detection - 06/22/17 20:55 Blood monocytes/100 leukocytes 1 % NRG Manual blood segmented neutrophils/100 leukocytes 91 % NRG Blood band neutrophils/100 leukocytes 2 % NRG Manual blood lymphocytes/100 leukocytes 5 % NRG Manual eosinophils/100 leukocytes in nose 0 % NRG Manual blood basophils/100 leukocytes 0 % NRG Blood lymphocytes variant/100 leukocytes 1 % NRG Blood toxic granules detection by light microscopy 1+ NRG Blood rouleaux detection by light microscopy MOD NRG Comprehensive metabolic panel - 06/22/17 20:55 Serum or plasma sodium measurement (moles/volume) 138 mmol/L 135-145 Serum or plasma potassium measurement (moles/volume) 3.0 mmol/L 3.6-5.0 Serum or plasma chloride measurement (moles/volume) 98 mmol/L 98-107 Carbon dioxide 22 mmol/L 21-32 Serum or plasma anion gap determination (moles/volume) 18 mmol/L 5-14 Serum or plasma urea nitrogen measurement (mass/volume) 9 mg/dL 7-18 Serum or plasma creatinine measurement (mass/volume) 0.72 mg/dL 0.60-1.30 Serum or plasma urea nitrogen/creatinine mass ratio 13 NRG Serum or plasma creatinine measurement with calculation of estimated glomerular filtration rate > NRG Serum or plasma glucose measurement (mass/volume) 124 mg/dL 70-105 Serum or plasma calcium measurement (mass/volume) 9.5 mg/dL 8.5-10.1 Serum or plasma total bilirubin measurement (mass/volume) 0.9 mg/dL 0.1-1.0 Serum or plasma alkaline phosphatase measurement (enzymatic activity/volume) 191 U/L 40-136 Serum or plasma aspartate aminotransferase measurement (enzymatic activity/ volume) 17 U/L 5-34 Serum or plasma alanine aminotransferase measurement (enzymatic activity/volume ) 30 U/L 0-55 Serum or plasma protein measurement (mass/volume) 7.7 g/dL 6.4-8.2 Serum or plasma albumin measurement (mass/volume) 3.7 g/dL 3.2-4.5 Magnesium - 06/22/17 20:55 Magnesium 1.9 mg/dL 1.8-2.4 Lipase - 06/22/17 20:55 Lipase 93 U/L 8-78 Serum or plasma C reactive protein measurement (mass/volume) - 06/22/17 20:55 Serum or plasma C reactive protein measurement (mass/volume) 23.99 mg/dL 0.00-0.50 Complete urinalysis with reflex to culture - 06/22/17 21:00 Urine color determination MARCO A NRG Urine clarity determination CLEAR NRG Urine pH measurement by test strip 6 5-9 Specific gravity of urine by test strip 1.015 1.016- 1.022 Urine protein assay by test strip, semi-quantitative 3+ NEGATIVE Urine glucose detection by automated test strip NEGATIVE NEGATIVE Erythrocytes detection in urine sediment by light microscopy 4+ NEGATIVE Urine ketones detection by automated test strip 4+ NEGATIVE Urine nitrite detection by test strip POSITIVE NEGATIVE Urine total bilirubin detection by test strip 2+ NEGATIVE Urine urobilinogen measurement by automated test strip (mass/volume) 1 mg/dL NORMAL Urine leukocyte esterase detection by dipstick 1+ NEGATIVE Automated urine sediment erythrocyte count by microscopy (number/high power field) [HPF] NRG Automated urine sediment leukocyte count by microscopy (number/high power field ) [HPF] NRG Bacteria detection in urine sediment by light microscopy MODERATE NRG Squamous epithelial cells detection in urine sediment by light microscopy 10-25 NRG Crystals detection in urine sediment by light microscopy NONE NRG Casts detection in urine sediment by light microscopy NONE NRG Mucus detection in urine sediment by light microscopy LARGE NRG Complete urinalysis with reflex to culture YES NRG Renal epithelial cells detection in urine sediment by light microscopy NONE NRG Urine beta human chorionic gonadotropin (hCG) measurement - 06/22/17 21:00 Urine beta human chorionic gonadotropin (hCG) measurement NEGATIVE NEGATIVE Bacterial urine culture - 06/22/17 21:00 Bacterial urine culture [id number] NRG COLONY COUNT <10,000 NRG FREE TEXT ENTRY 2 MIXED GRAM POSITIVE DANAY NRG Blood lactic acid measurement (moles/volume) - 06/22/17 22:26 Blood lactic acid measurement (moles/volume) 0.81 mmol/L 0.50-2.00 Bacterial blood culture - 06/22/17 22:26 Bacterial blood culture NG NRG Bacterial blood culture - 06/22/17 22:40 Bacterial blood culture NG NRG Complete blood count (CBC) with automated white blood cell (WBC) differential - 06/23/17 05:42 Blood leukocytes automated count (number/volume) 25.1 10*3/uL 4.3-11.0 Blood erythrocytes automated count (number/volume) 3.95 10*6/uL 4.35-5.85 Venous blood hemoglobin measurement (mass/volume) 11.8 g/dL 11.5-16.0 Blood hematocrit (volume fraction) 35 % 35-52 Automated erythrocyte mean corpuscular volume 90 [foz_us] 80-99 Automated erythrocyte mean corpuscular hemoglobin (mass per erythrocyte) 30 pg 25-34 Automated erythrocyte mean corpuscular hemoglobin concentration measurement ( mass/volume) 33 g/dL 32-36 Automated erythrocyte distribution width ratio 12.5 % 10.0-14.5 Automated blood platelet count (count/volume) 539 10*3/uL 130-400 Automated blood platelet mean volume measurement 9.4 [foz_us] 7.4-10.4 Automated blood neutrophils/100 leukocytes 91 % 42-75 Automated blood lymphocytes/100 leukocytes 3 % 12-44 Blood monocytes/100 leukocytes 5 % 0-12 Automated blood eosinophils/100 leukocytes 0 % 0-10 Automated blood basophils/100 leukocytes 0 % 0-10 Blood neutrophils automated count (number/volume) 22.9 10*3 1.8-7.8 Blood lymphocytes automated count (number/volume) 0.8 10*3 1.0-4.0 Blood monocytes automated count (number/volume) 1.3 10*3 0.0-1.0 Automated eosinophil count 0.0 10*3/uL 0.0-0.3 Automated blood basophil count (count/volume) 0.0 10*3/uL 0.0-0.1 Comprehensive metabolic panel - 06/23/17 05:42 Serum or plasma sodium measurement (moles/volume) 136 mmol/L 135-145 Serum or plasma potassium measurement (moles/volume) 3.3 mmol/L 3.6-5.0 Serum or plasma chloride measurement (moles/volume) 101 mmol/L 98-107 Carbon dioxide 23 mmol/L 21-32 Serum or plasma anion gap determination (moles/volume) 12 mmol/L 5-14 Serum or plasma urea nitrogen measurement (mass/volume) 7 mg/dL 7-18 Serum or plasma creatinine measurement (mass/volume) 0.71 mg/dL 0.60-1.30 Serum or plasma urea nitrogen/creatinine mass ratio 10 NRG Serum or plasma creatinine measurement with calculation of estimated glomerular filtration rate > NRG Serum or plasma glucose measurement (mass/volume) 173 mg/dL 70-105 Serum or plasma calcium measurement (mass/volume) 8.9 mg/dL 8.5-10.1 Serum or plasma total bilirubin measurement (mass/volume) 0.9 mg/dL 0.1-1.0 Serum or plasma alkaline phosphatase measurement (enzymatic activity/volume) 177 U/L 40-136 Serum or plasma aspartate aminotransferase measurement (enzymatic activity/ volume) 19 U/L 5-34 Serum or plasma alanine aminotransferase measurement (enzymatic activity/volume ) 26 U/L 0-55 Serum or plasma protein measurement (mass/volume) 7.2 g/dL 6.4-8.2 Serum or plasma albumin measurement (mass/volume) 3.5 g/dL 3.2-4.5 Lipase - 06/23/17 05:42 Lipase 100 U/L 8-78 C DIFFICILE AG + TOXIN A/B. - 06/23/17 10:45 RESULTS NEGATIVE FOR ANTIGEN AND TOXIN A/B NRG Complete blood count (CBC) with automated white blood cell (WBC) differential - 06/24/17 06:01 Blood leukocytes automated count (number/volume) 20.2 10*3/uL 4.3-11.0 Blood erythrocytes automated count (number/volume) 4.18 10*6/uL 4.35-5.85 Venous blood hemoglobin measurement (mass/volume) 12.5 g/dL 11.5-16.0 Blood hematocrit (volume fraction) 38 % 35-52 Automated erythrocyte mean corpuscular volume 90 [foz_us] 80-99 Automated erythrocyte mean corpuscular hemoglobin (mass per erythrocyte) 30 pg 25-34 Automated erythrocyte mean corpuscular hemoglobin concentration measurement ( mass/volume) 33 g/dL 32-36 Automated erythrocyte distribution width ratio 12.7 % 10.0-14.5 Automated blood platelet count (count/volume) 497 10*3/uL 130-400 Automated blood platelet mean volume measurement 9.3 [foz_us] 7.4-10.4 Automated blood neutrophils/100 leukocytes 85 % 42-75 Automated blood lymphocytes/100 leukocytes 7 % 12-44 Blood monocytes/100 leukocytes 8 % 0-12 Automated blood eosinophils/100 leukocytes 0 % 0-10 Automated blood basophils/100 leukocytes 0 % 0-10 Blood neutrophils automated count (number/volume) 17.3 10*3 1.8-7.8 Blood lymphocytes automated count (number/volume) 1.3 10*3 1.0-4.0 Blood monocytes automated count (number/volume) 1.5 10*3 0.0-1.0 Automated eosinophil count 0.0 10*3/uL 0.0-0.3 Automated blood basophil count (count/volume) 0.0 10*3/uL 0.0-0.1 Comprehensive metabolic panel - 06/24/17 06:01 Serum or plasma sodium measurement (moles/volume) 137 mmol/L 135-145 Serum or plasma potassium measurement (moles/volume) 3.6 mmol/L 3.6-5.0 Serum or plasma chloride measurement (moles/volume) 103 mmol/L 98-107 Carbon dioxide 19 mmol/L 21-32 Serum or plasma anion gap determination (moles/volume) 15 mmol/L 5-14 Serum or plasma urea nitrogen measurement (mass/volume) 7 mg/dL 7-18 Serum or plasma creatinine measurement (mass/volume) 0.70 mg/dL 0.60-1.30 Serum or plasma urea nitrogen/creatinine mass ratio 10 NRG Serum or plasma creatinine measurement with calculation of estimated glomerular filtration rate > NRG Serum or plasma glucose measurement (mass/volume) 108 mg/dL 70-105 Serum or plasma calcium measurement (mass/volume) 9.2 mg/dL 8.5-10.1 Serum or plasma total bilirubin measurement (mass/volume) 1.2 mg/dL 0.1-1.0 Serum or plasma alkaline phosphatase measurement (enzymatic activity/volume) 168 U/L 40-136 Serum or plasma aspartate aminotransferase measurement (enzymatic activity/ volume) 28 U/L 5-34 Serum or plasma alanine aminotransferase measurement (enzymatic activity/volume ) 32 U/L 0-55 Serum or plasma protein measurement (mass/volume) 7.2 g/dL 6.4-8.2 Serum or plasma albumin measurement (mass/volume) 3.4 g/dL 3.2-4.5 Complete blood count (CBC) with automated white blood cell (WBC) differential - 06/25/17 05:54 Blood leukocytes automated count (number/volume) 16.4 10*3/uL 4.3-11.0 Blood erythrocytes automated count (number/volume) 3.61 10*6/uL 4.35-5.85 Venous blood hemoglobin measurement (mass/volume) 10.7 g/dL 11.5-16.0 Blood hematocrit (volume fraction) 33 % 35-52 Automated erythrocyte mean corpuscular volume 90 [foz_us] 80-99 Automated erythrocyte mean corpuscular hemoglobin (mass per erythrocyte) 30 pg 25-34 Automated erythrocyte mean corpuscular hemoglobin concentration measurement ( mass/volume) 33 g/dL 32-36 Automated erythrocyte distribution width ratio 12.5 % 10.0-14.5 Automated blood platelet count (count/volume) 511 10*3/uL 130-400 Automated blood platelet mean volume measurement 9.6 [foz_us] 7.4-10.4 Automated blood neutrophils/100 leukocytes 86 % 42-75 Automated blood lymphocytes/100 leukocytes 6 % 12-44 Blood monocytes/100 leukocytes 8 % 0-12 Automated blood eosinophils/100 leukocytes 1 % 0-10 Automated blood basophils/100 leukocytes 0 % 0-10 Blood neutrophils automated count (number/volume) 14.1 10*3 1.8-7.8 Blood lymphocytes automated count (number/volume) 1.0 10*3 1.0-4.0 Blood monocytes automated count (number/volume) 1.3 10*3 0.0-1.0 Automated eosinophil count 0.1 10*3/uL 0.0-0.3 Automated blood basophil count (count/volume) 0.0 10*3/uL 0.0-0.1 Whole blood basic metabolic panel - 06/25/17 05:54 Serum or plasma sodium measurement (moles/volume) 133 mmol/L 135-145 Serum or plasma potassium measurement (moles/volume) 4.1 mmol/L 3.6-5.0 Serum or plasma chloride measurement (moles/volume) 100 mmol/L 98-107 Carbon dioxide 23 mmol/L 21-32 Serum or plasma anion gap determination (moles/volume) 10 mmol/L 5-14 Serum or plasma urea nitrogen measurement (mass/volume) 4 mg/dL 7-18 Serum or plasma creatinine measurement (mass/volume) 0.57 mg/dL 0.60-1.30 Serum or plasma urea nitrogen/creatinine mass ratio 7 NRG Serum or plasma creatinine measurement with calculation of estimated glomerular filtration rate > NRG Serum or plasma glucose measurement (mass/volume) 118 mg/dL 70-105 Serum or plasma calcium measurement (mass/volume) 8.3 mg/dL 8.5-10.1 Complete urinalysis with reflex to culture - 09/02/18 09:30 Urine color determination YELLOW NRG Urine clarity determination CLEAR NRG Urine pH measurement by test strip 5 5-9 Specific gravity of urine by test strip 1.025 1.016- 1.022 Urine protein assay by test strip, semi-quantitative 2+ NEGATIVE Urine glucose detection by automated test strip NEGATIVE NEGATIVE Erythrocytes detection in urine sediment by light microscopy 4+ NEGATIVE Urine ketones detection by automated test strip 1+ NEGATIVE Urine nitrite detection by test strip NEGATIVE NEGATIVE Urine total bilirubin detection by test strip NEGATIVE NEGATIVE Urine urobilinogen measurement by automated test strip (mass/volume) 1 mg/dL NORMAL Urine leukocyte esterase detection by dipstick 1+ NEGATIVE Automated urine sediment erythrocyte count by microscopy (number/high power field) [HPF] NRG Automated urine sediment leukocyte count by microscopy (number/high power field ) [HPF] NRG Bacteria detection in urine sediment by light microscopy TRACE NRG Squamous epithelial cells detection in urine sediment by light microscopy 5-10 NRG Crystals detection in urine sediment by light microscopy NONE NRG Casts detection in urine sediment by light microscopy NONE NRG Mucus detection in urine sediment by light microscopy MODERATE NRG Complete urinalysis with reflex to culture YES NRG Bacterial urine culture - 09/02/18 09:30 Bacterial urine culture NG NRG Automated blood complete blood count (hemogram) panel - 09/02/18 10:05 Blood leukocytes automated count (number/volume) 9.8 10*3/uL 4.3-11.0 Blood erythrocytes automated count (number/volume) 4.70 10*6/uL 4.35-5.85 Venous blood hemoglobin measurement (mass/volume) 15.1 g/dL 11.5-16.0 Blood hematocrit (volume fraction) 42 % 35-52 Automated erythrocyte mean corpuscular volume 90 [foz_us] 80-99 Automated erythrocyte mean corpuscular hemoglobin (mass per erythrocyte) 32 pg 25-34 Automated erythrocyte mean corpuscular hemoglobin concentration measurement ( mass/volume) 36 g/dL 32-36 Automated erythrocyte distribution width ratio 12.6 % 10.0-14.5 Automated blood platelet count (count/volume) 264 10*3/uL 130-400 Automated blood platelet mean volume measurement 8.9 [foz_us] 7.4-10.4 Comprehensive metabolic panel - 09/02/18 10:05 Serum or plasma sodium measurement (moles/volume) 140 mmol/L 135-145 Serum or plasma potassium measurement (moles/volume) 3.6 mmol/L 3.6-5.0 Serum or plasma chloride measurement (moles/volume) 110 mmol/L 98-107 Carbon dioxide 19 mmol/L 21-32 Serum or plasma anion gap determination (moles/volume) 11 mmol/L 5-14 Serum or plasma urea nitrogen measurement (mass/volume) 9 mg/dL 7-18 Serum or plasma creatinine measurement (mass/volume) 0.75 mg/dL 0.60-1.30 Serum or plasma urea nitrogen/creatinine mass ratio 12 NRG Serum or plasma creatinine measurement with calculation of estimated glomerular filtration rate > NRG Serum or plasma glucose measurement (mass/volume) 94 mg/dL 70-105 Serum or plasma calcium measurement (mass/volume) 8.4 mg/dL 8.5-10.1 Serum or plasma total bilirubin measurement (mass/volume) 0.4 mg/dL 0.1-1.0 Serum or plasma alkaline phosphatase measurement (enzymatic activity/volume) 48 U/L 40-136 Serum or plasma aspartate aminotransferase measurement (enzymatic activity/ volume) 14 U/L 5-34 Serum or plasma alanine aminotransferase measurement (enzymatic activity/volume ) 15 U/L 0-55 Serum or plasma protein measurement (mass/volume) 6.7 g/dL 6.4-8.2 Serum or plasma albumin measurement (mass/volume) 4.2 g/dL 3.2-4.5 CALCIUM CORRECTED 8.2 mg/dL 8.5-10.1 Lipid 1996 panel - 09/02/18 10:05 Serum or plasma triglyceride measurement (mass/volume) 95 mg/dL <150 Serum or plasma cholesterol measurement (mass/volume) 183 mg/dL < 200 Serum or plasma cholesterol in HDL measurement (mass/volume) 54 mg/ dL 40-60 Cholesterol in LDL [mass/volume] in serum or plasma by direct assay 112 mg/dL 1-129 Serum or plasma cholesterol in VLDL measurement (mass/volume) 19 mg/ dL 5-40 Serum or plasma amylase measurement (enzymatic activity/volume) - 09/02/18 10: 05 Serum or plasma amylase measurement (enzymatic activity/volume) 40 U /L 25-125 Lipase - 09/02/18 10:05 Lipase 12 U/L 8-78 THYROID STIMULATING HORMONE - 09/02/18 10:05 THYROID STIMULATING HORMONE 0.36 u[iU]/mL 0.35-4.94 Automated blood complete blood count (hemogram) panel - 10/12/18 09:55 Blood leukocytes automated count (number/volume) 8.8 10*3/uL 4.3-11.0 Blood erythrocytes automated count (number/volume) 5.19 10*6/uL 4.35-5.85 Venous blood hemoglobin measurement (mass/volume) 16.4 g/dL 11.5-16.0 Blood hematocrit (volume fraction) 47 % 35-52 Automated erythrocyte mean corpuscular volume 91 [foz_us] 80-99 Automated erythrocyte mean corpuscular hemoglobin (mass per erythrocyte) 32 pg 25-34 Automated erythrocyte mean corpuscular hemoglobin concentration measurement ( mass/volume) 35 g/dL 32-36 Automated erythrocyte distribution width ratio 13.0 % 10.0-14.5 Automated blood platelet count (count/volume) 334 10*3/uL 130-400 Automated blood platelet mean volume measurement 8.6 [foz_us] 7.4-10.4 Comprehensive metabolic panel - 10/12/18 09:55 Serum or plasma sodium measurement (moles/volume) 138 mmol/L 135-145 Serum or plasma potassium measurement (moles/volume) 4.3 mmol/L 3.6-5.0 Serum or plasma chloride measurement (moles/volume) 103 mmol/L 98-107 Carbon dioxide 22 mmol/L 21-32 Serum or plasma anion gap determination (moles/volume) 13 mmol/L 5-14 Serum or plasma urea nitrogen measurement (mass/volume) 10 mg/dL 7-18 Serum or plasma creatinine measurement (mass/volume) 0.78 mg/dL 0.60-1.30 Serum or plasma urea nitrogen/creatinine mass ratio 13 NRG Serum or plasma creatinine measurement with calculation of estimated glomerular filtration rate > NRG Serum or plasma glucose measurement (mass/volume) 107 mg/dL 70-105 Serum or plasma calcium measurement (mass/volume) 9.9 mg/dL 8.5-10.1 Serum or plasma total bilirubin measurement (mass/volume) 0.7 mg/dL 0.1-1.0 Serum or plasma alkaline phosphatase measurement (enzymatic activity/volume) 55 U/L 40-136 Serum or plasma aspartate aminotransferase measurement (enzymatic activity/ volume) 18 U/L 5-34 Serum or plasma alanine aminotransferase measurement (enzymatic activity/volume ) 16 U/L 0-55 Serum or plasma protein measurement (mass/volume) 7.8 g/dL 6.4-8.2 Serum or plasma albumin measurement (mass/volume) 5.0 g/dL 3.2-4.5 Serum or plasma amylase measurement (enzymatic activity/volume) - 10/12/18 09: 55 Serum or plasma amylase measurement (enzymatic activity/volume) 81 U /L 25-125 Lipase - 10/12/18 09:55 Lipase 56 U/L 8-78 Encounters ACCT No. Visit Date/Time Discharge Status Pt. Type Provider Facility Loc./Unit Complaint [id number] 10/12/2018 09:39:00 10/12/2018 23:59:59 CLS Outpatient TIFFANI LOPEZ MD [facility] LAB K85.90 [id number] 09/02/2018 09:07:00 09/02/2018 11:05:00 DIS Outpatient MICHOACANO WILSON APRN [facility] SDC CHRONIC PANCREATITSS [id number] 02/18/2018 09:02:00 02/18/2018 23:59:59 CLS Outpatient MICHOACANO WILSON APRN [facility] RAD LEFT BREAST DENSITY [id number] 01/13/2018 07:18:00 01/13/2018 23:59:59 CLS Outpatient MICHOACANO WILSON APRN [facility] RAD SCREENING [id number] 06/23/2017 00:58:00 06/26/2017 12:15:00 DIS Inpatient JENIFFER PEREZ DO [facility] 4TH SEPSIS, UTI, PANCREATITIS PSEUDOCYSTS, COLITIS [id number] 06/20/2017 11:25:00 06/20/2017 15:03:00 DIS Outpatient EYAL SINGH MD [facility] ENDO REFLUX, N/V, DIARRHEA, BLACK STOOLS [id number] 06/19/2017 08:45:00 06/19/2017 10:40:00 DIS Outpatient EYAL SINGH MD [facility] PREOP COLO/EGD [id number] 06/11/2017 05:50:00 06/13/2017 12:20:00 DIS Inpatient LILIANA ZAPATA, VERONIKA Turcios [facility] 4TH PANCREATITIS [id number] 02/09/2014 17:00:00 02/09/2014 23:59:59 CLS Outpatient GUICHO ZAPATA, MILTON Salcido [facility] LABNPT EAR DRAINAGE [id number] 09/12/2013 00:40:00 09/14/2013 13:20:00 DIS Inpatient STEVE ZAPATA, KERRI Barbour [facility] CSD ACUTE PANCREATITIS [id number] 06/17/2018 01:39:00 Document Registration [id number] 01/19/2012 09:13:00 Document Registration [id number] 09/21/2007 20:07:00 Document Registration [id number] 07/10/2017 09:55:53 07/10/2017 23:59:59 CLS Outpatient
[2018-11-01] MEDS ORDERED: KETOROLAC 30 MG/ML VIAL IVP ONE (21:15)
[2018-11-01] MEDS ORDERED: LACTATED RINGERS 1,000 ML IV SCH ×2 (21:15→22:45)
[2018-11-01] MEDS ORDERED: fentaNYL INJECTION 100 MCG/2 ML AMP IVP ONE (21:15)
--- NOTE | 2018-11-01 21:23 | ED Abdominal Pain ---
General Chief Complaint: Abdominal/GI Problems Stated Complaint: ABD PAIN/BACK OF NECK PAIN Nursing Triage Note: pt presents to ed with complaints of abdominal pain since yesterday. denies n/v but reports constipation. pt states she thinks her pancreas is flaring up. Sepsis Screen: No Definite Risk Source of Information: Patient Exam Limitations: No Limitations History of Present Illness Date Seen by Provider: Nov 01, 2018 Time Seen by Provider: 21:21 Initial Comments To ER with reports of suprapubic abdominal pain and epigastric abdominal pain. The symptoms began yesterday. She denies nausea or vomiting but she has had constipation. She also has a history of pancreatitis and is concerned that may be what this is. According to old records she does have a history of alcohol abuse but has been sober for 1-2 years.. Timing/Duration: 1-2 Days Severity/Quality: Moderate Location: Epigastric, Suprapubic Radiation: No Radiation Activities at Onset: None Allergies and Home Medications Allergies Coded Allergies: No Known Drug Allergies (Verified , 12/18/09) Home Medications Acetaminophen 500 Mg Tablet, 500-1,000 MG PO Q4H PRN for PAIN-MILD, (Reported) Amoxicillin/Potassium Clav 1 Each Tablet, 1 EACH PO BID Prescribed by: ROMAN GALDAMEZ on 06/26/17 111 Lactobacillus Acidophilus 1 Each Capsule, 1 EACH PO DAILY Prescribed by: ROMAN GALDAMEZ on 06/26/17 111 Oxycodone HCl/Acetaminophen 1 Each Tablet, 1-2 TAB PO Q4H PRN for PAIN-MODERATE Prescribed by: ROMAN GALDAMEZ on 06/26/17 111 Pantoprazole Sodium 40 Mg Tablet.dr, 40 MG PO DAILY Prescribed by: EYAL SINGH on 06/20/17 1419 Promethazine HCl 25 Mg Tablet, 25 MG PO Q6H PRN for NAUSEA/VOMITING, (Reported) Scopolamine 1 Each Patch.td72, 1.5 MG TOP Q72H Prescribed by: ROMAN GALDAMEZ on 06/26/17 111 Sucralfate 1 Gm Tablet, 1 GM PO ACHS Prescribed by: ROMAN GALDAMEZ on 06/26/17 111 Patient Home Medication List Home Medication List Reviewed: Yes Review of Systems Review of Systems Constitutional: see HPI; No chills, No dizziness EENTM: No Symptoms Reported Respiratory: No Symptoms Reported Cardiovascular: No Symptoms Reported Gastrointestinal: See HPI, Abdominal Pain, Constipated; Denies Diarrhea, Denies Nausea Genitourinary: No Symptoms Reported Musculoskeletal: no symptoms reported Skin: no symptoms reported Psychiatric/Neurological: No Symptoms Reported Endocrine: No Symptoms Reported Past Keaghti-Jjgbmm-Ittxsn Hx Patient Social History Alcohol Use: Denies Use Recreational Drug Use: No (10 yrs ago ago) Smoking Status: Current Everyday Smoker Type Used: Cigars 2nd Hand Smoke Exposure: No Recent Foreign Travel: No Contact w/Someone Who Travel: No Recent Infectious Disease Expo: No Recent Hopitalizations: Yes (FRI COLONOSCOPY/EGD) Physical Abuse: No Sexual Abuse: No Mistreated: No Fear: No Immunizations Up To Date Tetanus Booster (TDap): Unknown Date of Influenza Vaccine: Jun 24, 2017 Seasonal Allergies Seasonal Allergies: No Past Medical History Surgeries: Yes (colonoscopy, egd) Appendectomy Respiratory: No Cardiac: No Neurological: No Reproductive Disorders: No Genitourinary: No Gastrointestinal: Yes (adrenal mass) Gastroesophageal Reflux, Pancreatitis, Chronic Diarrhea Musculoskeletal: No Endocrine: No HEENT: No Cancer: No Psychosocial: No Integumentary: No Blood Disorders: No Family Medical History Congestive heart failure 03 MOTHER (50 ) Family history: Cardiovascular disease 03 MOTHER (50 ) Family history: Coronary thrombosis 03 MOTHER (50 ) Family history: Diabetes mellitus 03 MOTHER (50 ) Family history: Hypertension 03 MOTHER (50 ) Hypercholesterolemia 03 MOTHER (50 ) Malignant neoplasm of lung 03 FATHER (70 ) Physical Exam Vital Signs Vital Signs - First Documented 11/01/18 20:35 Temp 98.1 Pulse 56 Resp 20 B/P (MAP) 132/84 (100) Pulse Ox 98 Capillary Refill : Less Than 3 Seconds Height/Weight/BMI Height: 5'3.00" Weight: 150lbs. 8.0oz. [id number]; 26.5 BMI Method:Stated General Appearance: WD/WN, no apparent distress HEENT: PERRL/EOMI, normal ENT inspection Respiratory: normal breath sounds, no respiratory distress, no accessory muscle use Cardiovascular: regular rate, rhythm, no murmur Gastrointestinal: normal bowel sounds, soft, tenderness Extremities: normal range of motion, non-tender Neurologic/Psychiatric: alert, normal mood/affect, oriented x 3 Skin: normal color, warm/dry Progress/Results/Core Measures Results/Orders Lab Results Laboratory Tests Test 11/01/18 21:20 11/01/18 21:55 Range/Units White Blood Count 11.1 H 4.3-11.0 10^3/uL Red Blood Count 4.79 4.35-5.85 10^6/uL Hemoglobin 15.2 11.5-16.0 G/DL Hematocrit 44 35-52 % Mean Corpuscular Volume 92 80-99 FL Mean Corpuscular Hemoglobin 32 25-34 PG Mean Corpuscular Hemoglobin Concent 35 32-36 G/DL Red Cell Distribution Width 13.2 10.0-14.5 % Platelet Count 306 130-400 10^3/uL Mean Platelet Volume 9.9 7.4-10.4 FL Neutrophils (%) (Auto) 79 H 42-75 % Lymphocytes (%) (Auto) 13 12-44 % Monocytes (%) (Auto) 6 0-12 % Eosinophils (%) (Auto) 1 0-10 % Basophils (%) (Auto) 0 0-10 % Neutrophils # (Auto) 8.7 H 1.8-7.8 X 10^3 Lymphocytes # (Auto) 1.5 1.0-4.0 X 10^3 Monocytes # (Auto) 0.7 0.0-1.0 X 10^3 Eosinophils # (Auto) 0.1 0.0-0.3 10^3/uL Basophils # (Auto) 0.0 0.0-0.1 10^3/uL Sodium Level 136 135-145 MMOL/L Potassium Level 5.8 H 3.7 3.6-5.0 MMOL/L Chloride Level 106 98-107 MMOL/L Carbon Dioxide Level 20 L 21-32 MMOL/L Anion Gap 10 5-14 MMOL/L Blood Urea Nitrogen 11 7-18 MG/DL Creatinine 0.75 0.60-1.30 MG/DL Estimat Glomerular Filtration Rate > 60 BUN/Creatinine Ratio 15 Glucose Level 98 70-105 MG/DL Calcium Level 9.2 8.5-10.1 MG/DL Corrected Calcium 9.0 8.5-10.1 MG/DL Total Bilirubin 0.3 0.1-1.0 MG/DL Aspartate Amino Transf (AST/SGOT) 55 H 5-34 U/L Alanine Aminotransferase (ALT/SGPT) 18 0-55 U/L Alkaline Phosphatase 33 L 40-136 U/L Total Protein 7.6 6.4-8.2 GM/DL Albumin 4.3 3.2-4.5 GM/DL Amylase Level 1669 H 25-125 U/L Lipase 3429 H 8-78 U/L Serum Test, Qualitative NEGATIVE NEGATIVE Serum Alcohol < 10 <10 MG/DL My Orders Orders - EVELYN CULP APRN Cbc With Automated Diff (11/01/18 21:09) Comprehensive Metabolic Panel (11/01/18 21:09) Lipase (11/01/18 21:09) Ua Culture If Indicated (11/01/18 21:09) Amylase (11/01/18 21:09) Ct Abdomen/Pelvis W (11/01/18 21:13) Lactated Ringers (Lr 1000 Ml Iv Solution (11/01/18 21:15) Ketorolac Injection (Toradol Injection) (11/01/18 21:15) Fentanyl Injection (Sublimaze Injection (11/01/18 21:15) Hcg,Qualitative Serum (11/01/18 21:20) Ekg Tracing (11/01/18 21:50) Potassium (11/01/18 21:50) Iohexol Injection (Omnipaque 350 Mg/Ml 1 (11/01/18 22:15) Contrast Received (Contrast Received) (11/01/18 22:15) Ns (Ivpb) (Sodium Chloride 0.9% Ivpb Bag (11/01/18 22:15) Alcohol (11/01/18 22:18) Protime With Inr (11/01/18 22:42) Partial Thromboplastin Time (11/01/18 22:42) Lactated Ringers (Lr 1000 Ml Iv Solution (11/01/18 22:45) Medications Given in ED Current Medications Medications Dose Ordered Sig/Gretel Route Start Time Stop Time Status Last Admin Dose Admin Fentanyl Citrate 50 mcg ONCE ONCE IVP 11/01/18 21:15 11/01/18 21:16 DC 11/01/18 21:27 50 MCG Iohexol 100 ml ONCE ONCE IV 11/01/18 22:15 11/01/18 22:16 DC 11/01/18 22:08 100 ML Ketorolac Tromethamine 15 mg ONCE ONCE IVP 11/01/18 21:15 11/01/18 21:16 DC 11/01/18 21:27 15 MG Sodium Chloride 100 ml ONCE ONCE IV 11/01/18 22:15 11/01/18 22:16 DC 11/01/18 22:08 80 ML Vital Signs/I&O 11/01/18 20:35 Temp 98.1 Pulse 56 Resp 20 B/P (MAP) 132/84 (100) Pulse Ox 98 Blood Pressure Mean: 100 Departure Communication (Admissions) [id number] report from stat read has been faxed to us. She was fluid adjacent to the pancreas and in the setting of elevated amylase/lipase, pancreatitis could appear in this manner. Otherwise there is mild ascites in the upper abdominal area, small volume of free fluid in the pelvis. There is a left ovarian cyst. There is mixed vomitus change of the uterus. I spoke with Dr. Berkowitz, hospitalist at [facility] who was gracious enough to take this patient since we are on admission diversion here. Her pain is well controlled, vitals are stable. We'll transfer to the first available medical bed over there. Impression Primary Impression: Acute pancreatitis Disposition: ADMITTED INPATIENT Condition: Stable Departure-Patient Inst. Referrals: CASI BAH MD (PCP/Family) Primary Care Physician EVELYN CULP APRN Nov 01, 2018 21:23
[2018-11-01 21:30] LABS: BASOPHILS % (AUTO) 0 % (0-10); EOSINOPHILS # (AUTO) 0.1 10^3/uL (0.0-0.3); EOSINOPHILS % (AUTO) 1 % (0-10); HEMATOCRIT 44 % (35-52); HEMOGLOBIN 15.2 G/DL (11.5-16.0); LYMPHOCYTES # (AUTO) 1.5 X 10^3 (1.0-4.0); LYMPHOCYTES % (AUTO) 13 % (12-44); MEAN CORPUSCULAR HEMOGLOBIN 32 PG (25-34); MEAN CORPUSCULAR HGB CONC 35 G/DL (32-36); MEAN CORPUSCULAR VOLUME 92 FL (80-99); MEAN PLATELET VOLUME 9.9 FL (7.4-10.4); MONOCYTES # (AUTO) 0.7 X 10^3 (0.0-1.0); MONOCYTES % (AUTO) 6 % (0-12); NEUTROPHILS # (AUTO) 8.7 X 10^3 (1.8-7.8); NEUTROPHILS % (AUTO) 79 % (42-75); PLATELET COUNT 306 10^3/uL (130-400); RED CELL DISTRIBUTION WIDTH 13.2 % (10.0-14.5); WHITE BLOOD COUNT 11.1 10^3/uL (4.3-11.0)
[2018-11-01 21:48] LABS: ALANINE AMINOTRANSFERASE 18 U/L (0-55); ALBUMIN 4.3 GM/DL (3.2-4.5); ALKALINE PHOSPHATASE 33 U/L (40-136); AMYLASE 1669 U/L (25-125); BILIRUBIN,TOTAL 0.3 MG/DL (0.1-1.0); BUN/CREATININE RATIO 15; CALCIUM 9.2 MG/DL (8.5-10.1); CARBON DIOXIDE 20 MMOL/L (21-32); CHLORIDE 106 MMOL/L (98-107); CREATININE SERUM 0.75 MG/DL (0.60-1.30); GFR ESTIMATED > 60; GLUCOSE 98 MG/DL (70-105); POTASSIUM 5.8 MMOL/L (3.6-5.0); SODIUM 136 MMOL/L (135-145); TOTAL PROTEIN 7.6 GM/DL (6.4-8.2)
[2018-11-01] MEDS ORDERED: IOHEXOL 350 MG/ML 100 ML (OMNIPAQUE 350) VIAL IV ONE (22:15)
[2018-11-01] MEDS ORDERED: RECEIVED CONTRAST 20 ML VIAL IV SCH (22:15)
[2018-11-01] MEDS ORDERED: NS 100 ML (IVPB) BAG IV ONE (22:15)
[2018-11-01 22:39] LABS: LIPASE 3429 U/L (8-78)
[2018-11-01] MEDS ORDERED: HYDROmorphone 2 MG/ML VIAL (DILAUDID) IV ONE (23:00)
[2018-11-01 23:03] LABS: PROTHROMBIN TIME PATIENT 12.9 SEC (12.2-14.7)
[2018-11-01 23:50] VITALS: BP 132/84
--- NOTE | 2018-11-02 06:39 | Diagnostic Imaging Report ---
PROCEDURE: CT abdomen and pelvis with contrast. TECHNIQUE: Multiple contiguous axial images were obtained through the abdomen and pelvis after administration of intravenous contrast. INDICATION: Abdominal pain. COMPARISON: 06/22/2017 FINDINGS: Included portions of the lung bases are clear. CT abdomen: Small amount of ascites is noted within the upper abdomen. There is no loculated fluid collection or free air. Left adrenal nodule is identified and measures 2.3 x 2 cm. This is stable compared to 2.3 x 2 cm on prior exam dated 06/22/2017. Right adrenal gland has a normal appearance. The spleen and liver have a normal CT appearance. Note is made of blurring of the peripancreatic fat with intra-abdominal ascites. Pancreatic parenchyma demonstrates normal enhancement. There is no evidence of pancreatic necrosis. No abnormal mesenteric or retroperitoneal adenopathy is seen. Bony structures show no acute abnormalities. Small bowel loops are nondistended. Normal appendix cannot be adequately identified, but appears to be surgically absent. CT pelvis: Uterus is enlarged and demonstrates heterogeneous mass-like area near the fundus, which could be on the basis of large fibroid. There is also a large left ovarian cyst that measures 4.4 x 3.4 cm. Small amount of free fluid is also noted within the pelvis. There is no loculated fluid collection or free air. No abnormal lymph nodes are seen. Bony structures show no acute abnormalities. IMPRESSION: 1. Small amount of ascites within the upper abdomen. Findings are nonspecific, but given the blurring of the peripancreatic fat, findings could be on the basis of acute pancreatitis. Clinical correlation recommended. 2. No evidence of pseudocyst or pancreatic necrosis. 3. Stable left adrenal nodule. 4. Fibroid uterus. 5. Large left ovarian cyst. Dictated by: Dictated on workstation # [id number]
== END 2018-11-01 23:50 | disposition short-term general hospital (02) ==
LOC: EDUNIT# 19:26 → ER 19:27
DX: K85.90 Acute pancreatitis without necrosis or infection, unspecified (principal); K21.9 Gastro-esophageal reflux disease without esophagitis; F17.290 Nicotine dependence, other tobacco product, uncomplicated; Z87.19 Personal history of other diseases of the digestive system; Z90.49 Acquired absence of other specified parts of digestive tract; Z82.49 Family history of ischemic heart disease and other diseases of the circulatory system; Z80.1 Family history of malignant neoplasm of trachea, bronchus and lung
CPT/HCPCS: 36415; 74177; 80053; 80320; 82150; 83690; 84132; 84703; 85025; 85610; 85730; 93005

== ENCOUNTER → 2018-11-04 | Outpatient (CLI) | payer BC ==
[~2018-11-04] VITALS: Ht 160 cm; Wt 68.3 kg
[~2018-11-04] MED LIST changes: +LACTATED RINGERS 1,000 ML IV ONE; +NS IV 1000 ML 1,000 ML IV ONE; +NS IV 1000 ML 1,000 ML ONE
[2018-11-04 15:30] VITALS: BP 121/93
[2018-11-04 16:26] LABS: ALANINE AMINOTRANSFERASE 13 U/L (0-55); ALBUMIN 4.4 GM/DL (3.2-4.5); ALKALINE PHOSPHATASE 35 U/L (40-136); BILIRUBIN,TOTAL 0.3 MG/DL (0.1-1.0); BUN/CREATININE RATIO 12; CALCIUM 9.5 MG/DL (8.5-10.1); CARBON DIOXIDE 23 MMOL/L (21-32); CHLORIDE 108 MMOL/L (98-107); CREATININE SERUM 0.82 MG/DL (0.60-1.30); GFR ESTIMATED > 60; GLUCOSE 100 MG/DL (70-105); SODIUM 139 MMOL/L (135-145); TOTAL PROTEIN 6.7 GM/DL (6.4-8.2)
== END ==
LOC: SDC 15:03
PROVIDERS: ATTEND Nurse Practitioner Family
DX: E86.0 Dehydration (principal); E87.5 Hyperkalemia; K86.1 Other chronic pancreatitis
CPT/HCPCS: 36415; 80053; 96360

== ENCOUNTER → 2019-06-04 | Outpatient (CLI) | payer BC ==
[~2019-06-04] MED LIST changes: +CATHETER FLUSH 10 ML SYR IV PRN; -LACTATED RINGERS 1,000 ML IV ONE
[2019-06-04 16:02] VITALS: BP 129/90
== END ==
LOC: SDC 14:09
PROVIDERS: ATTEND Nurse Practitioner Family
DX: K86.1 Other chronic pancreatitis (principal)
CPT/HCPCS: 96360

== ENCOUNTER → 2019-06-11 | Outpatient (CLI) | payer BC ==
[~2019-06-11] MED LIST changes: -CATHETER FLUSH 10 ML SYR IV PRN; -NS IV 1000 ML 1,000 ML IV ONE; -NS IV 1000 ML 1,000 ML ONE
--- NOTE | 2019-06-11 13:36 | Diagnostic Imaging Report ---
INDICATION: Pain in lateral left breast. Correlation is made with diagnostic mammogram earlier the same day. Sonographic interrogation of the area of pain in the left breast was performed. This corresponds to the 3 o'clock location. No sonographic abnormality is detected. No solid or cystic mass is detected. IMPRESSION: BI-RADS Category 1 No sonographic abnormality is detected. ACR BI-RADS Category 1: Negative. Result letter will be mailed to the patient. Note: At least 10% of breast cancer is not imaged by mammography. Dictated by: Dictated on workstation # [id number]
--- NOTE | 2019-06-11 15:33 | Diagnostic Imaging Report ---
INDICATION: Left breast pain. Correlation is made with prior mammogram 01/13/2018 and 10/18/2015. 2-D and 3-D bilateral diagnostic mammography was performed with CAD. Both breasts remain heterogeneously dense, limiting the sensitivity of mammography. No mass or malignant appearing microcalcifications are seen. The axillae are unremarkable. IMPRESSION: BI-RADS 0 No mammographic features suspicious for malignancy are identified. Even so, directed sonographic interrogation of the area of pain in the lateral left breast is recommended and will be performed today. ACR BI-RADS Category 0: Incomplete. (Needs additional imaging evaluation). Result letter will be mailed to the patient. Note: At least 10% of breast cancer is not imaged by mammography. Dictated by: Dictated on workstation # [id number]
== END ==
LOC: RAD 12:46
PROVIDERS: ATTEND Nurse Practitioner Family
DX: N64.4 Mastodynia (principal)
CPT/HCPCS: 76642; 77066

== ENCOUNTER → 2019-06-18 | Outpatient (CLI) | payer BC ==
[~2019-06-18] MED LIST changes: +DOCU100C37 PO; +ESCI20TA45 PO; +IBUP-844 PO; +LIPA1CAP67 PO; +NS IV 1000 ML 1,000 ML IV ONE; +SIME80TA16 PO
[2019-06-18 11:26] LABS: BILIRUBIN,URINE NEGATIVE (NEGATIVE); CLARITY,URINE CLEAR; COLOR,URINE YELLOW; GLUCOSE, URINE (UA) NEGATIVE (NEGATIVE); KETONES,URINE NEGATIVE (NEGATIVE); LEUKOCYTE ESTERASE ,URINE NEGATIVE (NEGATIVE); NITRITE,URINE NEGATIVE (NEGATIVE); PH,URINE 6.5 (5-9); PROTEIN,URINE NEGATIVE (NEGATIVE)
[2019-06-18 11:33] LABS: BACTERIA,URINE FEW /HPF; WBC,URINE 0-2 /HPF
[2019-06-18 11:50] LABS: HEMOGLOBIN 14.8 G/DL (11.5-16.0); MEAN PLATELET VOLUME 9.3 FL (7.4-10.4); RED CELL DISTRIBUTION WIDTH 12.7 % (10.0-14.5); WHITE BLOOD COUNT 5.8 10^3/uL (4.3-11.0)
[2019-06-18 12:24] LABS: ALANINE AMINOTRANSFERASE 20 U/L (0-55); ALBUMIN 4.4 GM/DL (3.2-4.5); ALKALINE PHOSPHATASE 40 U/L (40-136); AMYLASE 49 U/L (25-125); BILIRUBIN,TOTAL 0.7 MG/DL (0.1-1.0); BUN/CREATININE RATIO 14; CALCIUM 10.1 MG/DL (8.5-10.1); CARBON DIOXIDE 23 MMOL/L (21-32); CHLORIDE 106 MMOL/L (98-107); CREATININE SERUM 0.73 MG/DL (0.60-1.30); GFR ESTIMATED > 60; GLUCOSE 94 MG/DL (70-105); LIPASE 5 U/L (8-78); POTASSIUM 4.1 MMOL/L (3.6-5.0); SODIUM 138 MMOL/L (135-145)
[2019-06-18 12:52] VITALS: BP 120/73
== END ==
LOC: SDC 11:06
PROVIDERS: ATTEND Nurse Practitioner Family
DX: K86.1 Other chronic pancreatitis (principal)
CPT/HCPCS: 36415; 80053; 81000; 82150; 83690; 85027; 96360

== ENCOUNTER → 2019-07-13 | Outpatient (CLI) | payer BC ==
[~2019-07-13] MED LIST changes: -DOCU100C37 PO; -ESCI20TA45 PO; -IBUP-844 PO; -LIPA1CAP67 PO; -NS IV 1000 ML 1,000 ML IV ONE; -SIME80TA16 PO
--- NOTE | 2019-07-13 11:50 | Diagnostic Imaging Report ---
PROCEDURE: US Non-ob pelvis comp/trans. INDICATION: Fibroid uterus. TECHNIQUE: Multiple real time oliver scale sonographic images were obtained of the pelvis transabdominally and endovaginally. CORRELATION STUDY: None. FINDINGS: UTERUS: 7.8 x 6.4 x 6.2 cm. Uterus is retroverted which does limit assessment. There is heterogeneous echotexture throughout the myometrium. A slightly more focal area is suggested measuring approximately 5.7 x 5.6 x 5.2 cm. ENDOMETRIUM: Approximately 4 mm. The endometrium is largely distorted by the apparent heterogeneity and mass-like appearance about the uterus. RIGHT OVARY: 2.5 x 2.1 x 1.4 cm. LEFT OVARY: Not visualized, perhaps obscured by overlying bowel. The right ovary has an unremarkable appearance. No concerning mass. Normal blood flow to the right ovary. Small-volume pelvic fluid in the posterior cul-de-sac. IMPRESSION: 1. Limited assessment of the uterus which appears to be enlarged with heterogeneous echotexture, suggestive of probable fibroid just under 6 cm in size. 2. The endometrium is largely distorted but appears to be likely within normal limits for a premenopausal patient. 3. Nonvisualization of the left ovary, perhaps owing to position or obscuration by overlying bowel. Dictated by: Dictated on workstation # [id number]
== END ==
LOC: RAD 10:05
PROVIDERS: ATTEND Obstetrics & Gynecology
DX: D25.9 Leiomyoma of uterus, unspecified (principal)
CPT/HCPCS: 76830; 76856

== ENCOUNTER → 2019-07-21 | Outpatient (CLI) | payer BC ==
[~2019-07-21] MED LIST changes: +HOLD METFORMIN - RECEIVED CONTRAST 20 ML VIAL IV SCH; +IOHEXOL 350 MG/ML 100 ML (OMNIPAQUE 350) VIAL IV ONE; +NS 100 ML (IVPB) BAG IV ONE
--- NOTE | 2019-07-21 10:13 | Diagnostic Imaging Report ---
PROCEDURE: CT abdomen and pelvis with and without contrast. TECHNIQUE: Precontrast acquisitions were acquired through the abdomen and pelvis. Multiple contiguous axial images were obtained through the abdomen and pelvis after the administration of intravenous contrast. Auto Exposure Controls were utilized during the CT exam to meet ALARA standards for radiation dose reduction. INDICATION: Adrenal mass. COMPARISON: Comparison is made with prior CT from 11/01/2018. FINDINGS: The lung bases are clear. No discrete liver mass is identified. Gallbladder is unremarkable. There is no biliary ductal dilatation. The pancreas and spleen are unremarkable. Low-density left adrenal mass when measured by the same technique appears to be stable. Absolute washout is calculated to be 73%. Values 60% or higher are consistent with adenomas. The relative washout is 73%. Relative washout of 40% or higher is consistent with an adenoma. No renal mass is detected. The small and large bowel loops are normal caliber. There is no ascites. The uterus is enlarged and likely contains multiple fibroids. The bladder is unremarkable. IMPRESSION: 1. Stable left adrenal mass. Enhancement kinetics are consistent with an adrenal adenoma. 2. Fibroid uterus. 3. No other significant abnormality is seen. Dictated by: Dictated on workstation # [id number]
== END ==
LOC: RAD 08:35
PROVIDERS: ATTEND Urology
DX: E27.8 Other specified disorders of adrenal gland (principal); D25.9 Leiomyoma of uterus, unspecified
CPT/HCPCS: 74178

== ENCOUNTER 2019-08-04 10:11 | Outpatient (CLI) | payer BC ==
[~2019-08-04] VITALS: Ht 160 cm; Wt 70.2 kg
[~2019-08-04 10:11] MED LIST changes: -HOLD METFORMIN - RECEIVED CONTRAST 20 ML VIAL IV SCH; -IOHEXOL 350 MG/ML 100 ML (OMNIPAQUE 350) VIAL IV ONE; -NS 100 ML (IVPB) BAG IV ONE
[2019-08-04 10:20] VITALS: BP 108/72
[2019-08-04] MEDS ORDERED: LIPA1CAP67 PO (10:39)
[2019-08-04] MEDS ORDERED: ESCI20TA45 PO (10:39)
[2019-08-04 10:53] LABS: BASOPHILS % (AUTO) 1 % (0-10); EOSINOPHILS % (AUTO) 1 % (0-10); HEMATOCRIT 41 % (35-52); HEMOGLOBIN 14.2 G/DL (11.5-16.0); LYMPHOCYTES # (AUTO) 1.3 X 10^3 (1.0-4.0); LYMPHOCYTES % (AUTO) 26 % (12-44); MEAN CORPUSCULAR HEMOGLOBIN 32 PG (25-34); MEAN CORPUSCULAR HGB CONC 35 G/DL (32-36); MEAN CORPUSCULAR VOLUME 92 FL (80-99); MEAN PLATELET VOLUME 9.3 FL (7.4-10.4); MONOCYTES # (AUTO) 0.3 X 10^3 (0.0-1.0); MONOCYTES % (AUTO) 7 % (0-12); NEUTROPHILS # (AUTO) 3.4 X 10^3 (1.8-7.8); NEUTROPHILS % (AUTO) 67 % (42-75); PLATELET COUNT 243 10^3/uL (130-400); RED CELL DISTRIBUTION WIDTH 12.9 % (10.0-14.5); WHITE BLOOD COUNT 5.1 10^3/uL (4.3-11.0)
[2019-08-09] MEDS ORDERED: DOCU100C37 PO (09:58)
[2019-08-09] MEDS ORDERED: SIME80TA16 PO (09:58)
[2019-08-09] MEDS ORDERED: HYDR-34 PO (09:58)
[2019-08-09] MEDS ORDERED: IBUP-844 PO (09:58)
== END 2019-08-04 10:45 | disposition home or self-care (01) ==
LOC: PREOP 10:11
PROVIDERS: ATTEND Obstetrics & Gynecology
DX: Z01.812 Encounter for preprocedural laboratory examination (principal); D25.9 Leiomyoma of uterus, unspecified
CPT/HCPCS: 36415; 85025; 86850; 86900; 86901; 87081

== ENCOUNTER 2019-08-09 08:42 | Day surgery (SDC) | payer BC ==
[~2019-08-09] VITALS: Ht 160 cm; Wt 70.2 kg
[2019-08-09] VITALS (17 sets, daily range): BP systolic 116–178; BP diastolic 44–95
[~2019-08-09 08:42] MED LIST changes: +ESCI20TA45 PO; +LIPA1CAP67 PO
[2019-08-09] MEDS ORDERED: LACTATED RINGERS 1,000 ML IV ONE (08:57)
[2019-08-09] MEDS ORDERED: metroNIDAZOLE 500MG/100ML IVPB 100 ML IV ONE (09:00)
[2019-08-09] MEDS ORDERED: ceFAZolin INJECTION 1,000 MG in WATER (STERILE) FOR INJECTION 10 ML IV ONE (09:00)
--- NOTE | 2019-08-09 09:32 | Progress Note-Pre Operative ---
Pre-Operative Progress Note H&P Reviewed The H&P was reviewed, patient examined and no changes noted. Date Seen by Provider: Aug 09, 2019 Time Seen by Provider: 09:30 Date H&P Reviewed: Aug 09, 2019 Time H&P Reviewed: 09:30 Pre-Operative Diagnosis: Fibroid uterus, AUB, CPP MILTON HERNANDEZ DO Aug 09, 2019 09:32 POS
[2019-08-09] MEDS: LACTATED RINGERS 1,000 ML IV PRN ×2 (09:47→12:37)
[2019-08-09] MEDS ORDERED: BUPIVACAINE 0.25% 30 ML (SENSORCAINE) VIAL ONE (09:49)
[2019-08-09] MEDS ORDERED: LACTATED RINGERS 1,000 ML IV SCH (09:53)
--- NOTE | 2019-08-09 09:57 | Discharge Inst-Women's Service ---
Discharge Inst-Women's Serv Depart Medication/Instructions New, Converted or Re-Newed RX: RX on Chart Consults/Follow Up Additional Follow Up: Yes Orders/Referrals Dr. Julian in 7-10 days and in 8 weeks Activity Activity: Activity as Tolerated Driving Instructions: No Driving for 1 Week NO SMOKING: NO SMOKING Nothing Inside Vagina: No Douching, No Lowrey, No Tampons Diet Discharge Diet: No Restrictions Symptoms to Report to : Bleeding Excessive, Pain Increased, Fever Over 101 Degrees F, Vaginal Bleeding Increase, Questions/Concerns For Any Problems or Questions: Contact Your Physician Skin/Wound Care Infection Signs and Symptoms: Increased Redness, Foul Odor of Wound, Increased Drainage, Skin Itchy or Has a Rash, Increased Swelling, Temperature Above 101 F Operative Area Clean and Dry: Keep Incision Clean/Dry Stitches/Aryan/Dermabond: Dermabond, Care of Stitches Bathing Instructions: MILTON Guerra DO Aug 09, 2019 09:56 POS
[2019-08-09] MEDS ORDERED: IBUP-844 PO (09:58)
[2019-08-09] MEDS ORDERED: DOCU100C37 PO (09:58)
[2019-08-09] MEDS ORDERED: SIME80TA16 PO (09:58)
[2019-08-09] MEDS ORDERED: HYDR-34 PO (09:58)
[2019-08-09] MEDS ORDERED: ONDANSETRON 4 MG/2 ML (SDV) Z0FRAN IV PRN (10:00)
[2019-08-09] MEDS ORDERED: ANTACID SUSP 30 ML UDC (MYLANTA) PO PRN (10:00)
[2019-08-09] MEDS ORDERED: HYDROcodone/APAP 7.5 MG/325 MG (LORTAB, LORCET PLUS) TABLET PO PRN (10:00)
[2019-08-09] MEDS ORDERED: KETOROLAC 30 MG/ML VIAL IV PRN (10:00)
[2019-08-09] MEDS ORDERED: CHLORASEPTIC LOZENGE MM PRN (10:00)
[2019-08-09] MEDS ORDERED: DOCUSATE SODIUM 100 MG (COLACE) CAP PO PRN (10:00)
[2019-08-09] MEDS ORDERED: ZOLPIDEM 5 MG (AMBIEN) TAB PO PRN (10:00)
[2019-08-09] MEDS ORDERED: SIMETHICONE 80 MG (MYLICON) CHEW PO PRN (10:00)
[2019-08-09] MEDS ORDERED: MIDAZOLAM 2 MG/2 ML (VERSED) VIAL ONE (11:20)
[2019-08-09] MEDS ORDERED: fentaNYL INJECTION 100 MCG/2 ML AMP ONE ×2 (11:20→12:51)
[2019-08-09] MEDS ORDERED: proPOfol 200 MG/20 ML (DIPRIVAN) VIAL IV ONE (12:29)
[2019-08-09] MEDS ORDERED: DEXAMETHASONE 10 MG/ML (DECADRON) 1 ML VIAL ONE (12:29)
[2019-08-09] MEDS ORDERED: SEVOFLURANE (ULTANE) 15 ML INHAL SOLN ONE (12:29)
[2019-08-09] MEDS ORDERED: ROCURONIUM 10 MG/ML 5 ML SYRINGE IV ONE (12:29)
[2019-08-09] MEDS ORDERED: LIDOCAINE PF 2% 5 ML (XYLOCAINE) VIAL ONE (12:29)
[2019-08-09] MEDS ORDERED: ONDANSETRON 4 MG/2 ML (SDV) Z0FRAN ONE (12:29)
[2019-08-09] MEDS ORDERED: NEOSTIGMINE 3 MG/3 ML VIAL ONE (12:29)
[2019-08-09] MEDS ORDERED: GLYCOPYRROLATE 0.2 MG/ML (ROBINUL) 2 ML VIAL ONE (12:29)
[2019-08-09] MEDS ORDERED: morphine INJ 10 MG/ML 1ML (SYR OR VIAL) ONE (13:25)
[2019-08-09] MEDS ORDERED: KETOROLAC 30 MG/ML VIAL ONE (13:25)
[2019-08-09] MEDS ORDERED: ONDANSETRON 4 MG/2 ML (SDV) Z0FRAN IVP PRN (13:30)
[2019-08-09] MEDS ORDERED: morphine INJ 10 MG/ML 1ML (SYR OR VIAL) IVP ONE (13:30)
[2019-08-09] MEDS ORDERED: HYDROmorphone 2 MG/ML VIAL (DILAUDID) IV ONE (13:30)
[2019-08-09] MEDS ORDERED: HYDROmorphone 2 MG/ML VIAL (DILAUDID) ONE (13:45)
--- NOTE | 2019-08-09 14:20 | NUR ---
ANTONIO BROCK admitted to room 3306-1 VIA PT BED FROM [facility] BY DARLEEN LAW PHYSICIAN RELATIONS SPECIALIST AFTER A ROBOTIC ASSISTED TOTAL LAPAROSCOPIC HYSTERECTOMY AND BILATERAL SALPINGETOMY TODAY BY DR. HERNANDEZ.ANTONIO BROCK introduced to surroundings, call light, bed controls, phone, TV, temperature control, lights, meal times, smoking policy, visitor policy, side rail policy, bathrooms and showers. Patient Rights given to patient in the handbook.
--- NOTE | 2019-08-09 14:30 | NUR ---
ASSESSMENT COMPLETED. IV PLACED ON PUMP WITH NEW TUBING. SITE CLEAR. ABD SOFT. LAP SITES X3 WITH BANDAIDS D/I. SUGGS PATENT TO DD WITH SLIGHTLY CLOUDY YELLOW URINE. FAMILY AT BEDSIDE. MENU GIVEN AND CALL LIGHT OPERATION REVIEWED WITH PT AND FAMILY.
--- NOTE | 2019-08-09 14:40 | NUR ---
O2 STARTED AT 2L/M/NC. CONTINUOUS SPO2 MONITORING WITH FREQUENT VS.
[2019-08-09] MEDS ORDERED: HYDROcodone/APAP 7.5 MG/325 MG (LORTAB, LORCET PLUS) TABLET PO ONE (15:15)
--- NOTE | 2019-08-09 15:16 | NUR ---
LORTAB 7.5/325 2 TABS .O. FOR C/O ABD PAIN.
--- NOTE | 2019-08-09 16:00 | NUR ---
STATES PAIN IS DECREASED TO 3/10. DOING WELL. EATING AND DRINKING.
--- NOTE | 2019-08-09 17:00 | NUR ---
SUGGS D/C'ED. PERICARE PROVIDED AND PAD/UNDERWEAR APPLIED. SCANT DARK RED VAGINAL SPOTTING. UP TO SIT IN THE CHAIR. IV TO SALINE LOCK. TAKING FLUIDS WELL.
--- NOTE | 2019-08-09 17:30 | NUR ---
VISITORS IN ROOM. PT AMBULATING IN ROOM WITHOUT PROBLEMS.
--- NOTE | 2019-08-09 18:30 | NUR ---
PT HAS VOIDED X3 SINCE SUGGS D/C'ED. WANTING TO GO HOME.
--- NOTE | 2019-08-09 18:55 | NUR ---
DISCHARGE INSTRUCTIONS REVIEWED WITH COPY TO PT. STATES UNDERSTANDING OF ALL INSTRUCTIONS AND NEED TO F/U SCHEDULED AND NEEDED.
--- NOTE | 2019-08-09 19:00 | NUR ---
DISMISSED FROM [facility] VIA W/C TO FAMILY CAR IN STABLE CONDITION ACC BY JOHNIE GONZALEZ. Addendum: 08/09/19 at 2229 by KARINA DUMONT RN TIME SHOULD SAY 1915 FOR DISMISSAL
--- NOTE | 2019-08-09 22:47 | OPERATIVE REPORT ---
DATE OF SERVICE: PREOPERATIVE DIAGNOSES: 1. A 44-year-old female with abnormal uterine bleeding. 2. Fibroid uterus. 3. Chronic pelvic pain. POSTOPERATIVE DIAGNOSES: 1. A 44-year-old female with abnormal uterine bleeding. 2. Fibroid uterus. 3. Chronic pelvic pain. PROCEDURE: Robotic-assisted total laparoscopic hysterectomy greater than 250 grams with bilateral salpingectomy. SURGEON: Yossi Hernandez DO SUGAR CANE GROWER: Shira Dallas DNP, who was necessary for bladder retraction of the uterus and other anatomy throughout the procedure and was necessary to complete the procedure. ANESTHESIA: General endotracheal. ESTIMATED BLOOD LOSS: Minimal. URINE OUTPUT: 100 mL clear at the end of the procedure. FLUIDS: 1200 mL of lactated Ringer's solution. FINDINGS: A bulky enlarged uterus approximately 2 to 3 times the size of a normal uterus, grossly normal appearing bilateral ovaries, grossly normal appearing bilateral fallopian tubes. SPECIMEN SENT: Uterus, bilateral fallopian tubes. INDICATIONS FOR PROCEDURE: This 44-year-old female with the patient's consultation to me for enlarging fibroid uterus. She was noted to have some chronic pelvic pain, discomfort and pressure in her pelvis as well as heavy change in her periods. The patient was requesting addressing this issue. Hormones were not able to be used as a treatment modality due to the patient's tobacco use and smoking. I discussed with the patient ablation; however, due to the size of the uterus this was also not an acceptable alternative. We discussed uterine artery embolization which the patient was not interested in as well as hysterectomy, which sounded like the best treatment option for the patient. Risks of the procedure were discussed with the patient in detail including risk of bleeding, infection, damage to surrounding structures including, but not limited to bowel, bladder, ureter, kidneys, possible need for reoperation, possible postoperative complications, recovery timeframe, risks from anesthesia, possible need for blood transfusion and even . After everything was discussed with the patient in detail, consent was obtained in the preoperative area, after all questions were answered and the patient was taken to the operating room. OPERATIVE REPORT IN DETAIL: Once in the operating room, anesthesia was found to be adequate, placed in dorsal lithotomy position, prepped and draped in normal sterile fashion. A timeout was performed and a Garcia catheter was placed using sterile technique. A weighted speculum inserted to the patient's vagina. Right angle retractor was used to visualize the cervix, which was grasped at 12 o'clock position using a long single tooth tenaculum. I then placed 0 Vicryl suture in the anterior lip of the cervix and removed the tenaculum. The suture was then used as my retraction. I then gently sound the uterine cavity, depth was found to be 8 cm. I then selected an 8 cm Moraima uterine manipulator and 3.5 cm colpotomy ring. The manipulator tip was advanced into the uterus and the colpotomy ring was advanced around the vaginal fornix once the balloon was deployed within the uterus. I then removed all the other instruments from the patient's vagina, performed change of gloves and took my attention to the abdomen where supraumbilically I infiltrated the area using 0.25% Marcaine to make an 8 mm incision, directed Veress needle through the incision until intraperitoneal placement was confirmed using saline drop test. Opening pressure of 5 mmHg was noted. I proceeded to max pressure of 15 mmHg, at which point I removed the Veress needle and introduced an 8 mm blunt da Nelly camera trocar. Once this was in place, I am able to confirm intraperitoneal placement using da Nelly laparoscope. I then placed the patient in steep Trendelenburg after briefly scanning; the upper abdominal anatomy appears to be grossly normal. Once we were in steep Trendelenburg and I am able to visualize all my anatomy as described above in my findings, I then placed two lateral trocars approximately 8 cm lateral to my supraumbilical trocar. The skin was infiltrated using 0.25% Marcaine. An 8 mm incision was made with a knife and the trocars were placed under direct visualization and laparoscope. Once the trocars were in place, I did bring in the da Nelly robot and docked in appropriate fashion. Placing the vessel sealer in the left hand and monopolar ernst in the right hand, I took my place at the operative console. I then performed the following dissection bilaterally starting at the uteroovarian ligament. I bipolar cauterized and transected this using the vessel sealer. I create a window in the mesosalpinx. I took this laterally in the mesosalpinx amputating the fallopian tube from its surrounding blood supply. I then grasped the round ligament, bipolar cauterized and transected using the vessel sealer. I then grasped the entire broad ligament, which I then bipolar cauterized and transected using the vessel sealer down to the level of the lower uterine segment, at which point I the anterior and posterior leaflets of the broad ligament. Anterior leaflet was taken around the anterior vaginal fornix, posterior leaflet was taken around to the posterior vaginal fornix. This allows me to skeletonize the uterine vessels laterally, which I then bipolar cauterized and transected using the vessel sealer. I then created a colpotomy at 12 o'clock position using monopolar ernst and took this circumferentially around the vagina amputating the cervix away from the vagina. I then removed the entire specimen through the vagina, which is difficult, but I am able to do and there are some small abrasions of the vagina noted, but no significant lacerations have to be repaired. Once the uterus and bilateral fallopian tubes were removed, I then repair and closed the vaginal cuff. In the lateral vaginal apices, I used 2-0 Vicryl suture in a [id number] fashion colposuspending the uterosacral ligaments. The remainder of the vaginal cuff was closed using 2-0 V-Loc in a running fashion, after which there was no active bleeding noted from any of my dissection planes. I then undocked the da Nelly robot and proceeded with remainder of the case laparoscopically. I copiously irrigated the pelvis using normal saline. Once again, there was no active bleeding noted from any of my dissection planes. I placed Surgiflo hemostatic agent over all my planes of dissection. I had the patient taken out of steep Trendelenburg, where I removed the lateral trocars under direct visualization of laparoscope. The supraumbilical trocar was left in place to release insufflation and to introduce 10 mL of 0.25% Marcaine into the peritoneal cavity for postoperative pain management. Once this was done, I removed this trocar as well. The skin reapproximated using 4-0 Monocryl in interrupted subcuticular stitches. Dermabond was applied to the Incisions and Band-Aids were placed over these as well. Garcia catheter was left in place. The patient tolerated the procedure well and sent to recovery in stable condition. Lap and sponge counts were correct at the end of the procedure. Instrument count was correct as well. Two grams of Ancef, 500 mg of Flagyl given preoperatively for infection prophylaxis. Job ID: [id number] DocumentID: [id number] Dictated Date: 08/09/2019 13:11:27 Warehouse Receiving Clerk Date: 08/09/2019 22:46:33 Dictated By: YOSSI HERNADNEZ DO
[2019-08-10] MEDS ORDERED: IBUPROFEN 600 MG (MOTRIN) TAB PO SCH (02:45)
--- NOTE | 2019-08-10 08:41 | Anesthesia-General Post-Op ---
General Patient Condition Mental Status/LOC: Same as Preop Cardiovascular: Satisfactory Nausea/Vomiting: Absent Respiratory: Satisfactory Pain: Controlled Complications: Absent Post Op Complications Complications None Follow Up Care/Instructions Patient Instructions None needed. Anesthesia/Patient Condition Patient Condition Late entry from Patient was seen yesterday at 1435 and she was doing well, no complaints, stable vital signs, no apparent adverse anesthesia problems. DEBRA MILLER DO Aug 10, 2019 08:41 POS
--- OUTSIDE RECORDS SUMMARY | 2019-09-03 10:30 | XMS REPORT | CCD ---
Author Author Monica Dolan Organization Melodie Ambrose MD, [facility] Address [address] [place] [address] Phone Care Team Providers Care Librarian Head Name Role Phone PP Unavailable CCM Unavailable Summary Purpose Interface Exchange Insurance Providers Payer name Policy type / Coverage type Covered libertarian ID Effective Begin Date Effective End Date Blue Cross Blue Shield [facility] e Cross/Blue Shield [id number] Unknown Unk nown Family history Mother Diagnosis Age At Onset Anemia Unknown kidney disease Unknown Heart Attack Unknown Diabetes mellitus Type 1 Unknown Stroke Unknown Hypertension Unknown Father Diagnosis Age At Onset Heart Attack Unknown Arthritis Unknown Hypertension Unknown Runs in the family Diagnosis Age At Onset Breast cancer Unknown Social History Social History Element Codes Description Effective Dates Marital status Unknown S manjit 07/01/2017 Employment Unknown 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 [employer] 07/01/[address]: 39098877 Current every day smoker 07/01/2017 Number of years using tobacco Unknown 10 - 20 1 pack day/20 years 07/01/2017 Number of cigarettes/day Unknown 20 (One Pack) 07/01/[address]: 478358201 Never drinks alcohol 07/01/2017 Allergies, Adverse Reactions, Alerts Substance Reaction Codes Entered Date Inactivated Date Status * NO KNOWN ENVIRONME NTAL ALLERGIES Unknown 07/01/2017 No Inactive Date Active * NO KNOWN FOOD HILDA RGIES Unknown 07/01/2017 No Inactive Date Active NO KNOWN ALLERGIES Unknown 07/01/2017 No In active Date Active Past Medical History Illness Codes Condition Status Onset Date Resolved Date Generalized anxiety disorder ICD-9: 300.00 ICD-10: F41.1 Active 04/14/2018 Unknown Major depressive dis order, single episode, moderate ICD-9: 296.22 ICD-10: F32.1 Active 04/14/2018 Unknown Benign paroxysmal ve rtigo, bilateral ICD-9: 386.11 ICD-10: H81.13 Active 11/23/2018 Unknown Other allergic rhinitis ICD-9: 477.8 ICD-10: J30.89 Active 08/17/2018 Unknown Cervicalgia ICD-9: 723.1 ICD-10: M54.2 Active 11/23/2018 Unknown Other muscle spasm ICD- 9: 728.85 ICD-10: M62.838 Active 11/23/2018 Unknown Other chronic pancre atitis ICD-9: 577.1 ICD-10: K86.1 Active 07/01/2017 Unknown Cellulitis of right external ear ICD-9: 380.10 ICD-10: H60.11 Active 09/30/2018 Unknown Dysuria ICD-9: 788.1 ICD-10: R30.0 Active 09/02/2018 Unknown Acute laryngopharyng itis ICD-9: 465.0 ICD-10: J06.0 Active 08/17/2018 Unknown Other acute pancreat itis without necrosis or infection ICD-9: 577.0 ICD-10: K85.80 Active 07/01/2017 Unknown Left upper quadrant pain ICD-9: 789.02 ICD-10: R10.12 Active 07/01/2017 Unknown 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 Active 07/01/2017 Unknown Problems Condition Codes Effectiv e Dates Condition Status Generalized anxiety disorder ICD-9: 300.00 ICD-10: F41.1 04/14/2018 Active Major depressive dis order, single episode, moderate ICD-9: 296.22 ICD-10: F32.1 04/14/2018 Active Benign paroxysmal ve rtigo, bilateral ICD-9: 386.11 ICD-10: H81.13 11/23/2018 Active Other allergic rhinitis ICD-9: 477.8 ICD-10: J30.89 08/17/2018 Active Cervicalgia ICD-9: 723.1 ICD-10: M54.2 11/23/2018 Active Other muscle spasm ICD- 9: 728.85 ICD-10: M62.838 11/23/2018 Active Other chronic pancre atitis ICD-9: 577.1 ICD-10: K86.1 07/01/2017 Active Cellulitis of right external ear ICD-9: 380.10 ICD-10: H60.11 09/30/2018 Active Dysuria ICD-9: 788.1 ICD-10: R30.0 09/02/2018 Active Acute laryngopharyng itis ICD-9: 465.0 ICD-10: J06.0 08/17/2018 Active Other acute pancreat itis without necrosis or infection ICD-9: 577.0 ICD-10: K85.80 07/01/2017 Active Left upper quadrant pain ICD-9: 789.02 ICD-10: R10.12 07/01/2017 Active 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 07/01/2017 Active Medications Medication Codes Instruc tions Start Date Stop Date Sta tus Fill Instructions Lexapro 10 mg tablet RxNorm: 787739 1 TABLET(S) PO QHS 05/06/2019 07/04/2019 Active Lexapro 10 mg tablet RxNorm: 928889 1 Tablet(s) PO QHS 04/05/2019 05/04/2019 Inactive Kenalog 40 mg/mL cherelle pension for injection RxNorm: 3584125 Milliliter(s) Inj 11/24/2018 11/24/2018 In active Creon 36,000 unit-11 4,000 unit-180,000 unit capsule,delayed release RxNorm: 7389908 CAPSULE(S) 1 CAPSULE(S) PO WITH MEALS AND SNACKS 11/23/2018 No Stop Date Active Zoloft 25 mg tablet RxNorm: 344976 1 TABLET(S) PO DAILY 11/23/2018 01/21/2019 Inactive meclizine 25 mg tablet RxNorm: 759978 1 Tablet(s) PO TID as needed Dizziness 11/23/2018 12/02/2018 In active naproxen 500 mg tablet RxNorm: 376890 1 Tablet(s) PO BID as needed for pain 11/23/2018 11/27/2018 In active Prozac 20 mg capsule RxNorm: 915564 1 Capsule(s) PO daily 10/21/2018 10/27/2018 Inactive Zoloft 25 mg tablet RxNorm: 644455 1 Tablet(s) PO daily 10/21/2018 11/19/2018 Inactive Levaquin 500 mg tablet RxNorm: 304867 1 Tablet(s) PO daily 10/02/2018 10/08/2018 Inactive Levaquin 500 mg tablet RxNorm: 450172 1 Tablet(s) PO daily 10/02/2018 10/01/2018 Inactive Levaquin 500 mg tablet RxNorm: 221563 1 Tablet(s) PO daily 10/02/2018 10/01/2018 Inactive prednisone 20 mg tablet RxNorm: 531527 2 Tablet(s) PO daily 09/30/2018 10/04/2018 Inactive Bactrim DS 800 mg-16 0 mg tablet RxNorm: 220911 1 Tablet(s) PO BID 09/30/2018 10/09/2018 Inactive Bactrim DS 800 mg-16 0 mg tablet RxNorm: 654873 1 Tablet(s) PO BID 09/02/2018 09/11/2018 Inactive Augmentin 875 mg-125 mg tablet RxNorm: 914262 1 Tablet(s) PO BID [facility] in hospital 08/17/2018 08/23/2018 Inactive Prozac 40 mg capsule RxNorm: 188383 1 Capsule(s) PO daily 08/10/2018 04/01/2019 Inactive Creon 36,000 unit-11 4,000 unit-180,000 unit capsule,delayed release RxNorm: 7602804 CAPSULE(S) 1 CAPSULE(S) PO WITH MEALS AND SNACKS 05/15/2018 11/22/2018 Inactive Prozac 20 mg capsule RxNorm: 769944 1 Capsule(s) PO daily 05/13/2018 08/09/2018 Inactive Prozac 20 mg capsule RxNorm: 527572 1 Capsule(s) PO daily 04/14/2018 05/12/2018 Inactive Creon 36,000 unit-11 4,000 unit-180,000 unit capsule,delayed release RxNorm: 6615772 Capsule(s) 1 CAPSULE(S) PO WITH MEALS AND SNACKS 01/06/2018 05/14/2018 Inactive Creon 36,000 unit-11 4,000 unit-180,000 unit capsule,delayed release RxNorm: 8043987 1 CAPSULE(S) PO WITH MEALS AND SNACKS 07/04/2017 01/05/2018 Inactive pantoprazole 40 mg t ablet,delayed release RxNorm: 592490 1 Tablet(s) PO daily started in hospital 07/01/2017 07/30/2017 Inactive Creon 36,000 unit-11 4,000 unit-180,000 unit capsule,delayed release RxNorm: 1908273 1 Capsule(s) PO with meals and snacks 07/01/2017 07/03/2017 Inactive Augmentin 875 mg-125 mg tablet RxNorm: 666940 1 Tablet(s) PO BID [facility] arted in hospital 06/26/2017 06/27/2017 Inactive promethazine 25 mg t ablet RxNorm: 049892 1 Tablet(s) PO QID as needed started in hospital No Start Date Active Lactobacillus acidop hilus capsule RxNorm: 1 Capsule(s) PO daily No Start Date Active acetaminophen 500 mg tablet RxNorm: 879646 1-2 Tablet(s) PO Q4H as needed started hospital No Start Date Active oxycodone-acetaminop hen 5 mg-325 mg tablet RxNorm: 3028858 1-2 Tablet(s) PO Q4H started at the hospital No Start Date Active Carafate 1 gram tablet RxNorm: 791718 1 Tablet(s) PO AC & HS started in hospit al No Start Date Active scopolamine 1 mg ove r 3 days transdermal patch RxNorm: 569105 1 Patch TD Q72H start ed in the hospital No Start Date 03/31/2019 Inactive Medication Administered Medication Codes Instruc tions Start Date Status Kenalog 40 mg/mL suspension for injection RxNorm: 5680422 Milliliter 11/24/2018 No longer Active Immunizations No Immunization data Assessments Condition Codes Effectiv e Dates Major depressive disorder, single episode, moderate ICD-10: F32.1 ICD-9: 296.22 04/05/2019 Generalized anxiety disorder ICD-10: F41.1 ICD-9: 300.00 04/05/2019 Other allergic rhinitis ICD-10: J30. 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-9: 237.2 07/01/2017 Left upper quadrant pain ICD-10: R10 .12 ICD-9: 789.02 07/01/2017 Reason For Visit Reason For Visit Effective Dates Notes depression 04/05/2019 neck pain 11/23/2018 Hospital Follow Up 11/04/2018 anxiety 10/21/2018 earache 10/05/2018 earache 09/30/2018 abdominal pain 09/02/2018 medication follow up 08/17/2018 medication follow up 05/13/2018 depression 04/14/2018 abdominal pain 01/09/2018 abdominal pain 11/28/2017 abdominal pain 07/01/2017 Results Observation Observation Code Item Item Code Result Date Manual Differential Ord52 D-Neutr 72 % 07/02/2017 Manual Differential Ord52 D-Bands 1 % 07/02/2017 Manual Differential Ord52 D-Lymph 24 % 07/02/2017 Manual Differential Ord52 D-[place] 1 % 07/02/2017 Manual Differential Ord52 D-Eos [...] 30.4 pg 07/02/2017 Cbc With Differential Ord2 [place]% 6.1 % 07/02/2017 Cbc With Differential Ord2 MCHC 33.5 pg 07/02/2017 Cbc With Differential Ord2 Eos% 1.7 % 07/02/2017 Cbc With Differential Ord2 PLT 879 Result Verified By Jayjay t Analysis K/ul 07/02/2017 Cbc With Differential Ord2 Baso% 0.8 % 07/02/2017 Cbc With Differential Ord2 RDW 13.2 % 07/02/2017 Cbc With Differential Ord2 Neut ABS# 8.11 K/ul 07/02/2017 Cbc With Differential Ord2 Lymph ABS# 2.10 K/ul 07/02/2017 Cbc With Differential Ord2 [place] ABS# 0.7 K/ul 07/02/2017 Cbc With Differential Ord2 Eos ABS# 0.2 K/ul 07/02/2017 Cbc With Differential Ord2 Baso ABS# 0.1 K/ul 07/02/2017 Lipase Glt784 LIPASE 26 U/L 07/02/2017 Comp Metabolic Fqh514 NA 134 mEq/L 07/02/2017 Comp Metabolic Okk174 K 4.6 mEq/L 07/02/2017 Comp Metabolic Qfa784 CL 93 mEq/L 07/02/2017 Comp Metabolic Sti661 CO2 28.0 mEq/L 07/02/2017 Comp Metabolic Npi413 AN ION GAP 18 07/02/2017 Comp Metabolic Aws273 GL UCOSE 108 mg/dL 07/02/2017 Comp Metabolic Krm226 Cr eat 0.7 mg/dL 07/02/2017 Comp Metabolic Zcy224 eG FR 100 ml/min/1.73m2 09/2016 Comp Metabolic Egf881 BUN 10 mg/dL 07/02/2017 Comp Metabolic Sog414 B/ C Ratio 14.7 Ratio 07/02/2017 Comp Metabolic Mym578 CA LCIUM 10.0 mg/dL 07/02/2017 Comp Metabolic Izn575 AL K PHOS 102 U/L 07/02/2017 Comp Metabolic Dah737 T(SGOT) 15 U/L 07/02/2017 Comp Metabolic Ort273 AL T(SGPT) 18 U/L 07/02/2017 Comp Metabolic Scf669 BI LI T 0.4 mg/dL 07/02/2017 Comp Metabolic Mnm610 AL BUMIN 3.9 g/dL 07/02/2017 Comp Metabolic Ngc655 TP RO 7.8 g/dL 07/02/2017 Comp Metabolic Yhi783 GL OB 3.9 g/dL 07/02/2017 Comp Metabolic Oxr852 A/ G Ratio 1.0 Ratio 07/02/2017 Comp Metabolic Igi777 Os mo 268 mOsmo 07/02/2017 Review of Systems System Result Effective Dates Constitutional No recent illness 04/05/2019 Constitutional No chills 04/05/2019 Constitutional No diaphoresis 04/05/2019 Constitutional No fever 04/05/2019 Eyes No eye erythema 12/2018 Ears/Nose/Throat/Neck No nasal allergies 04/05/2019 Ears/Nose/Throat/Neck No nasal discharge 04/05/2019 Cardiovascular No chest pain/pressure 04/05/2019 Cardiovascular No dyspnea 04/05/2019 Respiratory No chest congestion 04/05/2019 Respiratory No cough 12/2018 Gastrointestinal No abdominal pain 04/05/2019 Musculoskeletal No joint complaint 04/05/2019 Dermatologic No rash 12/2018 Neurologic No alteration of consciousness 04/05/2019 Neurologic No mental status change 04/05/2019 Psychiatric anxiety 0812/2018 Psychiatric depression 0 04/05/2019 Psychiatric No suicidality 04/05/2019 Constitutional No recent illness 11/23/2018 Constitutional No chills 11/23/2018 Constitutional No diaphoresis 11/23/2018 Constitutional No fever 11/23/2018 Eyes No eye erythema Ears/Nose/Throat/Neck nasal allergies 11/23/2018 Ears/Nose/Throat/Neck nasal discharge 11/23/2018 Ears/Nose/Throat/Neck dizziness 11/23/2018 Ears/Nose/Throat/Neck postnasal drip 11/23/2018 Ears/Nose/Throat/Neck No sinus congestion 11/23/2018 Ears/Nose/Throat/Neck No sore throat 11/23/2018 Cardiovascular No chest pain/pressure 11/23/2018 Cardiovascular No dyspnea 11/23/2018 Respiratory No cough Respiratory No chest congestion 11/23/2018 Gastrointestinal No abdominal pain 11/23/2018 Musculoskeletal neck pain 11/23/2018 Neurologic No alteration of consciousness 11/23/2018 Neurologic No mental status change 11/23/2018 Constitutional No recent illness 11/04/2018 Constitutional No chills 11/04/2018 Constitutional No diaphoresis 11/04/2018 Constitutional No fever 11/04/2018 Eyes No eye erythema 01/2019 Ears/Nose/Throat/Neck No nasal allergies 11/04/2018 Ears/Nose/Throat/Neck No nasal discharge 11/04/2018 Cardiovascular No chest pain/pressure 11/04/2018 Cardiovascular No dyspnea 11/04/2018 Respiratory No chest congestion 11/04/2018 Respiratory No cough 01/2019 Gastrointestinal No abdominal pain 11/04/2018 Gastrointestinal No constipation 11/04/2018 Gastrointestinal No diarrhea 11/04/2018 Gastrointestinal No vomiting 11/04/2018 Musculoskeletal No joint complaint 11/04/2018 Dermatologic No rash 01/2019 Neurologic No alteration of consciousness 11/04/2018 Neurologic No mental status change 11/04/2018 Constitutional No recent illness 10/21/2018 Constitutional No chills 10/21/2018 Constitutional No diaphoresis 10/21/2018 Constitutional No fever 10/21/2018 Eyes No eye erythema Ears/Nose/Throat/Neck No nasal allergies 10/21/2018 Ears/Nose/Throat/Neck No nasal discharge 10/21/2018 Cardiovascular No chest pain/pressure 10/21/2018 Cardiovascular No dyspnea 10/21/2018 Respiratory No chest congestion 10/21/2018 Respiratory No cough Gastrointestinal No abdominal pain 10/21/2018 Musculoskeletal No joint complaint 10/21/2018 Dermatologic No rash Neurologic No alteration of consciousness 10/21/2018 Neurologic No mental status change 10/21/2018 Psychiatric anxiety 10/03 Psychiatric depression 0 10/21/2018 Psychiatric No suicidality 10/21/2018 Constitutional No recent illness 10/05/2018 Constitutional No chills 10/05/2018 Constitutional No diaphoresis 10/05/2018 Constitutional No fever 10/05/2018 Eyes No eye erythema 11/2018 Ears/Nose/Throat/Neck No nasal discharge 10/05/2018 Cardiovascular No chest pain/pressure 10/05/2018 Respiratory No cough 11/2018 Dermatologic cellulitis 10/05/2018 Neurologic No alteration of consciousness 10/05/2018 Neurologic No mental status change 10/05/2018 Ears/Nose/Throat/Neck otalgia 10/05/2018 Constitutional No recent illness 09/30/2018 Constitutional No chills 09/30/2018 Constitutional No diaphoresis 09/30/2018 Constitutional No fever 09/30/2018 Eyes No eye erythema Ears/Nose/Throat/Neck No nasal discharge 09/30/2018 Cardiovascular No chest pain/pressure 09/30/2018 Respiratory No cough Neurologic No alteration of consciousness 09/30/2018 Neurologic No mental status change 09/30/2018 Dermatologic cellulitis 09/30/2018 Constitutional No recent illness 09/02/2018 Constitutional No chills 09/02/2018 Constitutional No diaphoresis 09/02/2018 Constitutional No fever 09/02/2018 Eyes No eye erythema 10/2018 Ears/Nose/Throat/Neck No nasal discharge 09/02/2018 Cardiovascular No chest pain/pressure 09/02/2018 Respiratory No cough 10/2018 Gastrointestinal abdominal pain 09/02/2018 Genitourinary/Nephrology dysuria 09/02/2018 Genitourinary/Nephrology urinary urgency 09/02/2018 Genitourinary/Nephrology urinary frequency 09/02/2018 Neurologic No alteration of consciousness 09/02/2018 Neurologic No mental status change 09/02/2018 Gastrointestinal diarrhea 09/02/2018 Gastrointestinal No constipation 09/02/2018 Gastrointestinal No vomiting 09/02/2018 Gastrointestinal No nausea 09/02/2018 Gastrointestinal No melena 09/02/2018 Constitutional No recent illness 08/17/2018 Constitutional No chills 08/17/2018 Constitutional No diaphoresis 08/17/2018 Constitutional No fever 08/17/2018 Eyes No eye erythema Ears/Nose/Throat/Neck nasal allergies 08/17/2018 Ears/Nose/Throat/Neck nasal discharge 08/17/2018 Cardiovascular No chest pain/pressure 08/17/2018 Cardiovascular No dyspnea 08/17/2018 Respiratory cough 2017 Gastrointestinal No abdominal pain 08/17/2018 Gastrointestinal No constipation 08/17/2018 Gastrointestinal No diarrhea 08/17/2018 Dermatologic No rash Neurologic No alteration of consciousness 08/17/2018 Neurologic No mental status change 08/17/2018 Psychiatric anxiety 08/01 Psychiatric depression 1 10/18/2017 Psychiatric No suicidality 08/17/2018 Ears/Nose/Throat/Neck sore throat 08/17/2018 Ears/Nose/Throat/Neck sinus congestion 08/17/2018 Respiratory No dyspnea 1 10/18/2017 Constitutional No recent illness 05/13/2018 Constitutional No chills 05/13/2018 Constitutional No diaphoresis 05/13/2018 Constitutional No fever 05/13/2018 Eyes No eye erythema 08/2018 Ears/Nose/Throat/Neck No nasal discharge 05/13/2018 Ears/Nose/Throat/Neck No nasal allergies 05/13/2018 Cardiovascular No chest pain/pressure 05/13/2018 Cardiovascular No dyspnea 05/13/2018 Respiratory No cough 08/2018 Gastrointestinal No abdominal pain 05/13/2018 Gastrointestinal No diarrhea 05/13/2018 Gastrointestinal No constipation 05/13/2018 Dermatologic No rash 08/2018 Neurologic No alteration of consciousness 05/13/2018 Neurologic No mental status change 05/13/2018 Psychiatric anxiety 05/02 Psychiatric depression 0 05/13/2018 Psychiatric No suicidality 05/13/2018 Constitutional No recent illness 04/14/2018 Constitutional No chills 04/14/2018 Constitutional No diaphoresis 04/14/2018 Constitutional No fever 04/14/2018 Eyes No eye erythema Ears/Nose/Throat/Neck No nasal discharge 04/14/2018 Cardiovascular No chest pain/pressure 04/14/2018 Cardiovascular No dyspnea 04/14/2018 Respiratory No cough Respiratory No chest congestion 04/14/2018 Gastrointestinal No abdominal pain 04/14/2018 Musculoskeletal No joint complaint 04/14/2018 Dermatologic No rash Neurologic No alteration of consciousness 04/14/2018 Neurologic No mental status change 04/14/2018 Psychiatric depression 0 04/14/2018 Psychiatric anxiety 04/01 Psychiatric No suicidality 04/14/2018 Constitutional No recent illness 01/09/2018 Constitutional No chills 01/09/2018 Constitutional No diaphoresis 01/09/2018 Constitutional No fever 01/09/2018 Eyes No eye erythema 07/2018 Ears/Nose/Throat/Neck No nasal allergies 01/09/2018 Ears/Nose/Throat/Neck No nasal discharge 01/09/2018 Cardiovascular No chest pain/pressure 01/09/2018 Cardiovascular No dyspnea 01/09/2018 Respiratory No chest congestion 01/09/2018 Respiratory No cough 07/2018 Gastrointestinal No abdominal pain 01/09/2018 Gastrointestinal No constipation 01/09/2018 Gastrointestinal No diarrhea 01/09/2018 Gastrointestinal No vomiting 01/09/2018 Musculoskeletal No joint complaint 01/09/2018 Dermatologic No rash 07/2018 Neurologic No alteration of consciousness 01/09/2018 Neurologic No mental status change 01/09/2018 Constitutional No recent illness 11/28/2017 Constitutional No chills 11/28/2017 Constitutional No diaphoresis 11/28/2017 Constitutional No fever 11/28/2017 Eyes No eye erythema Ears/Nose/Throat/Neck No nasal discharge 11/28/2017 Ears/Nose/Throat/Neck No nasal allergies 11/28/2017 Cardiovascular No chest pain/pressure 11/28/2017 Cardiovascular No dyspnea 11/28/2017 Respiratory No cough Respiratory No chest congestion 11/28/2017 Gastrointestinal No abdominal pain 11/28/2017 Gastrointestinal No constipation 11/28/2017 Gastrointestinal No diarrhea 11/28/2017 Gastrointestinal No vomiting 11/28/2017 Musculoskeletal No joint complaint 11/28/2017 Dermatologic No rash Neurologic No alteration of consciousness 11/28/2017 Neurologic No mental status change 11/28/2017 Constitutional recent illness 07/01/2017 Constitutional No chills 07/01/2017 Constitutional fatigue 1 Constitutional No fever 07/01/2017 Constitutional malaise 1 Eyes No eye erythema Ears/Nose/Throat/Neck No nasal discharge 07/01/2017 Cardiovascular No chest pain/pressure 07/01/2017 Cardiovascular No dyspnea 07/01/2017 Respiratory No cough Respiratory No chest congestion 07/01/2017 Gastrointestinal abdominal pain 07/01/2017 Gastrointestinal constipation 07/01/2017 Gastrointestinal No diarrhea 07/01/2017 Gastrointestinal No melena 07/01/2017 Gastrointestinal No hematochezia 07/01/2017 Gastrointestinal No vomiting 07/01/2017 Gastrointestinal nausea 07/01/2017 Musculoskeletal No joint complaint 07/01/2017 Dermatologic No rash Neurologic No alteration of consciousness 07/01/2017 Neurologic No mental status change 07/01/2017 Physical Exam Exam Name System Name It em Name Status Result Effective Dates Notes Full Exam - General 1994 Constitutional general appearance Overall: well developed 04/05/2019 None Full Exam - General 1994 Constitutional general appearance Overall: in no acute distress 04/05/2019 None Full Exam - General 1994 Constitutional general appearance Overall: well nourished 04/05/2019 None Full Exam - General 1994 Eyes conjunctiva/eyelids Overall: conjunctiva clear 04/05/2019 None Full Exam - General 1994 Eyes conjunctiva/eyelids Overall: cornea clear 04/05/2019 None Full Exam - General 1994 Eyes conjunctiva/eyelids Overall: eyelids normal 04/05/2019 None Full Exam - General 1995 Ears/Nose/Throat lips/teeth/gingiva Overall: benign lips 04/05/2019 None Full Exam - General 1995 Ears/Nose/Throat oral cavity/pharynx/larynx Overall: oral mucosa clear 04/05/2019 None Full Exam - General 1994 Respiratory respiratory effort/rhythm Overall: no retractions 04/05/2019 None Full Exam - General 1994 Respiratory respiratory effort/rhythm Overall: normal rate 04/05/2019 None Full Exam - General 1994 Cardiovascular extremities Overall: no clubbing 04/05/2019 None Full Exam - General 1994 Musculoskeletal gait and station Overall: normal gait 04/05/2019 None Full Exam - General 1994 Musculoskeletal gait and station Overall: normal station 04/05/2019 None Full Exam - General 1994 Musculoskeletal head and neck Overall: head atraumatic 04/05/2019 None Full Exam - General 1994 Neurologic cranial nerves Overall: crainial nerves 2 - 12 grossly intact 04/05/2019 None Full Exam - General 1994 Psychiatric orientation/consciousness Overall: oriented to person, place and time 04/05/2019 None Full Exam - General 1994 Psychiatric mood and affect Mood: depressed 04/05/2019 None Full Exam - General 1994 Psychiatric mood and affect Mood: anxious 04/05/2019 None Full Exam - General 1994 Constitutional general appearance Overall: well developed 11/23/2018 None Full Exam - General 1994 Constitutional general appearance Overall: in no acute distress 11/23/2018 None Full Exam - General 1994 Constitutional general appearance Overall: well nourished 11/23/2018 None Full Exam - General 1994 Eyes conjunctiva/eyelids Overall: eyelids normal 11/23/2018 None Full Exam - General 1994 Eyes conjunctiva/eyelids Overall: cornea clear 11/23/2018 None Full Exam - General 1994 Eyes conjunctiva/eyelids Overall: conjunctiva clear 11/23/2018 None Full Exam - General 1994 Eyes pupils and irises Overall: pupils equal, round, reactive to light and accomodation 11/23/2018 None Full Exam - General 1994 Ears/Nose/Throat otoscopic exam Overall: external auditory canals clear 11/23/2018 None Full Exam - General 1994 Ears/Nose/Throat lips/teeth/gingiva Overall: benign lips 11/23/2018 None Full Exam - General 1994 Ears/Nose/Throat oral cavity/pharynx/larynx Overall: oral mucosa clear 11/23/2018 None Full Exam - General 1994 Ears/Nose/Throat oral cavity/pharynx/larynx Posterior Pharynx: clear post nasal drainage 11/23/2018 None Full Exam - General 1994 Ears/Nose/Throat otoscopic exam Tympanic membrane: air-fluid level 11/23/2018 None Full Exam - General 1994 Respiratory respiratory effort/rhythm Overall: normal rate 11/23/2018 None Full Exam - General 1994 Respiratory respiratory effort/rhythm Overall: no retractions 11/23/2018 None Full Exam - General 1994 Respiratory auscultation Overall: breath sounds clear bilaterally 11/23/2018 None Full Exam - General 1994 Cardiovascular auscultation of heart Overall: regular rate 11/23/2018 None Full Exam - General 1994 Cardiovascular auscultation of heart Overall: normal heart sounds 11/23/2018 None Full Exam - General 1994 Musculoskeletal head and neck Overall: head atraumatic 11/23/2018 None Full Exam - General 1994 Musculoskeletal gait and station Overall: normal gait 11/23/2018 None Full Exam - General 1994 Musculoskeletal gait and station Overall: normal station 11/23/2018 None Full Exam - General 1994 Neurologic cranial nerves Overall: crainial nerves 2 - 12 grossly intact 11/23/2018 None Full Exam - General 1994 Psychiatric orientation/consciousness Overall: oriented to person, place and time 11/23/2018 None Full Exam - General 1994 Psychiatric mood and affect Overall: normal mood and affect 11/23/2018 None Full Exam - General 1994 Psychiatric appearance Overall: well-groomed, good eye contact 11/23/2018 None Full Exam - General 1994 Constitutional general appearance Overall: well developed 11/04/2018 None Full Exam - General 1994 Constitutional general appearance Overall: in no acute distress 11/04/2018 None Full Exam - General 1994 Constitutional general appearance Overall: well nourished 11/04/2018 None Full Exam - General 1994 Eyes conjunctiva/eyelids Overall: conjunctiva clear 11/04/2018 None Full Exam - General 1994 Eyes conjunctiva/eyelids Overall: cornea clear 11/04/2018 None Full Exam - General 1994 Eyes conjunctiva/eyelids Overall: eyelids normal 11/04/2018 None Full Exam - General 1994 Ears/Nose/Throat lips/teeth/gingiva Overall: benign lips 11/04/2018 None Full Exam - General 1994 Ears/Nose/Throat oral cavity/pharynx/larynx Overall: oral mucosa clear 11/04/2018 None Full Exam - General 1994 Respiratory auscultation Overall: breath sounds clear bilaterally 11/04/2018 None Full Exam - General 1994 Respiratory auscultation Diffuse: diminished 11/04/2018 None Full Exam - General 1994 Respiratory respiratory effort/rhythm Overall: no retractions 11/04/2018 None Full Exam - General 1994 Respiratory respiratory effort/rhythm Overall: normal rate 11/04/2018 None Full Exam - General 1994 Cardiovascular auscultation of heart Overall: regular rate 11/04/2018 None Full Exam - General 1994 Cardiovascular auscultation of heart Overall: normal heart sounds 11/04/2018 None Full Exam - General 1994 Musculoskeletal gait and station Overall: normal gait 11/04/2018 None Full Exam - General 1994 Musculoskeletal gait and station Overall: normal station 11/04/2018 None Full Exam - General 1994 Musculoskeletal head and neck Overall: head atraumatic 11/04/2018 None Full Exam - General 1994 Neurologic cranial nerves Overall: crainial nerves 2 - 12 grossly intact 11/04/2018 None Full Exam - General 1994 Psychiatric orientation/consciousness Overall: oriented to person, place and time 11/04/2018 None Full Exam - General 1994 Psychiatric mood and affect Overall: normal mood and affect 11/04/2018 None Full Exam - General 1994 Psychiatric appearance Overall: well-groomed, good eye contact 11/04/2018 None Full Exam - General 1994 Constitutional general appearance Overall: well developed 10/21/2018 None Full Exam - General 1994 Constitutional general appearance Overall: in no acute distress 10/21/2018 None Full Exam - General 1994 Constitutional general appearance Overall: well nourished 10/21/2018 None Full Exam - General 1994 Eyes conjunctiva/eyelids Overall: conjunctiva clear 10/21/2018 None Full Exam - General 1994 Eyes conjunctiva/eyelids Overall: cornea clear 10/21/2018 None Full Exam - General 1994 Eyes conjunctiva/eyelids Overall: eyelids normal 10/21/2018 None Full Exam [...] depressed 10/21/2018 None Full Exam - General 1994 Psychiatric mood and affect Mood: anxious 10/21/2018 None Full Exam - Dermatology Constitutional general appearance Overall: well nourished 10/05/2018 None Full Exam - Dermatology Constitutional general appearance Overall: well developed 10/05/2018 None Full Exam - Dermatology Constitutional general appearance Overall: in no acute distress 10/05/2018 None Full Exam - Dermatology Eyes conjunctiva/eyelids Overall: clear conjunctiva bilaterally 10/05/2018 None Full Exam - Dermatology Eyes conjunctiva/eyelids Overall: clear corneas 10/05/2018 None Full Exam - Dermatology Eyes conjunctiva/eyelids Overall: normal eyelids 10/05/2018 None Full Exam [...] 09/30/2018 None Full Exam - Dermatology Eyes conjunctiva/eyelids Overall: clear conjunctiva bilaterally 09/30/2018 None Full Exam - Dermatology Eyes conjunctiva/eyelids Overall: clear corneas 09/30/2018 None Full Exam - Dermatology Eyes conjunctiva/eyelids Overall: normal eyelids 09/30/2018 None Full Exam [...] None Full Exam - General 1995 Eyes conjunctiva/eyelids Overall: conjunctiva clear 09/02/2018 None Full Exam - General 1994 Eyes conjunctiva/eyelids Overall: cornea clear 09/02/2018 None Full Exam - General 1995 Eyes conjunctiva/eyelids Overall: eyelids normal 09/02/2018 None Full Exam [...] None Full Exam - General 1994 Eyes conjunctiva/eyelids Overall: conjunctiva clear 08/17/2018 None Full Exam - General 1994 Eyes conjunctiva/eyelids Overall: cornea clear 08/17/2018 None Full Exam - General 1994 Eyes conjunctiva/eyelids Overall: eyelids normal 08/17/2018 None Full Exam [...] None Full Exam - General 1994 Eyes conjunctiva/eyelids Overall: conjunctiva clear 05/13/2018 None Full Exam - General 1994 Eyes conjunctiva/eyelids Overall: cornea clear 05/13/2018 None Full Exam - General 1994 Eyes conjunctiva/eyelids Overall: eyelids normal 05/13/2018 None Full Exam [...] None Full Exam - General 1994 Eyes conjunctiva/eyelids Overall: conjunctiva clear 04/14/2018 None Full Exam - General 1994 Eyes conjunctiva/eyelids Overall: cornea clear 04/14/2018 None Full Exam - General 1994 Eyes conjunctiva/eyelids Overall: eyelids normal 04/14/2018 None Full Exam [...] None Full Exam - General 1994 Eyes conjunctiva/eyelids Overall: conjunctiva clear 01/09/2018 None Full Exam - General 1994 Eyes conjunctiva/eyelids Overall: cornea clear 01/09/2018 None Full Exam - General 1994 Eyes conjunctiva/eyelids Overall: eyelids normal 01/09/2018 None Full Exam [...] None Full Exam - General 1994 Eyes conjunctiva/eyelids Overall: conjunctiva clear 11/28/2017 None Full Exam - General 1994 Eyes conjunctiva/eyelids Overall: cornea clear 11/28/2017 None Full Exam - General 1994 Eyes conjunctiva/eyelids Overall: eyelids normal 11/28/2017 None Full Exam [...] None Full Exam - General 1994 Eyes conjunctiva/eyelids Overall: conjunctiva clear 07/01/2017 None Full Exam - General 1994 Eyes conjunctiva/eyelids Overall: eyelids normal 07/01/2017 None Full Exam [...] Abdomen abdominal exam Upper quadrant: no rebound tendernes s 07/01/2017 None Full Exam - General 1994 [...] Abdomen abdominal exam Lower quadrant: no rebound tendernes s 07/01/2017 None Full Exam - General 1994 [...] and affect Mood: flat 07/01/2017 None Procedures Procedure Codes Date THER/PROPH/DIAG INJ SC/IM CPT-4: 84562 11/24/2018 TRIAMCINOLONE ACET I [place] NOS CPT-4: J3301 11/24/2018 Vital Signs Date Vital 04/05/2019 Blood Pressure 1: 122/74 Code: 8480-6 BMI: 26.2 Code: 68322-1 Heart Rate 1: 75 bpm Height: 5'3" SpO2: 95% Weight: 148 lbs 11/23/2018 Blood Pressure 1: 110/70 Code: 8480-6 BMI: 26.7 Code: 40798-7 Heart Rate 1: 85 bpm Height: 5'3" SpO2: 99% Weight: 151 lbs 11/04/2018 Blood Pressure 1: 142/68 Code: 8480-6 BMI: 26.7 Code: 03963-7 Heart Rate 1: 70 bpm Height: 5'3" SpO2: 99% Weight: 151 lbs 10/21/2018 BMI: 26.7 Code: 37321-7 Height: 5'3" Weight: 151 lbs 10/05/2018 Blood Pressure 1: 124/70 Code: 8480-6 BMI: 26.9 Code: 47275-4 Heart Rate 1: 94 bpm Height: 5'3" SpO2: 99% Weight: 152 lbs 09/30/2018 Blood Pressure 1: 136/78 Code: 8480-6 BMI: 26.9 Code: 61176-4 Heart Rate 1: 71 bpm Height: 5'3" SpO2: 99% Temperature: 36.6 (C ) / 97.8 (F) Weight: 152 lbs 09/02/2018 Blood Pressure 1: 122/60 Code: 8480-6 BMI: 26.9 Code: 87991-1 Heart Rate 1: 65 bpm Height: 5'3" SpO2: 95% Weight: 152 lbs 08/17/2018 Blood Pressure 1: 132/68 Code: 8480-6 BMI: 26.9 Code: 41271-6 Heart Rate 1: 63 bpm Height: 5'3" SpO2: 97% Weight: 152 lbs 05/13/2018 Blood Pressure 1: 140/82 Code: 8480-6 BMI: 28.0 Code: 33401-7 Heart Rate 1: 57 bpm Height: 5'3" SpO2: 97% Weight: 158 lbs 04/14/2018 Blood Pressure 1: 126/74 Code: 8480-6 BMI: 28.0 Code: 13427-8 Heart Rate 1: 66 bpm Height: 5'3" SpO2: 97% Weight: 158 lbs 01/09/2018 Blood Pressure 1: 122/68 Code: 8480-6 BMI: 28.2 Code: 39190-7 Heart Rate 1: 70 bpm Height: 5'3" SpO2: 98% Weight: 159 lbs 11/28/2017 Blood Pressure 1: 110/70 Code: 8480-6 BMI: 28.2 Code: 98852-6 Heart Rate 1: 67 bpm Height: 5'3" SpO2: 95% Weight: 159 lbs 07/01/2017 Blood Pressure 1: 118/70 Code: 8480-6 BMI: 25.5 Code: 70318-6 Heart Rate 1: 76 bpm Height: 5'3" SpO2: 95% Weight: 144 lbs Functional Status No Functional Status data History of Present Illness Symptom Name Status Resu lt Effective Date Notes Quality chronic 04/05/2019 None Onset and Resolution o ngoing 04/05/2019 None Pertinent Findings anx iety 04/05/2019 None Pertinent Findings Den ies self-harm 04/05/2019 None Pertinent Findings Den ies suicide attempt/plan 04/05/2019 None Pertinent Findings Den ies suicidal ideation 04/05/2019 None Location Cervical spine 11/23/2018 None Quality aching 11/23/2018 None Quality constant 11/23/2018 None Quality dull 11/23/2018 None Quality squeezing 11/23/2018 None Onset and Resolution g radual in onset 11/23/2018 None Onset of Symptom 1 mon ths ago 11/23/2018 None Frequency of Episodes daily 11/23/2018 None _ infection 11/04/2018 None Onset of Symptom 1 day s ago 11/04/2018 None Quality chronic 10/21/2018 None Quality worsening 10/21/2018 None Onset and Resolution o ngoing 10/21/2018 None Quality chronic 10/21/2018 None Onset and Resolution o ngoing 10/21/2018 None Quality worsening 10/21/2018 None Pertinent Findings irr itability 10/21/2018 None Pertinent Findings Den ies self-harm 10/21/2018 None Pertinent Findings Den ies suicide attempt/plan 10/21/2018 None Location right ear 10/05/2018 None Quality throbbing 10/05/2018 None Quality worsening 10/05/2018 None Onset and Resolution s udden in onset 10/05/2018 None Onset of Symptom 2 day s ago 10/05/2018 None Frequency of Episodes daily 10/05/2018 None Location right ear 09/30/2018 None Quality worsening 09/30/2018 None Quality throbbing 09/30/2018 None Onset and Resolution s udden in onset 09/30/2018 None Onset of Symptom 2 day s ago 09/30/2018 None Frequency of Episodes daily 09/30/2018 None Location in the suprap ubic area 09/02/2018 None Quality aching 09/02/2018 None Quality constant 09/02/2018 None Quality squeezing 09/02/2018 None Onset and Resolution s udden in onset 09/02/2018 None Onset of Symptom 1 wee ks ago 09/02/2018 None Additional Comments me dication use 08/17/2018 None Location oral intake 08/17/2018 None Location in the throat 08/17/2018 None Location in the lung 08/17/2018 None Quality constant 08/17/2018 None Quality hacking 08/17/2018 None Quality productive 08/17/2018 None Onset and Resolution s udden in onset 08/17/2018 None medication follow up Additional Comments medication use 05/13/2018 None medication follow up Location oral intake 05/13/2018 None depression Quality inter mittent 04/14/2018 None depression Onset and Resolution sudden [...] Resolution resolved 01/09/2018 None abdominal pain Quality c hronic 01/09/2018 None abdominal pain Quality i mproving 01/09/2018 None abdominal pain Location diffusely 11/28/2017 None abdominal pain Quality a tati 11/28/2017 None abdominal pain Quality c onstant 11/28/2017 None abdominal pain Quality c ramping 11/28/2017 None abdominal pain Onset and Resolution sudden in onset 11/28/2017 None abdominal pain Onset of Symptom 1 months ago 11/28/2017 None abdominal pain Onset and Resolution resolved 11/28/2017 None abdominal pain Location diffusely 07/01/2017 None abdominal pain Quality a tati 07/01/2017 None abdominal pain Quality c onstant 07/01/2017 None abdominal pain Quality c ramping 07/01/2017 None abdominal pain Onset and Resolution sudden in onset 07/01/2017 None abdominal pain Onset of Symptom 1 months ago 07/01/2017 None Hospital Follow Up _ gas trointestinal complaints 07/01/2017 None Hospital Follow Up Onset of Symptom 3 weeks ago 07/01/2017 None Advance Directives No Advance Directive data Encounters Encounter Performer Loca tion Codes Date 17549 EST. PATIENT, LEVEL III Diagnosis: Generalized anxiety disorder[ICD10: F41.1] Diagnosis: Major depressive disorder, single episode, moderate[ICD10: F32.1] Lelia Ambrose MD, [facility] CPT-4: 90623 04/05/2019 35019 EST. PATIENT, LEVEL IV Diagnosis: Benign paroxysmal vertigo, bilateral[ICD10: H81.13] Diagnosis: Cervicalgia[ICD10: M54.2] Diagnosis: Other muscle spasm[ICD10: M62.838] Lelia Ambrose MD, [facility] CPT-4: 87918 11/23/2018 11493 EST. PATIENT, LEVEL III Diagnosis: Other chronic pancreatitis[ICD10: K86.1] Diagnosis: Generalized anxiety disorder[ICD10: F41.1] Diagnosis: Major depressive disorder, single episode, moderate[ICD10: F32.1] Lelia Ambrose MD, [facility] CPT-4: 19570 11/04/2018 38182 EST. PATIENT, LEVEL III Diagnosis: Generalized anxiety disorder[ICD10: F41.1] Diagnosis: Major depressive disorder, single episode, moderate[ICD10: F32.1] Lelia Ambrose MD, [facility] CPT-4: 52398 10/21/2018 76879 EST. PATIENT, LEVEL III Diagnosis: Cellulitis of right external ear[ICD10: H60.11] Lelia Ambrose MD, [facility] CPT-4: 67720 10/05/2018 64466 EST. PATIENT, LEVEL III Diagnosis: Cellulitis of right external ear[ICD10: H60.11] Lelia Ambrose MD, [facility] CPT-4: 88276 09/30/2018 30306 EST. PATIENT, LEVEL III Diagnosis: Dysuria[ICD10: R30.0] Lelia Ambrose MD, [facility] CPT-4: 65110 09/02/2018 69063 EST. PATIENT, LEVEL III Diagnosis: Generalized anxiety disorder[ICD10: F41.1] Diagnosis: Major depressive disorder, single episode, moderate[ICD10: F32.1] Diagnosis: Other allergic rhinitis[ICD10: J30.89] Diagnosis: Acute laryngopharyngitis[ICD10: J06.0] Lelia Ambrose MD, [facility] CPT-4: 33234 08/17/2018 49090 EST. PATIENT, LEVEL III Diagnosis: Generalized anxiety disorder[ICD10: F41.1] Diagnosis: Major depressive disorder, single episode, moderate[ICD10: F32.1] Lelia Ambrose MD, [facility] CPT-4: 16287 05/13/2018 50390 EST. PATIENT, LEVEL IV Diagnosis: Generalized anxiety disorder[ICD10: F41.1] Diagnosis: Major depressive disorder, single episode, moderate[ICD10: F32.1] Lelia Ambrose MD, [facility] CPT-4: 26699 04/14/2018 39651 EST. PATIENT, LEVEL III Diagnosis: Other chronic pancreatitis[ICD10: K86.1] Lelia Ambrose MD, [facility] CPT-4: 16726 01/09/2018 47183 EST. 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 Pt is aware of the risks and [...] has been appropriately prescribed for this patient. 04/05/2019 Appointment: Lelia Dolan WPtel: [facility] (30 min) Complex 04/05/2019 Patient Education: Patient Medication Summary Completed 04/05/2019 Appointment: Lelia Dolan WPtel: [facility] (15 min) Moderate 02/15/2019 Appointment: Injection 11/24/2018 Patient Education: Patient Medication Summary Completed 11/24/2018 Visit Plan: BPPV - Benign Paroxysma l Positional Vertigo - discussed diagnosis with the patient, offered the pt the appropriate additional information in hand-out. Pt instructed in home exercises to help alleviate and prevent future recurrent episodes of vertigo. Pt informed that if symptoms worsen, call the office for further instructions/medication interventions. Neck Pain- pt to start with aspercreme or biofreeze to neck three times daily and start neck exercises daily. 11/23/2018 Appointment: Lelia Dolan WPtel: [facility] (30 min) Complex 11/23/2018 Patient Education: Patient Medication Summary Completed 11/23/2018 Patient Education: .Cervicalgia Neck Pain Completed 11/23/2018 Visit Plan: Chronic Depression and anxiety - the pt has symptoms of chronic anxiety and depression that have been fairly well controlled since the last office visit. The pt has expected periods of exacerbation with abatement of the symptoms with change in situational exposure. No change in current medications. Chronic pancreatitis - defer to specialist, pt is to notify clinic with any changes in her current treatment plan. 11/04/2018 Appointment: Lelia Dolan WPtel: [facility]5 [facility] (30 min) Complex 11/04/2018 Patient Education: Patient Medication Summary Completed 11/04/2018 Patient Education: Depression Completed 11/04/2018 Visit Plan: Anxiety - the patient h as uncontrolled anxiety and will benefit from an SSRI on a daily basis to attempt control of the symptoms of anxiety (tachycardia, overwhelming sensations, stress, insomnia, et c). I also believe that the patient will [...] this patient. 10/21/2018 Appointment: Lelia Dolan WPtel: [facility] (15 min) Moderate 10/21/2018 Patient Education: Patient Medication Summary Completed 10/21/2018 Patient Education: Obesity Completed 10/21/2018 Visit Plan: Cellulitis - improving - finish levaquin as directed - will refer to Dr. De La Garza for recurrent bacterial infections. 10/05/2018 Appointment: Lelia Dolan WPtel: [facility] (30 min) Complex 10/05/2018 Patient Education: Patient Medication Summary Completed 10/05/2018 Visit Plan: Abscess/Cellulitis - Th e patient was instructed in appropriate wound care. The patient was instructed to use the antibiotic ointment as per RX. The patient is to call for any change in symptoms, increase in size of the lesion, increase in pain, call for acute change in symptoms, worsening redness, warmth, discharge. 09/30/2018 Appointment: Lelia Dolan WPtel: [phone] [facility] (15 min) Moderate 09/30/2018 Patient Education: Patient Medication Summary Completed 09/30/2018 Visit Plan: UTI - pt with positive urinalysis - culture sent if appropriate. Antibiotic electronically prescribed to pt's pharmacy of choice. Pt to call if symptoms do not improve. Chronic pancreatitis - amylase and lipase within normal limits - continue to monitor 09/02/2018 Appointment: Lelia Dolan WPtel: [phone] [place] [id number] (30 min) Complex 09/02/2018 Patient Education: Patient Medication Summary Completed 09/02/2018 Visit Plan: URI - Pt advised to inc rease fluids, vitamin C. Discussed natural and expected [...] concerns. 08/17/2018 Appointment: Lelia Dolan WPtel: [phone] [facility]66[facility] (15 min) Moderate 08/17/2018 Patient Education: Patient [...] current medications. 05/13/2018 Appointment: Lelia Dolan WPtel: [facility]5 [facility] (15 min) Moderate 05/13/2018 Patient Education: Patient Medication Summary Completed 05/13/2018 Patient Education: Depression Completed 05/13/2018 Visit Plan: Anxiety - the patient h as uncontrolled anxiety and will benefit from an SSRI on a daily basis to attempt control of the symptoms of anxiety (tachycardia, overwhelming sensations, stress, insomnia, et c). Pt is aware of the risks and [...] 04/14/2018 Appointment: Lelia Dolan WPtel: [facility] (15 min) Moderate 04/14/2018 Patient Education: Patient Medication Summary Completed 04/14/2018 Visit Plan: chronic pancreatitis - defer to specialist - pt is to notify clinic with any changes in the current treatment plan - pt is to notify clinic with any changes, questions, or concerns. 01/09/2018 Appointment: Lelia Dolan WPtel: [facility]5 [facility] (30 min) Complex 01/09/2018 Patient Education: Patient Medication Summary Completed 01/09/2018 Visit Plan: chronic pancreatitis - defer to specialist - pt is to notify clinic with any changes in the current treatment plan - pt is to notify clinic with any changes, questions, or concerns. 11/28/2017 Appointment: Lelia Dolan WPtel: [facility]5 [facility] (15 min) Moderate 11/28/2017 Patient Education: Patient Medication Summary Completed 11/28/2017 Appointment: Lelia Dolan WPtel: [facility]5 [facility] (15 min) Moderate 11/18/2017 Appointment: Lelia Dolan WPtel: [address] [place] [address] (30 min) Complex 07/28/2017 Care Plan: Referral Order SNOMED-CT : [id number] Pending 07/03/2017 Visit Plan: Hospital follow up, griffith creatitis - discussed with Dr. Arnol garciaeck labs, will restart creon - will refer to a GI specialist at [facility] is to notify clinic with any changes, questions or malini rns. 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 07/01/2017 Visit Plan: Hospital follow up, griffith creatitis - discussed with Dr. Arnol garciaeck labs, will restart creon - will refer to a GI specialist at [facility] is to notify clinic with any changes, questions or malini rns. 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 07/01/2017 Visit Plan: Hospital follow up, griffith creatitis - discussed with Dr. Arnol adams labs, will restart creon - will refer to a GI specialist at [facility] is to notify clinic with any changes, questions or malini rns. 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 07/01/2017 Visit Plan: Hospital follow up, griffith creatitis - discussed with Dr. Arnol garciaeck labs, will restart creon - will refer to a GI specialist at [facility] is to notify clinic with any changes, questions or malini rns. 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 07/01/2017 Appointment: Lelia Dolan WPtel: [address] [place], [place] [id number] New Patient 07/01/2017 Patient Education: Patient Medication Summary Completed 07/01/2017 Referral: External, Ordering Provider Referral Initiated Instructions Comment . Cellulitis - impro ving - finish levaquin as directed - will refer to Dr. De La Garza for recurrent bacterial infections. . URI - Pt advised t o increase fluids, vitamin C. Discussed natural and [...] any changes, questions, or concerns. . chronic pancreatit is - defer to specialist - pt is to notify clinic with any changes in the current treatment plan - pt is to notify clinic with any changes, questions, or concerns. steroid shot tomorro w meclizine as needed for dizziness vertigo exercises naproxen for neck pain . BPPV - Benign Paroxysmal Positional Ve rtigo - discussed diagnosis with the patient, offered the pt the appropriate additional information in hand-out. Pt instructed in home exercises to help alleviate and prevent future recurrent episodes of vertigo. Pt informed that if symptoms worsen, call the office for further instructions/medication interventions. Neck Pain- pt to start with aspercreme or biofreeze to neck three times daily and start neck exercises daily. . Chronic Depression and anxiety - the pt has symptoms of chronic anxiety and depression that have been fairly well controlled since the last office visit. The pt has expected periods of exacerbation with abatement of the symptoms with change in situational exposure. No change in current medications. Chronic pancreatitis - defer to specialist, pt is to notify clinic with any changes in her current treatment plan. . Chronic Depression and anxiety - the pt has symptoms of chronic anxiety and depression that have been fairly well controlled since the last office visit. The pt has expected periods of exacerbation with abatement of the symptoms with change in situational exposure. No change in current medications. . UTI - pt with posi tive urinalysis - culture sent if appropriate. Antibiotic electronically prescribed to pt's pharmacy of choice. Pt to call if symptoms do not improve. Chronic pancreatitis - amylase and lipase within normal limits - continue to monitor . Anxiety - the michelle ent has uncontrolled anxiety and will benefit from [...] appropriately prescribed for this patient. hydrocodone as neede d for pain prednisone to decrease the inflammation [...] worsening redness, warmth, discharge. Start creon with shaheen ls and snacks will check labs today will refer to GI specialist. Hospital follow up, pancreatitis - discussed with Dr. Ambrose - pina recheck labs, will restart creon - will refer to a GI specialist at [facility] pt is to notify clinic with any changes, questions or concerns. 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 Start creon with shaheen ls and snacks will check labs today will refer to GI specialist. Hospital follow up, pancreatitis - discussed with Dr. Ambrose - pina recheck labs, will restart creon - will refer to a GI specialist at [facility] pt is to notify clinic with any changes, questions or concerns. 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 Start creon with shaheen ls and snacks will check labs today will refer to GI specialist. Hospital follow up, pancreatitis - discussed with Dr. Ambrose - will recheck labs, will restart creon - will refer to a GI specialist at - pt is to notify clinic with any changes, questions or concerns. 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 Start creon with shaheen ls and snacks will check labs today will refer to GI specialist. Hospital follow up, pancreatitis - discussed with Dr. Ambrose - will recheck labs, will restart creon - will refer to a GI specialist at - pt is to notify clinic with any changes, questions or concerns. 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 . chronic pancreatit is - defer to specialist - pt is to notify clinic with any changes in the current treatment plan - pt is to notify clinic with any changes, questions, or concerns. . Anxiety - the michelle ent has uncontrolled anxiety and will benefit from [...] has been appropriately prescribed for this patient. . Anxiety - the michelle ent has uncontrolled anxiety and will benefit from [...]
--- OUTSIDE RECORDS SUMMARY | 2019-09-03 10:30 | XMS REPORT | CCD ---
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 [employer] 07/01/[address]: 03838761 Current every day smoker 07/01/2017 Number of years using tobacco Unknown 10 - 20 1 pack day/20 years 07/01/2017 Number of cigarettes/day Unknown 20 (One Pack) 07/01/[address]: 109247748 Never drinks alcohol 07/01/2017 Allergies, Adverse Reactions, [...] Date Stop Date Sta tus Fill Instructions Creon 36,000 unit-11 4,000 unit-180,000 unit capsule,delayed release RxNorm: 8199537 CAPSULE(S) 1 CAPSULE(S) PO WITH MEALS AND SNACKS 05/06/2019 No Stop Date Active Lexapro 10 mg tablet RxNorm: 003567 1 TABLET(S) PO QHS 05/06/2019 07/04/2019 Active Lexapro 10 mg tablet RxNorm: 797707 1 Tablet(s) PO QHS 04/05/2019 05/04/2019 Inactive Kenalog 40 mg/mL cherelle pension for injection RxNorm: 6821085 Milliliter(s) Inj 11/24/2018 11/24/2018 In active Zoloft 25 mg tablet RxNorm: 844293 1 TABLET(S) PO DAILY 11/23/2018 01/21/2019 Inactive meclizine 25 mg tablet RxNorm: 461589 1 Tablet(s) PO TID as needed Dizziness 11/23/2018 12/02/2018 In active Creon 36,000 unit-11 4,000 unit-180,000 unit capsule,delayed release RxNorm: 4127609 CAPSULE(S) 1 CAPSULE(S) PO WITH MEALS AND SNACKS 11/23/2018 05/05/2019 Inactive naproxen 500 mg tablet RxNorm: 668324 1 Tablet(s) PO BID as needed for pain 11/23/2018 11/27/2018 In active Prozac 20 mg capsule RxNorm: 828148 1 Capsule(s) PO daily 10/21/2018 10/27/2018 Inactive Zoloft 25 mg tablet RxNorm: 510527 1 Tablet(s) PO daily 10/21/2018 11/19/2018 Inactive Levaquin 500 mg tablet RxNorm: 896274 1 Tablet(s) PO daily 10/02/2018 10/08/2018 Inactive Levaquin 500 mg tablet RxNorm: 259006 1 Tablet(s) PO daily 10/02/2018 10/01/2018 Inactive Levaquin 500 mg tablet RxNorm: 110729 1 Tablet(s) PO daily 10/02/2018 10/01/2018 Inactive prednisone 20 mg tablet RxNorm: 192793 2 Tablet(s) PO daily 09/30/2018 10/04/2018 Inactive Bactrim DS 800 mg-16 0 mg tablet RxNorm: 375505 1 Tablet(s) PO BID 09/30/2018 10/09/2018 Inactive Bactrim DS 800 mg-16 0 mg tablet RxNorm: 860236 1 Tablet(s) PO BID 09/02/2018 09/11/2018 Inactive Augmentin 875 mg-125 mg tablet RxNorm: 851989 1 Tablet(s) PO BID [facility] 08/17/2018 08/23/2018 Inactive Prozac 40 mg capsule RxNorm: 651571 1 Capsule(s) PO daily 08/10/2018 04/01/2019 Inactive Creon 36,000 unit-11 4,000 unit-180,000 unit capsule,delayed release RxNorm: 5272209 CAPSULE(S) 1 CAPSULE(S) PO WITH MEALS AND SNACKS 05/15/2018 11/22/2018 Inactive Prozac 20 mg capsule RxNorm: 311491 1 Capsule(s) PO daily 05/13/2018 08/09/2018 Inactive Prozac 20 mg capsule RxNorm: 111377 1 Capsule(s) PO daily 04/14/2018 05/12/2018 Inactive Creon 36,000 unit-11 4,000 unit-180,000 unit capsule,delayed release RxNorm: 0357541 Capsule(s) 1 CAPSULE(S) PO WITH MEALS AND SNACKS 01/06/2018 05/14/2018 Inactive Creon 36,000 unit-11 4,000 unit-180,000 unit capsule,delayed release RxNorm: 1178400 1 CAPSULE(S) PO WITH MEALS AND SNACKS 07/04/2017 01/05/2018 Inactive pantoprazole 40 mg t ablet,delayed release RxNorm: 835745 1 Tablet(s) PO daily started in hospital 07/01/2017 07/30/2017 Inactive Creon 36,000 unit-11 4,000 unit-180,000 unit capsule,delayed release RxNorm: 5590574 1 Capsule(s) PO with meals and snacks 07/01/2017 07/03/2017 Inactive Augmentin 875 mg-125 mg tablet RxNorm: 051875 1 Tablet(s) PO BID [facility] art[facility] in hospital 06/26/2017 06/27/2017 Inactive promethazine 25 mg t ablet RxNorm: 792904 1 Tablet(s) PO QID as needed started in hospital No Start Date Active Lactobacillus acidop hilus capsule RxNorm: 1 Capsule(s) PO daily No Start Date Active acetaminophen 500 mg tablet RxNorm: 787795 1-2 Tablet(s) PO Q4H as needed started hospital No Start Date Active oxycodone-acetaminop hen 5 mg-325 mg tablet RxNorm: 4305701 1-2 Tablet(s) PO Q4H started at the hospital No Start Date Active Carafate 1 gram tablet RxNorm: 778756 1 Tablet(s) PO AC & HS started in hospit al No Start Date Active scopolamine 1 mg ove r 3 days transdermal patch RxNorm: 496951 1 Patch TD Q72H start ed in the hospital No Start Date 03/31/2019 Inactive Medication Administered Medication Codes Instruc tions Start Date Status Kenalog 40 mg/mL suspension for injection RxNorm: 6635406 Milliliter 11/24/2018 No longer Active Immunizations No [...] D-Lymph 24 % 07/02/2017 Manual Differential Ord52 D-Heard 1 % 07/02/2017 Manual Differential Ord52 D-Eos [...] 30.4 pg 07/02/2017 Cbc With Differential Ord2 Heard% 6.1 % 07/02/2017 Cbc With Differential Ord2 MCHC 33.5 pg 07/02/2017 Cbc With Differential Ord2 Eos% 1.7 % 07/02/2017 Cbc With Differential Ord2 PLT 879 Result Verified By Repea t Analysis K/ul 07/02/2017 Cbc With Differential Ord2 Baso% 0.8 % 07/02/2017 Cbc With Differential Ord2 RDW 13.2 % 07/02/2017 Cbc With Differential Ord2 Neut ABS# 8.11 K/ul 07/02/2017 Cbc With Differential Ord2 Lymph ABS# 2.10 K/ul 07/02/2017 Cbc With Differential Ord2 Heard ABS# 0.7 K/ul 07/02/2017 Cbc With Differential Ord2 Eos ABS# 0.2 K/ul 07/02/2017 Cbc With Differential Ord2 Baso ABS# 0.1 K/ul 07/02/2017 Lipase Mqk719 LIPASE 26 U/L 07/02/2017 Comp Metabolic Ayb900 NA 134 mEq/L 07/02/2017 Comp Metabolic Ppp869 K 4.6 mEq/L 07/02/2017 Comp Metabolic Sez582 CL 93 mEq/L 07/02/2017 Comp Metabolic Sta575 CO2 28.0 mEq/L 07/02/2017 Comp Metabolic Hdo467 AN ION GAP 18 07/02/2017 Comp Metabolic Ckd408 GL UCOSE 108 mg/dL 07/02/2017 Comp Metabolic Flx311 Cr eat 0.7 mg/dL 07/02/2017 Comp Metabolic Zii252 eG FR 100 ml/min/1.73m2 09/2016 Comp Metabolic Ael383 BUN 10 mg/dL 07/02/2017 Comp Metabolic Jzt286 B/ C Ratio 14.7 Ratio 07/02/2017 Comp Metabolic Ntd922 CA LCIUM 10.0 mg/dL 07/02/2017 Comp Metabolic Ckk543 AL K PHOS 102 U/L 07/02/2017 Comp Metabolic Rbx147 T(SGOT) 15 U/L 07/02/2017 Comp Metabolic Lso614 AL T(SGPT) 18 U/L 07/02/2017 Comp Metabolic His904 BI LI T 0.4 mg/dL 07/02/2017 Comp Metabolic Rar550 AL BUMIN 3.9 g/dL 07/02/2017 Comp Metabolic Wul752 TP RO 7.8 g/dL 07/02/2017 Comp Metabolic Mwj530 GL OB 3.9 g/dL 07/02/2017 Comp Metabolic Zvu760 A/ G Ratio 1.0 Ratio 07/02/2017 Comp Metabolic Swk362 Os mo 268 mOsmo 07/02/2017 Review of [...] clear 04/05/2019 None Full Exam - General 1995 Eyes conjunctiva/eyelids Overall: cornea clear 04/05/2019 None [...] clear 11/23/2018 None Full Exam - General 1995 Ears/Nose/Throat [...] Exam - General 1995 Eyes conjunctiva/eyelids Overall: cornea clear 09/02/2018 None [...] General 1995 Eyes conjunctiva/eyelids Overall: conjunctiva clear 05/13/2018 None Full Exam - General 1994 Eyes conjunctiva/eyelids Overall: cornea clear 05/13/2018 None Full Exam - General 1994 Eyes conjunctiva/eyelids Overall: eyelids normal 05/13/2018 None Full Exam - General 1995 Ears/Nose/Throat lips/teeth/gingiva Overall: benign lips 05/13/2018 None [...] lips 04/14/2018 None Full Exam - General 1995 [...] Procedure Codes Date THER/PROPH/DIAG INJ SC/IM CPT-4: 66957 11/24/2018 TRIAMCINOLONE ACET I [place] NOS CPT-4: J3301 11/24/2018 Vital Signs Date Vital 04/05/2019 Blood Pressure 1: 122/74 Code: 8480-6 BMI: 26.2 Code: 44049-2 Heart Rate 1: 75 bpm Height: 5'3" SpO2: 95% Weight: 148 lbs 11/23/2018 Blood Pressure 1: 110/70 Code: 8480-6 BMI: 26.7 Code: 55377-5 Heart Rate 1: 85 bpm Height: 5'3" SpO2: 99% Weight: 151 lbs 11/04/2018 Blood Pressure 1: 142/68 Code: 8480-6 BMI: 26.7 Code: 61868-6 Heart Rate 1: 70 bpm Height: 5'3" SpO2: 99% Weight: 151 lbs 10/21/2018 BMI: 26.7 Code: 32324-8 Height: 5'3" Weight: 151 lbs 10/05/2018 Blood Pressure 1: 124/70 Code: 8480-6 BMI: 26.9 Code: 94060-9 Heart Rate 1: 94 bpm Height: 5'3" SpO2: 99% Weight: 152 lbs 09/30/2018 Blood Pressure 1: 136/78 Code: 8480-6 BMI: 26.9 Code: 97176-7 Heart Rate 1: 71 bpm Height: 5'3" SpO2: 99% Temperature: 36.6 (C ) / 97.8 (F) Weight: 152 lbs 09/02/2018 Blood Pressure 1: 122/60 Code: 8480-6 BMI: 26.9 Code: 82130-7 Heart Rate 1: 65 bpm Height: 5'3" SpO2: 95% Weight: 152 lbs 08/17/2018 Blood Pressure 1: 132/68 Code: 8480-6 BMI: 26.9 Code: 63948-6 Heart Rate 1: 63 bpm Height: 5'3" SpO2: 97% Weight: 152 lbs 05/13/2018 Blood Pressure 1: 140/82 Code: 8480-6 BMI: 28.0 Code: 05706-7 Heart Rate 1: 57 bpm Height: 5'3" SpO2: 97% Weight: 158 lbs 04/14/2018 Blood Pressure 1: 126/74 Code: 8480-6 BMI: 28.0 Code: 70347-7 Heart Rate 1: 66 bpm Height: 5'3" SpO2: 97% Weight: 158 lbs 01/09/2018 Blood Pressure 1: 122/68 Code: 8480-6 BMI: 28.2 Code: 45729-5 Heart Rate 1: 70 bpm Height: 5'3" SpO2: 98% Weight: 159 lbs 11/28/2017 Blood Pressure 1: 110/70 Code: 8480-6 BMI: 28.2 Code: 85461-9 Heart Rate 1: 67 bpm Height: 5'3" SpO2: 95% Weight: 159 lbs 07/01/2017 Blood Pressure 1: 118/70 Code: 8480-6 BMI: 25.5 Code: 24126-1 Heart Rate 1: 76 bpm Height: 5'3" [...] Encounters Encounter Performer Loca tion Codes Date 42043 EST. PATIENT, LEVEL III Diagnosis: Generalized anxiety disorder[ICD10: F41.1] Diagnosis: Major depressive disorder, single episode, moderate[ICD10: F32.1] Lelia Ambrose MD, [facility] CPT-4: 79298 04/05/2019 99967 EST. PATIENT, LEVEL IV Diagnosis: Benign paroxysmal vertigo, bilateral[ICD10: H81.13] Diagnosis: Cervicalgia[ICD10: M54.2] Diagnosis: Other muscle spasm[ICD10: M62.838] Lelia Ambrose MD, [facility] CPT-4: 49796 11/23/2018 64585 EST. PATIENT, LEVEL III Diagnosis: Other chronic pancreatitis[ICD10: K86.1] Diagnosis: Generalized anxiety disorder[ICD10: F41.1] Diagnosis: Major depressive disorder, single episode, moderate[ICD10: F32.1] Lelia Ambrose MD, [facility] CPT-4: 84368 11/04/2018 76852 EST. PATIENT, LEVEL III Diagnosis: Generalized anxiety disorder[ICD10: F41.1] Diagnosis: Major depressive disorder, single episode, moderate[ICD10: F32.1] Lelia Ambrose MD, [facility] CPT-4: 23656 10/21/2018 33043 EST. PATIENT, LEVEL III Diagnosis: Cellulitis of right external ear[ICD10: H60.11] Lelia Ambrose MD, [facility] CPT-4: 76250 10/05/2018 13494 EST. PATIENT, LEVEL III Diagnosis: Cellulitis of right external ear[ICD10: H60.11] Lelia Ambrose MD, [facility] CPT-4: 58901 09/30/2018 19875 EST. PATIENT, LEVEL III Diagnosis: Dysuria[ICD10: R30.0] Lelia Ambrose MD, [facility] CPT-4: 84174 09/02/2018 27507 EST. PATIENT, LEVEL III Diagnosis: Generalized anxiety disorder[ICD10: F41.1] Diagnosis: Major depressive disorder, single episode, moderate[ICD10: F32.1] Diagnosis: Other allergic rhinitis[ICD10: J30.89] Diagnosis: Acute laryngopharyngitis[ICD10: J06.0] Lelia Ambrose MD, [facility] CPT-4: 85197 08/17/2018 90503 EST. PATIENT, LEVEL III Diagnosis: Generalized anxiety disorder[ICD10: F41.1] Diagnosis: Major depressive disorder, single episode, moderate[ICD10: F32.1] Lelia Ambrose MD, [facility] CPT-4: 37856 05/13/2018 74631 EST. PATIENT, LEVEL IV Diagnosis: Generalized anxiety disorder[ICD10: F41.1] Diagnosis: Major depressive disorder, single episode, moderate[ICD10: F32.1] Lelia Ambrose MD, [facility] CPT-4: 39184 04/14/2018 08536 EST. PATIENT, LEVEL III Diagnosis: Other chronic pancreatitis[ICD10: K86.1] Lelia Ambrose MD, [facility] CPT-4: 55409 01/09/2018 81353 EST. 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 04/05/2019 Appointment: Lelia Dolan WPtel: [address] [place], [place] [phone] (30 min) Complex 04/05/2019 Patient Education: Patient Medication Summary Completed 04/05/2019 Appointment: Lelia Dolan WPtel: [address] [place], [place] [phone] (15 min) Moderate 02/15/2019 Appointment: Injection 11/24/2018 [...] exercises daily. 11/23/2018 Appointment: [facility] Dolan [facility]el[facility] [phone] [facility] [place] (30 min) Complex 11/23/2018 Patient Education: Patient [...] treatment plan. 11/04/2018 Appointment: Lelia Dolan WPtel: [facility] (30 min) Complex 11/04/2018 Patient Education: Patient [...] this patient. 10/21/2018 Appointment: Lelia Dolan WPtel: [phone] [facility] [place] (15 min) Moderate 10/21/2018 Patient Education: Patient Medication Summary Completed 10/21/2018 Patient Education: Obesity Completed 10/21/2018 Visit Plan: Cellulitis - improving - finish levaquin as directed - will refer to Dr. De La Garza for recurrent bacterial infections. 10/05/2018 Appointment: Lelia Dolan WPtel: [facility] [place] (30 min) Complex 10/05/2018 Patient Education: Patient [...] [facility]Ptel[facility] [phone] [facility] [place] (15 min) Moderate 09/30/2018 Patient Education: Patient Medication Summary Completed 09/30/2018 Visit Plan: UTI - pt with positive urinalysis - culture sent if appropriate. Antibiotic electronically prescribed to pt's pharmacy of choice. Pt to call if symptoms do not improve. Chronic pancreatitis - amylase and lipase within normal limits - continue to monitor 09/02/2018 Appointment: Lelia Dolan WPtel: [phone] [facility] [place] (30 min) Complex 09/02/2018 Patient Education: Patient [...] or concerns. 08/17/2018 Appointment: Lelia Dolan WPtel: [phone] [facility] (15 min) Moderate 08/17/2018 Patient Education: Patient [...] current medications. 05/13/2018 Appointment: Lelia Dolan WPtel: [phone] [facility] (15 min) Moderate 05/13/2018 Patient Education: Patient [...] this patient. 04/14/2018 Appointment: Lelia Dolan WPtel: [phone] [facility] [place] (15 min) Moderate 04/14/2018 Patient Education: Patient Medication Summary Completed 04/14/2018 Visit Plan: chronic pancreatitis - defer to specialist - pt is to notify clinic with any changes in the current treatment plan - pt is to notify clinic with any changes, questions, or concerns. 01/09/2018 Appointment: Lelia Dolan WPtel: [phone] [facility] [place] (30 min) Complex 01/09/2018 Patient Education: Patient Medication Summary Completed 01/09/2018 Visit Plan: chronic pancreatitis - defer to specialist - pt is to notify clinic with any changes in the current treatment plan - pt is to notify clinic with any changes, questions, or concerns. 11/28/2017 Appointment: Lelia Dolan WPtel: [phone] [facility] (15 min) Moderate 11/28/2017 Patient Education: Patient Medication Summary Completed 11/28/2017 Appointment: Lelia Dolan WPtel: [facility] [place] (15 min) Moderate 11/18/2017 Appointment: Lelia Dolan WPtel: [address] [place] [address] (30 min) Complex 07/28/2017 Care Plan: Referral Order SNOMED-CT : [id number] Pending 07/03/2017 Visit Plan: Hospital follow up, griffith creatitis - discussed with Dr. Ambrose - will recheck labs, will restart creon - will refer to a GI specialist at [facility] pt is to notify clinic with any changes, questions or malini rns. 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 07/01/2017 Visit Plan: Hospital follow up, griffith creatitis - discussed with Dr. Ambrose - pina recheck labs, will restart creon - will refer to a GI specialist at [facility] pt is to notify clinic with any changes, questions or malini rns. 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 07/01/2017 Visit Plan: Hospital follow up, griffith creatitis - discussed with Dr. Ambrose - pina recheck labs, will restart creon - will refer to a GI specialist at - pt is to notify clinic with any changes, questions or malini rns. 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 07/01/2017 Visit Plan: Hospital follow up, griffith creatitis - discussed with Dr. Ambrose - pina recheck labs, will restart creon - will refer to a GI specialist at [facility] pt is to notify clinic with any changes, questions or malini rns. 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 07/01/2017 Appointment: Lelia Dolan WPtel: [facility] [place] New Patient 07/01/2017 Patient Education: Patient [...] will refer to a GI specialist at [facility] pt is to notify clinic with any changes, questions or concerns. 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 Start creon with shaheen ls and snacks will check labs today will refer to GI specialist. Hospital follow up, pancreatitis - discussed with Dr. Ambrose - will recheck labs, will restart creon - will refer to a GI specialist at [facility] - pt is to notify clinic with [...]
--- OUTSIDE RECORDS SUMMARY | 2019-09-03 10:31 | XMS REPORT | CCD ---
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 [email or web address] 07/01/[address]: 05729846 Current every day smoker 07/01/2017 Number of years using tobacco Unknown 10 - 20 1 pack day/20 years 07/01/2017 Number of cigarettes/day Unknown 20 (One Pack) 07/01/[address]: 636312308 Never drinks alcohol 07/01/2017 Allergies, Adverse Reactions, Alerts Substance Reaction Codes Entered Date Inactivated Date Status * NO KNOWN ENVIRONME NTAL ALLERGIES Unknown 07/01/2017 No Inactive Date Active * NO KNOWN FOOD HILDA RGIES Unknown 07/01/2017 No Inactive Date Active NO KNOWN ALLERGIES Unknown 07/01/2017 No In active Date Active Past Medical History Illness Codes Condition Status Onset Date Resolved Date Benign paroxysmal ve rtigo, bilateral ICD-9: 386.11 ICD-10: H81.13 Active 11/23/2018 Unknown Other allergic rhinitis ICD-9: 477.8 ICD-10: J30.89 Active 08/17/2018 Unknown Cervicalgia ICD-9: 723.1 ICD-10: M54.2 Active 11/23/2018 Unknown Other muscle spasm ICD- 9: 728.85 ICD-10: M62.838 Active 11/23/2018 Unknown Generalized anxiety disorder ICD-9: 300.00 ICD-10: F41.1 Active 04/14/2018 Unknown Major depressive dis order, single episode, moderate ICD-9: 296.22 ICD-10: F32.1 Active 04/14/2018 Unknown Other chronic pancre atitis ICD-9: 577.1 [...] Condition Codes Effectiv e Dates Condition Status Benign paroxysmal ve rtigo, bilateral ICD-9: 386.11 ICD-10: H81.13 11/23/2018 Active Other allergic rhinitis ICD-9: 477.8 ICD-10: J30.89 08/17/2018 Active Cervicalgia ICD-9: 723.1 ICD-10: M54.2 11/23/2018 Active Other muscle spasm ICD- 9: 728.85 ICD-10: M62.838 11/23/2018 Active Generalized anxiety disorder ICD-9: 300.00 ICD-10: F41.1 04/14/2018 Active Major depressive dis order, single episode, moderate ICD-9: 296.22 ICD-10: F32.1 04/14/2018 Active Other chronic pancre atitis ICD-9: 577.1 [...] Date Stop Date Sta tus Fill Instructions Kenalog 40 mg/mL cherelle pension for injection RxNorm: 8329642 Milliliter(s) Inj 11/24/2018 11/24/2018 In active Zoloft 25 mg tablet RxNorm: 514163 1 TABLET(S) PO DAILY 11/23/2018 01/21/2019 Active meclizine 25 mg tablet RxNorm: 324566 1 Tablet(s) PO TID as needed Dizziness 11/23/2018 12/02/2018 Ac tive Creon 36,000 unit-11 4,000 unit-180,000 unit capsule,delayed release RxNorm: 9338244 CAPSULE(S) 1 CAPSULE(S) PO WITH MEALS AND SNACKS 11/23/2018 No Stop Date Active naproxen 500 mg tablet RxNorm: 869278 1 Tablet(s) PO BID as needed for pain 11/23/2018 11/27/2018 In active Prozac 20 mg capsule RxNorm: 688144 1 Capsule(s) PO daily 10/21/2018 10/27/2018 Inactive Zoloft 25 mg tablet RxNorm: 742145 1 Tablet(s) PO daily 10/21/2018 11/19/2018 Inactive Levaquin 500 mg tablet RxNorm: 191336 1 Tablet(s) PO daily 10/02/2018 10/08/2018 Inactive Levaquin 500 mg tablet RxNorm: 802662 1 Tablet(s) PO daily 10/02/2018 10/01/2018 Inactive Levaquin 500 mg tablet RxNorm: 133444 1 Tablet(s) PO daily 10/02/2018 10/01/2018 Inactive prednisone 20 mg tablet RxNorm: 279799 2 Tablet(s) PO daily 09/30/2018 10/04/2018 Inactive Bactrim DS 800 mg-16 0 mg tablet RxNorm: 725971 1 Tablet(s) PO BID 09/30/2018 10/09/2018 Inactive Bactrim DS 800 mg-16 0 mg tablet RxNorm: 601940 1 Tablet(s) PO BID 09/02/2018 09/11/2018 Inactive Augmentin 875 mg-125 mg tablet RxNorm: 911684 1 Tablet(s) PO BID [facility] in hospital 08/17/2018 08/23/2018 Inactive Prozac 40 mg capsule RxNorm: 447292 1 Capsule(s) PO daily 08/10/2018 05/06/2019 Active Creon 36,000 unit-11 4,000 unit-180,000 unit capsule,delayed release RxNorm: 3279324 CAPSULE(S) 1 CAPSULE(S) PO WITH MEALS AND SNACKS 05/15/2018 11/22/2018 Inactive Prozac 20 mg capsule RxNorm: 741095 1 Capsule(s) PO daily 05/13/2018 08/09/2018 Inactive Prozac 20 mg capsule RxNorm: 104118 1 Capsule(s) PO daily 04/14/2018 05/12/2018 Inactive Creon 36,000 unit-11 4,000 unit-180,000 unit capsule,delayed release RxNorm: 0994230 Capsule(s) 1 CAPSULE(S) PO WITH MEALS AND SNACKS 01/06/2018 05/14/2018 Inactive Creon 36,000 unit-11 4,000 unit-180,000 unit capsule,delayed release RxNorm: 8992513 1 CAPSULE(S) PO WITH MEALS AND SNACKS 07/04/2017 01/05/2018 Inactive pantoprazole 40 mg t ablet,delayed release RxNorm: 660435 1 Tablet(s) PO daily started in hospital 07/01/2017 07/30/2017 Inactive Creon 36,000 unit-11 4,000 unit-180,000 unit capsule,delayed release RxNorm: 5483538 1 Capsule(s) PO with meals and snacks 07/01/2017 07/03/2017 Inactive Augmentin 875 mg-125 mg tablet RxNorm: 189746 1 Tablet(s) PO BID [facility] art[facility] in hospital 06/26/2017 06/27/2017 Inactive scopolamine 1 mg ove r 3 days transdermal patch RxNorm: 797513 1 Patch TD Q72H start ed in the hospital No Start Date Active promethazine 25 mg t ablet RxNorm: 414436 1 Tablet(s) PO QID as needed started in hospital No Start Date Active Lactobacillus acidop hilus capsule RxNorm: 1 Capsule(s) PO daily No Start Date Active acetaminophen 500 mg tablet RxNorm: 045006 1-2 Tablet(s) PO Q4H as needed started hospital No Start Date Active oxycodone-acetaminop hen 5 mg-325 mg tablet RxNorm: 5354446 1-2 Tablet(s) PO Q4H started at the hospital No Start Date Active Carafate 1 gram tablet RxNorm: 559439 1 Tablet(s) PO AC & HS started in hospit al No Start Date Active Medication Administered Medication Codes Instruc tions Start Date Status Kenalog 40 mg/mL suspension for injection RxNorm: 0912283 Milliliter 11/24/2018 No longer Active Immunizations No Immunization data Assessments Condition Codes Effectiv e Dates Other allergic rhinitis ICD-10: J30. 89 ICD-9: 477.8 11/24/2018 Benign paroxysmal vertigo, bilateral ICD-10: H81.13 ICD-9: 386.11 11/24/2018 Other muscle spasm ICD-10: M62.838 ICD-9: 728.85 11/23/2018 Cervicalgia ICD-10: M54.2 ICD-9: 723.1 11/23/2018 Other chronic pancreatitis ICD-10: K 86.1 ICD-9: 577.1 11/04/2018 Major depressive disorder, single episode, moderate ICD-10: F32.1 ICD-9: 296.22 11/04/2018 Generalized anxiety disorder ICD-10: F41.1 ICD-9: 300.00 11/04/2018 Cellulitis of right external ear ICD -10: H60.11 ICD-9: 380.10 10/05/2018 Dysuria ICD-10: R30.0 ICD-9: 788.1 09/02/2018 Acute laryngopharyngitis ICD-10: J06 .0 ICD-9: 465.0 08/17/2018 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 ICD-9: 237.2 07/01/2017 Left upper quadrant pain ICD-10: R10 .12 ICD-9: 789.02 07/01/2017 Reason For Visit Reason For Visit Effective Dates Notes neck pain 11/23/2018 Hospital Follow Up 11/04/2018 [...] D-Lymph 24 % 07/02/2017 Manual Differential Ord52 D-[place] 1 % 07/02/2017 Manual Differential Ord52 D-Eos [...] 30.4 pg 07/02/2017 Cbc With Differential Ord2 [place]% 6.1 % 07/02/2017 Cbc With Differential Ord2 [...] 2.10 K/ul 07/02/2017 Cbc With Differential Ord2 [place] ABS# 0.7 K/ul 07/02/2017 Cbc With Differential Ord2 Eos ABS# 0.2 K/ul 07/02/2017 Cbc With Differential Ord2 Baso ABS# 0.1 K/ul 07/02/2017 Lipase Bhf957 LIPASE 26 U/L 07/02/2017 Comp Metabolic Lzp418 NA 134 mEq/L 07/02/2017 Comp Metabolic Okr314 K 4.6 mEq/L 07/02/2017 Comp Metabolic Gry923 CL 93 mEq/L 07/02/2017 Comp Metabolic Nww720 CO2 28.0 mEq/L 07/02/2017 Comp Metabolic Bff679 AN ION GAP 18 07/02/2017 Comp Metabolic Rkq391 GL UCOSE 108 mg/dL 07/02/2017 Comp Metabolic Rcl753 Cr eat 0.7 mg/dL 07/02/2017 Comp Metabolic Zfu046 eG FR 100 ml/min/1.73m2 09/2016 Comp Metabolic Jtg656 BUN 10 mg/dL 07/02/2017 Comp Metabolic Hsl210 B/ C Ratio 14.7 Ratio 07/02/2017 Comp Metabolic Vrh044 CA LCIUM 10.0 mg/dL 07/02/2017 Comp Metabolic Ysq675 AL K PHOS 102 U/L 07/02/2017 Comp Metabolic Ztw445 T(SGOT) 15 U/L 07/02/2017 Comp Metabolic Vod029 AL T(SGPT) 18 U/L 07/02/2017 Comp Metabolic Rdd641 BI LI T 0.4 mg/dL 07/02/2017 Comp Metabolic Dta037 AL BUMIN 3.9 g/dL 07/02/2017 Comp Metabolic Kyf578 TP RO 7.8 g/dL 07/02/2017 Comp Metabolic Dcv325 GL OB 3.9 g/dL 07/02/2017 Comp Metabolic Ewi565 A/ G Ratio 1.0 Ratio 07/02/2017 Comp Metabolic Zag608 Os mo 268 mOsmo 07/02/2017 Review of Systems System Result Effective Dates Constitutional No recent illness 11/23/2018 Constitutional No [...] sounds 11/23/2018 None Full Exam - General 1995 Musculoskeletal [...] General 1994 Eyes conjunctiva/eyelids Overall: conjunctiva clear 09/02/2018 None Full Exam - General 1994 Eyes conjunctiva/eyelids Overall: cornea clear 09/02/2018 None Full Exam - General 1994 Eyes conjunctiva/eyelids Overall: eyelids normal 09/02/2018 None [...] sounds 09/02/2018 None Full Exam - General 1995 Musculoskeletal [...] Procedure Codes Date THER/PROPH/DIAG INJ SC/IM CPT-4: 73978 11/24/2018 TRIAMCINOLONE ACET I [place] NOS CPT-4: J3301 11/24/2018 Vital Signs Date Vital 11/23/2018 Blood Pressure 1: 110/70 Code: 8480-6 BMI: 26.7 Code: 73430-7 Heart Rate 1: 85 bpm Height: 5'3" SpO2: 99% Weight: 151 lbs 11/04/2018 Blood Pressure 1: 142/68 Code: 8480-6 BMI: 26.7 Code: 41183-8 Heart Rate 1: 70 bpm Height: 5'3" SpO2: 99% Weight: 151 lbs 10/21/2018 BMI: 26.7 Code: 00076-9 Height: 5'3" Weight: 151 lbs 10/05/2018 Blood Pressure 1: 124/70 Code: 8480-6 BMI: 26.9 Code: 17324-1 Heart Rate 1: 94 bpm Height: 5'3" SpO2: 99% Weight: 152 lbs 09/30/2018 Blood Pressure 1: 136/78 Code: 8480-6 BMI: 26.9 Code: 43119-1 Heart Rate 1: 71 bpm Height: 5'3" SpO2: 99% Temperature: 36.6 (C ) / 97.8 (F) Weight: 152 lbs 09/02/2018 Blood Pressure 1: 122/60 Code: 8480-6 BMI: 26.9 Code: 87244-9 Heart Rate 1: 65 bpm Height: 5'3" SpO2: 95% Weight: 152 lbs 08/17/2018 Blood Pressure 1: 132/68 Code: 8480-6 BMI: 26.9 Code: 28083-4 Heart Rate 1: 63 bpm Height: 5'3" SpO2: 97% Weight: 152 lbs 05/13/2018 Blood Pressure 1: 140/82 Code: 8480-6 BMI: 28.0 Code: 53145-0 Heart Rate 1: 57 bpm Height: 5'3" SpO2: 97% Weight: 158 lbs 04/14/2018 Blood Pressure 1: 126/74 Code: 8480-6 BMI: 28.0 Code: 34874-4 Heart Rate 1: 66 bpm Height: 5'3" SpO2: 97% Weight: 158 lbs 01/09/2018 Blood Pressure 1: 122/68 Code: 8480-6 BMI: 28.2 Code: 76420-6 Heart Rate 1: 70 bpm Height: 5'3" SpO2: 98% Weight: 159 lbs 11/28/2017 Blood Pressure 1: 110/70 Code: 8480-6 BMI: 28.2 Code: 47746-3 Heart Rate 1: 67 bpm Height: 5'3" SpO2: 95% Weight: 159 lbs 07/01/2017 Blood Pressure 1: 118/70 Code: 8480-6 BMI: 25.5 Code: 62107-6 Heart Rate 1: 76 bpm Height: 5'3" SpO2: 95% Weight: 144 lbs Functional Status No Functional Status data History of Present Illness Symptom Name Status Resu lt Effective Date Notes Location Cervical spine 11/23/2018 None Quality aching [...] Episodes daily 09/30/2018 None Location in the supra ubic area 09/02/2018 None Quality aching 09/02/2018 [...] Encounters Encounter Performer Loca tion Codes Date 97312 EST. PATIENT, LEVEL IV Diagnosis: Benign paroxysmal vertigo, bilateral[ICD10: H81.13] Diagnosis: Cervicalgia[ICD10: M54.2] Diagnosis: Other muscle spasm[ICD10: M62.838] Lelia Ambrose MD, [facility] CPT-4: 86466 11/23/2018 97724 EST. PATIENT, LEVEL III Diagnosis: Other chronic pancreatitis[ICD10: K86.1] Diagnosis: Generalized anxiety disorder[ICD10: F41.1] Diagnosis: Major depressive disorder, single episode, moderate[ICD10: F32.1] Lelia Ambrose MD, [facility] CPT-4: 22100 11/04/2018 56373 EST. PATIENT, LEVEL III Diagnosis: Generalized anxiety disorder[ICD10: F41.1] Diagnosis: Major depressive disorder, single episode, moderate[ICD10: F32.1] Lelia Ambrose MD, [facility] CPT-4: 27153 10/21/2018 74804 EST. PATIENT, LEVEL III Diagnosis: Cellulitis of right external ear[ICD10: H60.11] Lelia Ambrose MD, [facility] CPT-4: 57580 10/05/2018 17844 EST. PATIENT, LEVEL III Diagnosis: Cellulitis of right external ear[ICD10: H60.11] Lelia Ambrose MD, [facility] CPT-4: 58897 09/30/2018 07903 EST. PATIENT, LEVEL III Diagnosis: Dysuria[ICD10: R30.0] Lelia Ambrose MD, [facility] CPT-4: 35707 09/02/2018 92477 EST. PATIENT, LEVEL III Diagnosis: Generalized anxiety disorder[ICD10: F41.1] Diagnosis: Major depressive disorder, single episode, moderate[ICD10: F32.1] Diagnosis: Other allergic rhinitis[ICD10: J30.89] Diagnosis: Acute laryngopharyngitis[ICD10: J06.0] Lelia Ambrose MD, [facility] CPT-4: 68939 08/17/2018 01574 EST. PATIENT, LEVEL III Diagnosis: Generalized anxiety disorder[ICD10: F41.1] Diagnosis: Major depressive disorder, single episode, moderate[ICD10: F32.1] Lelia Ambrose MD, [facility] CPT-4: 34526 05/13/2018 50316 EST. PATIENT, LEVEL IV Diagnosis: Generalized anxiety disorder[ICD10: F41.1] Diagnosis: Major depressive disorder, single episode, moderate[ICD10: F32.1] Lelia Ambrose MD, [facility] CPT-4: 53854 04/14/2018 67642 EST. PATIENT, LEVEL III Diagnosis: Other chronic pancreatitis[ICD10: K86.1] Lelia Ambrose MD, [facility] CPT-4: 75790 01/09/2018 00165 EST. 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 11/23/2018 Appointment: Lelia Dolan WPtel: [facility] ([facility] min[facility] Complex 11/23/2018 Patient Education: Patient [...] treatment plan. 11/04/2018 Appointment: [facility] Dolan [facility]Ptel: [phone] [facility] (30 min) Complex 11/04/2018 Patient Education: Patient [...] this patient. 10/21/2018 Appointment: Lelia Dolan WPtel: [address] [place], [place] [phone] (15 min) Moderate 10/21/2018 Patient Education: Patient Medication Summary Completed 10/21/2018 Patient Education: Obesity Completed 10/21/2018 Visit Plan: Cellulitis - improving - finish rosa as directed - will refer to Dr. De La Garza for recurrent bacterial infections. 10/05/2018 Appointment: Lelia Dolan WPtel: [address] [place], [place] [phone] (30 min) Complex 10/05/2018 Patient Education: Patient [...] warmth, discharge. 09/30/2018 Appointment: Lelia Dolan WPtel: [facility] (15 min) Moderate 09/30/2018 Patient Education: Patient Medication Summary Completed 09/30/2018 Visit Plan: UTI - pt with positive urinalysis - culture sent if appropriate. Antibiotic electronically prescribed to pt's pharmacy of choice. Pt to call if symptoms do not improve. Chronic pancreatitis - amylase and lipase within normal limits - continue to monitor 09/02/2018 Appointment: Lelia Dolan WPtel: [phone] [facility] (30 min) Complex 09/02/2018 Patient Education: [...] or concerns. 08/17/2018 Appointment: Lelia Dolan WPtel: [facility] (15 min) Moderate 08/17/2018 Patient Education: [...] medications. 05/13/2018 Appointment: Lelia Dolan WPtel: [phone] [facility] (15 min) Moderate 05/13/2018 Patient Education: [...] this patient. 04/14/2018 Appointment: Lelia Dolan WPtel: [facility] (15 min) Moderate 04/14/2018 Patient Education: Patient Medication Summary Completed 04/14/2018 Visit Plan: chronic pancreatitis - defer to specialist - pt is to notify clinic with any changes in the current treatment plan - pt is to notify clinic with any changes, questions, or concerns. 01/09/2018 Appointment: Lelia Dolan WPtel: [address] [place], [place] [phone] (30 min) Complex 01/09/2018 Patient Education: Patient Medication Summary Completed 01/09/2018 Visit Plan: chronic pancreatitis - defer to specialist - pt is to notify clinic with any changes in the current treatment plan - pt is to notify clinic with any changes, questions, or concerns. 11/28/2017 Appointment: Lelia Dolan WPtel: [facility] [place] (15 min) Moderate 11/28/2017 Patient Education: Patient Medication Summary Completed 11/28/2017 Appointment: Lelia Dolan WPtel: [address] [place], [place] [phone] [place] (15 min) Moderate 11/18/2017 Appointment: Lelia Dolan WPtel: [address] [place], [place] [phone] [place] (30 min) Complex 07/28/2017 Care Plan: Referral Order SNOMED-CT : [id number] Pending 07/03/2017 Visit Plan: Hospital follow up, griffith creatitis - discussed with Dr. Arnol adams labs, will restart creon - will refer to a GI specialist at [facility] is to notify clinic with any changes, questions or malini rns. 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 07/01/2017 Visit Plan: Hospital follow up, griffith creatitis - discussed with Dr. Arnol adams labs, will restart creon - will refer to a GI specialist at [facility] is to notify clinic with any changes, questions or malini rns. 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 07/01/2017 Visit Plan: Hospital follow up, griffith creatitis - discussed with Dr. Arnol adams labs, will restart creon - will refer to a GI specialist at [facility] is to notify clinic with any changes, questions or malini rns. 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 07/01/2017 Visit Plan: Hospital follow up, griffith creatitis - discussed with Dr. Arnol adams labs, will restart creon - will refer to a GI specialist at [facility] is to notify clinic with any changes, questions or malini rns. 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 07/01/2017 Appointment: Lelia Dolan WPtel: [facility] [place] New Patient 07/01/2017 Patient Education: [...] will refer to a GI specialist at [facility] pt is to notify clinic with any changes, questions or concerns. 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 Start creon with shaheen ls and snacks will check labs today will refer to GI specialist. Hospital follow up, pancreatitis - discussed with Dr. Arnol heller recheck labs, will restart creon - will refer to a GI specialist at [facility] pt is to notify clinic with any changes, questions or concerns. 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 Start creon with shaheen ls and snacks will check labs today will refer to GI specialist. Hospital follow up, pancreatitis - discussed with Dr. Arnol heller recheck labs, will restart creon - will refer to a GI specialist at [facility] is to notify clinic with any changes, questions or concerns. 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 Start creon with shaheen ls and snacks will check labs today will refer to GI specialist. Hospital follow up, pancreatitis - discussed with Dr. Arnol heller recheck labs, will restart creon - will refer to a GI specialist at [facility] pt is to notify clinic with [...]
--- OUTSIDE RECORDS SUMMARY | 2019-09-03 10:31 | XMS REPORT | CCD ---
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 [employer] 07/01/[address]: 45422703 Current every day smoker 07/01/2017 Number of years using tobacco Unknown 10 - 20 1 pack day/20 years 07/01/2017 Number of cigarettes/day Unknown 20 (One Pack) 07/01/[address]: 705070472 Never drinks alcohol 07/01/2017 Allergies, Adverse Reactions, [...] Fill Instructions Lexapro 10 mg tablet RxNorm: 071509 1 Tablet(s) PO QHS 04/05/2019 05/04/2019 Active Kenalog 40 mg/mL cherelle pension for injection RxNorm: 2229587 Milliliter(s) Inj 11/24/2018 11/24/2018 In active Creon 36,000 unit-11 4,000 unit-180,000 unit capsule,delayed release RxNorm: 5044918 CAPSULE(S) 1 CAPSULE(S) PO WITH MEALS AND SNACKS 11/23/2018 No Stop Date Active Zoloft 25 mg tablet RxNorm: 324257 1 TABLET(S) PO DAILY 11/23/2018 01/21/2019 Inactive meclizine 25 mg tablet RxNorm: 508204 1 Tablet(s) PO TID as needed Dizziness 11/23/2018 12/02/2018 In active naproxen 500 mg tablet RxNorm: 703952 1 Tablet(s) PO BID as needed for pain 11/23/2018 11/27/2018 In active Prozac 20 mg capsule RxNorm: 421146 1 Capsule(s) PO daily 10/21/2018 10/27/2018 Inactive Zoloft 25 mg tablet RxNorm: 636886 1 Tablet(s) PO daily 10/21/2018 11/19/2018 Inactive Levaquin 500 mg tablet RxNorm: 169072 1 Tablet(s) PO daily 10/02/2018 10/08/2018 Inactive Levaquin 500 mg tablet RxNorm: 037855 1 Tablet(s) PO daily 10/02/2018 10/01/2018 Inactive Levaquin 500 mg tablet RxNorm: 139348 1 Tablet(s) PO daily 10/02/2018 10/01/2018 Inactive prednisone 20 mg tablet RxNorm: 802190 2 Tablet(s) PO daily 09/30/2018 10/04/2018 Inactive Bactrim DS 800 mg-16 0 mg tablet RxNorm: 738398 1 Tablet(s) PO BID 09/30/2018 10/09/2018 Inactive Bactrim DS 800 mg-16 0 mg tablet RxNorm: 874089 1 Tablet(s) PO BID 09/02/2018 09/11/2018 Inactive Augmentin 875 mg-125 mg tablet RxNorm: 980982 1 Tablet(s) PO BID [facility] arted in hospital 08/17/2018 08/23/2018 Inactive Prozac 40 mg capsule RxNorm: 369326 1 Capsule(s) PO daily 08/10/2018 04/01/2019 Inactive Creon 36,000 unit-11 4,000 unit-180,000 unit capsule,delayed release RxNorm: 0590534 CAPSULE(S) 1 CAPSULE(S) PO WITH MEALS AND SNACKS 05/15/2018 11/22/2018 Inactive Prozac 20 mg capsule RxNorm: 600769 1 Capsule(s) PO daily 05/13/2018 08/09/2018 Inactive Prozac 20 mg capsule RxNorm: 902537 1 Capsule(s) PO daily 04/14/2018 05/12/2018 Inactive Creon 36,000 unit-11 4,000 unit-180,000 unit capsule,delayed release RxNorm: 4585193 Capsule(s) 1 CAPSULE(S) PO WITH MEALS AND SNACKS 01/06/2018 05/14/2018 Inactive Creon 36,000 unit-11 4,000 unit-180,000 unit capsule,delayed release RxNorm: 6374361 1 CAPSULE(S) PO WITH MEALS AND SNACKS 07/04/2017 01/05/2018 Inactive pantoprazole 40 mg t ablet,delayed release RxNorm: 406150 1 Tablet(s) PO daily started in hospital 07/01/2017 07/30/2017 Inactive Creon 36,000 unit-11 4,000 unit-180,000 unit capsule,delayed release RxNorm: 8209286 1 Capsule(s) PO with meals and snacks 07/01/2017 07/03/2017 Inactive Augmentin 875 mg-125 mg tablet RxNorm: 700937 1 Tablet(s) PO BID [facility] arted in hospital 06/26/2017 06/27/2017 Inactive promethazine 25 mg t ablet RxNorm: 757826 1 Tablet(s) PO QID as needed started in hospital No Start Date Active Lactobacillus acidop hilus capsule RxNorm: 1 Capsule(s) PO daily No Start Date Active acetaminophen 500 mg tablet RxNorm: 890330 1-2 Tablet(s) PO Q4H as needed started hospital No Start Date Active oxycodone-acetaminop hen 5 mg-325 mg tablet RxNorm: 5404840 1-2 Tablet(s) PO Q4H started at the hospital No Start Date Active Carafate 1 gram tablet RxNorm: 692494 1 Tablet(s) PO AC & HS started in hospit al No Start Date Active scopolamine 1 mg ove r 3 days transdermal patch RxNorm: 302770 1 Patch TD Q72H start ed in the hospital No Start Date 03/31/2019 Inactive Medication Administered Medication Codes Instruc tions Start Date Status Kenalog 40 mg/mL suspension for injection RxNorm: 0307307 Milliliter 11/24/2018 No longer Active Immunizations No [...] D-Lymph 24 % 07/02/2017 Manual Differential Ord52 D-[place] 1 % 07/02/2017 Manual Differential Ord52 D-Eos [...] 30.4 pg 07/02/2017 Cbc With Differential Ord2 [place]% 6.1 % 07/02/2017 Cbc With Differential Ord2 [...] 2.10 K/ul 07/02/2017 Cbc With Differential Ord2 [place] ABS# 0.7 K/ul 07/02/2017 Cbc With Differential Ord2 Eos ABS# 0.2 K/ul 07/02/2017 Cbc With Differential Ord2 Baso ABS# 0.1 K/ul 07/02/2017 Lipase Jrg831 LIPASE 26 U/L 07/02/2017 Comp Metabolic Xbg748 NA 134 mEq/L 07/02/2017 Comp Metabolic Wet594 K 4.6 mEq/L 07/02/2017 Comp Metabolic Rqk721 CL 93 mEq/L 07/02/2017 Comp Metabolic Fuz494 CO2 28.0 mEq/L 07/02/2017 Comp Metabolic Mws166 AN ION GAP 18 07/02/2017 Comp Metabolic Hri604 GL UCOSE 108 mg/dL 07/02/2017 Comp Metabolic Tqy205 Cr eat 0.7 mg/dL 07/02/2017 Comp Metabolic Gyn211 eG FR 100 ml/min/1.73m2 09/2016 Comp Metabolic Jeg473 BUN 10 mg/dL 07/02/2017 Comp Metabolic Apw026 B/ C Ratio 14.7 Ratio 07/02/2017 Comp Metabolic Ngw435 CA LCIUM 10.0 mg/dL 07/02/2017 Comp Metabolic Nju650 AL K PHOS 102 U/L 07/02/2017 Comp Metabolic Jta845 T(SGOT) 15 U/L 07/02/2017 Comp Metabolic Pct774 AL T(SGPT) 18 U/L 07/02/2017 Comp Metabolic Nwb193 BI LI T 0.4 mg/dL 07/02/2017 Comp Metabolic Fdp456 AL BUMIN 3.9 g/dL 07/02/2017 Comp Metabolic Fsq735 TP RO 7.8 g/dL 07/02/2017 Comp Metabolic Dly933 GL OB 3.9 g/dL 07/02/2017 Comp Metabolic Adm891 A/ G Ratio 1.0 Ratio 07/02/2017 Comp Metabolic Piq141 Os mo 268 mOsmo 07/02/2017 Review of [...] No mental status change 04/05/2019 Psychiatric anxiety 08/0 12/2018 Psychiatric depression 0 04/05/2019 Psychiatric No suicidality [...] normal 04/05/2019 None Full Exam - General 1994 Ears/Nose/Throat lips/teeth/gingiva Overall: benign lips 04/05/2019 None Full Exam - General 1994 Ears/Nose/Throat [...] station 11/04/2018 None Full Exam - General 1995 Musculoskeletal [...] Procedure Codes Date THER/PROPH/DIAG INJ SC/IM CPT-4: 00575 11/24/2018 TRIAMCINOLONE ACET I [place] NOS CPT-4: J3301 11/24/2018 Vital Signs Date Vital 04/05/2019 Blood Pressure 1: 122/74 Code: 8480-6 BMI: 26.2 Code: 14266-6 Heart Rate 1: 75 bpm Height: 5'3" SpO2: 95% Weight: 148 lbs 11/23/2018 Blood Pressure 1: 110/70 Code: 8480-6 BMI: 26.7 Code: 94254-2 Heart Rate 1: 85 bpm Height: 5'3" SpO2: 99% Weight: 151 lbs 11/04/2018 Blood Pressure 1: 142/68 Code: 8480-6 BMI: 26.7 Code: 41394-4 Heart Rate 1: 70 bpm Height: 5'3" SpO2: 99% Weight: 151 lbs 10/21/2018 BMI: 26.7 Code: 50369-1 Height: 5'3" Weight: 151 lbs 10/05/2018 Blood Pressure 1: 124/70 Code: 8480-6 BMI: 26.9 Code: 74304-9 Heart Rate 1: 94 bpm Height: 5'3" SpO2: 99% Weight: 152 lbs 09/30/2018 Blood Pressure 1: 136/78 Code: 8480-6 BMI: 26.9 Code: 55369-0 Heart Rate 1: 71 bpm Height: 5'3" SpO2: 99% Temperature: 36.6 (C ) / 97.8 (F) Weight: 152 lbs 09/02/2018 Blood Pressure 1: 122/60 Code: 8480-6 BMI: 26.9 Code: 58901-7 Heart Rate 1: 65 bpm Height: 5'3" SpO2: 95% Weight: 152 lbs 08/17/2018 Blood Pressure 1: 132/68 Code: 8480-6 BMI: 26.9 Code: 70454-2 Heart Rate 1: 63 bpm Height: 5'3" SpO2: 97% Weight: 152 lbs 05/13/2018 Blood Pressure 1: 140/82 Code: 8480-6 BMI: 28.0 Code: 34282-1 Heart Rate 1: 57 bpm Height: 5'3" SpO2: 97% Weight: 158 lbs 04/14/2018 Blood Pressure 1: 126/74 Code: 8480-6 BMI: 28.0 Code: 98568-6 Heart Rate 1: 66 bpm Height: 5'3" SpO2: 97% Weight: 158 lbs 01/09/2018 Blood Pressure 1: 122/68 Code: 8480-6 BMI: 28.2 Code: 66012-6 Heart Rate 1: 70 bpm Height: 5'3" SpO2: 98% Weight: 159 lbs 11/28/2017 Blood Pressure 1: 110/70 Code: 8480-6 BMI: 28.2 Code: 49985-0 Heart Rate 1: 67 bpm Height: 5'3" SpO2: 95% Weight: 159 lbs 07/01/2017 Blood Pressure 1: 118/70 Code: 8480-6 BMI: 25.5 Code: 47764-1 Heart Rate 1: 76 bpm Height: 5'3" [...] Encounters Encounter Performer Loca tion Codes Date EST. PATIENT, LEVEL III Diagnosis: Generalized anxiety disorder[ICD10: F41.1] Diagnosis: Major depressive disorder, single episode, moderate[ICD10: F32.1] Lelia Ambrose MD, [facility] CPT-4: 28270 04/05/2019 14965 EST. PATIENT, LEVEL IV Diagnosis: Benign paroxysmal vertigo, bilateral[ICD10: H81.13] Diagnosis: Cervicalgia[ICD10: M54.2] Diagnosis: Other muscle spasm[ICD10: M62.838] Lelia Ambrose MD, [facility] CPT-4: 55172 11/23/2018 42100 EST. PATIENT, LEVEL III Diagnosis: Other chronic pancreatitis[ICD10: K86.1] Diagnosis: Generalized anxiety disorder[ICD10: F41.1] Diagnosis: Major depressive disorder, single episode, moderate[ICD10: F32.1] Lelia Ambrose MD, [facility] CPT-4: 70498 11/04/2018 20431 EST. PATIENT, LEVEL III Diagnosis: Generalized anxiety disorder[ICD10: F41.1] Diagnosis: Major depressive disorder, single episode, moderate[ICD10: F32.1] Lelia Ambrose MD, [facility] CPT-4: 79914 10/21/2018 11986 EST. PATIENT, LEVEL III Diagnosis: Cellulitis of right external ear[ICD10: H60.11] Lelia Ambrose MD, [facility] CPT-4: 64037 10/05/2018 25623 EST. PATIENT, LEVEL III Diagnosis: Cellulitis of right external ear[ICD10: H60.11] Lelia Ambrose MD, [facility] CPT-4: 77684 09/30/2018 82061 EST. PATIENT, LEVEL III Diagnosis: Dysuria[ICD10: R30.0] Lelia Ambrose MD, [facility] CPT-4: 95100 09/02/2018 57876 EST. PATIENT, LEVEL III Diagnosis: Generalized anxiety disorder[ICD10: F41.1] Diagnosis: Major depressive disorder, single episode, moderate[ICD10: F32.1] Diagnosis: Other allergic rhinitis[ICD10: J30.89] Diagnosis: Acute laryngopharyngitis[ICD10: J06.0] Lelia Ambrose MD, [facility] CPT-4: 59717 08/17/2018 98547 EST. PATIENT, LEVEL III Diagnosis: Generalized anxiety disorder[ICD10: F41.1] Diagnosis: Major depressive disorder, single episode, moderate[ICD10: F32.1] Lelia Ambrose MD, [facility] CPT-4: 91119 05/13/2018 70068 EST. PATIENT, LEVEL IV Diagnosis: Generalized anxiety disorder[ICD10: F41.1] Diagnosis: Major depressive disorder, single episode, moderate[ICD10: F32.1] Lelia Ambrose MD, [facility] CPT-4: 12249 04/14/2018 35658 EST. PATIENT, LEVEL III Diagnosis: Other chronic pancreatitis[ICD10: K86.1] Lelia Ambrose MD, [facility] CPT-4: 39192 01/09/2018 20732 EST. 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 04/05/2019 Patient Education: Patient Medication Summary Completed 04/05/2019 Appointment: Lelia Dolan W[facility]el[facility] [phone] [facility] (15 min) Moderate 02/15/2019 Appointment: Injection 11/24/2018 [...] exercises daily. 11/23/2018 Appointment: Lelia Dolan WPtel: [facility] (30 min) Complex 11/23/2018 Patient Education: Patient [...] plan. 11/04/2018 Appointment: Lelia Dolan WPtel: [facility] (30 min) Complex 11/04/2018 Patient Education: Patient [...] this patient. 10/21/2018 Appointment: Lelia Dolan WPtel: [facility]9 [facility] (15 min) Moderate 10/21/2018 Patient Education: Patient Medication Summary Completed 10/21/2018 Patient Education: Obesity Completed 10/21/2018 Visit Plan: Cellulitis - improving - finish lonnieuin as directed - will refer to Dr. De La Garza for recurrent bacterial infections. 10/05/2018 Appointment: Lelia Dolan WPtel: [facility]9 [facility] (30 min) Complex 10/05/2018 Patient Education: Patient [...] discharge. 09/30/2018 Appointment: Lelia Dolan WPtel: [phone] [facility] (15 min) Moderate 09/30/2018 Patient Education: Patient Medication Summary Completed 09/30/2018 Visit Plan: UTI - pt with positive urinalysis - culture sent if appropriate. Antibiotic electronically prescribed to pt's pharmacy of choice. Pt to call if symptoms do not improve. Chronic pancreatitis - amylase and lipase within normal limits - continue to monitor 09/02/2018 Appointment: Lelia Dolan WPtel: [phone] [email or web address] (30 min) Complex 09/02/2018 Patient Education: Patient [...] or concerns. 08/17/2018 Appointment: Lelia Dolan WPtel: [address] [place], [place] [address] [[email or web address] (15 min) Moderate 08/17/2018 Patient Education: Patient [...] medications. 05/13/2018 Appointment: Lelia Dolan WPtel: [facility]5 [facility] [[email or web address] (15 min) Moderate 05/13/2018 Patient Education: Patient [...] patient. 04/14/2018 Appointment: Lelia Dolan WPtel: [phone] [facility] [[email or web address] (15 min) Moderate 04/14/2018 Patient Education: Patient Medication Summary Completed 04/14/2018 Visit Plan: chronic pancreatitis - defer to specialist - pt is to notify clinic with any changes in the current treatment plan - pt is to notify clinic with any changes, questions, or concerns. 01/09/2018 Appointment: Lelia Dolan WPtel: [facility]5 [facility] [place] (30 min) Complex 01/09/2018 Patient Education: Patient Medication Summary Completed 01/09/2018 Visit Plan: chronic pancreatitis - defer to specialist - pt is to notify clinic with any changes in the current treatment plan - pt is to notify clinic with any changes, questions, or concerns. 11/28/2017 Appointment: Lelia Dolan WPtel: [phone] [facility] [place] (15 min) Moderate 11/28/2017 Patient Education: Patient Medication Summary Completed 11/28/2017 Appointment: Lelia Dolan WPtel: [phone] [facility] [place] (15 min) Moderate 11/18/2017 Appointment: Lelia Dolan WPtel: [facility]5 [facility] [place] (30 min) Complex 07/28/2017 Care Plan: Referral Order SNOMED-CT : [id number] Pending 07/03/2017 Visit Plan: Hospital follow up, griffith creatitis - discussed with Dr. Arnol garciaeck labs, will restart creon - will refer to a GI specialist at [facility] pt is to notify clinic with any changes, questions or malini rns. 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 07/01/2017 Visit Plan: Hospital follow up, griffith creatitis - discussed with Dr. Ambrose - pina garciaeck labs, will restart creon - will refer to a GI specialist at [facility] is to notify clinic with any changes, questions or malini rns. 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 07/01/2017 Visit Plan: Hospital follow up, griffith creatitis - discussed with Dr. Ambrose - pina garciaeck labs, will restart creon - will refer to a GI specialist at [facility] is to notify clinic with any changes, questions or malini rns. 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 07/01/2017 Visit Plan: Hospital follow up, griffith creatitis - discussed with Dr. Arnol garciaeck labs, will restart creon - will refer to a GI specialist at [facility] is to notify clinic with any changes, questions or malini rns. 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 07/01/2017 Appointment: Lelia Dolan WPtel: [phone] [facility] [place] New Patient 07/01/2017 Patient Education: Patient [...] will refer to a GI specialist at [facility] is to notify clinic with any changes, questions or concerns. 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 Start creon with shaheen ls and snacks will check labs today will refer to GI specialist. Hospital follow up, pancreatitis - discussed with Dr. Ambrose - pina recheck labs, will restart creon - will refer to a GI specialist at [facility] is to notify clinic with any changes, questions or concerns. 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 Start creon with shaheen ls and snacks will check labs today will refer to GI specialist. Hospital follow up, pancreatitis - discussed with Dr. Arnol heller recheck labs, will restart creon - will refer to a GI specialist at [facility] is to notify clinic with any changes, questions or concerns. 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 Start creon with shaheen ls and snacks will check labs today will refer to GI specialist. Hospital follow up, pancreatitis - discussed with Dr. Arnol heller recheck labs, will restart creon - will refer to a GI specialist at [facility] is to notify clinic with any [...]
--- OUTSIDE RECORDS SUMMARY | 2019-09-03 10:32 | XMS REPORT | CCD ---
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 [place] e Cross/Blue Shield [id number] Unknown Unk nown Family history Mother Diagnosis [...] Employment Unknown 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 [employer] 07/01/[address]: 59992534 Current every day smoker 07/01/2017 Number of years using tobacco Unknown 10 - 20 1 pack day/20 years 07/01/2017 Number of cigarettes/day Unknown 20 (One Pack) 07/01/[address]: 119212964 Never drinks alcohol 07/01/2017 Allergies, Adverse Reactions, [...] ICD-9: 386.11 ICD-10: H81.13 Active 11/23/2018 Unknown Cervicalgia ICD-9: 723.1 ICD-10: M54.2 Active [...] 477.8 ICD-10: J30.89 Active 08/17/2018 Unknown Other acute pancreat itis [...] bilateral ICD-9: 386.11 ICD-10: H81.13 11/23/2018 Active Cervicalgia ICD-9: 723.1 ICD-10: M54.2 11/23/2018 [...] ICD-9: 477.8 ICD-10: J30.89 08/17/2018 Active Other acute pancreat itis without necrosis or infection ICD-9: 577.0 ICD-10: K85.80 07/01/2017 Active Left upper quadrant pain ICD-9: 789.02 ICD-10: R10.12 07/01/2017 Active 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 07/01/2017 Active Medications Medication Codes Instruc tions Start Date Stop Date Sta tus Fill Instructions Zoloft 25 mg tablet RxNorm: 361400 1 TABLET(S) PO DAILY 11/23/2018 01/21/2019 Active meclizine 25 mg tablet RxNorm: 211020 1 Tablet(s) PO TID as needed Dizziness 11/23/2018 12/02/2018 Ac tive Creon 36,000 unit-11 4,000 unit-180,000 unit capsule,delayed release RxNorm: 1914010 CAPSULE(S) 1 CAPSULE(S) PO WITH MEALS AND SNACKS 11/23/2018 No Stop Date Active naproxen 500 mg tablet RxNorm: 177842 1 Tablet(s) PO BID as needed for pain 11/23/2018 11/27/2018 Ac tive Prozac 20 mg capsule RxNorm: 408823 1 Capsule(s) PO daily 10/21/2018 10/27/2018 Inactive Zoloft 25 mg tablet RxNorm: 972037 1 Tablet(s) PO daily 10/21/2018 11/19/2018 Inactive Levaquin 500 mg tablet RxNorm: 510300 1 Tablet(s) PO daily 10/02/2018 10/08/2018 Inactive Levaquin 500 mg tablet RxNorm: 924808 1 Tablet(s) PO daily 10/02/2018 10/01/2018 Inactive Levaquin 500 mg tablet RxNorm: 007830 1 Tablet(s) PO daily 10/02/2018 10/01/2018 Inactive prednisone 20 mg tablet RxNorm: 746283 2 Tablet(s) PO daily 09/30/2018 10/04/2018 Inactive Bactrim DS 800 mg-16 0 mg tablet RxNorm: 713831 1 Tablet(s) PO BID 09/30/2018 10/09/2018 Inactive Bactrim DS 800 mg-16 0 mg tablet RxNorm: 649437 1 Tablet(s) PO BID 09/02/2018 09/11/2018 Inactive Augmentin 875 mg-125 mg tablet RxNorm: 806883 1 Tablet(s) PO BID [facility]ed in hospital 08/17/2018 08/23/2018 Inactive Prozac 40 mg capsule RxNorm: 311490 1 Capsule(s) PO daily 08/10/2018 05/06/2019 Active Creon 36,000 unit-11 4,000 unit-180,000 unit capsule,delayed release RxNorm: 2578575 CAPSULE(S) 1 CAPSULE(S) PO WITH MEALS AND SNACKS 05/15/2018 11/22/2018 Inactive Prozac 20 mg capsule RxNorm: 133624 1 Capsule(s) PO daily 05/13/2018 08/09/2018 Inactive Prozac 20 mg capsule RxNorm: 190527 1 Capsule(s) PO daily 04/14/2018 05/12/2018 Inactive Creon 36,000 unit-11 4,000 unit-180,000 unit capsule,delayed release RxNorm: 1313031 Capsule(s) 1 CAPSULE(S) PO WITH MEALS AND SNACKS 01/06/2018 05/14/2018 Inactive Creon 36,000 unit-11 4,000 unit-180,000 unit capsule,delayed release RxNorm: 9661593 1 CAPSULE(S) PO WITH MEALS AND SNACKS 07/04/2017 01/05/2018 Inactive pantoprazole 40 mg t ablet,delayed release RxNorm: 323466 1 Tablet(s) PO daily started in hospital 07/01/2017 07/30/2017 Inactive Creon 36,000 unit-11 4,000 unit-180,000 unit capsule,delayed release RxNorm: 1451111 1 Capsule(s) PO with meals and snacks 07/01/2017 07/03/2017 Inactive Augmentin 875 mg-125 mg tablet RxNorm: 123004 1 Tablet(s) PO BID [facility] arted in hospital 06/26/2017 06/27/2017 Inactive scopolamine 1 mg ove r 3 days transdermal patch RxNorm: 154853 1 Patch TD Q72H start ed in the hospital No Start Date Active promethazine 25 mg t ablet RxNorm: 961012 1 Tablet(s) PO QID as needed started in hospital No Start Date Active Lactobacillus acidop hilus capsule RxNorm: 1 Capsule(s) PO daily No Start Date Active acetaminophen 500 mg tablet RxNorm: 033794 1-2 Tablet(s) PO Q4H as needed started hospital No Start Date Active oxycodone-acetaminop hen 5 mg-325 mg tablet RxNorm: 9031737 1-2 Tablet(s) PO Q4H started at the hospital No Start Date Active Carafate 1 gram tablet RxNorm: 090208 1 Tablet(s) PO AC & HS started in hospit al No Start Date Active Medication Administered No Medication Administered data Immunizations No Immunization data Assessments Condition Codes Effectiv e Dates Benign paroxysmal vertigo, bilateral ICD-10: H81.13 ICD-9: 386.11 11/23/2018 Other muscle spasm ICD-10: M62.838 ICD-9: 728.85 [...] laryngopharyngitis ICD-10: J06 .0 ICD-9: 465.0 08/17/2018 Other allergic rhinitis ICD-10: J30. 89 ICD-9: 477.8 08/17/2018 Neoplasm of uncertain behavior of left [...] D-Lymph 24 % 07/02/2017 Manual Differential Ord52 D-[place] 1 % 07/02/2017 Manual Differential Ord52 D-Eos [...] 30.4 pg 07/02/2017 Cbc With Differential Ord2 [place]% 6.1 % 07/02/2017 Cbc With Differential Ord2 [...] 2.10 K/ul 07/02/2017 Cbc With Differential Ord2 [place] ABS# 0.7 K/ul 07/02/2017 Cbc With Differential Ord2 Eos ABS# 0.2 K/ul 07/02/2017 Cbc With Differential Ord2 Baso ABS# 0.1 K/ul 07/02/2017 Lipase Wol071 LIPASE 26 U/L 07/02/2017 Comp Metabolic Ccu242 NA 134 mEq/L 07/02/2017 Comp Metabolic Zhh619 K 4.6 mEq/L 07/02/2017 Comp Metabolic Han486 CL 93 mEq/L 07/02/2017 Comp Metabolic Szg360 CO2 28.0 mEq/L 07/02/2017 Comp Metabolic Jgw277 AN ION GAP 18 07/02/2017 Comp Metabolic Hqv620 GL UCOSE 108 mg/dL 07/02/2017 Comp Metabolic Rpg003 Cr eat 0.7 mg/dL 07/02/2017 Comp Metabolic Dho533 eG FR 100 ml/min/1.73m2 09/2016 Comp Metabolic Qmu474 BUN 10 mg/dL 07/02/2017 Comp Metabolic Ojk572 B/ C Ratio 14.7 Ratio 07/02/2017 Comp Metabolic Rhj136 CA LCIUM 10.0 mg/dL 07/02/2017 Comp Metabolic Xht122 AL K PHOS 102 U/L 07/02/2017 Comp Metabolic Oef736 T(SGOT) 15 U/L 07/02/2017 Comp Metabolic Rbf127 AL T(SGPT) 18 U/L 07/02/2017 Comp Metabolic Kel962 BI LI T 0.4 mg/dL 07/02/2017 Comp Metabolic Lbc517 AL BUMIN 3.9 g/dL 07/02/2017 Comp Metabolic Ohv564 TP RO 7.8 g/dL 07/02/2017 Comp Metabolic Osf706 GL OB 3.9 g/dL 07/02/2017 Comp Metabolic Noc800 A/ G Ratio 1.0 Ratio 07/02/2017 Comp Metabolic Unc732 Os mo 268 mOsmo 07/02/2017 Review of [...] developed 10/21/2018 None Full Exam - General 1995 Constitutional general appearance Overall: in no acute distress 10/21/2018 None Full Exam - General 1995 Constitutional general appearance Overall: well nourished 10/21/2018 None Full Exam - General 1995 Eyes conjunctiva/eyelids Overall: conjunctiva clear 10/21/2018 None [...] No Procedures data Vital Signs Date Vital 11/23/2018 Blood Pressure 1: 110/70 Code: 8480-6 BMI: 26.7 Code: 19859-8 Heart Rate 1: 85 bpm Height: 5'3" SpO2: 99% Weight: 151 lbs 11/04/2018 Blood Pressure 1: 142/68 Code: 8480-6 BMI: 26.7 Code: 14759-3 Heart Rate 1: 70 bpm Height: 5'3" SpO2: 99% Weight: 151 lbs 10/21/2018 BMI: 26.7 Code: 25046-0 Height: 5'3" Weight: 151 lbs 10/05/2018 Blood Pressure 1: 124/70 Code: 8480-6 BMI: 26.9 Code: 23658-9 Heart Rate 1: 94 bpm Height: 5'3" SpO2: 99% Weight: 152 lbs 09/30/2018 Blood Pressure 1: 136/78 Code: 8480-6 BMI: 26.9 Code: 85707-7 Heart Rate 1: 71 bpm Height: 5'3" SpO2: 99% Temperature: 36.6 (C ) / 97.8 (F) Weight: 152 lbs 09/02/2018 Blood Pressure 1: 122/60 Code: 8480-6 BMI: 26.9 Code: 46450-3 Heart Rate 1: 65 bpm Height: 5'3" SpO2: 95% Weight: 152 lbs 08/17/2018 Blood Pressure 1: 132/68 Code: 8480-6 BMI: 26.9 Code: 66762-7 Heart Rate 1: 63 bpm Height: 5'3" SpO2: 97% Weight: 152 lbs 05/13/2018 Blood Pressure 1: 140/82 Code: 8480-6 BMI: 28.0 Code: 09541-3 Heart Rate 1: 57 bpm Height: 5'3" SpO2: 97% Weight: 158 lbs 04/14/2018 Blood Pressure 1: 126/74 Code: 8480-6 BMI: 28.0 Code: 44056-4 Heart Rate 1: 66 bpm Height: 5'3" SpO2: 97% Weight: 158 lbs 01/09/2018 Blood Pressure 1: 122/68 Code: 8480-6 BMI: 28.2 Code: 50669-8 Heart Rate 1: 70 bpm Height: 5'3" SpO2: 98% Weight: 159 lbs 11/28/2017 Blood Pressure 1: 110/70 Code: 8480-6 BMI: 28.2 Code: 16326-2 Heart Rate 1: 67 bpm Height: 5'3" SpO2: 95% Weight: 159 lbs 07/01/2017 Blood Pressure 1: 118/70 Code: 8480-6 BMI: 25.5 Code: 16555-7 Heart Rate 1: 76 bpm Height: 5'3" [...] Encounters Encounter Performer Loca tion Codes Date 71988 EST. PATIENT, LEVEL IV Diagnosis: Benign paroxysmal vertigo, bilateral[ICD10: H81.13] Diagnosis: Cervicalgia[ICD10: M54.2] Diagnosis: Other muscle spasm[ICD10: M62.838] Lelia Ambrose MD, [facility] CPT-4: 93892 11/23/2018 60491 EST. PATIENT, LEVEL III Diagnosis: Other chronic pancreatitis[ICD10: K86.1] Diagnosis: Generalized anxiety disorder[ICD10: F41.1] Diagnosis: Major depressive disorder, single episode, moderate[ICD10: F32.1] Lelia Ambrose MD, [facility] CPT-4: 22290 11/04/2018 89172 EST. PATIENT, LEVEL III Diagnosis: Generalized anxiety disorder[ICD10: F41.1] Diagnosis: Major depressive disorder, single episode, moderate[ICD10: F32.1] Lelia Ambrose MD, [facility] CPT-4: 85352 10/21/2018 56180 EST. PATIENT, LEVEL III Diagnosis: Cellulitis of right external ear[ICD10: H60.11] Lelia Ambrose MD, [facility] CPT-4: 59603 10/05/2018 22218 EST. PATIENT, LEVEL III Diagnosis: Cellulitis of right external ear[ICD10: H60.11] Lelia Ambrose MD, [facility] CPT-4: 48646 09/30/2018 05296 EST. PATIENT, LEVEL III Diagnosis: Dysuria[ICD10: R30.0] Lelia Ambrose MD, [facility] CPT-4: 19373 09/02/2018 38746 EST. PATIENT, LEVEL III Diagnosis: Generalized anxiety disorder[ICD10: F41.1] Diagnosis: Major depressive disorder, single episode, moderate[ICD10: F32.1] Diagnosis: Other allergic rhinitis[ICD10: J30.89] Diagnosis: Acute laryngopharyngitis[ICD10: J06.0] Lelia Ambrose MD, [facility] CPT-4: 27645 08/17/2018 80815 EST. PATIENT, LEVEL III Diagnosis: Generalized anxiety disorder[ICD10: F41.1] Diagnosis: Major depressive disorder, single episode, moderate[ICD10: F32.1] Lelia Ambrose MD, [facility] CPT-4: 23803 05/13/2018 40611 EST. PATIENT, LEVEL IV Diagnosis: Generalized anxiety disorder[ICD10: F41.1] Diagnosis: Major depressive disorder, single episode, moderate[ICD10: F32.1] Lelia Ambrose MD, [facility] CPT-4: 01870 04/14/2018 30267 EST. PATIENT, LEVEL III Diagnosis: Other chronic pancreatitis[ICD10: K86.1] Lelia Ambrose MD, [facility] CPT-4: 23970 01/09/2018 72010 EST. 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 11/23/2018 [facility] [phone] [facility] ([facility] Complex 11/23/2018 Patient Education: Patient [...] treatment plan. 11/04/2018 Appointment: [facility] [phone] [facility] (30 min) Complex 11/04/2018 Patient Education: Patient [...] patient. 10/21/2018 Appointment: Lelia Dolan WPtel: [facility]5 [facility] (15 min) Moderate 10/21/2018 Patient Education: Patient Medication Summary Completed 10/21/2018 Patient Education: Obesity Completed 10/21/2018 Visit Plan: Cellulitis - improving - finish levaquin as directed - will refer to Dr. De La Garza for recurrent bacterial infections. 10/05/2018 Appointment: Lelia Dolan WPtel: [facility]2 [facility] (30 min) Complex 10/05/2018 Patient Education: Patient [...] warmth, discharge. 09/30/2018 Appointment: Lelia Dolan WPtel: [facility]5 [facility] (15 min) Moderate 09/30/2018 Patient Education: Patient Medication Summary Completed 09/30/2018 Visit Plan: UTI - pt with positive urinalysis - culture sent if appropriate. Antibiotic electronically prescribed to pt's pharmacy of choice. Pt to call if symptoms do not improve. Chronic pancreatitis - amylase and lipase within normal limits - continue to monitor 09/02/2018 Appointment: Lelia Dolan WPtel: [facility]2 [facility] (30 min) Complex 09/02/2018 Patient Education: Patient [...] concerns. 08/17/2018 App[facility]ment: [facility] [phone] [facility] (15 min) Moderate 08/17/2018 Patient [...] medications. 05/13/2018 App[facility]ment[facility] [phone] [facility] (15 min) Moderate 05/13/2018 Patient Education: Patient [...] 04/14/2018 Appointment: Lelia Dolan WPtel: [facility]5 [facility] (15 min) Moderate 04/14/2018 Patient Education: Patient Medication Summary Completed 04/14/2018 Visit Plan: chronic pancreatitis - defer to specialist - pt is to notify clinic with any changes in the current treatment plan - pt is to notify clinic with any changes, questions, or concerns. 01/09/2018 Appointment: Lelia Dolan WPtel: [address] [place], [place] [phone] [place] (30 min) Complex 01/09/2018 Patient Education: Patient Medication Summary Completed 01/09/2018 Visit Plan: chronic pancreatitis - defer to specialist - pt is to notify clinic with any changes in the current treatment plan - pt is to notify clinic with any changes, questions, or concerns. 11/28/2017 Appointment: Lelia Dolan WPtel: [facility] [place] (15 min) Moderate 11/28/2017 Patient Education: Patient Medication Summary Completed 11/28/2017 Appointment: Lelia Dolan WPtel: [address] [place], [place] [phone] [place] (15 min) Moderate 11/18/2017 Appointment: Lelia Dolan WPtel: [address] [place], [place] [phone] [place] (30 min) Complex 07/28/2017 Care Plan: Referral Order SNOMED-CT : [id number] Pending 07/03/2017 Visit Plan: Hospital follow up, [...] specialist. 07/01/2017 Appointment: [facility] Dolan [facility]el[facility] [phone] [facility] [place] New Patient 07/01/2017 Patient Education: Patient [...] refer to a GI specialist at [facility] is to notify clinic with any changes, questions or concerns. 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 Start creon with shaheen ls and snacks will check labs today will refer to GI specialist. Hospital follow up, pancreatitis - discussed with Dr. Arnol heller recheck labs, will restart creon - will refer to a GI specialist at [facility] is to notify clinic with any changes, questions or concerns. 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 Start creon with shaheen ls and snacks will check labs today will refer to GI specialist. Hospital follow up, pancreatitis - discussed with Dr. Arnol heller recheck labs, will restart creon - will refer to a GI specialist at [facility] is to notify clinic with any changes, questions or concerns. 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 Start creon with shaheen ls and snacks will check labs today will refer to GI specialist. Hospital follow up, pancreatitis - discussed with Dr. Arnol heller recheck labs, will restart creon - will refer to a GI specialist at [facility] is to notify clinic with any [...]
--- OUTSIDE RECORDS SUMMARY | 2019-09-03 10:32 | XMS REPORT | CCD ---
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 [employer] 07/01/[address]: 96421342 Current every day smoker 07/01/2017 Number of years using tobacco Unknown 10 - 20 1 pack day/20 years 07/01/2017 Number of cigarettes/day Unknown 20 (One Pack) 07/01/[address]: 613245766 Never drinks alcohol 07/01/2017 Allergies, Adverse Reactions, [...] Fill Instructions Zoloft 25 mg tablet RxNorm: 728874 1 TABLET(S) PO DAILY 11/23/2018 01/21/2019 Active Creon 36,000 unit-11 4,000 unit-180,000 unit capsule,delayed release RxNorm: 6146203 CAPSULE(S) 1 CAPSULE(S) PO WITH MEALS AND SNACKS 11/23/2018 No Stop Date Active Prozac 20 mg capsule RxNorm: 210454 1 Capsule(s) PO daily 10/21/2018 10/27/2018 Inactive Zoloft 25 mg tablet RxNorm: 647746 1 Tablet(s) PO daily 10/21/2018 11/19/2018 Inactive Levaquin 500 mg tablet RxNorm: 782710 1 Tablet(s) PO daily 10/02/2018 10/08/2018 Inactive Levaquin 500 mg tablet RxNorm: 042422 1 Tablet(s) PO daily 10/02/2018 10/01/2018 Inactive Levaquin 500 mg tablet RxNorm: 104279 1 Tablet(s) PO daily 10/02/2018 10/01/2018 Inactive prednisone 20 mg tablet RxNorm: 099456 2 Tablet(s) PO daily 09/30/2018 10/04/2018 Inactive Bactrim DS 800 mg-16 0 mg tablet RxNorm: 700996 1 Tablet(s) PO BID 09/30/2018 10/09/2018 Inactive Bactrim DS 800 mg-16 0 mg tablet RxNorm: 089151 1 Tablet(s) PO BID 09/02/2018 09/11/2018 Inactive Augmentin 875 mg-125 mg tablet RxNorm: 042283 1 Tablet(s) PO BID [facility] 08/17/2018 08/23/2018 Inactive Prozac 40 mg capsule RxNorm: 922166 1 Capsule(s) PO daily 08/10/2018 05/06/2019 Active Creon 36,000 unit-11 4,000 unit-180,000 unit capsule,delayed release RxNorm: 4789188 CAPSULE(S) 1 CAPSULE(S) PO WITH MEALS AND SNACKS 05/15/2018 11/22/2018 Inactive Prozac 20 mg capsule RxNorm: 760179 1 Capsule(s) PO daily 05/13/2018 08/09/2018 Inactive Prozac 20 mg capsule RxNorm: 516241 1 Capsule(s) PO daily 04/14/2018 05/12/2018 Inactive Creon 36,000 unit-11 4,000 unit-180,000 unit capsule,delayed release RxNorm: 9012636 Capsule(s) 1 CAPSULE(S) PO WITH MEALS AND SNACKS 01/06/2018 05/14/2018 Inactive Creon 36,000 unit-11 4,000 unit-180,000 unit capsule,delayed release RxNorm: 1657869 1 CAPSULE(S) PO WITH MEALS AND SNACKS 07/04/2017 01/05/2018 Inactive pantoprazole 40 mg t ablet,delayed release RxNorm: 683383 1 Tablet(s) PO daily started in hospital 07/01/2017 07/30/2017 Inactive Creon 36,000 unit-11 4,000 unit-180,000 unit capsule,delayed release RxNorm: 2032794 1 Capsule(s) PO with meals and snacks 07/01/2017 07/03/2017 Inactive Augmentin 875 mg-125 mg tablet RxNorm: 524806 1 Tablet(s) PO BID [facility] hospital 06/26/2017 06/27/2017 Inactive scopolamine 1 mg ove r 3 days transdermal patch RxNorm: 739731 1 Patch TD Q72H start ed in the hospital No Start Date Active promethazine 25 mg t ablet RxNorm: 309231 1 Tablet(s) PO QID as needed started in hospital No Start Date Active Lactobacillus acidop hilus capsule RxNorm: 1 Capsule(s) PO daily No Start Date Active acetaminophen 500 mg tablet RxNorm: 072497 1-2 Tablet(s) PO Q4H as needed started hospital No Start Date Active oxycodone-acetaminop hen 5 mg-325 mg tablet RxNorm: 4201607 1-2 Tablet(s) PO Q4H started at the hospital No Start Date Active Carafate 1 gram tablet RxNorm: 391984 1 Tablet(s) PO AC & HS started in hospit al No Start Date Active Medication Administered No Medication Administered data Immunizations No Immunization data Assessments Condition Codes Effectiv e Dates Other chronic pancreatitis ICD-10: K 86.1 ICD-9: [...] Visit Reason For Visit Effective Dates Notes Hospital Follow Up 11/04/2018 anxiety 10/21/2018 earache [...] D-Lymph 24 % 07/02/2017 Manual Differential Ord52 D-Haines 1 % 07/02/2017 Manual Differential Ord52 D-Eos [...] 30.4 pg 07/02/2017 Cbc With Differential Ord2 Haines% 6.1 % 07/02/2017 Cbc With Differential Ord2 [...] 2.10 K/ul 07/02/2017 Cbc With Differential Ord2 Haines ABS# 0.7 K/ul 07/02/2017 Cbc With Differential Ord2 Eos ABS# 0.2 K/ul 07/02/2017 Cbc With Differential Ord2 Baso ABS# 0.1 K/ul 07/02/2017 Lipase Fhz040 LIPASE 26 U/L 07/02/2017 Comp Metabolic Jot127 NA 134 mEq/L 07/02/2017 Comp Metabolic Dvx893 K 4.6 mEq/L 07/02/2017 Comp Metabolic Cbm172 CL 93 mEq/L 07/02/2017 Comp Metabolic Cug573 CO2 28.0 mEq/L 07/02/2017 Comp Metabolic Htc417 AN ION GAP 18 07/02/2017 Comp Metabolic Zgw490 GL UCOSE 108 mg/dL 07/02/2017 Comp Metabolic Jls297 Cr eat 0.7 mg/dL 07/02/2017 Comp Metabolic Czh175 eG FR 100 ml/min/1.73m2 09/2016 Comp Metabolic Xzz525 BUN 10 mg/dL 07/02/2017 Comp Metabolic Axq125 B/ C Ratio 14.7 Ratio 07/02/2017 Comp Metabolic Fli720 CA LCIUM 10.0 mg/dL 07/02/2017 Comp Metabolic Oqj760 AL K PHOS 102 U/L 07/02/2017 Comp Metabolic Wnv442 T(SGOT) 15 U/L 07/02/2017 Comp Metabolic Rcr978 AL T(SGPT) 18 U/L 07/02/2017 Comp Metabolic Xom988 BI LI T 0.4 mg/dL 07/02/2017 Comp Metabolic Nvx982 AL BUMIN 3.9 g/dL 07/02/2017 Comp Metabolic Yyy629 TP RO 7.8 g/dL 07/02/2017 Comp Metabolic Nio418 GL OB 3.9 g/dL 07/02/2017 Comp Metabolic Aug994 A/ G Ratio 1.0 Ratio 07/02/2017 Comp Metabolic Gru598 Os mo 268 mOsmo 07/02/2017 Review of Systems System Result Effective Dates Constitutional No recent illness 11/04/2018 Constitutional No [...] distress 11/04/2018 None Full Exam - General 1995 Constitutional general appearance Overall: well nourished 11/04/2018 None Full Exam - General 1995 Eyes conjunctiva/eyelids Overall: conjunctiva clear 11/04/2018 None [...] No Procedures data Vital Signs Date Vital 11/04/2018 Blood Pressure 1: 142/68 Code: 8480-6 BMI: 26.7 Code: 52421-7 Heart Rate 1: 70 bpm Height: 5'3" SpO2: 99% Weight: 151 lbs 10/21/2018 BMI: 26.7 Code: 65906-8 Height: 5'3" Weight: 151 lbs 10/05/2018 Blood Pressure 1: 124/70 Code: 8480-6 BMI: 26.9 Code: 09732-0 Heart Rate 1: 94 bpm Height: 5'3" SpO2: 99% Weight: 152 lbs 09/30/2018 Blood Pressure 1: 136/78 Code: 8480-6 BMI: 26.9 Code: 82781-5 Heart Rate 1: 71 bpm Height: 5'3" SpO2: 99% Temperature: 36.6 (C ) / 97.8 (F) Weight: 152 lbs 09/02/2018 Blood Pressure 1: 122/60 Code: 8480-6 BMI: 26.9 Code: 86071-5 Heart Rate 1: 65 bpm Height: 5'3" SpO2: 95% Weight: 152 lbs 08/17/2018 Blood Pressure 1: 132/68 Code: 8480-6 BMI: 26.9 Code: 19324-2 Heart Rate 1: 63 bpm Height: 5'3" SpO2: 97% Weight: 152 lbs 05/13/2018 Blood Pressure 1: 140/82 Code: 8480-6 BMI: 28.0 Code: 88284-8 Heart Rate 1: 57 bpm Height: 5'3" SpO2: 97% Weight: 158 lbs 04/14/2018 Blood Pressure 1: 126/74 Code: 8480-6 BMI: 28.0 Code: 01889-9 Heart Rate 1: 66 bpm Height: 5'3" SpO2: 97% Weight: 158 lbs 01/09/2018 Blood Pressure 1: 122/68 Code: 8480-6 BMI: 28.2 Code: 28082-0 Heart Rate 1: 70 bpm Height: 5'3" SpO2: 98% Weight: 159 lbs 11/28/2017 Blood Pressure 1: 110/70 Code: 8480-6 BMI: 28.2 Code: 64678-3 Heart Rate 1: 67 bpm Height: 5'3" SpO2: 95% Weight: 159 lbs 07/01/2017 Blood Pressure 1: 118/70 Code: 8480-6 BMI: 25.5 Code: 47357-3 Heart Rate 1: 76 bpm Height: 5'3" SpO2: 95% Weight: 144 lbs Functional Status No Functional Status data History of Present Illness Symptom Name Status Resu lt Effective Date Notes _ infection 11/04/2018 None Onset of Symptom [...] Encounters Encounter Performer Loca tion Codes Date 74924 EST. PATIENT, LEVEL III Diagnosis: Other chronic pancreatitis[ICD10: K86.1] Diagnosis: Generalized anxiety disorder[ICD10: F41.1] Diagnosis: Major depressive disorder, single episode, moderate[ICD10: F32.1] Lelia Ambrose MD, [facility] CPT-4: 21650 11/04/2018 05503 EST. PATIENT, LEVEL III Diagnosis: Generalized anxiety disorder[ICD10: F41.1] Diagnosis: Major depressive disorder, single episode, moderate[ICD10: F32.1] Lelia Ambrose MD, [facility] CPT-4: 54304 10/21/2018 98021 EST. PATIENT, LEVEL III Diagnosis: Cellulitis of right external ear[ICD10: H60.11] Lelia Ambrose MD, [facility] CPT-4: 00578 10/05/2018 74879 EST. PATIENT, LEVEL III Diagnosis: Cellulitis of right external ear[ICD10: H60.11] Lelia Ambrose MD, [facility] CPT-4: 22952 09/30/2018 10284 EST. PATIENT, LEVEL III Diagnosis: Dysuria[ICD10: R30.0] Lelia Ambrose MD, [facility] CPT-4: 27774 09/02/2018 58912 EST. PATIENT, LEVEL III Diagnosis: Generalized anxiety disorder[ICD10: F41.1] Diagnosis: Major depressive disorder, single episode, moderate[ICD10: F32.1] Diagnosis: Other allergic rhinitis[ICD10: J30.89] Diagnosis: Acute laryngopharyngitis[ICD10: J06.0] Lelia Ambrose MD, [facility] CPT-4: 72864 08/17/2018 54071 EST. PATIENT, LEVEL III Diagnosis: Generalized anxiety disorder[ICD10: F41.1] Diagnosis: Major depressive disorder, single episode, moderate[ICD10: F32.1] Lelia Ambrose MD, [facility] CPT-4: 55511 05/13/2018 57746 EST. PATIENT, LEVEL IV Diagnosis: Generalized anxiety disorder[ICD10: F41.1] Diagnosis: Major depressive disorder, single episode, moderate[ICD10: F32.1] Lelia Ambrose MD, [facility] CPT-4: 74661 04/14/2018 40987 EST. PATIENT, LEVEL III Diagnosis: Other chronic pancreatitis[ICD10: K86.1] Lelia Ambrose MD, [facility] CPT-4: 79678 01/09/2018 79581 EST. 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 11/04/2018 Appointment: Lelia Dolan WPtel: [address] [place], [place] [phone] (30 min) [facility] 11/04/2018 Patient Education: Patient Medication Summary Completed [...] this patient. 10/21/2018 Appointment: Lelia Dolan WPtel: [facility] (15 min) Moderate 10/21/2018 Patient Education: Patient Medication Summary Completed 10/21/2018 Patient Education: Obesity Completed 10/21/2018 Visit Plan: Cellulitis - improving - finish levaquin as directed - will refer to Dr. De La Garza for recurrent bacterial infections. 10/05/2018 Appointment: Lelia Dolan WPtel: [facility] (30 min) Complex 10/05/2018 Patient Education: Patient [...] warmth, discharge. 09/30/2018 Appointment: Lelia Dolan WPtel: [facility] (15 min) Moderate 09/30/2018 Patient Education: Patient Medication Summary Completed 09/30/2018 Visit Plan: UTI - pt with positive urinalysis - culture sent if appropriate. Antibiotic electronically prescribed to pt's pharmacy of choice. Pt to call if symptoms do not improve. Chronic pancreatitis - amylase and lipase within normal limits - continue to monitor 09/02/2018 Appointment: Lelia Dolan WPtel: [facility] (30 min) Complex 09/02/2018 Patient Education: Patient [...] or concerns. 08/17/2018 Appointment: [facility] ([facility] Mod[facility] 08/17/2018 Patient Education: [...] medications. 05/13/2018 [facility]ment[facility] [phone] [facility] (15 min) Moderate 05/13/2018 Patient Education: [...] this patient. 04/14/2018 Appointment: Lelia Dolan WPtel: [facility] (15 min) Moderate 04/14/2018 Patient Education: Patient Medication Summary Completed 04/14/2018 Visit Plan: chronic pancreatitis - defer to specialist - pt is to notify clinic with any changes in the current treatment plan - pt is to notify clinic with any changes, questions, or concerns. 01/09/2018 Appointment: Lelia Dolan WPtel: [facility] (30 min) Complex 01/09/2018 Patient Education: Patient Medication Summary Completed 01/09/2018 Visit Plan: chronic pancreatitis - defer to specialist - pt is to notify clinic with any changes in the current treatment plan - pt is to notify clinic with any changes, questions, or concerns. 11/28/2017 Appointment: Lelia Dolan WPtel: [facility] [place] (15 min) Moderate 11/28/2017 Patient Education: Patient Medication Summary Completed 11/28/2017 Appointment: Lelia Dolan WPtel: [address] [place], [place] [address] [place] (15 min) Moderate 11/18/2017 Appointment: Lelia Dolan WPtel: [address] [place], [place] [address] [place] (30 min) Complex 07/28/2017 Care Plan: Referral Order SNOMED-CT : [id number] Pending 07/03/2017 Visit Plan: Hospital follow up, [...] to specialist. 07/01/2017 Appointment: Lelia Dolan WPtel: [address] [place], [place] [address] New Patient 07/01/2017 Patient Education: Patient Medication [...] questions, or concerns. . Anxiety - the imchelle ent has uncontrolled anxiety and will benefit [...]
--- OUTSIDE RECORDS SUMMARY | 2019-09-03 10:32 | XMS REPORT | CCD ---
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 [employer] 07/01/[address]: 04498039 Current every day smoker 07/01/2017 Number of years using tobacco Unknown 10 - 20 1 pack day/20 years 07/01/2017 Number of cigarettes/day Unknown 20 (One Pack) 07/01/[address]: 921798770 Never drinks alcohol 07/01/2017 Allergies, Adverse Reactions, [...] 40 mg/mL cherelle pension for injection RxNorm: 3844701 Milliliter(s) Inj 11/24/2018 11/24/2018 In active Zoloft 25 mg tablet RxNorm: 829465 1 TABLET(S) PO DAILY 11/23/2018 01/21/2019 Active meclizine 25 mg tablet RxNorm: 044405 1 Tablet(s) PO TID as needed Dizziness 11/23/2018 12/02/2018 Ac tive Creon 36,000 unit-11 4,000 unit-180,000 unit capsule,delayed release RxNorm: 6946240 CAPSULE(S) 1 CAPSULE(S) PO WITH MEALS AND SNACKS 11/23/2018 No Stop Date Active naproxen 500 mg tablet RxNorm: 759930 1 Tablet(s) PO BID as needed for pain 11/23/2018 11/27/2018 Ac tive Prozac 20 mg capsule RxNorm: 599879 1 Capsule(s) PO daily 10/21/2018 10/27/2018 Inactive Zoloft 25 mg tablet RxNorm: 301425 1 Tablet(s) PO daily 10/21/2018 11/19/2018 Inactive Levaquin 500 mg tablet RxNorm: 936628 1 Tablet(s) PO daily 10/02/2018 10/08/2018 Inactive Levaquin 500 mg tablet RxNorm: 848431 1 Tablet(s) PO daily 10/02/2018 10/01/2018 Inactive Levaquin 500 mg tablet RxNorm: 369264 1 Tablet(s) PO daily 10/02/2018 10/01/2018 Inactive prednisone 20 mg tablet RxNorm: 716984 2 Tablet(s) PO daily 09/30/2018 10/04/2018 Inactive Bactrim DS 800 mg-16 0 mg tablet RxNorm: 534202 1 Tablet(s) PO BID 09/30/2018 10/09/2018 Inactive Bactrim DS 800 mg-16 0 mg tablet RxNorm: 186782 1 Tablet(s) PO BID 09/02/2018 09/11/2018 Inactive Augmentin 875 mg-125 mg tablet RxNorm: 272796 1 Tablet(s) PO BID [facility] in hospital 08/17/2018 08/23/2018 Inactive Prozac 40 mg capsule RxNorm: 003850 1 Capsule(s) PO daily 08/10/2018 05/06/2019 Active Creon 36,000 unit-11 4,000 unit-180,000 unit capsule,delayed release RxNorm: 4646597 CAPSULE(S) 1 CAPSULE(S) PO WITH MEALS AND SNACKS 05/15/2018 11/22/2018 Inactive Prozac 20 mg capsule RxNorm: 159674 1 Capsule(s) PO daily 05/13/2018 08/09/2018 Inactive Prozac 20 mg capsule RxNorm: 483888 1 Capsule(s) PO daily 04/14/2018 05/12/2018 Inactive Creon 36,000 unit-11 4,000 unit-180,000 unit capsule,delayed release RxNorm: 8316669 Capsule(s) 1 CAPSULE(S) PO WITH MEALS AND SNACKS 01/06/2018 05/14/2018 Inactive Creon 36,000 unit-11 4,000 unit-180,000 unit capsule,delayed release RxNorm: 0576289 1 CAPSULE(S) PO WITH MEALS AND SNACKS 07/04/2017 01/05/2018 Inactive pantoprazole 40 mg t ablet,delayed release RxNorm: 972889 1 Tablet(s) PO daily started in hospital 07/01/2017 07/30/2017 Inactive Creon 36,000 unit-11 4,000 unit-180,000 unit capsule,delayed release RxNorm: 2488552 1 Capsule(s) PO with meals and snacks 07/01/2017 07/03/2017 Inactive Augmentin 875 mg-125 mg tablet RxNorm: 645473 1 Tablet(s) PO BID [facility] in hospital 06/26/2017 06/27/2017 Inactive scopolamine 1 mg ove r 3 days transdermal patch RxNorm: 133064 1 Patch TD Q72H start ed in the hospital No Start Date Active promethazine 25 mg t ablet RxNorm: 457332 1 Tablet(s) PO QID as needed started in hospital No Start Date Active Lactobacillus acidop hilus capsule RxNorm: 1 Capsule(s) PO daily No Start Date Active acetaminophen 500 mg tablet RxNorm: 452624 1-2 Tablet(s) PO Q4H as needed started hospital No Start Date Active oxycodone-acetaminop hen 5 mg-325 mg tablet RxNorm: 0241422 1-2 Tablet(s) PO Q4H started at the hospital No Start Date Active Carafate 1 gram tablet RxNorm: 259228 1 Tablet(s) PO AC & HS started in hospit al No Start Date Active Medication Administered Medication Codes Instruc tions Start Date Status Kenalog 40 mg/mL suspension for injection RxNorm: 5705981 Milliliter 11/24/2018 Ac tive Immunizations No Immunization data Assessments Condition Codes [...] D-Lymph 24 % 07/02/2017 Manual Differential Ord52 D-[place] 1 % 07/02/2017 Manual Differential Ord52 D-Eos [...] 30.4 pg 07/02/2017 Cbc With Differential Ord2 [place]% 6.1 % 07/02/2017 Cbc With Differential Ord2 [...] 2.10 K/ul 07/02/2017 Cbc With Differential Ord2 [place] ABS# 0.7 K/ul 07/02/2017 Cbc With Differential Ord2 Eos ABS# 0.2 K/ul 07/02/2017 Cbc With Differential Ord2 Baso ABS# 0.1 K/ul 07/02/2017 Lipase Hig635 LIPASE 26 U/L 07/02/2017 Comp Metabolic Ruu609 NA 134 mEq/L 07/02/2017 Comp Metabolic Skb212 K 4.6 mEq/L 07/02/2017 Comp Metabolic Uqv991 CL 93 mEq/L 07/02/2017 Comp Metabolic Zgu105 CO2 28.0 mEq/L 07/02/2017 Comp Metabolic Ozi803 AN ION GAP 18 07/02/2017 Comp Metabolic Oqs769 GL UCOSE 108 mg/dL 07/02/2017 Comp Metabolic Xjr453 Cr eat 0.7 mg/dL 07/02/2017 Comp Metabolic Lkk018 eG FR 100 ml/min/1.73m2 09/2016 Comp Metabolic Eut228 BUN 10 mg/dL 07/02/2017 Comp Metabolic Yvm595 B/ C Ratio 14.7 Ratio 07/02/2017 Comp Metabolic Pnc890 CA LCIUM 10.0 mg/dL 07/02/2017 Comp Metabolic Ils713 AL K PHOS 102 U/L 07/02/2017 Comp Metabolic Qfr652 T(SGOT) 15 U/L 07/02/2017 Comp Metabolic Ojm025 AL T(SGPT) 18 U/L 07/02/2017 Comp Metabolic Ceq366 BI LI T 0.4 mg/dL 07/02/2017 Comp Metabolic Ghb604 AL BUMIN 3.9 g/dL 07/02/2017 Comp Metabolic Rpk624 TP RO 7.8 g/dL 07/02/2017 Comp Metabolic Zag590 GL OB 3.9 g/dL 07/02/2017 Comp Metabolic Hah219 A/ G Ratio 1.0 Ratio 07/02/2017 Comp Metabolic Vgy632 Os mo 268 mOsmo 07/02/2017 Review of [...] Procedure Codes Date THER/PROPH/DIAG INJ SC/IM CPT-4: 24074 11/24/2018 TRIAMCINOLONE ACET I [place] NOS CPT-4: J3301 11/24/2018 Vital Signs Date Vital 11/23/2018 Blood Pressure 1: 110/70 Code: 8480-6 BMI: 26.7 Code: 79690-4 Heart Rate 1: 85 bpm Height: 5'3" SpO2: 99% Weight: 151 lbs 11/04/2018 Blood Pressure 1: 142/68 Code: 8480-6 BMI: 26.7 Code: 87476-2 Heart Rate 1: 70 bpm Height: 5'3" SpO2: 99% Weight: 151 lbs 10/21/2018 BMI: 26.7 Code: 98385-1 Height: 5'3" Weight: 151 lbs 10/05/2018 Blood Pressure 1: 124/70 Code: 8480-6 BMI: 26.9 Code: 00464-0 Heart Rate 1: 94 bpm Height: 5'3" SpO2: 99% Weight: 152 lbs 09/30/2018 Blood Pressure 1: 136/78 Code: 8480-6 BMI: 26.9 Code: 62026-3 Heart Rate 1: 71 bpm Height: 5'3" SpO2: 99% Temperature: 36.6 (C ) / 97.8 (F) Weight: 152 lbs 09/02/2018 Blood Pressure 1: 122/60 Code: 8480-6 BMI: 26.9 Code: 70670-7 Heart Rate 1: 65 bpm Height: 5'3" SpO2: 95% Weight: 152 lbs 08/17/2018 Blood Pressure 1: 132/68 Code: 8480-6 BMI: 26.9 Code: 28738-0 Heart Rate 1: 63 bpm Height: 5'3" SpO2: 97% Weight: 152 lbs 05/13/2018 Blood Pressure 1: 140/82 Code: 8480-6 BMI: 28.0 Code: 41477-4 Heart Rate 1: 57 bpm Height: 5'3" SpO2: 97% Weight: 158 lbs 04/14/2018 Blood Pressure 1: 126/74 Code: 8480-6 BMI: 28.0 Code: 53749-7 Heart Rate 1: 66 bpm Height: 5'3" SpO2: 97% Weight: 158 lbs 01/09/2018 Blood Pressure 1: 122/68 Code: 8480-6 BMI: 28.2 Code: 31690-6 Heart Rate 1: 70 bpm Height: 5'3" SpO2: 98% Weight: 159 lbs 11/28/2017 Blood Pressure 1: 110/70 Code: 8480-6 BMI: 28.2 Code: 28116-6 Heart Rate 1: 67 bpm Height: 5'3" SpO2: 95% Weight: 159 lbs 07/01/2017 Blood Pressure 1: 118/70 Code: 8480-6 BMI: 25.5 Code: 46015-8 Heart Rate 1: 76 bpm Height: 5'3" [...] Encounters Encounter Performer Loca tion Codes Date 55467 EST. PATIENT, LEVEL IV Diagnosis: Benign paroxysmal vertigo, bilateral[ICD10: H81.13] Diagnosis: Cervicalgia[ICD10: M54.2] Diagnosis: Other muscle spasm[ICD10: M62.838] Lelia Ambrose MD, [facility] CPT-4: 54043 11/23/2018 10613 EST. PATIENT, LEVEL III Diagnosis: Other chronic pancreatitis[ICD10: K86.1] Diagnosis: Generalized anxiety disorder[ICD10: F41.1] Diagnosis: Major depressive disorder, single episode, moderate[ICD10: F32.1] Lelia Ambrose MD, [facility] CPT-4: 01087 11/04/2018 53423 EST. PATIENT, LEVEL III Diagnosis: Generalized anxiety disorder[ICD10: F41.1] Diagnosis: Major depressive disorder, single episode, moderate[ICD10: F32.1] Lelia Ambrose MD, [facility] CPT-4: 92748 10/21/2018 31784 EST. PATIENT, LEVEL III Diagnosis: Cellulitis of right external ear[ICD10: H60.11] Lelia Ambrose MD, [facility] CPT-4: 50967 10/05/2018 69799 EST. PATIENT, LEVEL III Diagnosis: Cellulitis of right external ear[ICD10: H60.11] Lelia Ambrose MD, [facility] CPT-4: 29959 09/30/2018 90641 EST. PATIENT, LEVEL III Diagnosis: Dysuria[ICD10: R30.0] Lelia Ambrose MD, [facility] CPT-4: 09905 09/02/2018 99985 EST. PATIENT, LEVEL III Diagnosis: Generalized anxiety disorder[ICD10: F41.1] Diagnosis: Major depressive disorder, single episode, moderate[ICD10: F32.1] Diagnosis: Other allergic rhinitis[ICD10: J30.89] Diagnosis: Acute laryngopharyngitis[ICD10: J06.0] Lelia Ambrose MD, [facility] CPT-4: 28592 08/17/2018 20533 EST. PATIENT, LEVEL III Diagnosis: Generalized anxiety disorder[ICD10: F41.1] Diagnosis: Major depressive disorder, single episode, moderate[ICD10: F32.1] Lelia Ambrose MD, [facility] CPT-4: 69236 05/13/2018 05532 EST. PATIENT, LEVEL IV Diagnosis: Generalized anxiety disorder[ICD10: F41.1] Diagnosis: Major depressive disorder, single episode, moderate[ICD10: F32.1] Lelia Ambrose MD, [facility] CPT-4: 96040 04/14/2018 51057 EST. PATIENT, LEVEL III Diagnosis: Other chronic pancreatitis[ICD10: K86.1] Lelia Ambrose MD, [facility] CPT-4: 50312 01/09/2018 98397 EST. 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 11/23/2018 Appointment[facility] ([facility] 11/23/2018 Patient Education: [...] plan. 11/04/2018 Appointment: [facility] [phone] [facility] [place] (30 min) Complex 11/04/2018 Patient Education: Patient [...] this patient. 10/21/2018 Appointment: Lelia Dolan WPtel: [facility] [facility] (15 min) Moderate 10/21/2018 Patient Education: Patient Medication Summary Completed 10/21/2018 Patient Education: Obesity Completed 10/21/2018 Visit Plan: Cellulitis - improving - finish levaquin as directed - will refer to Dr. De La Garza for recurrent bacterial infections. 10/05/2018 Appointment: L[facility] Dolan WPtel[facility] [place] (30 min) Complex 10/05/2018 Patient Education: Patient [...] warmth, discharge. 09/30/2018 Appointment: Lelia Dolan WPtel: [facility] [place] (15 min) Moderate 09/30/2018 Patient Education: Patient Medication Summary Completed 09/30/2018 Visit Plan: UTI - pt with positive urinalysis - culture sent if appropriate. Antibiotic electronically prescribed to pt's pharmacy of choice. Pt to call if symptoms do not improve. Chronic pancreatitis - amylase and lipase within normal limits - continue to monitor 09/02/2018 Appointment: Lelia Dolan WPtel: [phone] [facility] (30 min) Complex 09/02/2018 Patient Education: [...] or concerns. 08/17/2018 Appointment: Lelia Dolan WPtel: [facility] (15 min) Moderate 08/17/2018 Patient Education: [...] medications. 05/13/2018 Appointment: Lelia Dolan WPtel: [phone] [facility] (15 min) Moderate 05/13/2018 Patient Education: [...] Appointment: Lelia Dolan WPtel: [facility] [facility] (15 min) Moderate 04/14/2018 Patient Education: Patient Medication Summary Completed 04/14/2018 Visit Plan: chronic pancreatitis - defer to specialist - pt is to notify clinic with any changes in the current treatment plan - pt is to notify clinic with any changes, questions, or concerns. 01/09/2018 Appointment: Lelia Dolantel: [address] [place], [place] [phone] (30 min) Complex 01/09/2018 Patient Education: Patient Medication Summary Completed 01/09/2018 Visit Plan: chronic pancreatitis - defer to specialist - pt is to notify clinic with any changes in the current treatment plan - pt is to notify clinic with any changes, questions, or concerns. 11/28/2017 Appointment: L[facility] Dolan WPtel[facility] [place] (15 min) Moderate 11/28/2017 Patient Education: Patient Medication Summary Completed 11/28/2017 Appointment: Lelia Dolan WPtel: [address] [place], [place] [phone] [place] (15 min) Moderate 11/18/2017 Appointment: Lelia Dolan WPtel: [facility] [facility] [place] (30 min) Complex 07/28/2017 Care Plan: Referral Order SNOMED-CT : [id number] Pending 07/03/2017 Visit Plan: Hospital follow up, [...] to specialist. 07/01/2017 Appointment: Lelia Dolan WPtel: [address] [place], [place] [address] [place] New Patient 07/01/2017 Patient Education: Patient [...] will refer to a GI specialist at [facility] pt is to notify clinic with [...] will refer to a GI specialist at [facility] pt is to notify clinic with [...]
--- OUTSIDE RECORDS SUMMARY | 2019-09-03 10:33 | XMS REPORT | CCD ---
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/[address]: 62595335 Current every day smoker 07/01/2017 Number of years using tobacco Unknown 10 - 20 1 pack day/20 years 07/01/2017 Number of cigarettes/day Unknown 20 (One Pack) 07/01/[address]: 968865463 Never drinks alcohol 07/01/2017 Allergies, Adverse Reactions, [...] Fill Instructions Zoloft 25 mg tablet RxNorm: 468188 1 Tablet(s) PO daily 10/21/2018 11/19/2018 Active Prozac 20 mg capsule RxNorm: 857487 1 Capsule(s) PO daily 10/21/2018 10/27/2018 Inactive Levaquin 500 mg tablet RxNorm: 060853 1 Tablet(s) PO daily 10/02/2018 10/08/2018 Inactive Levaquin 500 mg tablet RxNorm: 027976 1 Tablet(s) PO daily 10/02/2018 10/01/2018 Inactive Levaquin 500 mg tablet RxNorm: 333711 1 Tablet(s) PO daily 10/02/2018 10/01/2018 Inactive prednisone 20 mg tablet RxNorm: 722273 2 Tablet(s) PO daily 09/30/2018 10/04/2018 Inactive Bactrim DS 800 mg-16 0 mg tablet RxNorm: 802828 1 Tablet(s) PO BID 09/30/2018 10/09/2018 Inactive Bactrim DS 800 mg-16 0 mg tablet RxNorm: 113228 1 Tablet(s) PO BID 09/02/2018 09/11/2018 Inactive Augmentin 875 mg-125 mg tablet RxNorm: 939966 1 Tablet(s) PO BID [facility] 08/17/2018 08/23/2018 Inactive Prozac 40 mg capsule RxNorm: 136257 1 Capsule(s) PO daily 08/10/2018 05/06/2019 Active Creon 36,000 unit-11 4,000 unit-180,000 unit capsule,delayed release RxNorm: 2258977 CAPSULE(S) 1 CAPSULE(S) PO WITH MEALS AND SNACKS 05/15/2018 No Stop Date Active Prozac 20 mg capsule RxNorm: 472376 1 Capsule(s) PO daily 05/13/2018 08/09/2018 Inactive Prozac 20 mg capsule RxNorm: 362344 1 Capsule(s) PO daily 04/14/2018 05/12/2018 Inactive Creon 36,000 unit-11 4,000 unit-180,000 unit capsule,delayed release RxNorm: 7640557 Capsule(s) 1 CAPSULE(S) PO WITH MEALS AND SNACKS 01/06/2018 05/14/2018 Inactive Creon 36,000 unit-11 4,000 unit-180,000 unit capsule,delayed release RxNorm: 0992107 1 CAPSULE(S) PO WITH MEALS AND SNACKS 07/04/2017 01/05/2018 Inactive pantoprazole 40 mg t ablet,delayed release RxNorm: 583432 1 Tablet(s) PO daily started in hospital 07/01/2017 07/30/2017 Inactive Creon 36,000 unit-11 4,000 unit-180,000 unit capsule,delayed release RxNorm: 7566364 1 Capsule(s) PO with meals and snacks 07/01/2017 07/03/2017 Inactive Augmentin 875 mg-125 mg tablet RxNorm: 226788 1 Tablet(s) PO B[facility] 06/26/2017 06/27/2017 Inactive scopolamine 1 mg ove r 3 days transdermal patch RxNorm: 336450 1 Patch TD Q72H start ed in the hospital No Start Date Active promethazine 25 mg t ablet RxNorm: 926327 1 Tablet(s) PO QID as needed started in hospital No Start Date Active Lactobacillus acidop hilus capsule RxNorm: 1 Capsule(s) PO daily No Start Date Active acetaminophen 500 mg tablet RxNorm: 211306 1-2 Tablet(s) PO Q4H as needed started hospital No Start Date Active oxycodone-acetaminop hen 5 mg-325 mg tablet RxNorm: 2338714 1-2 Tablet(s) PO Q4H started at the hospital No Start Date Active Carafate 1 gram tablet RxNorm: 153023 1 Tablet(s) PO AC & HS started [...] D-Lymph 24 % 07/02/2017 Manual Differential Ord52 D-[place] 1 % 07/02/2017 Manual Differential Ord52 D-Eos [...] 30.4 pg 07/02/2017 Cbc With Differential Ord2 [place]% 6.1 % 07/02/2017 Cbc With Differential Ord2 [...] 2.10 K/ul 07/02/2017 Cbc With Differential Ord2 [place] ABS# 0.7 K/ul 07/02/2017 Cbc With Differential Ord2 Eos ABS# 0.2 K/ul 07/02/2017 Cbc With Differential Ord2 Baso ABS# 0.1 K/ul 07/02/2017 Lipase Rcq535 LIPASE 26 U/L 07/02/2017 Comp Metabolic Rmt650 NA 134 mEq/L 07/02/2017 Comp Metabolic Lpk077 K 4.6 mEq/L 07/02/2017 Comp Metabolic Bnn327 CL 93 mEq/L 07/02/2017 Comp Metabolic Vff713 CO2 28.0 mEq/L 07/02/2017 Comp Metabolic Vse211 AN ION GAP 18 07/02/2017 Comp Metabolic Opj500 GL UCOSE 108 mg/dL 07/02/2017 Comp Metabolic Cuc748 Cr eat 0.7 mg/dL 07/02/2017 Comp Metabolic Aec360 eG FR 100 ml/min/1.73m2 09/2016 Comp Metabolic Ytu670 BUN 10 mg/dL 07/02/2017 Comp Metabolic Gbz034 B/ C Ratio 14.7 Ratio 07/02/2017 Comp Metabolic Rjw065 CA LCIUM 10.0 mg/dL 07/02/2017 Comp Metabolic Hlh169 AL K PHOS 102 U/L 07/02/2017 Comp Metabolic Are365 T(SGOT) 15 U/L 07/02/2017 Comp Metabolic Xpu158 AL T(SGPT) 18 U/L 07/02/2017 Comp Metabolic Wnw046 BI LI T 0.4 mg/dL 07/02/2017 Comp Metabolic Ixi388 AL BUMIN 3.9 g/dL 07/02/2017 Comp Metabolic Gdx272 TP RO 7.8 g/dL 07/02/2017 Comp Metabolic Dow294 GL OB 3.9 g/dL 07/02/2017 Comp Metabolic Rac985 A/ G Ratio 1.0 Ratio 07/02/2017 Comp Metabolic Ofg077 Os mo 268 mOsmo 07/02/2017 Review of [...] normal 11/04/2018 None Full Exam - General 1995 Ears/Nose/Throat lips/teeth/gingiva Overall: benign lips 11/04/2018 None [...] 1: 142/68 Code: 8480-6 BMI: 26.7 Code: 50022-2 Heart Rate 1: 70 bpm Height: 5'3" SpO2: 99% Weight: 151 lbs 10/21/2018 BMI: 26.7 Code: 85953-3 Height: 5'3" Weight: 151 lbs 10/05/2018 Blood Pressure 1: 124/70 Code: 8480-6 BMI: 26.9 Code: 43300-7 Heart Rate 1: 94 bpm Height: 5'3" SpO2: 99% Weight: 152 lbs 09/30/2018 Blood Pressure 1: 136/78 Code: 8480-6 BMI: 26.9 Code: 34564-4 Heart Rate 1: 71 bpm Height: 5'3" SpO2: 99% Temperature: 36.6 (C ) / 97.8 (F) Weight: 152 lbs 09/02/2018 Blood Pressure 1: 122/60 Code: 8480-6 BMI: 26.9 Code: 61573-1 Heart Rate 1: 65 bpm Height: 5'3" SpO2: 95% Weight: 152 lbs 08/17/2018 Blood Pressure 1: 132/68 Code: 8480-6 BMI: 26.9 Code: 65826-8 Heart Rate 1: 63 bpm Height: 5'3" SpO2: 97% Weight: 152 lbs 05/13/2018 Blood Pressure 1: 140/82 Code: 8480-6 BMI: 28.0 Code: 33588-1 Heart Rate 1: 57 bpm Height: 5'3" SpO2: 97% Weight: 158 lbs 04/14/2018 Blood Pressure 1: 126/74 Code: 8480-6 BMI: 28.0 Code: 13698-4 Heart Rate 1: 66 bpm Height: 5'3" SpO2: 97% Weight: 158 lbs 01/09/2018 Blood Pressure 1: 122/68 Code: 8480-6 BMI: 28.2 Code: 65383-8 Heart Rate 1: 70 bpm Height: 5'3" SpO2: 98% Weight: 159 lbs 11/28/2017 Blood Pressure 1: 110/70 Code: 8480-6 BMI: 28.2 Code: 56969-4 Heart Rate 1: 67 bpm Height: 5'3" SpO2: 95% Weight: 159 lbs 07/01/2017 Blood Pressure 1: 118/70 Code: 8480-6 BMI: 25.5 Code: 37892-2 Heart Rate 1: 76 bpm Height: 5'3" [...] No Advance Directive data Encounters Encounter Performer Jesenia jaimes Codes Date EST. PATIENT, LEVEL III Diagnosis: Other chronic pancreatitis[ICD10: K86.1] Diagnosis: Generalized anxiety disorder[ICD10: F41.1] Diagnosis: Major depressive disorder, single episode, moderate[ICD10: F32.1] Lelia Ambrose MD, [facility] CPT-4: 08180 11/04/2018 51027 EST. PATIENT, LEVEL III Diagnosis: Generalized anxiety disorder[ICD10: F41.1] Diagnosis: Major depressive disorder, single episode, moderate[ICD10: F32.1] Lelia Ambrose MD, [facility] CPT-4: 82676 10/21/2018 50074 EST. PATIENT, LEVEL III Diagnosis: Cellulitis of right external ear[ICD10: H60.11] Lelia Ambrose MD, [facility] CPT-4: 07940 10/05/2018 37556 EST. PATIENT, LEVEL III Diagnosis: Cellulitis of right external ear[ICD10: H60.11] Lelia Ambrose MD, [facility] CPT-4: 51000 09/30/2018 24666 EST. PATIENT, LEVEL III Diagnosis: Dysuria[ICD10: R30.0] Lelia Ambrose MD, [facility] CPT-4: 05277 09/02/2018 40447 EST. PATIENT, LEVEL III Diagnosis: Generalized anxiety disorder[ICD10: F41.1] Diagnosis: Major depressive disorder, single episode, moderate[ICD10: F32.1] Diagnosis: Other allergic rhinitis[ICD10: J30.89] Diagnosis: Acute laryngopharyngitis[ICD10: J06.0] Lelia Ambrose MD, [facility] CPT-4: 81995 08/17/2018 95228 EST. PATIENT, LEVEL III Diagnosis: Generalized anxiety disorder[ICD10: F41.1] Diagnosis: Major depressive disorder, single episode, moderate[ICD10: F32.1] Lelia Ambrose MD, [facility] CPT-4: 27554 05/13/2018 30069 EST. PATIENT, LEVEL IV Diagnosis: Generalized anxiety disorder[ICD10: F41.1] Diagnosis: Major depressive disorder, single episode, moderate[ICD10: F32.1] Lelia Ambrose MD, [facility] CPT-4: 35418 04/14/2018 87308 EST. PATIENT, LEVEL III Diagnosis: Other chronic pancreatitis[ICD10: K86.1] Lelia Ambrose MD, [facility] CPT-4: 65479 01/09/2018 77742 EST. 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 11/04/2018 Appointment: Lelia Dolan WPtel: [address] [place], [place] [phone] (30 min) [facility] 11/04/2018 Patient Education: Patient Medication Summary Completed [...] this patient. 10/21/2018 Appointment: Lelia Dolan WPtel: [facility] (15 min) Moderate 10/21/2018 Patient Education: Patient Medication Summary Completed 10/21/2018 Patient Education: Obesity Completed 10/21/2018 Visit Plan: Cellulitis - improving - finish levaquin as directed - will refer to Dr. De La Garza for recurrent bacterial infections. 10/05/2018 Appointment: Lelia Dolan WPtel: [facility] (30 min) Complex 10/05/2018 Patient Education: [...] warmth, discharge. 09/30/2018 Appointment: Lelia Dolan WPtel: [facility]4 [facility] (15 min) Moderate 09/30/2018 Patient Education: Patient Medication Summary Completed 09/30/2018 Visit Plan: UTI - pt with positive urinalysis - culture sent if appropriate. Antibiotic electronically prescribed to pt's pharmacy of choice. Pt to call if symptoms do not improve. Chronic pancreatitis - amylase and lipase within normal limits - continue to monitor 09/02/2018 Appointment: Lelia Dolan WPtel: [facility]9 [facility] (30 min) Complex 09/02/2018 Patient Education: Patient [...] changes, questions, or concerns. 08/17/2018 Appointment: Lelia Dolanl: [address] [facility] (15 min) Moderate 08/17/2018 Patient Education: Patient [...] change in current medications. 05/13/2018 [facility] ([facility] Moderate 05/13/2018 Patient [...] prescribed for this patient. 04/14/2018 Appointment: [facility]el[facility] [address] [facility] [place] (15 min) Moderate 04/14/2018 Patient Education: Patient Medication Summary Completed 04/14/2018 Visit Plan: chronic pancreatitis - defer to specialist - pt is to notify clinic with any changes in the current treatment plan - pt is to notify clinic with any changes, questions, or concerns. 01/09/2018 Appointment: Lelia Dolan WPtel: [facility] [place] (30 min) Complex 01/09/2018 Patient Education: Patient Medication Summary Completed 01/09/2018 Visit Plan: chronic pancreatitis - defer to specialist - pt is to notify clinic with any changes in the current treatment plan - pt is to notify clinic with any changes, questions, or concerns. 11/28/2017 Appointment: [facility]el[facility] [address] [facility] [place] (15 min) Moderate 11/28/2017 Patient Education: Patient Medication Summary Completed 11/28/2017 Appointment: [facility]el[facility] [phone] [facility] [place] (15 min) Moderate 11/18/2017 Appointment: Lelia Dolan WPtel: [facility] [place] (30 min) Complex 07/28/2017 Care Plan: Referral Order SNOMED-CT : [id number] Pending 07/03/2017 Visit Plan: Hospital follow up, [...] specialist. 07/01/2017 Appointment: [facility] Dolan [facility]Ptel[facility] [phone] [facility] [place] New Patient 07/01/2017 Patient [...]
--- OUTSIDE RECORDS SUMMARY | 2019-09-03 10:33 | XMS REPORT | CCD ---
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/[address]: 38697050 Current every day smoker 07/01/2017 Number of years using tobacco Unknown 10 - 20 1 pack day/20 years 07/01/2017 Number of cigarettes/day Unknown 20 (One Pack) 07/01/[address]: 066628255 Never drinks alcohol 07/01/2017 Allergies, Adverse Reactions, [...] Fill Instructions Zoloft 25 mg tablet RxNorm: 226257 1 Tablet(s) PO daily 10/21/2018 11/19/2018 Active Prozac 20 mg capsule RxNorm: 883683 1 Capsule(s) PO daily 10/21/2018 10/27/2018 Inactive Levaquin 500 mg tablet RxNorm: 469929 1 Tablet(s) PO daily 10/02/2018 10/08/2018 Inactive Levaquin 500 mg tablet RxNorm: 875804 1 Tablet(s) PO daily 10/02/2018 10/01/2018 Inactive Levaquin 500 mg tablet RxNorm: 738234 1 Tablet(s) PO daily 10/02/2018 10/01/2018 Inactive prednisone 20 mg tablet RxNorm: 350374 2 Tablet(s) PO daily 09/30/2018 10/04/2018 Inactive Bactrim DS 800 mg-16 0 mg tablet RxNorm: 461105 1 Tablet(s) PO BID 09/30/2018 10/09/2018 Inactive Bactrim DS 800 mg-16 0 mg tablet RxNorm: 220948 1 Tablet(s) PO BID 09/02/2018 09/11/2018 Inactive Augmentin 875 mg-125 mg tablet RxNorm: 781882 1 Tablet(s) PO BID [facility] 08/17/2018 08/23/2018 Inactive Prozac 40 mg capsule RxNorm: 263898 1 Capsule(s) PO daily 08/10/2018 05/06/2019 Active Creon 36,000 unit-11 4,000 unit-180,000 unit capsule,delayed release RxNorm: 6390762 CAPSULE(S) 1 CAPSULE(S) PO WITH MEALS AND SNACKS 05/15/2018 No Stop Date Active Prozac 20 mg capsule RxNorm: 333425 1 Capsule(s) PO daily 05/13/2018 08/09/2018 Inactive Prozac 20 mg capsule RxNorm: 391105 1 Capsule(s) PO daily 04/14/2018 05/12/2018 Inactive Creon 36,000 unit-11 4,000 unit-180,000 unit capsule,delayed release RxNorm: 7585558 Capsule(s) 1 CAPSULE(S) PO WITH MEALS AND SNACKS 01/06/2018 05/14/2018 Inactive Creon 36,000 unit-11 4,000 unit-180,000 unit capsule,delayed release RxNorm: 9221704 1 CAPSULE(S) PO WITH MEALS AND SNACKS 07/04/2017 01/05/2018 Inactive pantoprazole 40 mg t ablet,delayed release RxNorm: 445047 1 Tablet(s) PO daily started in hospital 07/01/2017 07/30/2017 Inactive Creon 36,000 unit-11 4,000 unit-180,000 unit capsule,delayed release RxNorm: 1309930 1 Capsule(s) PO with meals and snacks 07/01/2017 07/03/2017 Inactive Augmentin 875 mg-125 mg tablet RxNorm: 463845 1 Tablet(s) PO BID [facility] 06/26/2017 06/27/2017 Inactive scopolamine 1 mg ove r 3 days transdermal patch RxNorm: 703601 1 Patch TD Q72H start ed in the hospital No Start Date Active promethazine 25 mg t ablet RxNorm: 081745 1 Tablet(s) PO QID as needed started in hospital No Start Date Active Lactobacillus acidop hilus capsule RxNorm: 1 Capsule(s) PO daily No Start Date Active acetaminophen 500 mg tablet RxNorm: 131669 1-2 Tablet(s) PO Q4H as needed started hospital No Start Date Active oxycodone-acetaminop hen 5 mg-325 mg tablet RxNorm: 2144385 1-2 Tablet(s) PO Q4H started at the hospital No Start Date Active Carafate 1 gram tablet RxNorm: 689432 1 Tablet(s) PO AC & HS started [...] Ord2 Baso ABS# 0.1 K/ul 07/02/2017 Lipase Jpi301 LIPASE 26 U/L 07/02/2017 Comp Metabolic Ekv906 NA 134 mEq/L 07/02/2017 Comp Metabolic Qrv491 K 4.6 mEq/L 07/02/2017 Comp Metabolic Axz040 CL 93 mEq/L 07/02/2017 Comp Metabolic Cyd196 CO2 28.0 mEq/L 07/02/2017 Comp Metabolic Qid717 AN ION GAP 18 07/02/2017 Comp Metabolic Xqj265 GL UCOSE 108 mg/dL 07/02/2017 Comp Metabolic Tnn436 Cr eat 0.7 mg/dL 07/02/2017 Comp Metabolic Ogw967 eG FR 100 ml/min/1.73m2 09/2016 Comp Metabolic Oop079 BUN 10 mg/dL 07/02/2017 Comp Metabolic Wuz752 B/ C Ratio 14.7 Ratio 07/02/2017 Comp Metabolic Wha146 CA LCIUM 10.0 mg/dL 07/02/2017 Comp Metabolic Qyw649 AL K PHOS 102 U/L 07/02/2017 Comp Metabolic Lbt385 T(SGOT) 15 U/L 07/02/2017 Comp Metabolic Iyh253 AL T(SGPT) 18 U/L 07/02/2017 Comp Metabolic Cwm007 BI LI T 0.4 mg/dL 07/02/2017 Comp Metabolic Wkz335 AL BUMIN 3.9 g/dL 07/02/2017 Comp Metabolic Obp213 TP RO 7.8 g/dL 07/02/2017 Comp Metabolic Lsp326 GL OB 3.9 g/dL 07/02/2017 Comp Metabolic Dma098 A/ G Ratio 1.0 Ratio 07/02/2017 Comp Metabolic Iet775 Os mo 268 mOsmo 07/02/2017 Review of [...] 1: 142/68 Code: 8480-6 BMI: 26.7 Code: 99969-3 Heart Rate 1: 70 bpm Height: 5'3" SpO2: 99% Weight: 151 lbs 10/21/2018 BMI: 26.7 Code: 55349-2 Height: 5'3" Weight: 151 lbs 10/05/2018 Blood Pressure 1: 124/70 Code: 8480-6 BMI: 26.9 Code: 19828-6 Heart Rate 1: 94 bpm Height: 5'3" SpO2: 99% Weight: 152 lbs 09/30/2018 Blood Pressure 1: 136/78 Code: 8480-6 BMI: 26.9 Code: 96716-7 Heart Rate 1: 71 bpm Height: 5'3" SpO2: 99% Temperature: 36.6 (C ) / 97.8 (F) Weight: 152 lbs 09/02/2018 Blood Pressure 1: 122/60 Code: 8480-6 BMI: 26.9 Code: 45673-8 Heart Rate 1: 65 bpm Height: 5'3" SpO2: 95% Weight: 152 lbs 08/17/2018 Blood Pressure 1: 132/68 Code: 8480-6 BMI: 26.9 Code: 01392-0 Heart Rate 1: 63 bpm Height: 5'3" SpO2: 97% Weight: 152 lbs 05/13/2018 Blood Pressure 1: 140/82 Code: 8480-6 BMI: 28.0 Code: 90422-2 Heart Rate 1: 57 bpm Height: 5'3" SpO2: 97% Weight: 158 lbs 04/14/2018 Blood Pressure 1: 126/74 Code: 8480-6 BMI: 28.0 Code: 33141-1 Heart Rate 1: 66 bpm Height: 5'3" SpO2: 97% Weight: 158 lbs 01/09/2018 Blood Pressure 1: 122/68 Code: 8480-6 BMI: 28.2 Code: 06814-8 Heart Rate 1: 70 bpm Height: 5'3" SpO2: 98% Weight: 159 lbs 11/28/2017 Blood Pressure 1: 110/70 Code: 8480-6 BMI: 28.2 Code: 62852-4 Heart Rate 1: 67 bpm Height: 5'3" SpO2: 95% Weight: 159 lbs 07/01/2017 Blood Pressure 1: 118/70 Code: 8480-6 BMI: 25.5 Code: 96847-9 Heart Rate 1: 76 bpm Height: 5'3" [...] MD, [facility] CPT-4: 06743 11/04/2018 45177 EST. PATIENT, LEVEL III Diagnosis: Generalized anxiety disorder[ICD10: F41.1] Diagnosis: Major depressive disorder, single episode, moderate[ICD10: F32.1] Lelia Ambrose MD, [facility] CPT-4: 98423 10/21/2018 35024 EST. PATIENT, LEVEL III Diagnosis: Cellulitis of right external ear[ICD10: H60.11] Lelia Ambrose MD, [facility] CPT-4: 84208 10/05/2018 33006 EST. PATIENT, LEVEL III Diagnosis: Cellulitis of right external ear[ICD10: H60.11] Lelia Ambrose MD, [facility] CPT-4: 13465 09/30/2018 58170 EST. PATIENT, LEVEL III Diagnosis: Dysuria[ICD10: R30.0] Lelia Ambrose MD, [facility] CPT-4: 24277 09/02/2018 56435 EST. PATIENT, LEVEL III Diagnosis: Generalized anxiety disorder[ICD10: F41.1] Diagnosis: Major depressive disorder, single episode, moderate[ICD10: F32.1] Diagnosis: Other allergic rhinitis[ICD10: J30.89] Diagnosis: Acute laryngopharyngitis[ICD10: J06.0] Lelia Ambrose MD, [facility] CPT-4: 46005 08/17/2018 09569 EST. PATIENT, LEVEL III Diagnosis: Generalized anxiety disorder[ICD10: F41.1] Diagnosis: Major depressive disorder, single episode, moderate[ICD10: F32.1] Lelia Ambrose MD, [facility] CPT-4: 30316 05/13/2018 19799 EST. PATIENT, LEVEL IV Diagnosis: Generalized anxiety disorder[ICD10: F41.1] Diagnosis: Major depressive disorder, single episode, moderate[ICD10: F32.1] Lelia Ambrose MD, [facility] CPT-4: 83681 04/14/2018 13970 EST. PATIENT, LEVEL III Diagnosis: Other chronic pancreatitis[ICD10: K86.1] Lelia Ambrose MD, [facility] CPT-4: 69961 01/09/2018 82816 EST. 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 11/04/2018 Appointment: Lelia Dolan WPtel: [address] [place], [place] [phone] (30 min) [facility] 11/04/2018 Patient Education: Patient Medication Summary [...] this patient. 10/21/2018 Appointment: Lelia Dolan WPtel: [facility] (15 min) Moderate 10/21/2018 Patient Education: Patient Medication Summary Completed 10/21/2018 Patient Education: Obesity Completed 10/21/2018 Visit Plan: Cellulitis - improving - finish levaquin as directed - will refer to Dr. De La Garza for recurrent bacterial infections. 10/05/2018 Appointment: Lelia Dolan WPtel: [facility] (30 min) Complex 10/05/2018 Patient Education: [...] warmth, discharge. 09/30/2018 Appointment: Lelia Dolan WPtel: [facility] (15 min) Moderate 09/30/2018 Patient Education: Patient Medication Summary Completed 09/30/2018 Visit Plan: UTI - pt with positive urinalysis - culture sent if appropriate. Antibiotic electronically prescribed to pt's pharmacy of choice. Pt to call if symptoms do not improve. Chronic pancreatitis - amylase and lipase within normal limits - continue to monitor 09/02/2018 Appointment: Lelia Dolan WPtel: [facility] (30 min) Complex 09/02/2018 Patient Education: Patient [...] or concerns. 08/17/2018 Appointment: Lelia Dolanl: [address] [facility] (15 min) Moderate 08/17/2018 Patient Education: Patient [...] current medications. 05/13/2018 App[facility]ment[facility] ([facility]) Moderate 05/13/2018 Patient Education: Patient [...] this patient. 04/14/2018 Appointment: [facility] Dolantel[facility] [facility] [place] (15 min) Moderate 04/14/2018 Patient Education: Patient Medication Summary Completed 04/14/2018 Visit Plan: chronic pancreatitis - defer to specialist - pt is to notify clinic with any changes in the current treatment plan - pt is to notify clinic with any changes, questions, or concerns. 01/09/2018 Appointment: Lelia Dolan WPtel: [facility] [place] (30 min) Complex 01/09/2018 Patient Education: Patient Medication Summary Completed 01/09/2018 Visit Plan: chronic pancreatitis - defer to specialist - pt is to notify clinic with any changes in the current treatment plan - pt is to notify clinic with any changes, questions, or concerns. 11/28/2017 Appointment: [facility] Dolan [facility]Ptel[facility] [address] [facility] [place] (15 min) Moderate 11/28/2017 Patient Education: Patient Medication Summary Completed 11/28/2017 Appointment: [facility]el[facility] [facility] [place] (15 min) Moderate 11/18/2017 Appointment: Lelia Dolan WPtel: [facility] [place] (30 min) Complex 07/28/2017 Care Plan: Referral Order SNOMED-CT : [id number] Pending 07/03/2017 Visit Plan: Hospital follow up, [...] specialist. 07/01/2017 Appointment: [facility] Dolan [facility]Ptel[facility] [address] [facility] [place] New Patient 07/01/2017 Patient Education: [...]
--- OUTSIDE RECORDS SUMMARY | 2019-09-03 10:35 | XMS REPORT | Continuity of Care Document ---
Author Organization Unknown Address Unknown Phone Unavailable Allergies Active Description Code Type Severity Reaction Onset Reported/Identified Relationship to Patient Clinical Status Yes No Known Drug Allergies [id number] Drug Allergy Mild N/A 12/18/2009 Medications There is no data. Problems Date Dx Coded Attending Type Code Diagnosis Diagnosed By 01/22/2012 Ot 577.0 ACUT E PANCREATITIS 09/14/2013 STEVE ZAPATA, KERRI Barbour Ot 577 .0 ACUTE PANCREATITIS 09/14/2013 STEVE ZAPATA, KERRI Barbour Ot V04.81 ND FOR PROPHYLACTIC VACCIN AND INOCULATI 06/11/2017 GUICHO ZAPATA, MILTON Salcido Ot 388.60 OTORRHEA NOS 06/12/2017 VERONIKA FORD MD Ot E27 .9 DISORDER OF ADRENAL GLAND, UNSPECIFIED 06/12/2017 VERONIKA FORD MD Ot F10.11 ALCOHOL ABUSE, IN REMISSION 06/12/2017 VERONIKA FORD MD Ot F17.200 NICOTINE DEPENDENCE, UNSPECIFIED, UNCOMP 06/12/2017 VERONIKA FORD MD Ot K85.90 ACUTE PANCREATITIS WITHOUT NECROSIS OR I 06/12/2017 VERONIKA FORD MD Ot N85 .9 NONINFLAMMATORY DISORDER OF UTERUS, UNSP 06/13/2017 VERONIKA FODR MD Ot E27 .9 DISORDER OF ADRENAL GLAND, UNSPECIFIED 06/13/2017 VERONIKA FORD MD Ot F10.11 ALCOHOL ABUSE, IN REMISSION 06/13/2017 VERONIKA FORD MD Ot F17.210 NICOTINE DEPENDENCE, CIGARETTES, UNCOMPL 06/13/2017 VERONIKA FORD MD Ot K85.90 ACUTE PANCREATITIS WITHOUT NECROSIS OR I 06/13/2017 VERONIKA FORD MD Ot N85 .9 NONINFLAMMATORY DISORDER OF UTERUS, UNSP 06/19/2017 EYAL SINGH MD Ot K92.0 HEMATEMESIS 06/19/2017 EYAL SINGH MD Ot K92.1 MELENA 06/19/2017 EYAL SINGH MD Ot R11.2 NAUSEA WITH VOMITING, UNSPECIFIED 06/19/2017 EYAL SINGH MD Ot R19.7 DIARRHEA, UNSPECIFIED 06/19/2017 EYAL SINGH MD Ot Z01.81 8 ENCOUNTER FOR OTHER PREPROCEDURAL EXAMIN 06/20/2017 EYAL SINGH MD Ot K92.0 HEMATEMESIS 06/20/2017 EYAL SINGH MD Ot K92.1 MELENA 06/20/2017 EYAL SINGH MD Ot R11.2 NAUSEA WITH VOMITING, UNSPECIFIED 06/20/2017 EYAL SINGH MD Ot R19.7 DIARRHEA, UNSPECIFIED 06/20/2017 EYAL SINGH MD Ot Z01.81 8 ENCOUNTER FOR OTHER PREPROCEDURAL EXAMIN 06/20/2017 EYAL SINGH MD Ot K21.0 GASTRO-ESOPHAGEAL REFLUX DISEASE WITH ES 06/20/2017 EYAL SINGH MD Ot K29.60 OTHER GASTRITIS WITHOUT BLEEDING 06/20/2017 EYAL SINGH MD Ot N85.9 NONINFLAMMATORY DISORDER OF UTERUS, UNSP 06/20/2017 EYAL SINGH MD Ot R19.5 OTHER FECAL ABNORMALITIES 06/20/2017 EYAL SINGH MD Ot Z87.89 1 PERSONAL HISTORY OF NICOTINE DEPENDENCE 06/24/2017 JENIFFER PEREZ DO Ot A41.9 SEPSIS, UNSPECIFIED ORGANISM 06/24/2017 ROLAN PEREZ DOI Ot E27.9 DISORDER OF ADRENAL GLAND, UNSPECIFIED 06/24/2017 ROLAN PEREZ DOI Ot E87.6 HYPOKALEMIA 06/24/2017 ROLAN PEREZ DOI Ot F10.21 ALCOHOL DEPENDENCE, IN REMISSION 06/24/2017 ROLAN PEREZ DOI Ot F17.21 0 NICOTINE DEPENDENCE, CIGARETTES, UNCOMPL 06/24/2017 ROLAN PEREZ DOI Ot K21.0 GASTRO-ESOPHAGEAL REFLUX DISEASE WITH ES 06/24/2017 ROLAN PEREZ DOI Ot K29.60 OTHER GASTRITIS WITHOUT BLEEDING 06/24/2017 ROLAN PEREZ DOI Ot K52.9 NONINFECTIVE GASTROENTERITIS AND COLITIS 06/24/2017 JENIFFER PEREZ DO Ot K86.1 OTHER CHRONIC PANCREATITIS 06/24/2017 JENIFFER PEREZ DO Ot K86.3 PSEUDOCYST OF PANCREAS 06/24/2017 ANA WIGGINS JENIFFER Ot N39.0 URINARY TRACT INFECTION, SITE NOT SPECIF 06/25/2017 EYAL SINGH MD Ot K92.0 HEMATEMESIS 06/25/2017 EYAL SINGH MD Ot K92.1 MELENA 06/25/2017 EYAL SINGH MD Ot R11.2 NAUSEA WITH VOMITING, UNSPECIFIED 06/25/2017 EYAL SINGH MD Ot R19.7 DIARRHEA, UNSPECIFIED 06/25/2017 EYAL SINGH MD Ot Z01.81 8 ENCOUNTER FOR OTHER PREPROCEDURAL EXAMIN 06/26/2017 ANA WIGGINS JENIFFER Ot A41.9 SEPSIS, UNSPECIFIED ORGANISM 06/26/2017 ANA WIGGINS JENIFFER Ot E27.9 DISORDER OF ADRENAL GLAND, UNSPECIFIED 06/26/2017 ANA WIGGINS JENIFFER Ot E87.6 HYPOKALEMIA 06/26/2017 ANA WIGGINS JENIFFER Ot F10.21 ALCOHOL DEPENDENCE, IN REMISSION 06/26/2017 ANA WIGGINS JENIFFER Ot F17.21 0 NICOTINE DEPENDENCE, CIGARETTES, UNCOMPL 06/26/2017 ANA WIGGINS JENIFFER Ot K21.0 GASTRO-ESOPHAGEAL REFLUX DISEASE WITH ES 06/26/2017 ANA WIGGINS JENIFFER Ot K29.60 OTHER GASTRITIS WITHOUT BLEEDING 06/26/2017 ANA WIGGINS JENIFFER Ot K52.9 NONINFECTIVE GASTROENTERITIS AND COLITIS 06/26/2017 ANA WIGGINS JENIFFER Ot K86.1 OTHER CHRONIC PANCREATITIS 06/26/2017 ANA WIGGINS JENIFFER Ot K86.3 PSEUDOCYST OF PANCREAS 06/26/2017 ROLAN PEREZ DOI Ot N39.0 URINARY TRACT INFECTION, SITE NOT SPECIF 06/26/2017 ANA WIGGINS JENIFFER Ot Z23 ENCOUNTER FOR IMMUNIZATION 01/14/2018 MICHOACANO WILSON BUNDLE HELPER Ot Z12.31 ENCNTR SCREEN MAMMOGRAM FOR MALIGNANT NE 01/19/2018 MICHOACANO WILSON APRN Ot Z12.31 ENCNTR SCREEN MAMMOGRAM FOR MALIGNANT NE 02/09/2018 MICHOACANO WILSON APRN Ot Z12.31 ENCNTR SCREEN MAMMOGRAM FOR MALIGNANT NE 02/12/2018 MICHOACANO WILSON APRN Ot Z12.31 ENCNTR SCREEN MAMMOGRAM FOR MALIGNANT NE 03/12/2018 MICHOACANO WILSON BUNDLE HELPER Ot R92.2 INCONCLUSIVE MAMMOGRAM 06/17/2018 GUICHO ZAPATA, MILTON Salcido Ot 388.60 OTORRHEA NOS 06/17/2018 STEVEKIAANIRUDH Purcell BUNDLE HELPER Ot Z12.31 ENCNTR SCREEN MAMMOGRAM FOR MALIGNANT NE 06/17/2018 MICHOACANO WILSON Jazzy BUNDLE HELPER Ot R92.2 INCONCLUSIVE MAMMOGRAM 06/17/2018 KIA WILSONANIRUDH Purcell BUNDLE HELPER Ot Z12.31 ENCNTR SCREEN MAMMOGRAM FOR MALIGNANT NE 06/17/2018 STEVE MICHOACANO Purcell BUNDLE HELPER Ot R92.2 INCONCLUSIVE MAMMOGRAM 09/02/2018 MICHOACANO WILSON Jazzy BUNDLE HELPER Ot K86.1 OTHER CHRONIC PANCREATITIS 09/04/2018 MICHOACANO WILSON BUNDLE HELPER Ot K86.1 OTHER CHRONIC PANCREATITIS 10/13/2018 JOHN ZAPATA, TIFFANI Ot K85.90 ACUTE PANCREATITIS WITHOUT NECROSIS OR I 10/16/2018 MICHOACANO WILSON BUNDLE HELPER Ot Z12.31 ENCNTR SCREEN MAMMOGRAM FOR MALIGNANT NE 10/16/2018 MICHOACANO WILSON BUNDLE HELPER Ot R92.2 INCONCLUSIVE MAMMOGRAM 10/16/2018 JOHN ZAPATA, TIFFANI Ot K85.90 ACUTE PANCREATITIS WITHOUT NECROSIS OR I 11/01/2018 EVELYN CULP APRN Ot F17.290 NICOTINE DEPENDENCE, OTHER TOBACCO PRODU 11/01/2018 EVELYN CULP APRN Ot K21 .9 GASTRO-ESOPHAGEAL REFLUX DISEASE WITHOUT 11/01/2018 EVELYN CULP BUNDLE HELPER Ot K85.90 ACUTE PANCREATITIS WITHOUT NECROSIS OR I 11/01/2018 EVELYN CULP APRN Ot R10.13 EPIGASTRIC PAIN 11/01/2018 EVELYN CULP APRN Ot Z80 .1 FAMILY HISTORY OF MALIG NEOPLASM OF TRAC 11/01/2018 EVELYN CULP BUNDLE HELPER Ot Z82.49 FAMILY HX OF ISCHEM HEART DIS AND OTH DI 11/01/2018 EVELYN CULP APRN Ot Z87.19 PERSONAL HISTORY OF OTHER DISEASES OF TH 11/01/2018 EVELYN CULP APRN Ot Z90.49 ACQUIRED ABSENCE OF OTHER SPECIFIED PART 11/04/2018 EVELYN CULP BUNDLE HELPER Ot F17.290 NICOTINE DEPENDENCE, OTHER TOBACCO PRODU 11/04/2018 EVELYN CULP APRN Ot K21 .9 GASTRO-ESOPHAGEAL REFLUX DISEASE WITHOUT 11/04/2018 EVELYN CULP BUNDLE HELPER Ot K85.90 ACUTE PANCREATITIS WITHOUT NECROSIS OR I 11/04/2018 EVELYN CULP BUNDLE HELPER Ot R10.13 EPIGASTRIC PAIN 11/04/2018 EVELYN CULP BUNDLE HELPER Ot Z80 .1 FAMILY HISTORY OF MALIG NEOPLASM OF TRAC 11/04/2018 EVELYN CULP BUNDLE HELPER Ot Z82.49 FAMILY HX OF ISCHEM HEART DIS AND OTH DI 11/04/2018 EVELYN CULP BUNDLE HELPER Ot Z87.19 PERSONAL HISTORY OF OTHER DISEASES OF TH 11/04/2018 EVELYN CULP BUNDLE HELPER Ot Z90.49 ACQUIRED ABSENCE OF OTHER SPECIFIED PART 11/18/2018 MICHOACANO WILSON BUNDLE HELPER Ot E86.0 DEHYDRATION 11/18/2018 MICHOACANO WILSON BUNDLE HELPER Ot E87.5 HYPERKALEMIA 11/18/2018 MICHOACANO WILSON BUNDLE HELPER Ot K86.1 OTHER CHRONIC PANCREATITIS 11/19/2018 JOHN ZAPATA, TIFFANI Ot K85.90 ACUTE PANCREATITIS WITHOUT NECROSIS OR I 06/09/2019 MICHOACANO WILSON BUNDLE HELPER Ot K86.1 OTHER CHRONIC PANCREATITIS 06/15/2019 MICHOACANO WILSON BUNDLE HELPER Ot N64.4 MASTODYNIA 06/21/2019 MCIHOACANO WILSON BUNDLE HELPER Ot N64.4 MASTODYNIA 06/22/2019 MICHOACANO WILSON BUNDLE HELPER Ot K86.1 OTHER CHRONIC PANCREATITIS 06/22/2019 MICHOACANO WILSON BUNDLE HELPER Ot K86.1 OTHER CHRONIC PANCREATITIS 06/24/2019 MICHOACANO WILSON BUNDLE HELPER Ot K86.1 OTHER CHRONIC PANCREATITIS 07/14/2019 MARY WIGGINS, MILTON S Ot D25.9 LEIOMYOMA OF UTERUS, UNSPECIFIED 07/16/2019 MICHOACANO WILSON BUNDLE HELPER Ot K86.1 OTHER CHRONIC PANCREATITIS 07/16/2019 MICHOACANO WILSON BUNDLE HELPER Ot N64.4 MASTODYNIA 07/16/2019 MICHOACANO WILSON BUNDLE HELPER Ot K86.1 OTHER CHRONIC PANCREATITIS 07/23/2019 BAN LAUREN MD Ot D25.9 LEIOMYOMA OF UTERUS, UNSPECIFIED 07/23/2019 BAN LAUREN MD Ot E27.8 OTHER SPECIFIED DISORDERS OF ADRENAL GLA 08/04/2019 MILTON HERNANDEZ DO S Ot D25.9 LEIOMYOMA OF UTERUS, UNSPECIFIED 08/04/2019 FENECH DO, MILTON S Ot Z01.812 ENCOUNTER FOR PREPROCEDURAL LABORATORY E 08/04/2019 MICHOACANO WILSON BUNDLE HELPER Ot K86.1 OTHER CHRONIC PANCREATITIS 08/04/2019 MICHOACANO WILSON BUNDLE HELPER Ot N64.4 MASTODYNIA 08/04/2019 MICHOACANO WILSON BUNDLE HELPER Ot K86.1 OTHER CHRONIC PANCREATITIS 08/04/2019 MICHOACANO WILSON BUNDLE HELPER Ot N64.4 MASTODYNIA 08/06/2019 MILTON HERNANDEZ DO S Ot D25.9 LEIOMYOMA OF UTERUS, UNSPECIFIED 08/06/2019 MILTON HERNANDEZ DO S Ot Z01.812 ENCOUNTER FOR PREPROCEDURAL LABORATORY E 08/09/2019 MICHOACANO WILSON BUNDLE HELPER Ot K86.1 OTHER CHRONIC PANCREATITIS 08/09/2019 MICHOACANO WILSON BUNDLE HELPER Ot N64.4 MASTODYNIA 08/09/2019 MICHOACANO WILSON BUNDLE HELPER Ot K86.1 OTHER CHRONIC PANCREATITIS 08/09/2019 MILTON HERNANDEZ DO S Ot D25.9 LEIOMYOMA OF UTERUS, UNSPECIFIED 08/09/2019 BAN LAUREN MD Ot D25.9 LEIOMYOMA OF UTERUS, UNSPECIFIED 08/09/2019 BAN LAUREN MD Ot E27.8 OTHER SPECIFIED DISORDERS OF ADRENAL GLA 08/09/2019 MILTON HERNANDEZ DO S Ot D25.1 INTRAMURAL LEIOMYOMA OF UTERUS 08/09/2019 MILTON HERNANDEZ DO Ot F17.210 NICOTINE DEPENDENCE, CIGARETTES, UNCOMPL 08/09/2019 MILTON HERNANDEZ DO S Ot F32.9 MAJOR DEPRESSIVE DISORDER, SINGLE EPISOD 08/09/2019 MILTON HERNANDEZ DO Ot N85.8 OTHER SPECIFIED NONINFLAMMATORY DISORDER 08/09/2019 MILTON HERNANDEZ DO S Ot N93.9 ABNORMAL UTERINE AND VAGINAL BLEEDING, U 08/09/2019 MILTON HERNANDEZ DO S Ot Z79.899 OTHER HALF-WAY (CURRENT) DRUG THERAPY 08/09/2019 MILTON HERNANDEZ DO Ot Z80.1 FAMILY HISTORY OF MALIG NEOPLASM OF TRAC 08/09/2019 MILTON HERNANDEZ DO S Ot Z82.3 FAMILY HISTORY OF STROKE 08/09/2019 MILTON HERNANDEZ DO S Ot Z82.49 FAMILY HX OF ISCHEM HEART DIS AND OTH DI 08/09/2019 MILTON HERNANDEZ DO Ot Z83.3 FAMILY HISTORY OF DIABETES MELLITUS 08/09/2019 MARY WIGGINS MILTON Sukhdeep Ot Z90.89 ACQUIRED ABSENCE OF OTHER ORGANS 08/26/2019 MILTON HERNANDEZ DO Ot D25.9 LEIOMYOMA OF UTERUS, UNSPECIFIED 08/26/2019 BAN LAUREN MD Ot D25.9 LEIOMYOMA OF UTERUS, UNSPECIFIED 08/26/2019 BAN LAUREN MD Ot E27.8 OTHER SPECIFIED DISORDERS OF ADRENAL GLA 09/02/2019 MICHOACANO WILSON APRN Ot K86.1 OTHER CHRONIC PANCREATITIS Procedures Code Description Performed By Per formed On 47.01 LAPA ROSCOP APPENDECTOMY 09/21/2007 Results Test Result Range Complete blood count (CBC) with automate d white blood cell (WBC) differential - 06/11/17 04:30 Blood leukocytes automated count (number/volume) 16.6 10*3/uL 4.3-11.0 Blood erythrocytes automated count (number/volume) 5.23 10*6/uL 4.35-5.85 Venous blood hemoglobin measurement (mass/volume) 16.3 g/dL 11.5-16.0 Blood hematocrit (volume fraction) 48 % 35-52 Automated erythrocyte mean corpuscular volume 91 [ foz_us] 80-99 Automated erythrocyte mean corpuscular h emoglobin (mass per erythrocyte) 31 pg 25-34 Automated erythrocyte mean corpuscular h emoglobin concentration measurement (mass/volume) 34 g/dL 32-36 Automated erythrocyte distribution width ratio 12. 6 % 10.0- 14.5 Automated blood platelet count (count/volume) 322 10*3/uL [...] 10*3 1.0-4.0 Blood monocytes automated count (number/volume) 0. 8 10*3 0.0-1.0 Automated eosinophil count 0.1 10*3/uL 0 .0-0.3 Automated blood basophil count (count/volume) 0.1 10*3/uL 0.0-0.1 Blood lactic acid measurement (moles/vol ume) - 06/11/17 04:30 Blood lactic acid measurement (moles/volume) 1.19 mmol/L 0.50-2.00 Magnesium - 06/11/17 04:30 Magnesium 2.3 mg/dL 1.8-2.4 Serum or plasma triglyceride measurement (mass/volume) - 06/11/17 04:30 Serum or plasma triglyceride measurement (mass/volume) 82 mg/dL <150 Blood manual differential performed dete ction - 06/11/17 04:30 Blood monocytes/100 leukocytes 5 % NRG Manual blood segmented neutrophils/100 leukocytes 85 % NRG Blood band neutrophils/100 leukocytes 4 % NRG Manual blood lymphocytes/100 leukocytes 6 % NRG Blood erythrocyte morphology finding identification NORMAL NRG Lipase - 06/11/17 04:30 Lipase 4860 U/L 8-78 Serum or plasma ethanol measurement (mas s/volume) - 06/11/17 04:30 Serum or plasma ethanol [...] 5-14 Serum or plasma urea nitrogen measurement (mass/volume ) 14 mg/dL 7-18 Serum or plasma creatinine measurement (mass/volume) 0.85 mg/dL 0.60-1.30 Serum or plasma urea nitrogen/creatinine mass ratio 16 NRG Serum or plasma creatinine measurement w ith calculation of estimated glomerular filtration rate > NRG Serum or plasma glucose measurement (mass/volume) 121 mg/dL 70-105 Serum or plasma calcium measurement (mass/volume) 8.8 mg/dL 8.5-10.1 Serum or plasma total bilirubin measurement (mass/volu me) 0.8 mg/dL 0.1-1.0 Serum or plasma alkaline phosphatase shaheen surement (enzymatic activity/volume) 44 U/L 40-136 Serum or plasma aspartate aminotransfera se measurement (enzymatic activity/volume) 26 U/L 5-34 Serum or plasma alanine aminotransferase measurement (enzymatic activity/volume) 21 U/L 0-55 Serum or plasma protein measurement (mass/volume) 7.2 g/dL 6.4-8.2 Serum or plasma albumin measurement (mass/volume) 4.2 g/dL 3.2-4.5 Complete blood count (CBC) with automate d white blood cell (WBC) differential - 06/12/17 08:45 Blood leukocytes automated count (number/volume) 12.9 10*3/uL 4.3-11.0 Blood erythrocytes automated count (number/volume) 4.54 10*6/uL 4.35-5.85 Venous blood hemoglobin measurement (mass/volume) 14.0 g/dL 11.5-16.0 Blood hematocrit (volume fraction) 42 % 35-52 Automated erythrocyte mean corpuscular volume 92 [ foz_us] 80-99 Automated erythrocyte mean corpuscular h emoglobin (mass per erythrocyte) 31 pg 25-34 Automated erythrocyte mean corpuscular h emoglobin concentration measurement (mass/volume) 34 g/dL 32-36 Automated erythrocyte distribution width ratio 12. 7 % 10.0- 14.5 Automated blood platelet count (count/volume) 221 10*3/uL [...] 10*3 1.0-4.0 Blood monocytes automated count (number/volume) 0. 7 10*3 0.0-1.0 Automated eosinophil count 0.0 10*3/uL 0 .0-0.3 Automated blood basophil count (count/volume) 0.0 10*3/uL 0.0-0.1 Comprehensive metabolic panel - 06/12/17 08:45 Serum or plasma sodium measurement (moles/volume) 138 mmol/L 135-145 Serum or plasma potassium measurement (moles/volume) 3.6 mmol/L 3.6-5.0 Serum or plasma chloride measurement (moles/volume) 110 mmol/L 98-107 Carbon dioxide 19 mmol/L 21-32 Serum or plasma anion gap determination (moles/volume) 9 mmol/L 5-14 Serum or plasma urea nitrogen measurement (mass/volume ) 8 mg/dL 7-18 Serum or plasma creatinine measurement (mass/volume) 0.59 mg/dL 0.60-1.30 Serum or plasma urea nitrogen/creatinine mass ratio 14 NRG Serum or plasma creatinine measurement w ith calculation of estimated glomerular filtration rate > NRG Serum or plasma glucose measurement (mass/volume) 103 mg/dL 70-105 Serum or plasma calcium measurement (mass/volume) 7.4 mg/dL 8.5-10.1 Serum or plasma total bilirubin measurement (mass/volu me) 1.1 mg/dL 0.1-1.0 Serum or plasma alkaline phosphatase shaheen surement (enzymatic activity/volume) 32 U/L 40-136 Serum or plasma aspartate aminotransfera se measurement (enzymatic activity/volume) 13 U/L 5-34 Serum or plasma alanine aminotransferase measurement (enzymatic activity/volume) 12 U/L 0-55 Serum or plasma protein measurement (mass/volume) 5.7 g/dL 6.4-8.2 Serum or plasma albumin measurement (mass/volume) 3.4 g/dL 3.2-4.5 Lipase - 06/12/17 08:45 Lipase 2075 U/L 8-78 CA 125 - 06/12/17 08:45 CA 125 C 8.8 u[iU]/mL 2.0-30.0 Complete blood count (CBC) with automate d white blood cell (WBC) differential - 06/13/17 06:05 Blood leukocytes automated count (number/volume) 14.6 10*3/uL 4.3-11.0 Blood erythrocytes automated count (number/volume) 4.10 10*6/uL 4.35-5.85 Venous blood hemoglobin measurement (mass/volume) 12.7 g/dL 11.5-16.0 Blood hematocrit (volume fraction) 38 % 35-52 Automated erythrocyte mean corpuscular volume 92 [ foz_us] 80-99 Automated erythrocyte mean corpuscular h emoglobin (mass per erythrocyte) 31 pg 25-34 Automated erythrocyte mean corpuscular h emoglobin concentration measurement (mass/volume) 34 g/dL 32-36 Automated erythrocyte distribution width ratio 12. 4 % 10.0- 14.5 Automated blood platelet count (count/volume) 208 10*3/uL [...] 10*3 1.0-4.0 Blood monocytes automated count (number/volume) 0. 8 10*3 0.0-1.0 Automated eosinophil count 0.1 10*3/uL 0 .0-0.3 Automated blood basophil count (count/volume) 0.0 10*3/uL 0.0-0.1 Whole blood basic metabolic panel - 06/01 11/15 06:05 Serum or plasma sodium measurement (moles/volume) 133 mmol/L 135-145 Serum or plasma potassium measurement (moles/volume) 3.4 mmol/L 3.6-5.0 Serum or plasma chloride measurement (moles/volume) 105 mmol/L 98-107 Carbon dioxide 17 mmol/L 21-32 Serum or plasma anion gap determination (moles/volume) 11 mmol/L 5-14 Serum or plasma urea nitrogen measurement (mass/volume ) 4 mg/dL 7-18 Serum or plasma creatinine measurement (mass/volume) 0.53 mg/dL 0.60-1.30 Serum or plasma urea nitrogen/creatinine mass ratio 8 NRG Serum or plasma creatinine measurement w ith calculation of estimated glomerular filtration rate > NRG Serum or plasma glucose measurement (mass/volume) 104 mg/dL 70-105 Serum or plasma calcium measurement (mass/volume) 7.6 mg/dL 8.5-10.1 Lipase - 06/13/17 06:05 Lipase 393 U/L 8-78 Urine beta human chorionic gonadotropin (hCG) measurement - 06/13/17 09:50 Urine beta human chorionic gonadotropin (hCG) measurem ent NEGATIVE NEGATIVE Urine drug screening test - 06/13/17 09: 50 Urine phencyclidine detection by screening method NEGATIVE NEGATIVE Urine benzodiazepines detection by screening method NEGATIVE NEGATIVE Urine cocaine detection NEGATIVE NEGATI VE Urine amphetamines detection by screening method N EGATIVE NEGATIVE Urine methamphetamine detection by screening method NEGATIVE NEGATIVE Urine cannabinoids detection by screening method P OSITIVE NEGATIVE Urine opiates detection by screening method POSITI VE NEGATIVE Urine barbiturates detection NEGATIVE N EGATIVE Screening urine tricyclic antidepressants detection NEGATIVE NEGATIVE Urine methadone detection by screening method NEGA TIVE NEGATIVE Urine oxycodone detection NEGATIVE NEGA TIVE Urine propoxyphene detection NEGATIVE N EGATIVE Complete blood count (CBC) with automate d white blood cell (WBC) differential - 06/22/17 20:55 Blood leukocytes automated count (number/volume) 23.9 10*3/uL 4.3-11.0 Blood erythrocytes automated count (number/volume) 4.27 10*6/uL 4.35-5.85 Venous blood hemoglobin measurement (mass/volume) 12.9 g/dL 11.5-16.0 Blood hematocrit (volume fraction) 38 % 35-52 Automated erythrocyte mean corpuscular volume 88 [ foz_us] 80-99 Automated erythrocyte mean corpuscular h emoglobin (mass per erythrocyte) 30 pg 25-34 Automated erythrocyte mean corpuscular h emoglobin concentration measurement (mass/volume) 34 g/dL 32-36 Automated erythrocyte distribution width ratio 12. 4 % 10.0- 14.5 Automated blood platelet count (count/volume) 582 10*3/uL [...] 10*3 1.0-4.0 Blood monocytes automated count (number/volume) 1. 3 10*3 0.0-1.0 Automated eosinophil count 0.1 10*3/uL 0 .0-0.3 Automated blood basophil count (count/volume) 0.0 10*3/uL 0.0-0.1 Blood manual differential performed dete ction - 06/22/17 20:55 Blood monocytes/100 leukocytes 1 [...] 5-14 Serum or plasma urea nitrogen measurement (mass/volume ) 9 mg/dL 7-18 Serum or plasma creatinine measurement (mass/volume) 0.72 mg/dL 0.60-1.30 Serum or plasma urea nitrogen/creatinine mass ratio 13 NRG Serum or plasma creatinine measurement w ith calculation of estimated glomerular filtration rate > NRG Serum or plasma glucose measurement (mass/volume) 124 mg/dL 70-105 Serum or plasma calcium measurement (mass/volume) 9.5 mg/dL 8.5-10.1 Serum or plasma total bilirubin measurement (mass/volu me) 0.9 mg/dL 0.1-1.0 Serum or plasma alkaline phosphatase shaheen surement (enzymatic activity/volume) 191 U/L 40-136 Serum or plasma aspartate aminotransfera se measurement (enzymatic activity/volume) 17 U/L 5-34 Serum or plasma alanine aminotransferase measurement (enzymatic activity/volume) 30 U/L 0-55 Serum or plasma protein measurement (mass/volume) 7.7 g/dL 6.4-8.2 Serum or plasma albumin measurement (mass/volume) 3.7 g/dL 3.2-4.5 Magnesium - 06/22/17 20:55 Magnesium 1.9 mg/dL 1.8-2.4 Lipase - 06/22/17 20:55 Lipase 93 U/L 8-78 Serum or plasma C reactive protein measu rement (mass/volume) - 06/22/17 20:55 Serum or plasma C reactive protein measurement (mass/v olume) 23.99 mg/dL 0.00-0.50 Complete urinalysis with reflex to cultu re - 06/22/17 21:00 Urine color determination MARCO A NRG Urine clarity determination CLEAR NR G Urine pH measurement by test strip 6 5-9 Specific gravity of urine by test strip 1.015 1.016-1.022 Urine protein assay by test strip, semi-quantitative 3+ NEGATIVE Urine glucose detection by automated test strip NE GATIVE NEGATIVE Erythrocytes detection in urine sediment by light micr oscopy 4+ NEGATIVE Urine ketones detection by automated test strip 4+ NEGATIVE Urine nitrite detection by test strip POSITIVE NEGATIVE Urine total bilirubin detection by test strip 2+ NEGATIVE Urine urobilinogen measurement by automated test strip (mass/volume) 1 mg/dL NORMAL Urine leukocyte esterase detection by dipstick 1+ NEGATIVE Automated urine sediment erythrocyte cou nt by microscopy (number/high power field) [HPF] NRG Automated urine sediment leukocyte count by microscopy (number/high power field) [HPF] NRG Bacteria detection in urine sediment by light microsco py MODERATE NRG Squamous epithelial cells detection in u rine sediment by light microscopy 10-25 NRG Crystals detection in urine sediment by light microsco py NONE NRG Casts detection in urine sediment by light microscopy NONE NRG Mucus detection in urine sediment by light microscopy LARGE NRG Complete urinalysis with reflex to culture YES NRG Renal epithelial cells detection in urin e sediment by light microscopy NONE NRG Urine beta human chorionic gonadotropin (hCG) measurement - 06/22/17 21:00 Urine beta human chorionic gonadotropin (hCG) measurem ent NEGATIVE NEGATIVE Bacterial urine culture - 06/22/17 21:00 Bacterial urine culture [id number] NRG COLONY COUNT <10,000 NRG FREE TEXT ENTRY 2 MIXED GRAM POSITIVE DANAY NRG Blood lactic acid measurement (moles/vol ume) - 06/22/17 22:26 Blood lactic acid measurement (moles/volume) 0.81 mmol/L 0.50-2.00 Bacterial blood culture - 06/22/17 22:26 Bacterial blood culture NG NRG Bacterial blood culture - 06/22/17 22:40 Bacterial blood culture NG NRG Complete blood count (CBC) with automate d white blood cell (WBC) differential - 06/23/17 05:42 Blood leukocytes automated count (number/volume) 25.1 10*3/uL 4.3-11.0 Blood erythrocytes automated count (number/volume) 3.95 10*6/uL 4.35-5.85 Venous blood hemoglobin measurement (mass/volume) 11.8 g/dL 11.5-16.0 Blood hematocrit (volume fraction) 35 % 35-52 Automated erythrocyte mean corpuscular volume 90 [ foz_us] 80-99 Automated erythrocyte mean corpuscular h emoglobin (mass per erythrocyte) 30 pg 25-34 Automated erythrocyte mean corpuscular h emoglobin concentration measurement (mass/volume) 33 g/dL 32-36 Automated erythrocyte distribution width ratio 12. 5 % 10.0- 14.5 Automated blood platelet count (count/volume) 539 10*3/uL [...] 10*3 1.0-4.0 Blood monocytes automated count (number/volume) 1. 3 10*3 0.0-1.0 Automated eosinophil count 0.0 10*3/uL 0 .0-0.3 Automated blood basophil count (count/volume) 0.0 10*3/uL 0.0-0.1 Comprehensive metabolic panel - 06/23/17 05:42 Serum or plasma sodium measurement (moles/volume) 136 mmol/L 135-145 Serum or plasma potassium measurement (moles/volume) 3.3 mmol/L 3.6-5.0 Serum or plasma chloride measurement (moles/volume) 101 mmol/L 98-107 Carbon dioxide 23 mmol/L 21-32 Serum or plasma anion gap determination (moles/volume) 12 mmol/L 5-14 Serum or plasma urea nitrogen measurement (mass/volume ) 7 mg/dL 7-18 Serum or plasma creatinine measurement (mass/volume) 0.71 mg/dL 0.60-1.30 Serum or plasma urea nitrogen/creatinine mass ratio 10 NRG Serum or plasma creatinine measurement w ith calculation of estimated glomerular filtration rate > NRG Serum or plasma glucose measurement (mass/volume) 173 mg/dL 70-105 Serum or plasma calcium measurement (mass/volume) 8.9 mg/dL 8.5-10.1 Serum or plasma total bilirubin measurement (mass/volu me) 0.9 mg/dL 0.1-1.0 Serum or plasma alkaline phosphatase shaheen surement (enzymatic activity/volume) 177 U/L 40-136 Serum or plasma aspartate aminotransfera se measurement (enzymatic activity/volume) 19 U/L 5-34 Serum or plasma alanine aminotransferase measurement (enzymatic activity/volume) 26 U/L 0-55 Serum or plasma protein measurement (mass/volume) 7.2 g/dL 6.4-8.2 Serum or plasma albumin measurement (mass/volume) 3.5 g/dL 3.2-4.5 Lipase - 06/23/17 05:42 Lipase 100 U/L 8-78 C DIFFICILE AG + TOXIN A/B. - 06/23/17 1 0:45 RESULTS NEGATIVE FOR ANTIGEN AND TOXIN A/B [facility] Complete blood count (CBC) with automate d white blood cell (WBC) differential - 06/24/17 06:01 Blood leukocytes automated count (number/volume) 20.2 10*3/uL 4.3-11.0 Blood erythrocytes automated count (number/volume) 4.18 10*6/uL 4.35-5.85 Venous blood hemoglobin measurement (mass/volume) 12.5 g/dL 11.5-16.0 Blood hematocrit (volume fraction) 38 % 35-52 Automated erythrocyte mean corpuscular volume 90 [ foz_us] 80-99 Automated erythrocyte mean corpuscular h emoglobin (mass per erythrocyte) 30 pg 25-34 Automated erythrocyte mean corpuscular h emoglobin concentration measurement (mass/volume) 33 g/dL 32-36 Automated erythrocyte distribution width ratio 12. 7 % 10.0- 14.5 Automated blood platelet count (count/volume) 497 10*3/uL [...] 10*3 1.0-4.0 Blood monocytes automated count (number/volume) 1. 5 10*3 0.0-1.0 Automated eosinophil count 0.0 10*3/uL 0 .0-0.3 Automated blood basophil count (count/volume) 0.0 10*3/uL 0.0-0.1 Comprehensive metabolic panel - 06/24/17 06:01 Serum or plasma sodium measurement (moles/volume) 137 mmol/L 135-145 Serum or plasma potassium measurement (moles/volume) 3.6 mmol/L 3.6-5.0 Serum or plasma chloride measurement (moles/volume) 103 mmol/L 98-107 Carbon dioxide 19 mmol/L 21-32 Serum or plasma anion gap determination (moles/volume) 15 mmol/L 5-14 Serum or plasma urea nitrogen measurement (mass/volume ) 7 mg/dL 7-18 Serum or plasma creatinine measurement (mass/volume) 0.70 mg/dL 0.60-1.30 Serum or plasma urea nitrogen/creatinine mass ratio 10 NRG Serum or plasma creatinine measurement w ith calculation of estimated glomerular filtration rate > NRG Serum or plasma glucose measurement (mass/volume) 108 mg/dL 70-105 Serum or plasma calcium measurement (mass/volume) 9.2 mg/dL 8.5-10.1 Serum or plasma total bilirubin measurement (mass/volu me) 1.2 mg/dL 0.1-1.0 Serum or plasma alkaline phosphatase shaheen surement (enzymatic activity/volume) 168 U/L 40-136 Serum or plasma aspartate aminotransfera se measurement (enzymatic activity/volume) 28 U/L 5-34 Serum or plasma alanine aminotransferase measurement (enzymatic activity/volume) 32 U/L 0-55 Serum or plasma protein measurement (mass/volume) 7.2 g/dL 6.4-8.2 Serum or plasma albumin measurement (mass/volume) 3.4 g/dL 3.2-4.5 Complete blood count (CBC) with automate d white blood cell (WBC) differential - 06/25/17 05:54 Blood leukocytes automated count (number/volume) 16.4 10*3/uL 4.3-11.0 Blood erythrocytes automated count (number/volume) 3.61 10*6/uL 4.35-5.85 Venous blood hemoglobin measurement (mass/volume) 10.7 g/dL 11.5-16.0 Blood hematocrit (volume fraction) 33 % 35-52 Automated erythrocyte mean corpuscular volume 90 [ foz_us] 80-99 Automated erythrocyte mean corpuscular h emoglobin (mass per erythrocyte) 30 pg 25-34 Automated erythrocyte mean corpuscular h emoglobin concentration measurement (mass/volume) 33 g/dL 32-36 Automated erythrocyte distribution width ratio 12. 5 % 10.0- 14.5 Automated blood platelet count (count/volume) 511 10*3/uL [...] 10*3 1.0-4.0 Blood monocytes automated count (number/volume) 1. 3 10*3 0.0-1.0 Automated eosinophil count 0.1 10*3/uL 0 .0-0.3 Automated blood basophil count (count/volume) 0.0 10*3/uL 0.0-0.1 Whole blood basic metabolic panel - 06/02 01/15 05:54 Serum or plasma sodium measurement (moles/volume) 133 mmol/L 135-145 Serum or plasma potassium measurement (moles/volume) 4.1 mmol/L 3.6-5.0 Serum or plasma chloride measurement (moles/volume) 100 mmol/L 98-107 Carbon dioxide 23 mmol/L 21-32 Serum or plasma anion gap determination (moles/volume) 10 mmol/L 5-14 Serum or plasma urea nitrogen measurement (mass/volume ) 4 mg/dL 7-18 Serum or plasma creatinine measurement (mass/volume) 0.57 mg/dL 0.60-1.30 Serum or plasma urea nitrogen/creatinine mass ratio 7 NRG Serum or plasma creatinine measurement w ith calculation of estimated glomerular filtration rate > NRG Serum or plasma glucose measurement (mass/volume) 118 mg/dL 70-105 Serum or plasma calcium measurement (mass/volume) 8.3 mg/dL 8.5-10.1 Complete urinalysis with reflex to cultu re - 09/02/18 09:30 Urine color determination YELLOW NRG Urine clarity determination CLEAR NR G Urine pH measurement by test strip 5 5-9 Specific gravity of urine by test strip 1.025 1.016-1.022 Urine protein assay by test strip, semi-quantitative 2+ NEGATIVE Urine glucose detection by automated test strip NE GATIVE NEGATIVE Erythrocytes detection in urine sediment by light micr oscopy 4+ NEGATIVE Urine ketones detection by automated test strip 1+ NEGATIVE Urine nitrite detection by test strip NEGATIVE NEGATIVE Urine total bilirubin detection by test strip NEGA TIVE NEGATIVE Urine urobilinogen measurement by automated test strip (mass/volume) 1 mg/dL NORMAL Urine leukocyte esterase detection by dipstick 1+ NEGATIVE Automated urine sediment erythrocyte cou nt by microscopy (number/high power field) [HPF] NRG Automated urine sediment leukocyte count by microscopy (number/high power field) [HPF] NRG Bacteria detection in urine sediment by light microsco py TRACE NRG Squamous epithelial cells detection in u rine sediment by light microscopy 5-10 NRG Crystals detection in urine sediment by light microsco py NONE NRG Casts detection in urine sediment by light microscopy NONE NRG Mucus detection in urine sediment by light microscopy MODERATE NRG Complete urinalysis with reflex to culture YES NRG Bacterial urine culture - 09/02/18 09:30 Bacterial urine culture NG NRG Automated blood complete blood count (he mogram) panel - 09/02/18 10:05 Blood leukocytes automated count (number/volume) 9.8 10*3/uL 4.3-11.0 Blood erythrocytes automated count (number/volume) 4.70 10*6/uL 4.35-5.85 Venous blood hemoglobin measurement (mass/volume) 15.1 g/dL 11.5-16.0 Blood hematocrit (volume fraction) 42 % 35-52 Automated erythrocyte mean corpuscular volume 90 [ foz_us] 80-99 Automated erythrocyte mean corpuscular h emoglobin (mass per erythrocyte) 32 pg 25-34 Automated erythrocyte mean corpuscular h emoglobin concentration measurement (mass/volume) 36 g/dL 32-36 Automated erythrocyte distribution width ratio 12. 6 % 10.0- 14.5 Automated blood platelet count (count/volume) 264 10*3/uL [...] 5-14 Serum or plasma urea nitrogen measurement (mass/volume ) 9 mg/dL 7-18 Serum or plasma creatinine measurement (mass/volume) 0.75 mg/dL 0.60-1.30 Serum or plasma urea nitrogen/creatinine mass ratio 12 NRG Serum or plasma creatinine measurement w ith calculation of estimated glomerular filtration rate > NRG Serum or plasma glucose measurement (mass/volume) 94 mg/dL 70-105 Serum or plasma calcium measurement (mass/volume) 8.4 mg/dL 8.5-10.1 Serum or plasma total bilirubin measurement (mass/volu me) 0.4 mg/dL 0.1-1.0 Serum or plasma alkaline phosphatase shaheen surement (enzymatic activity/volume) 48 U/L 40-136 Serum or plasma aspartate aminotransfera se measurement (enzymatic activity/volume) 14 U/L 5-34 Serum or plasma alanine aminotransferase measurement (enzymatic activity/volume) 15 U/L 0-55 Serum or plasma protein measurement (mass/volume) 6.7 g/dL 6.4-8.2 Serum or plasma albumin measurement (mass/volume) 4.2 g/dL 3.2-4.5 CALCIUM CORRECTED 8.2 mg/dL 8.5-10.1 Lipid 1996 panel - 09/02/18 10:05 Serum or plasma triglyceride measurement (mass/volume) 95 mg/dL <150 Serum or plasma cholesterol measurement (mass/volume) 183 mg/dL < 200 Serum or plasma cholesterol in HDL measurement (mass/v olume) 54 mg/dL 40-60 Cholesterol in LDL [mass/volume] in serum or plasma by direct assay 112 mg/dL 1-129 Serum or plasma cholesterol in VLDL measurement (mass/ volume) 19 mg/dL 5-40 Serum or plasma amylase measurement (enz ymatic activity/volume) - 09/02/18 10:05 Serum or plasma amylase measurement (enzymatic activit y/volume) 40 U/L 25-125 Lipase - 09/02/18 10:05 Lipase 12 U/L 8-78 THYROID STIMULATING HORMONE - 09/02/18 1 0:05 THYROID STIMULATING HORMONE 0.36 u[iU]/mL 0.35-4.94 Automated blood complete blood count (he mogram) panel - 10/12/18 09:55 Blood leukocytes automated count (number/volume) 8.8 10*3/uL 4.3-11.0 Blood erythrocytes automated count (number/volume) 5.19 10*6/uL 4.35-5.85 Venous blood hemoglobin measurement (mass/volume) 16.4 g/dL 11.5-16.0 Blood hematocrit (volume fraction) 47 % 35-52 Automated erythrocyte mean corpuscular volume 91 [ foz_us] 80-99 Automated erythrocyte mean corpuscular h emoglobin (mass per erythrocyte) 32 pg 25-34 Automated erythrocyte mean corpuscular h emoglobin concentration measurement (mass/volume) 35 g/dL 32-36 Automated erythrocyte distribution width ratio 13. 0 % 10.0- 14.5 Automated blood platelet count (count/volume) 334 10*3/uL [...] 5-14 Serum or plasma urea nitrogen measurement (mass/volume ) 10 mg/dL 7-18 Serum or plasma creatinine measurement (mass/volume) 0.78 mg/dL 0.60-1.30 Serum or plasma urea nitrogen/creatinine mass ratio 13 NRG Serum or plasma creatinine measurement w ith calculation of estimated glomerular filtration rate > NRG Serum or plasma glucose measurement (mass/volume) 107 mg/dL 70-105 Serum or plasma calcium measurement (mass/volume) 9.9 mg/dL 8.5-10.1 Serum or plasma total bilirubin measurement (mass/volu me) 0.7 mg/dL 0.1-1.0 Serum or plasma alkaline phosphatase shaheen surement (enzymatic activity/volume) 55 U/L 40-136 Serum or plasma aspartate aminotransfera se measurement (enzymatic activity/volume) 18 U/L 5-34 Serum or plasma alanine aminotransferase measurement (enzymatic activity/volume) 16 U/L 0-55 Serum or plasma protein measurement (mass/volume) 7.8 g/dL 6.4-8.2 Serum or plasma albumin measurement (mass/volume) 5.0 g/dL 3.2-4.5 Serum or plasma amylase measurement (enz ymatic activity/volume) - 10/12/18 09:55 Serum or plasma amylase measurement (enzymatic activit y/volume) 81 U/L 25-125 Lipase - 10/12/18 09:55 Lipase 56 U/L 8-78 Complete blood count (CBC) with automate d white blood cell (WBC) differential - 11/01/18 21:20 Blood leukocytes automated count (number/volume) 11.1 10*3/uL 4.3-11.0 Blood erythrocytes automated count (number/volume) 4.79 10*6/uL 4.35-5.85 Venous blood hemoglobin measurement (mass/volume) 15.2 g/dL 11.5-16.0 Blood hematocrit (volume fraction) 44 % 35-52 Automated erythrocyte mean corpuscular volume 92 [ foz_us] 80-99 Automated erythrocyte mean corpuscular h emoglobin (mass per erythrocyte) 32 pg 25-34 Automated erythrocyte mean corpuscular h emoglobin concentration measurement (mass/volume) 35 g/dL 32-36 Automated erythrocyte distribution width ratio 13. 2 % 10.0- 14.5 Automated blood platelet count (count/volume) 306 10*3/uL 130-400 Automated blood platelet mean volume measurement 9.9 [foz_us] 7.4-10.4 Automated blood neutrophils/100 leukocytes 79 % 42-75 Automated blood lymphocytes/100 leukocytes 13 % 12-44 Blood monocytes/100 leukocytes 6 % 0-12 Automated blood eosinophils/100 leukocytes 1 % 0-10 Automated blood basophils/100 leukocytes 0 % 0-10 Blood neutrophils automated count (number/volume) 8.7 10*3 1.8-7.8 Blood lymphocytes automated count (number/volume) 1.5 10*3 1.0-4.0 Blood monocytes automated count (number/volume) 0. 7 10*3 0.0-1.0 Automated eosinophil count 0.1 10*3/uL 0 .0-0.3 Automated blood basophil count (count/volume) 0.0 10*3/uL 0.0-0.1 Comprehensive metabolic panel - 11/01/18 21:20 Serum or plasma sodium measurement (moles/volume) 136 mmol/L 135-145 Serum or plasma potassium measurement (moles/volume) 5.8 mmol/L 3.6-5.0 Serum or plasma chloride measurement (moles/volume) 106 mmol/L 98-107 Carbon dioxide 20 mmol/L 21-32 Serum or plasma anion gap determination (moles/volume) 10 mmol/L 5-14 Serum or plasma urea nitrogen measurement (mass/volume ) 11 mg/dL 7-18 Serum or plasma creatinine measurement (mass/volume) 0.75 mg/dL 0.60-1.30 Serum or plasma urea nitrogen/creatinine mass ratio 15 NRG Serum or plasma creatinine measurement w ith calculation of estimated glomerular filtration rate > NRG Serum or plasma glucose measurement (mass/volume) 98 mg/dL 70-105 Serum or plasma calcium measurement (mass/volume) 9.2 mg/dL 8.5-10.1 Serum or plasma total bilirubin measurement (mass/volu me) 0.3 mg/dL 0.1-1.0 Serum or plasma alkaline phosphatase shaheen surement (enzymatic activity/volume) 33 U/L 40-136 Serum or plasma aspartate aminotransfera se measurement (enzymatic activity/volume) 55 U/L 5-34 Serum or plasma alanine aminotransferase measurement (enzymatic activity/volume) 18 U/L 0-55 Serum or plasma protein measurement (mass/volume) 7.6 g/dL 6.4-8.2 Serum or plasma albumin measurement (mass/volume) 4.3 g/dL 3.2-4.5 CALCIUM CORRECTED 9.0 mg/dL 8.5-10.1 Serum or plasma amylase measurement (enz ymatic activity/volume) - 11/01/18 21:20 Serum or plasma amylase measurement (enzymatic activit y/volume) 1669 U/L 25-125 Serum or plasma choriogonadotropin (preg anatoliy test) detection - 11/01/18 21:20 Serum or plasma choriogonadotropin ( test) de tection NEGATIVE NEGATIVE Lipase - 11/01/18 21:20 Lipase 3429 U/L 8-78 PT panel in platelet poor plasma by coag ulation assay - 11/01/18 21:20 Prothrombin time (PT) in platelet poor plasma by coagu lation assay 12.9 s 12.2-14.7 INR in platelet poor plasma or blood by coagulation as say 1.0 0.8-1.4 Activated partial thromboplastin time (a PTT) in platelet poor plasma bycoagulation assay - 11/01/18 21:20 Activated partial thromboplastin time (a PTT) in platelet poor plasma bycoagulation assay 21 s 24-35 Serum or plasma potassium measurement (m oles/volume) - 11/01/18 21:55 Serum or plasma potassium measurement (moles/volume) 3.7 mmol/L 3.6-5.0 Serum or plasma ethanol measurement (mas s/volume) - 11/01/18 21:55 Serum or plasma ethanol measurement (mass/volume) < mg/dL <10 Comprehensive metabolic panel - 11/04/18 15:55 Serum or plasma sodium measurement (moles/volume) 139 mmol/L 135-145 Serum or plasma potassium measurement (moles/volume) 4.0 mmol/L 3.6-5.0 Serum or plasma chloride measurement (moles/volume) 108 mmol/L 98-107 Carbon dioxide 23 mmol/L 21-32 Serum or plasma anion gap determination (moles/volume) 8 mmol/L 5-14 Serum or plasma urea nitrogen measurement (mass/volume ) 10 mg/dL 7-18 Serum or plasma creatinine measurement (mass/volume) 0.82 mg/dL 0.60-1.30 Serum or plasma urea nitrogen/creatinine mass ratio 12 NRG Serum or plasma creatinine measurement w ith calculation of estimated glomerular filtration rate > NRG Serum or plasma glucose measurement (mass/volume) 100 mg/dL 70-105 Serum or plasma calcium measurement (mass/volume) 9.5 mg/dL 8.5-10.1 Serum or plasma total bilirubin measurement (mass/volu me) 0.3 mg/dL 0.1-1.0 Serum or plasma alkaline phosphatase shaheen surement (enzymatic activity/volume) 35 U/L 40-136 Serum or plasma aspartate aminotransfera se measurement (enzymatic activity/volume) 18 U/L 5-34 Serum or plasma alanine aminotransferase measurement (enzymatic activity/volume) 13 U/L 0-55 Serum or plasma protein measurement (mass/volume) 6.7 g/dL 6.4-8.2 Serum or plasma albumin measurement (mass/volume) 4.4 g/dL 3.2-4.5 CALCIUM CORRECTED 9.2 mg/dL 8.5-10.1 Complete urinalysis with reflex to cultu re - 06/18/19 11:20 Urine color determination YELLOW NRG Urine clarity determination CLEAR NR G Urine pH measurement by test strip 6.5 5-9 Specific gravity of urine by test strip 1.010 1.016-1.022 Urine protein assay by test strip, semi-quantitative NEGATIVE NEGATIVE Urine glucose detection by automated test strip NE GATIVE NEGATIVE Erythrocytes detection in urine sediment by light micr oscopy 1+ NEGATIVE Urine ketones detection by automated test strip NE GATIVE NEGATIVE Urine nitrite detection by test strip NEGATIVE NEGATIVE Urine total bilirubin detection by test strip NEGA TIVE NEGATIVE Urine urobilinogen measurement by automated test strip (mass/volume) NORMAL NORMAL Urine leukocyte esterase detection by dipstick NEG ATIVE NEGATIVE Automated urine sediment erythrocyte cou nt by microscopy (number/high power field) [HPF] NRG Automated urine sediment leukocyte count by microscopy (number/high power field) [HPF] NRG Bacteria detection in urine sediment by light microsco py FEW NRG Squamous epithelial cells detection in u rine sediment by light microscopy 5-10 NRG Crystals detection in urine sediment by light microsco py NONE NRG Casts detection in urine sediment by light microscopy NONE NRG Mucus detection in urine sediment by light microscopy NEGATIVE NRG Complete urinalysis with reflex to culture NO NRG Automated blood complete blood count (he mogram) panel - 06/18/19 11:35 Blood leukocytes automated count (number/volume) 5.8 10*3/uL 4.3-11.0 Blood erythrocytes automated count (number/volume) 4.81 10*6/uL 4.35-5.85 Venous blood hemoglobin measurement (mass/volume) 14.8 g/dL 11.5-16.0 Blood hematocrit (volume fraction) 43 % 35-52 Automated erythrocyte mean corpuscular volume 89 [ foz_us] 80-99 Automated erythrocyte mean corpuscular h emoglobin (mass per erythrocyte) 31 pg 25-34 Automated erythrocyte mean corpuscular h emoglobin concentration measurement (mass/volume) 35 g/dL 32-36 Automated erythrocyte distribution width ratio 12. 7 % 10.0- 14.5 Automated blood platelet count (count/volume) 265 10*3/uL 130-400 Automated blood platelet mean volume measurement 9.3 [foz_us] 7.4-10.4 Comprehensive metabolic panel - 06/18/19 11:35 Serum or plasma sodium measurement (moles/volume) 138 mmol/L 135-145 Serum or plasma potassium measurement (moles/volume) 4.1 mmol/L 3.6-5.0 Serum or plasma chloride measurement (moles/volume) 106 mmol/L 98-107 Carbon dioxide 23 mmol/L 21-32 Serum or plasma anion gap determination (moles/volume) 9 mmol/L 5-14 Serum or plasma urea nitrogen measurement (mass/volume ) 10 mg/dL 7-18 Serum or plasma creatinine measurement (mass/volume) 0.73 mg/dL 0.60-1.30 Serum or plasma urea nitrogen/creatinine mass ratio 14 NRG Serum or plasma creatinine measurement w ith calculation of estimated glomerular filtration rate > NRG Serum or plasma glucose measurement (mass/volume) 94 mg/dL 70-105 Serum or plasma calcium measurement (mass/volume) 10.1 mg/dL 8.5-10.1 Serum or plasma total bilirubin measurement (mass/volu me) 0.7 mg/dL 0.1-1.0 Serum or plasma alkaline phosphatase shaheen surement (enzymatic activity/volume) 40 U/L 40-136 Serum or plasma aspartate aminotransfera se measurement (enzymatic activity/volume) 20 U/L 5-34 Serum or plasma alanine aminotransferase measurement (enzymatic activity/volume) 20 U/L 0-55 Serum or plasma protein measurement (mass/volume) 7.0 g/dL 6.4-8.2 Serum or plasma albumin measurement (mass/volume) 4.4 g/dL 3.2-4.5 CALCIUM CORRECTED 9.8 mg/dL 8.5-10.1 Serum or plasma amylase measurement (enz ymatic activity/volume) - 06/18/19 11:35 Serum or plasma amylase measurement (enzymatic activit y/volume) 49 U/L 25-125 Lipase - 06/18/19 11:35 Lipase 5 U/L 8-78 Complete blood count (CBC) with automate d white blood cell (WBC) differential - 08/04/19 10:35 Blood leukocytes automated count (number/volume) 5.1 10*3/uL 4.3-11.0 Blood erythrocytes automated count (number/volume) 4.45 10*6/uL 4.35-5.85 Venous blood hemoglobin measurement (mass/volume) 14.2 g/dL 11.5-16.0 Blood hematocrit (volume fraction) 41 % 35-52 Automated erythrocyte mean corpuscular volume 92 [ foz_us] 80-99 Automated erythrocyte mean corpuscular h emoglobin (mass per erythrocyte) 32 pg 25-34 Automated erythrocyte mean corpuscular h emoglobin concentration measurement (mass/volume) 35 g/dL 32-36 Automated erythrocyte distribution width ratio 12. 9 % 10.0- 14.5 Automated blood platelet count (count/volume) 243 10*3/uL 130-400 Automated blood platelet mean volume measurement 9.3 [foz_us] 7.4-10.4 Automated blood neutrophils/100 leukocytes 67 % 42-75 Automated blood lymphocytes/100 leukocytes 26 % 12-44 Blood monocytes/100 leukocytes 7 % 0-12 Automated blood eosinophils/100 leukocytes 1 % 0-10 Automated blood basophils/100 leukocytes 1 % 0-10 Blood neutrophils automated count (number/volume) 3.4 10*3 1.8-7.8 Blood lymphocytes automated count (number/volume) 1.3 10*3 1.0-4.0 Blood monocytes automated count (number/volume) 0. 3 10*3 0.0-1.0 Automated eosinophil count 0.0 10*3/uL 0 .0-0.3 Automated blood basophil count (count/volume) 0.0 10*3/uL 0.0-0.1 Blood type T Indirect antibody screen [facility] - 08/04/19 10:35 ABO+Rh group AP NRG Blood group antibody screen NEGATIVE NR G Methicillin resistant Staphylococcus aur eus (MRSA) screening culture - 08/04/19 10:35 Methicillin resistant Staphylococcus aureus (MRSA) scr eening culture NEG NRG Blood type T Indirect antibody screen [facility] - 08/09/19 09:10 WRISTBAND NUMBER [id number] NRG ABO+Rh group AP NRG Blood group antibody screen NEGATIVE NR G Encounters ACCT No. Visit Date/Time Discharge Status Pt. Type Provider Facility Loc./Unit Complaint [id number] 08/09/2019 08:42:00 19:15:00 DIS Outpatient MILTON HERNANDEZ DO [facility] FIBROID UTERUS,CHRONIC PELVIC PAIN [id number] 08/04/2019 10:11:00 10:45:00 DIS Outpatient MILTON HERNANDEZ DO [facility] PREOP FIBROID UTERUS,CHRONIC PELVIC PAIN [id number] 07/21/2019 08:35:00 23:59:59 CLS Outpatient BAN LAUREN MD [facility] RAD ADRENAL MASS [id number] 07/13/2019 10:05:00 23:59:59 CLS Outpatient MILTON HERNANDEZ DO [facility] RAD FIBROID UTERUS [id number] 06/18/2019 11:06:00 23:59:59 CLS Outpatient MICHOACANO WILSON APRN [facility] K86.1 [id number] 06/11/2019 12:46:00 23:59:59 CLS Outpatient MICHOACANO WILSON APRN [facility] RAD L BREAST PAIN [id number] 06/04/2019 14:09:00 23:59:59 CLS Outpatient MICHOACANO WILSON APRN [facility] K86.1 [id number] 11/04/2018 15:03:00 23:59:59 CLS Outpatient MICHOACANO WILSON APRN [facility] CHRONIC,HYPERKALEMIA,DEHYDRATION,PANREATITS [id number] 11/01/2018 19:27:00 23:50:00 DIS Emergency EVELYN C[employer] [facility] ER ABD PAIN/BACK OF NECK P AIN [id number] 10/12/2018 09:39:00 23:59:59 CLS Outpatient TIFFANI LOPEZ MD [facility] LAB K85.90 [id number] 09/02/2018 09:07:00 11:05:00 DIS Outpatient MICHOACANO WILSON APRN [facility] CHRONIC PANCREATITSS [id number] 02/18/2018 09:02:00 23:59:59 CLS Outpatient MICHOACANO WILSON APRN [facility] RAD LEFT BREAST DENSITY [id number] 01/13/2018 07:18:00 23:59:59 CLS Outpatient MICHOACANO WILSON APRN [facility] RAD SCREENING [id number] 06/23/2017 00:58:00 12:15:00 DIS Inpatient PEREZ DO, JENIFFER [facility] 4TH SEPSIS, UTI, PANCREATIT IS PSEUDOCYSTS, COLITIS [id number] 06/20/2017 11:25:00 017 15:03:00 DIS Outpatient EYAL SINGH MD [facility] ENDO REFLUX, N/V, DIARRHEA, BLACK STOOLS [id number] 06/19/2017 08:45:00 017 10:40:00 DIS Outpatient EYAL SINGH MD [facility] PREOP COLO/EGD [id number] 06/11/2017 05:50:00 017 12:20:00 DIS Inpatient ODGERS MD, VERONIKA Turcios [facility] 4TH PANCREATITIS [id number] 02/09/2014 17:00:00 014 23:59:59 CLS Outpatient GUICHO ZAPATA, MILTON Salcido [facility] LABNPT EAR DRAINAGE [id number] 09/12/2013 00:40:00 014 13:20:00 DIS Inpatient STEVE ZAPATA, KERRI Barbour [facility] CSD ACUTE PANCREATITIS [id number] 06/17/2018 01:39:00 Document Registration [id number] 01/19/2012 09:13:00 Document Registration [id number] 09/21/2007 20:07:00 Document Registration [id number] 07/10/2017 09:55:53 07/10/2017 23:59:5 9 [facility] Outpatient
== END 2019-08-09 19:15 | disposition home or self-care (01) ==
LOC: SDC 08:42 → WS 14:20 → SDC 19:15
PROVIDERS: ATTEND Obstetrics & Gynecology
DX: D25.1 Intramural leiomyoma of uterus (principal); N93.9 Abnormal uterine and vaginal bleeding, unspecified; N85.8 Other specified noninflammatory disorders of uterus; F17.210 Nicotine dependence, cigarettes, uncomplicated; F32.9 Major depressive disorder, single episode, unspecified; Z79.899 Other long term (current) drug therapy; Z90.89 Acquired absence of other organs; Z82.49 Family history of ischemic heart disease and other diseases of the circulatory system; Z83.3 Family history of diabetes mellitus; Z80.1 Family history of malignant neoplasm of trachea, bronchus and lung; Z82.3 Family history of stroke
CPT/HCPCS: 84703; 86850; 86900; 86901; 88307; 94664

== ENCOUNTER → 2019-10-14 | Outpatient (CLI) | payer BC ==
[~2019-10-14] MED LIST changes: +DOCU100C37 PO; +IBUP-844 PO; +SIME80TA16 PO
[2019-10-14 12:23] LABS: BASOPHILS % (AUTO) 1 % (0-10); EOSINOPHILS # (AUTO) 0.1 10^3/uL (0.0-0.3); EOSINOPHILS % (AUTO) 2 % (0-10); HEMATOCRIT 44 % (35-52); HEMOGLOBIN 15.5 G/DL (11.5-16.0); LYMPHOCYTES # (AUTO) 2.1 X 10^3 (1.0-4.0); LYMPHOCYTES % (AUTO) 38 % (12-44); MEAN CORPUSCULAR HEMOGLOBIN 32 PG (25-34); MEAN CORPUSCULAR HGB CONC 35 G/DL (32-36); MEAN CORPUSCULAR VOLUME 89 FL (80-99); MEAN PLATELET VOLUME 9.2 FL (7.4-10.4); MONOCYTES # (AUTO) 0.3 X 10^3 (0.0-1.0); MONOCYTES % (AUTO) 6 % (0-12); NEUTROPHILS # (AUTO) 2.9 X 10^3 (1.8-7.8); NEUTROPHILS % (AUTO) 54 % (42-75); PLATELET COUNT 286 10^3/uL (130-400); RED CELL DISTRIBUTION WIDTH 12.2 % (10.0-14.5); WHITE BLOOD COUNT 5.5 10^3/uL (4.3-11.0)
[2019-10-14 12:42] LABS: ALANINE AMINOTRANSFERASE 14 U/L (0-55); ALBUMIN 4.9 GM/DL (3.2-4.5); ALKALINE PHOSPHATASE 50 U/L (40-136); AMYLASE 69 U/L (25-125); BILIRUBIN,TOTAL 0.6 MG/DL (0.1-1.0); BUN/CREATININE RATIO 14; CALCIUM 9.8 MG/DL (8.5-10.1); CARBON DIOXIDE 22 MMOL/L (21-32); CHLORIDE 106 MMOL/L (98-107); CREATININE SERUM 0.78 MG/DL (0.60-1.30); GFR ESTIMATED > 60; GLUCOSE 85 MG/DL (70-105); LIPASE 27 U/L (8-78); POTASSIUM 3.8 MMOL/L (3.6-5.0); SODIUM 138 MMOL/L (135-145); TOTAL PROTEIN 7.6 GM/DL (6.4-8.2)
== END ==
LOC: LAB 11:56
PROVIDERS: ATTEND Nurse Practitioner Family
DX: K86.1 Other chronic pancreatitis (principal); R23.2 Flushing; R61 Generalized hyperhidrosis
CPT/HCPCS: 36415; 80053; 82150; 82672; 83690; 84144; 84439; 84443; 85025

== ENCOUNTER → 2021-10-29 | Outpatient (CLI) | payer SELFPAY ==
[~2021-10-29] MED LIST changes: +ESCI20TA39 PO; -ESCI20TA45 PO; -OXYC-471 PO; +OXYC1TAB11 PO; -POLY17PO31 PO; +POLY17PO54 PO; +SCOP1PAT10 TOP; -SCOP1PAT11 TOP
--- NOTE | 2021-10-29 09:53 | Diagnostic Imaging Report ---
EXAMINATION: CT abdomen and pelvis without contrast. TECHNIQUE: Multiple contiguous axial images were obtained through the abdomen and pelvis without the use of intravenous contrast. All CT scans use one or more of the following dose optimizing techniques: automated exposure control, MA and/or KvP adjustment based on patient size and exam type or iterative reconstruction. HISTORY: ADRENAL MASS COMPARISON: 07/21/2019 FINDINGS: Lung bases: Bibasilar dependent atelectasis. Solid organs: The liver is normal. The gallbladder is normal. There is no biliary ductal dilation. Pancreas is normal. Spleen is normal. Stable 2.5 cm left adrenal nodule with Hounsfield units of -1 compatible with adrenal adenoma. The kidneys are normal without visualized calculus or hydronephrosis. Bowel: There is a small hiatal hernia. No bowel obstruction. The colon is unremarkable. The appendix is nonvisualized and may be surgically absent. Peritoneum: There is no intraperitoneal free fluid or free air. No suspicious lymphadenopathy. Vasculature: Normal without aneurysm. Musculoskeletal: There is a left-sided L5 pars defect. No suspicious osseous lesion or compression fracture. Pelvis: The uterus is surgically absent. Prominent appearance of the bilateral ovaries. The urinary bladder is normal. IMPRESSION: 1. Stable appearance of a 2.5 cm left adrenal adenoma. 2. Prominent appearance of bilateral ovaries. If there is clinical concern, pelvic ultrasound could be performed. Dictated by: Dictated on workstation # [id number]
== END ==
LOC: RAD 09:14
PROVIDERS: ATTEND Physician Assistant
DX: D35.02 Benign neoplasm of left adrenal gland (principal)
CPT/HCPCS: 74176